=== PATIENT | female | born 1955 | race Caucasian/White ===

== ENCOUNTER → 2019-02-20 | Outpatient (CLI) | payer OTHER ==
--- NOTE | 2019-02-20 14:50 | MM ---
Reason for exam: screening (asymptomatic). Last mammogram was performed 1 year and 1 month ago. History: Family history of breast cancer in maternal aunt. Physical Findings: A clinical breast exam by your physician is recommended on an annual basis and results should be correlated with mammographic findings. MG Screening Mammo w CAD Bilateral CC and MLO view(s) were taken. XCCL view(s) were taken of the left breast. Prior study comparison: January 07, 2018, mammogram. December 27, 2016, mammogram. There are scattered fibroglandular densities. There is no discrete abnormality. ASSESSMENT: Negative, BI-RAD 1 RECOMMENDATION: Routine screening mammogram of both breasts in 1 year.
== END ==
LOC: RADMAMWWP 12:20
PROVIDERS: ATTEND Family Medicine
DX: Z12.31 Encounter for screening mammogram for malignant neoplasm of breast (principal)
CPT/HCPCS: 77067

== ENCOUNTER → 2021-06-28 | Outpatient (CLI) | payer MEDICARE, OTHER ==
--- NOTE | 2021-06-28 18:26 | CT ---
EXAMINATION TYPE: CT soft tissue neck wo con DATE OF EXAM: 06/28/2021 COMPARISON: None HISTORY: c/o changes in voice CT DLP: 376.8 mGycm CONTRAST: Patient injected with 0 mL of Isovue 300. TECHNIQUE: Axial images at 3 mm thick sections. Reconstructed images in the coronal plane and sagitt al plane are reviewed. FINDINGS: Limited CT sections are obtained the lung apices. The lung apices appear clear. CT neck: The torus tubarius and fossa of Rosenmuller are normal. Fiber Product Cutting Machine Operator spaces are normal. Para nasal sinuses and mastoid air cells are clear. Parotid glands appear normal and symmetrical. Submandibular glands, are normal. Parapharyngeal spac es are normal. No suspicious adenopathy is evident. The hypopharynx appears within normal limits. Vocal cord level appear closed at the time of this examination. Direct visualization may be useful. Thyroid as visualized is normal. Degenerative changes are present through the cervical spine. There is mild narrowing of the disc heig hts through the cervical spine. Vertebral body heights are preserved. IMPRESSIONS: 1. No suspicious etiology to account for change in voice. Vocal cords cannot be well evaluated been c losed at the time of this examination. Consider direct visualization.
== END | disposition home or self-care (01) ==
LOC: RADCTMAIN 14:38
PROVIDERS: ATTEND Otolaryngology Otolaryngology/Facial Plastic Surgery
DX: R49.9 Unspecified voice and resonance disorder (principal)
CPT/HCPCS: 70490

== ENCOUNTER 2023-12-24 14:11 | Inpatient (IN) | payer MEDICARE, OTHER ==
--- NOTE | 2023-12-24 14:40 | ED ---
General Adult HPI - General Chief complaint: Chest Pain Stated complaint: Chest pain Time Seen by Provider: 12/24/23 14:12 Source: patient, EMS Mode of arrival: EMS Limitations: no limitations - History of Present Illness Initial comments: Patient is a pleasant 68-year-old female present to the emergency department with concerns for chest pain. Daughter had not heard from the patient recently and she went to check on her. Patient is complaining of chest pain for the past 3 days, somewhat severe. Discomfort feels like pressure. Patient does feel somewhat short of breath. Patient does have history of COPD as well. No leg pain or leg swelling. No back pain - Related Data Allergies Allergy/AdvReac Type Severity Reaction Status Date / Time Penicillins Allergy Anaphylaxis Verified 12/24/23 14:35 Sulfa (Sulfonamide Allergy Anaphylaxis Verified 12/24/23 14:35 Antibiotics) Review of Systems ROS Statement: Those systems with pertinent positive or pertinent negative responses have been documented in the HPI. ROS Other: All systems not noted in ROS Statement are negative. Constitutional: Denies: fever Eyes: Denies: eye pain ENT: Denies: ear pain Respiratory: Reports: as per HPI, dyspnea Cardiovascular: Reports: as per HPI, chest pain Endocrine: Reports: fatigue Gastrointestinal: Reports: vomiting Musculoskeletal: Denies: back pain Neurological: Denies: headache Past Medical History Past Medical History: No Reported History History of Any Multi-Drug Resistant Organisms: None Reported Past Surgical History: No Surgical Hx Reported Past Psychological History: No Psychological Hx Reported Smoking Status: Current every day smoker Past Alcohol Use History: Daily Past Drug Use History: None Reported General Exam Limitations: no limitations, altered mental status General appearance: alert Head exam: Present: normocephalic Eye exam: Present: normal appearance Neck exam: Present: normal inspection Respiratory exam: Present: respiratory distress, wheezes Cardiovascular Exam: Present: regular rate, normal rhythm Expanded Peripheral pulses: 2+: Radial (R), Radial (L), Dorsalis Pedis (R), Dorsalis Pedis (L) GI/Abdominal exam: Present: soft. Absent: tenderness Extremities exam: Present: normal inspection. Absent: pedal edema, calf tenderness Neurological exam: Present: alert Expanded Neurological exam: Present: protecting the airway Patient oriented to: Present: person, place. Absent: time (Oriented to month, not year) Speech: Present: fluid speech Cranial nerves: EOM's Intact: Normal Sensory exam: Upper Extremity Light Touch: Normal, Lower Extremity Light Touch: Normal Motor strength exam: RUE: 5, LUE: 5, RLE: 5, LLE: 5 Eye Response: (4) open spontaneously Motor Response: (6) obeys commands Verbal Response: (4) confused conversation Psychiatric exam: Present: normal affect, normal mood Skin exam: Present: normal color Course Vital Signs 12/24/23 12/24/23 14:27 14:50 Temperature 98.4 F Pulse Rate 93 96 Respiratory 30 H 20 Rate Blood Pressure 151/76 O2 Sat by Pulse 78 L Oximetry - Reevaluation(s) Reevaluation #1: 12/24/23 14:41 Case was discussed with Dr. Lu who is coming to evaluate Repeat EKG interpreted by myself shows sinus rhythm with a rate of 93. SD 130. QRS 91. QT 373. QTc 423. Normal axis. Normal QRS. ST elevation aVR. ST depression inferior and lateral. 12/24/23 14:[address] Lu and STEMI alert was activated. EKG Findings - EKG Results: EKG: interpreted by ERMD (ST elevation aVR. Inferior and lateral ST depression.), sinus rhythm, normal axis Medical Decision Making - Medical Decision Making Was pt. sent in by a medical professional or institution (Dr. PA, SALES PRODUCT SPECIALIST, urgent care, hospital, or skilled nursing...) When possible be specific @ -No Did you speak to anyone other than the patient for history (EMS, parent, family, police, friend...)? What history was obtained from this source @ -Daughter is present and helps provide history including concerns for patient not responding to her in the last 2 days. Did you review nursing and triage notes (agree or disagree)? Why? @ -I reviewed and agree with nursing and triage notes Were old charts reviewed (outside hosp., previous admission, EMS record, old EKG, old radiological studies, urgent care reports/EKG's, skilled nursing records)? Report findings @ -No old charts are available Differential Diagnosis (chest pain, altered mental status, abdominal pain women, abdominal pain men, vaginal bleeding, weakness, fever, dyspnea, syncope, headache, dizziness, GI bleed, back pain, seizure, CVA, palpatations, mental health, musculoskeletal)? @ -Differential Chest Pain: Stable Angina, Unstable Angina, STEMI, NSTEMI Aortic Dissection, Pneumothorax, Musculoskeletal, Esophageal Spasm GERD, Cholecystitis, Pancreatitis, Zoster, this is not meant to be an all-inclusive list. EKG interpreted by me (3pts min.). @ -As above X-rays interpreted by me (1pt min.). @ -Chest x-ray shows no acute process CT interpreted by me (1pt min.). @ -None done U/S interpreted by me (1pt. min.). @ -None done What testing was considered but not performed or refused? (CT, X-rays, U/S, labs)? Why? @ -Multiple tests ordered however patient is currently going to the Word Processor Operator. What meds were considered but not given or refused? Why? @ -None Did you discuss the management of the patient with other professionals (professionals i.e. , PA, SALES PRODUCT SPECIALIST, lab, RT, psych nurse, social worker school, oracle brm developer, teacher, hospital chief financial officer, child support case officer)? Give summary @ -Case was discussed with cardiology, Dr. Lu with plans to take patient emergently to the Word Processor Operator. Case also discussed with Dr. Milligan, who will admit. Was smoking cessation discussed for >3mins.? @ -No Was critical care preformed (if so, how long)? @ -31 minutes critical care time Were there social determinants of health that impacted care today? How? (Homelessness, low income, unemployed, alcoholism, drug addiction, transportati on, low edu. Level, literacy, decrease access to med. care, fci, rehab)? @ -No Was there de-escalation of care discussed even if they declined (Discuss DNR or withdrawal of care, Hospice)? DNR status @ -No What co-morbidities impacted this encounter? (DM, HTN, Smoking, COPD, CAD, Cancer, CVA, ARF, Chemo, Hep., AIDS, mental health diagnosis, sleep apnea, morbid obesity)? @ -None Was patient admitted / discharged? Hospital course, mention meds given and route, prescriptions, significant lab abnormalities, going to OR and other pertinent info. @ -Patient presents with chief complaint of chest discomfort, severe, pressure. Patient has associated dyspnea and nausea. EKG changes concerning for STEMI. Patient admitted immediately to Word Processor Operator. Case also discussed with Dr. Goel who will admit covering Dr. Hansen. t Undiagnosed new problem with uncertain prognosis? @ -No Drug Therapy requiring intensive monitoring for toxicity (Heparin, Nitro, Insulin, Cardizem)? @ -No Were any procedures done? @ -No Diagnosis/symptom? @ -STEMI Acute, or Chronic, or Acute on Chronic? @ -Acute Uncomplicated (without systemic symptoms) or Complicated (systemic symptoms)? @ -Default Side effects of treatment? @ -No Exacerbation, Progression, or Severe Exacerbation? @ -No Poses a threat to life or bodily function? How? (Chest pain, [place], [place], pneumonia, PE, COPD, DKA, ARF, appy, cholecystitis, CVA, Diverticulitis, Homicidal, Suicidal, threat to staff... and all critical care pts) @ -Potential threat to cardiac function as well as other disease processes yet to be identified - Lab Data Result diagrams: 12/24/23 14:24 Lab Results 12/24/23 Range/Units 14:24 WBC 11.5 H (3.8-10.6) k/uL RBC 5.70 H (3.80-5.40) m/uL Hgb 17.1 H (11.4-16.0) gm/dL Hct 49.2 H (34.0-46.0) % MCV 86.3 (80.0-100.0) fL MCH 30.0 (25.0-35.0) pg MCHC 34.8 (31.0-37.0) g/dL RDW 13.1 (11.5-15.5) % Plt Count 331 (150-450) k/uL MPV 10.1 Neutrophils % 74 % Lymphocytes % 10 % Monocytes % 12 % Eosinophils % 0 % Basophils % 0 % Neutrophils # 8.5 H (1.3-7.7) k/uL Lymphocytes # 1.1 (1.0-4.8) k/uL Monocytes # 1.3 H (0-1.0) k/uL Eosinophils # 0.0 (0-0.7) k/uL Basophils # 0.0 (0-0.2) k/uL Critical Care Time Critical Care Time: Yes Total Critical Care Time: 31 Disposition Clinical Impression: ST elevation myocardial infarction (STEMI) Disposition: ADMITTED IP TO THIS [facility] Condition: Critical Is patient prescribed a controlled substance at d/c from ED?: No Referrals: Lucy Hansen MD [Primary Care Provider] - 1-2 days Time of Disposition: 14:58
[2023-12-24 14:44] LABS: ALT 76 U/L (4-34); AST 97 U/L (14-36); African American GFR (CKD) >90 (>60 ml/min/1.73 sqM); Albumin 4.5 g/dL (3.5-5.0); Alcohol <10 mg/dL; Alkaline Phosphatase 62 U/L (38-126); Blood Urea Nitrogen 63 mg/dL (7-17); Calcium 8.6 mg/dL (8.4-10.2); Creatine Kinase 730 U/L (30-135); Glucose 127 mg/dL (74-99); Non-African American GFR(CKD) 80 (>60 ml/min/1.73 sqM); Sodium 125 mmol/L (137-145); Total Bilirubin 1.7 mg/dL (0.2-1.3); Total Protein 7.5 g/dL (6.3-8.2)
[2023-12-24] MEDS ORDERED: HEPARIN SODIUM 1,000 UN/ML (10ML VL) IV PRN (14:49)
[2023-12-24 14:50] LABS: Anion Gap 17 mmol/L; Carbon Dioxide 39 mmol/L (22-30)
[2023-12-24] MEDS: IPRATROPIUM-ALBUTEROL 3 ML NEB INHALATION STA ×2 (14:50→17:05)
[2023-12-24] MEDS: HEPARIN SODIUM 1,000 UN/ML (10ML VL) IV ONE (14:51)
[2023-12-24 14:52] LABS: Basophils % (A) 0 %; Eosinophils % (A) 0 %; HCT 49.2 % (34.0-46.0); HGB 17.1 gm/dL (11.4-16.0); Lymphocytes # (A) 1.1 k/uL (1.0-4.8); Lymphocytes % (A) 10 %; MCHC 34.8 g/dL (31.0-37.0); MCV 86.3 fL (80.0-100.0); Mean Platelet Volume 10.1; Monocytes # (A) 1.3 k/uL (0-1.0); Monocytes % (A) 12 %; Neutrophils # (A) 8.5 k/uL (1.3-7.7); Neutrophils % (A) 74 %; Platelet Count 331 k/uL (150-450); Potassium 2.4 mmol/L (3.5-5.1); RDW 13.1 % (11.5-15.5); WBC 11.5 k/uL (3.8-10.6)
[2023-12-24] MEDS ORDERED: LIDOCAINE 1% INJ 10MG/ML (20 ML MDV) ONE (14:53)
[2023-12-24] MEDS ORDERED: HEPARIN SODIUM 1,000 UN/ML (10ML VL) ONE (14:53)
[2023-12-24] MEDS ORDERED: VERAPAMIL 2.5 MG/ML 2 ML AMP ONE (14:53)
[2023-12-24 14:56] LABS: Chloride 69 mmol/L (98-107)
[2023-12-24 15:04] LABS: Appearance,Urine Clear (Clear); Bilirubin,Urine Negative (Negative); Blood,Urine Small (Negative); Color,Urine Colorless; Glucose,Urine (UA) Negative (Negative); Ketones,Urine 2+ (Negative); Leukocyte Esterase,Urine Negative (Negative); Mucus,Urine Rare /hpf; Nitrite,Urine Negative (Negative); PH, Urine 5.5 (5.0-8.0); Protein,Urine 1+ (Negative); RBC,Urine <1 /hpf (0-5); Specific Gravity,Urine 1.013 (1.001-1.035); Urobilinogen,Urine <2.0 mg/dL (<2.0); WBC,Urine 2 /hpf (0-5)
--- NOTE | 2023-12-24 15:04 | XR ---
EXAMINATION TYPE: XR chest 1V portable DATE OF EXAM: 12/24/2023 COMPARISON: NONE HISTORY: Difficulty breathing. TECHNIQUE: Single frontal view of the chest is obtained. FINDINGS: There is no focal air space opacity, pleural effusion, or pneumothorax seen. The cardiac silhouette size is within normal limits. The osseous structures are intact. IMPRESSION: No acute process.
--- NOTE | 2023-12-24 15:10 | P.CRDCN ---
History of Present Illness Consult date: 12/24/23 History of present illness: HISTORY OF PRESENTING ILLNESS 68-year-old female with past medical history of smoking, marijuana use and chronic back pain. Patient had a wellness check at home where she was noticed to be obtunded, complaining of chest heaviness and shortness of breath. Due to this she was presented to the hospital. Upon admission to the ER she was noti manny to be hypoxic with oxygen saturation 80%. Patient reported that she was feeling well until yesterday. She has been having the symptoms from late morning today. She had an ECG performed which showed sinus tachycardia with diffuse ST depressions in all precordial leads and ST elevations in aVR. Patient was complaining of active chest pain. Bedside echocardiogram was performed which showed hyperdynamic LV. RV did not look dilated. Her initial labs showed a troponin of 0.103, CK7 30, creatinine 0.7, potassium 2.4, chloride 69, bicarb 39, sodium 125. Urinary ketones were positive PMH: No past medical history of stroke, malignancy. PSH: Hysterectomy, Social history: Smokes 1 packs/day, smokes marijuana. No heavy alcohol REVIEW OF SYSTEMS 14 point review of system is negative except what is mentioned above in HPI. PHYSICAL EXAMINATION Vital signs reviewed. Head: Normocephalic. Eyes: Sclerae nonicteric. Neck: Brisk carotid upstroke, no jugular venous distention. Lungs: Diminished breath sounds in bilateral lung galvan, mild crackles and rhonchi audible. Heart: Regular rate and rhythm, S1-S2, no S3, no murmur or rub. Abdomen: Soft nontender, positive bowel sounds. Extremities: No edema, intact distal pulses. Neuro: Alert, oritented, no focal deficits. Detailed neuro exam was not performed. ASSESSMENT STEMI, ST elevation in aVR, diffuse ST depressions in other precordial leads Substernal chest pain Elevated troponin 0.103 Hyponatremia, hypokalemia, hypochloride, mildly elevated CPK, urinary ketosis, hyperdynamic LV suggestive of dehydration PLAN 4000 units of IV heparin, aspirin 325 mg, 500 cc fluid bolus, 10 mg KCl, 4 mg Zofran Plan for emergent cardiac catheterization Further recommendations to follow Neil Lu MD, FACC, RPVI Thank you for allowing [facility] to participate in this patient's care. Feel free to reach out in case of any followup questions. Past Medical History Past Medical History: No Reported History History of Any Multi-Drug Resistant Organisms: None Reported Past Surgical History: No Surgical Hx Reported Past Psychological History: No Psychological Hx Reported Smoking Status: Current every day smoker Past Alcohol Use History: Daily Past Drug Use History: None Reported Medications and Allergies Allergies Allergy/AdvReac Type Severity Reaction Status Date / Time Penicillins Allergy Anaphylaxis Verified 12/24/23 14:35 Sulfa (Sulfonamide Allergy Anaphylaxis Verified 12/24/23 14:35 Antibiotics) Physical Exam Vitals: Vital Signs Temp Pulse Resp BP Pulse Ox 12/24/23 14:55 102 H 22 12/24/23 14:50 96 20 12/24/23 14:27 98.4 F 93 30 H 151/76 78 L Intake and Output 12/24/23 12/24/23 12/24/23 06:59 14:59 22:59 Other: Weight 65.771 kg Results 12/24/23 14:24 12/24/23 14:24 Cardiac Enzymes 12/24/23 12/24/23 Range/Units 14:24 14:24 AST 97 H (14-36) U/L Troponin I 0.103 H* (0.000-0.034) ng/mL CBC 12/24/23 Range/Units 14:24 WBC 11.5 H (3.8-10.6) k/uL RBC 5.70 H (3.80-5.40) m/uL Hgb 17.1 H (11.4-16.0) gm/dL Hct 49.2 H (34.0-46.0) % Plt Count 331 (150-450) k/uL Comprehensive Metabolic Panel 12/24/23 Range/Units 14:24 Sodium 125 L (137-145) mmol/L Potassium 2.4 L* (3.5-5.1) mmol/L Chloride 69 L* (98-107) mmol/L Carbon Dioxide 39 H (22-30) mmol/L BUN 63 H (7-17) mg/dL Creatinine 0.77 (0.52-1.04) mg/dL Glucose 127 H (74-99) mg/dL Calcium 8.6 (8.4-10.2) mg/dL AST 97 H (14-36) U/L ALT 76 H (4-34) U/L Alkaline Phosphatase 62 (38-126) U/L Total Protein 7.5 (6.3-8.2) g/dL Albumin 4.5 (3.5-5.0) g/dL Current Medications Generic Name Dose Route Start Last Admin Trade Name Freq PRN Reason Stop Dose Admin Heparin Sodium (Porcine) 0 unit 12/24/23 14:49 Heparin Sodium 1,000 Un/Ml (10ml Vl) IV PER PROTOCOL PRN Low PTT Protocol Heparin Sodium/Sodium Chloride 250 mls @ 7.893 mls/hr 12/24/23 15:00 25,000 unit/ Sodium Chloride IV .Q24H DOMINGO Protocol 12 UNITS/KG/HR Potassium Chloride 10 meq/ IV 100 mls @ 100 mls/hr 12/24/23 14:57 Solution IVPB 12/24/23 15:56 ONCE STA Sodium Chloride 500 mls @ 999 mls/hr 12/24/23 14:58 Saline 0.9% IV 12/24/23 15:28 .Q31M ONE Intake and Output 12/24/23 12/24/23 12/24/23 06:59 14:59 22:59 Other: Weight 65.771 kg Patient Weight 12/25/23 06:59 Weight 65.771 kg 12/24/23 14:24 12/24/23 14:24
[2023-12-24] MEDS ORDERED: fentaNYL (PF) 50 MCG/ML 2 ML AMP ONE (15:15)
[2023-12-24] MEDS: LIDOCAINE 1% INJ 10MG/ML (20 ML MDV) SQ ONE (15:17)
[2023-12-24] MEDS: MIDAZOLAM 2 MG/2 ML VIAL IVP ONE (15:17)
[2023-12-24] MEDS: fentaNYL (PF) 50 MCG/ML 2 ML AMP IVP ONE (15:18)
[2023-12-24 15:26] LABS: Amphetamine Screen,Urine Not Detected (NotDetected); Barbiturate Screen,Urine Not Detected (NotDetected); Benzodiazepines Screen,Urine Not Detected (NotDetected); Cocaine Screen,Urine Not Detected (NotDetected); Methadone Screen, Urine Not Detected (NotDetected); Opiate Screen,Urine Not Detected (NotDetected); Oxycodone Screen, Urine Not Detected (NotDetected); Phencyclidine Screen,Urine Not Detected (NotDetected); Tricyclic Antidepressant,Urine Not Detected (NotDetected); Urn Cannabinoid Scrn Detected (NotDetected)
[2023-12-24] MEDS: ONDANSETRON 4 MG/2 ML VIAL IVP ONE (15:27)
[2023-12-24] MEDS: VERAPAMIL SYRINGE (5 MG/10 ML) INTRAARTER ONE (15:28)
[2023-12-24] MEDS: IOPAMIDOL-370 100ML BTL INJ ONE (15:28)
[2023-12-24] MEDS: SODIUM CHLORIDE 0.9% 1,000 ML IV ONE (15:29)
[2023-12-24 15:30] LABS: NT-Pro-B-Type Natriuretic Pept 904 pg/mL
[2023-12-24] MEDS ORDERED: RX INFO: IV CONTRAST WAS GIVEN 1 EACH MISC MISCELLANE PRN (15:35)
--- NOTE | 2023-12-24 15:41 | P.CARDCATH ---
Date of Procedure: 12/24/23 Description of Procedure: DIAGNOSTIC CORONARY ANGIOGRAPHY and LEFT HEART CATH REPORT PROCEDURES PERFORMED: Left heart catheterization Selective coronary angiography Moderate conscious sedation 14 mins Right radial access INDICATION: STEMI 68-year-old female with no prior cardiovascular history. She is a smoker and marijuana user and has chronic back pain. She was found to have significant weakness and substernal chest pressure and shortness of breath this morning for which she was presented to the ER. On initial presentation she had electrolyte abnormalities with hyponatremia hypokalemia and low chloride. Along with that she had mildly elevated CPK at 700 and mildly elevated troponin. Her ECG was concerning for STEMI with ST elevations in aVR with diffuse ST depressions in all other precordial leads. Because of ST elevations in aVR and substernal chest pressure symptoms she was taken to cardiac catheterization emergently. CONSENT: I have explained the procedural steps of above-mentioned procedures in layman's terms to the patient. I discussed the risks (including but not limited to stroke, emergent vascular or cardiac surgery or ), benefits and alternative therapies for the above-mentioned procedure. I discussed the risks of sedation/analgesia and blood product administration (if indicated). The patient has indicated understanding and acceptance of these risks. Conscious Sedation: Patient's ECG, heart rate, blood pressure, pulse oximetry were monitored throughout the duration of procedure under my direct supervision. 1 mg Versed and [50] mg Fentanyl were used for induction of moderate conscious sedation. Total duration of moderate concious sedation 14 minutes. PROCEDURE: After explaining the risks, benefits and alternatives of the above mentioned procedures in detail to the patient, informed consent was obtained. Patient was taken to the catheterization lab, prepped and draped in usual sterile fashion using universal precuations. Barbow and clovis test were performed to confirm adequate perfusion to fingers. Ultrasound was used to identify the radial artery. 1% lidocaine was infiltrated over the right radial artery. A 6-Yakut sheath was placed and secured in the right radial artery using modified Seldinger technique. The sheath was flushed and 5 mg verapamil was administered intra-arterially. J tipped wire was advanced under fluoroscopic guidance. Once the wire tip reached aortic root 4000 units of IV heparin was given. Over the wire JR4 diagnostic catheter was advanced. The wire in place the catheter was manipulated to cross the aortic valve and entered into LV under fluoroscopy guidance. The wire was removed and the catheter was flushed. LV pressures were obtained and pullback was performed under fluoroscopy. Catheter was manipulated to selectively engage the right coronary ostium. Right coronary angiography was performed in different angiographic projections. The JR4 diagnostic catheter was exchanged for a JL 4 diagnostic catheter over the J-wire. The wire was removed, catheter was flushed and manipulated under fl uoroscopy to selectively engaged the left coronary ostium. Left coronary angioplasty was performed in different angiographic projections. Catheter was removed over the wire. Radial sheath was flushed. The right radial sheath was removed and a TR band was placed with excellent patent hemostasis was achieved. The patient tolerated the procedure well. Patient was transported back to the post catheterization holding area in stable condition. Angiographic images were reviewed in detail. HEMODYNAMICS: Aortic Pressure: 120/70 mmHg. LV pressure: 120/8 mmHg. LVEDP 10 mmHg. There was no significant gradient across the aortic valve. SELECTIVE CORONARY ARTERIOGRAPHY: LEFT MAIN: The left main is a large caliber vessel which bifurcates into the LAD and circumflex. Left main appears angiographically normal. LEFT ANTERIOR DESCENDING CORONARY ARTERY: LAD is a large caliber vessel which wraps around to the apex. Proximal LAD appears angiographically normal. Mid LAD appears angiographically normal. Distal LAD appears angiographically normal. LAD gives 3 small diagonal branches which appears angiographically normal. LEFT CIRCUMFLEX CORONARY ARTERY: It is nondominant vessel. Left circumflex is a moderate caliber vessel. It appears angiographically normal. Distally bifurcates into 2 OM branches which appears angiographically normal. RIGHT CORONARY ARTERY: Dominant vessel. The right coronary artery is a large caliber vessel which gives PDA and PLV branch. It appears angiographically normal. IMPRESSION: Angiographically normal coronary arteries as described above. Normal left sided filling pressures 60 cc IV contrast dye used PLAN: Plan for CT angio to rule out pulmonary embolism 1000 cc normal saline bolus 40 mg KCL Check for lipids, HbA1c, magnesium level, TSH levels Obtain an echocardiogram Replace electrolytes Performing Physician Neil Lu MD, FACC, RPVI Thank you for allowing [facility] to participate in this patient's care. Feel free to reach out in case of any followup questions.
[2023-12-24 17:14] LABS: Glucose,Whole Blood 115 mg/dL (70-110)
[2023-12-24] MEDS: POTASSIUM CHLORIDE ER 20 MEQ TAB.ER PO STA (17:33)
[2023-12-24] MEDS: PANTOPRAZOLE 40 MG TABLET PO STA (17:33)
--- NOTE | 2023-12-24 17:41 | CT ---
EXAMINATION TYPE: CT angio chest CT DLP: 397.40 mGycm, Automated exposure control for dose reduction was used. DATE OF EXAM: 12/24/2023 5:15 PM COMPARISON: Chest radiograph from same day. CLINICAL INDICATION:Female, 68 years old with history of Pulmonary embolism; chest pain/cough TECHNIQUE/CONTRAST: CTA scan of the thorax is performed with IV Contrast, patient injected with 100 ml mL of Isovue 300, MIP images are created and reviewed these are created on a separate workstation.. FINDINGS: Pulmonary Artery: There is no evidence for a filling defect within the pulmonary vasculature to sugge st acute pulmonary embolism. The pulmonary artery is of normal size. Lungs/Pleura: No evidence of focal consolidation, pleural effusion or pneumothorax. Airway: Large airways are patent. Heart: Heart is within normal limits for size. Vasculature: No evidence of aortic aneurysm. Mediastinum: No gross evidence of adenopathy. Musculoskeletal: No acute osseous abnormalities Soft Tissues: Unremarkable. Lower neck: No significant findings. Upper Abdomen: No significant findings. IMPRESSION: No evidence of pulmonary embolism.
[2023-12-24] MEDS: SODIUM CHLORIDE 0.9% 500 ML 500 ML IV ONE (17:43)
--- NOTE | 2023-12-24 17:46 | CT ---
EXAMINATION TYPE: CT brain wo con CT DLP: 1145.10 mGycm, Automated exposure control for dose reduction was used. DATE OF EXAM: 12/24/2023 5:14 PM COMPARISON: None. CLINICAL INDICATION:Female, 68 years old with history of Altered mental status, mental status change TECHNIQUE: Brain: Axial CT images of the brain were obtained with coronal and sagittal reformats created and rev iewed. Contrast used: None. Oral contrast used: None. FINDINGS: Brain: Extra-axial spaces: No abnormal extra-axial fluid collections. Ventricular system: Within normal limits Cerebral parenchyma: No acute intraparenchymal hemorrhage or mass effect. The suarez-white junction is well differentiated. Cerebellum: Unremarkable. Mass effect: No evidence of midline shift. Intracranial vasculature: unremarkable Soft tissues: Normal. Calvarium/osseous structures: No depressed skull fracture. Paranasal sinuses and mastoid air cells: Mild scattered paranasal sinus disease. Visualized orbits: Orbital contents are intact. IMPRESSION: No acute intracranial process.
[2023-12-24] MEDS: SODIUM CHLORIDE 0.9% 1,000 ML IV SCH (18:01)
[2023-12-24] MEDS: methylPREDNISolone SOD SUCCI 125 MG/2 ML VIAL IV STA ×2 (18:39→23:33)
[2023-12-24] MEDS: SODIUM CHLORIDE 0.9% 1,000 ML IV STA (18:40)
[2023-12-24] MEDS: POTASSIUM CHLORIDE 10 MEQ in WATER FOR INJECTION 1 100ML.BAG IVPB STA (18:43)
[2023-12-24] MEDS: ONDANSETRON 4 MG/2 ML VIAL IVP STA (18:43)
[2023-12-24] MEDS: AZITHROMYCIN 500 MG in SODIUM CHLORIDE 0.9% 250 ML IVPB SCH (18:59)
[2023-12-24] MEDS: ASPIRIN 81 MG PO STA (19:00)
[2023-12-24 19:15] LABS: Partial Thromboplastin Time 24.5 sec (22.0-30.0)
[2023-12-24] MEDS: SYMBICORT 80-4.5 MCG INHALER INHALATION SCH (20:07)
[2023-12-24] MEDS: IPRATROPIUM-ALBUTEROL 3 ML NEB INHALATION SCH (20:08)
--- NOTE | 2023-12-24 20:42 | XR ---
EXAMINATION TYPE: XR chest 1V portable DATE OF EXAM: 12/24/2023 8:36 PM CLINICAL INDICATION:Female, 68 years old with history of increased o2 needs; H COMPARISON: Chest radiographs from 12/24/2023 TECHNIQUE: XR chest 1V portable Frontal view of the chest. FINDINGS: Lungs/Pleura: There is no evidence of pleural effusion, focal consolidation, or pneumothorax. Pulmonary vascularity: Unremarkable. Heart/mediastinum: Cardiomediastinal silhouette is unremarkable. Musculoskeletal: No acute osseous pathology. IMPRESSION: No acute cardiopulmonary disease/process.
[2023-12-24 20:50] LABS: ABG Base Excess 19.9 mmol/L; ABG Oxygen Saturation 87.1 % (94-97); ABG PCO2 53 mmHg (35-45); ABG PH 7.52 (7.35-7.45); ABG TCO2 45 mmol/L (19-24); Allen Test Performed? Yes
[2023-12-24 20:54] LABS: ABG HCO3 43 mmol/L (21-25); ABG PO2 52 mmHg (83-108)
[2023-12-24] MEDS: ATORVASTATIN 10 MG TAB PO SCH (21:25)
[2023-12-24] MEDS: GABAPENTIN 400 MG CAP PO SCH (21:25)
[2023-12-24] MEDS: DOXEPIN 10 MG CAP PO SCH (21:25)
[2023-12-24 22:10] LABS: African American GFR (CKD) 65 (>60 ml/min/1.73 sqM); Anion Gap 13 mmol/L; Blood Urea Nitrogen 41 mg/dL (7-17); Calcium 8.1 mg/dL (8.4-10.2); Carbon Dioxide 38 mmol/L (22-30); Chloride 77 mmol/L (98-107); Glucose 125 mg/dL (74-99); Non-African American GFR(CKD) 56 (>60 ml/min/1.73 sqM); Sodium 128 mmol/L (137-145)
[2023-12-24 22:12] LABS: Potassium 2.4 mmol/L (3.5-5.1)
[2023-12-24] MEDS: POTASSIUM CHLORIDE 10 MEQ in WATER FOR INJECTION 1 100ML.BAG IVPB SCH (23:03)
--- NOTE | 2023-12-25 01:56 | P.CNPUL ---
History of Present Illness Consult date: 12/25/23 Requesting physician: Enrrique Moser Reason for consult: dyspnea Chief complaint: Chest pain and shortness of breath History of present illness: I am seeing this patient in new consultation today on 12/25/2023 in the intensive care unit. The patient was transferred to the ICU after a heart catheterization for acute hypoxemic respiratory failure and increased oxygen demands. Patient is a 68-year-old white female with past medical history significant for COPD, current ongoing every day smoker, hyperlipidemia, hypothyroidism, chronic back pain. She smokes roughly 1 pack per day. Her primary care provider is Dr. Hansen. Patient had reportedly not been answering her phone for several days, so her daughter went to check on her at home. She reportedly was acting abnormal and confused and found naked. The patient does not recall this. After being brought to the emergency room yesterday afternoon, she was complaining of substernal chest pain that had been ongoing for the last 3 days. This is localized to the substernal area, she denies any radiation. Occurs mostly with coughing. Is associated with shortness of breath, wheezing, and productive cough. Troponins were elevated on arrival and patient had some isolated ST elevation in lead aVR, along with diffuse/generalized ST depression. She was also noted to be hypoxic. Patient was taken for a heart catheterization yeterday afternoon which revealed angiographically normal coronary arteries and left- sided filling pressures. No significant calcifications or coronary thrombus reported. D-dimer was also elevated, and for this reason the patient was sent for a chest CTA which did not show any evidence of pulmonary embolism. While in the intensive care unit, the patient had increased oxygen and was placed on BiPAP settings 12/6 and FiO2 50%. She is currently resting comfortably in bed, on BiPAP with the above-mentioned settings, in no acute respiratory distress. She is achieving tidal volumes of approximately 400 and her respiratory rate is in the mid 20s. She does have a congested cough and wheezing. Occasional has dif ficulty clearing oral secretions. Denies any fevers at home. She is currently alert and oriented. No signs of hypercapnic encephalopathy. ABGs were obtained earlier and consistent with combined hypoxemic and hypercapnic respiratory failure. She has a component of compensatory metabolic alkalosis and was given a dose of Diamox. CBC on arrival: WBC count 11.5, hemoglobin 17.1, hematocrit 49.2, platelets 331. BMP on arrival: Sodium 128, potassium 2.4, chloride 77, serum bicarb 38, BUN 41, creatinine 1.03, glucose 125. Normal saline is infusing at 75 mL per hour. LFTs mildly elevated. NT proBNP 764. Troponin on arrival 1.03. D-dimer had been elevated at 1.89. Urinalysis not concerning for UTI. Negative for influenza, RSV, COVID-19. Chest x-ray did not show any focal infiltrates or evidence of pneumonia. No acute cardiopulmonary process seen. Patient was covered empirically on a combination of azithromycin and Rocephin. She is afebrile. Vital signs are stable. Review of Systems REVIEW OF SYSTEMS: CONSTITUTIONAL: Denies any recent significant weight loss or weight gain. Denies fevers. EYES: Denies change in vision. EARS, NOSE, MOUTH, THROAT: Denies headaches, denies sore throat. CARDIOVASCULAR: Denies chest pain, palpitations or syncopal episodes. RESPIRATORY: Admits shortness of breath, worsening over the last 3 days, associated congested cough previously productive with clear sputum, wheezing and chest tightness. GASTROINTESTINAL: Admits reduced appetite, some self-limiting nausea and vomiting, and episodes of diarrhea over the last week. Denies any abdominal pain. Denies any franklin blood or melena. Denies any hematemesis. GENITOURINARY: Denies hematuria, denies infections. MUSKULOSKELETAL: Denies pain, denies swelling. INTEGUMENTARY: Denies rash, denies eczema. NEUROLOGICAL: Denies recent memory loss, no recent seizure activity. PSYCHIATRIC: Denies anxiety, denies depression. HEMATOLOGIC/LYMPHATIC: Denies anemia, denies enlarged lymph node Past Medical History Past Medical History: No Reported History History of Any Multi-Drug Resistant Organisms: None Reported Past Surgical History: No Surgical Hx Reported Past Psychological History: No Psychological Hx Reported Smoking Status: Current every day smoker Past Alcohol Use History: Daily Past Drug Use History: None Reported Medications and Allergies Home Medications Medication Instructions Recorded Confirmed Type Cholecalciferol (Vitamin D3) 50 mcg PO DAILY 12/24/23 12/24/23 History [Vitamin D3 (50 Mcg = 2000 Iu)] Cyanocobalamin [Vitamin B-12] 500 mcg PO DAILY 12/24/23 12/24/23 History Doxepin [SINEquan] 10 mg PO HS 12/24/23 12/24/23 History Escitalopram [Lexapro] 30 mg PO DAILY 12/24/23 12/24/23 History Fluticasone Propion/Salmeterol 2 puff INHALATION RT-BID 12/24/23 12/24/23 History [Advair Hfa 230-21 Mcg Inhaler] Gabapentin [Neurontin] 400 mg PO TID 12/24/23 12/24/23 History Levothyroxine Sodium [Synthroid] 50 mcg PO DAILY 12/24/23 12/24/23 History Naproxen [Naprosyn] 375 mg PO BID-W/MEALS PRN 12/24/23 12/24/23 History Bze-Tqsl-Cjxqt Acid 1 cap PO DAILY 12/24/23 12/24/23 History [-U Capsule (formulary)] Simvastatin [Zocor] 20 mg PO HS 12/24/23 12/24/23 History buPROPion XL [Wellbutrin XL] 300 mg PO DAILY 12/24/23 12/24/23 History rOPINIRole HCL [Requip] 1 mg PO TID 12/24/23 12/24/23 History Allergies Allergy/AdvReac Type Severity Reaction Status Date / Time Penicillins Allergy Anaphylaxis Verified 12/24/23 18:03 Sulfa (Sulfonamide Allergy Anaphylaxis Verified 12/24/23 18:03 Antibiotics) Physical Exam Vitals: Vital Signs Temp Pulse Pulse Resp BP BP Pulse Ox 12/24/23 23:00 87 15 121/69 100 12/24/23 22:45 87 19 123/70 100 12/24/23 22:30 85 17 99 12/24/23 22:15 85 18 96 12/24/23 22:08 12/24/23 22:00 86 17 145/63 96 12/24/23 21:45 86 24 135/83 92 L 12/24/23 21:30 91 19 126/75 92 L 12/24/23 21:28 12/24/23 21:15 88 27 H 123/67 87 L 12/24/23 21:00 87 16 123/61 91 L 12/24/23 20:55 12/24/23 20:45 87 19 118/71 89 L 12/24/23 20:30 85 24 126/72 89 L 12/24/23 20:21 89 12/24/23 20:15 86 25 H 135/65 93 L 12/24/23 20:08 83 12/24/23 20:00 99.3 F 86 13 136/73 94 L 12/24/23 19:45 86 24 127/85 85 L 12/24/23 19:30 86 24 125/65 93 L 12/24/23 19:15 81 23 103/76 93 L 12/24/23 19:00 80 32 H 133/83 89 L 12/24/23 18:45 86 22 145/72 94 L 12/24/23 18:30 81 28 H 137/69 88 L 12/24/23 18:15 80 26 H 140/71 88 L 12/24/23 18:00 87 36 H 134/79 89 L 12/24/23 17:45 79 17 95/72 89 L 12/24/23 17:30 79 17 133/76 92 L 12/24/23 17:15 98.4 F 74 23 127/92 94 L 12/24/23 16:45 86 22 138/86 97 12/24/23 16:30 82 22 135/84 97 12/24/23 16:15 90 22 132/64 95 12/24/23 16:00 82 22 94 L 12/24/23 15:44 22 78 L 12/24/23 14:55 102 H 22 12/24/23 14:50 96 20 12/24/23 14:45 90 30 H 80 L 12/24/23 14:27 98.4 F 93 30 H 151/76 78 L FiO2 12/24/23 23:00 12/24/23 22:45 12/24/23 22:30 12/24/23 22:15 12/24/23 22:08 50 12/24/23 22:00 12/24/23 21:45 12/24/23 21:30 12/24/23 21:28 100 12/24/23 21:15 12/24/23 21:00 12/24/23 20:55 50 12/24/23 20:45 12/24/23 20:30 12/24/23 20:21 12/24/23 20:15 12/24/23 20:08 12/24/23 20:00 50 12/24/23 19:45 12/24/23 19:30 12/24/23 19:15 12/24/23 19:00 12/24/23 18:45 12/24/23 18:30 12/24/23 18:15 12/24/23 18:00 12/24/23 17:45 12/24/23 17:30 12/24/23 17:15 12/24/23 16:45 12/24/23 16:30 12/24/23 16:15 12/24/23 16:00 12/24/23 15:44 12/24/23 14:55 12/24/23 14:50 12/24/23 14:45 12/24/23 14:27 Intake and Output 12/24/23 12/24/23 12/25/23 14:59 22:59 06:59 Intake Total 760 175 Output Total 0 Balance 760 175 Intake: IV 760 175 Potassium Chloride 10 meq 100 In Water For Injection 1 100ml.bag @ 100 mls/hr IVPB Q1H [facility] Rx#: [id number] Sodium Chloride 0.9% 1, 435 75 000 ml @ 75 mls/hr IV . [id number] [facility] Rx#:[id number] cefTRIAXone 1 gm In 100 Sodium Chloride 0.9% 50 ml @ 100 mls/hr IVPB Q24HR [facility] Rx#:[id number] Output: Urine 0 Other: # Voids 1 1 Weight 65.771 kg GENERAL EXAM: Alert, 68-year-old white female, fairly comfortable in no apparent distress while on BiPAP. HEAD: Normocephalic and atraumatic EYES: Normal reaction of pupils, equal size. NOSE: Clear with pink turbinates. THROAT: No erythema or exudates. Dry mucous membranes NECK: No masses, no JVD. CHEST: No chest wall deformity. LUNGS: Equal air entry with diffuse coarse rhonchi and expiratory wheezing. On BiPAP with settings 12/6 and FiO2 of 50%. No conversational dyspnea or accessory muscle use while at rest CVS: S1 and S2 normal with no audible murmur, regular rhythm. No extra heart sounds ABDOMEN: No hepatosplenomegaly, active bowel sounds, no guarding or rigidity. SPINE: No scoliosis or deformity SKIN: No rashes CENTRAL NERVOUS SYSTEM: No focal deficits, tone is normal in all 4 extremities. EXTREMITIES: There is no peripheral edema, clubbing, or cyanosis. Peripheral pulses are intact. Right arm TR band in place. No obvious hematoma. Patient has good cap refill in all extremities Results - Laboratory Findings CBC and BMP: 12/24/23 14:24 12/24/23 21:37 ABG ABG pH 7.52 (7.35-7.45) H 12/24/23 20:45 ABG pCO2 53 mmHg (35-45) H 12/24/23 20:45 ABG pO2 52 mmHg (83-108) L* 12/24/23 20:45 ABG O2 Saturation 87.1 % (94-97) L 12/24/23 20:45 PT/INR, D-dimer PT 11.0 sec (10.0-12.5) 12/24/23 18:01 INR 1.0 (<1.2) 12/24/23 18:01 D-Dimer 1.89 mg/L FEU (<0.60) H 12/24/23 18:01 Abnormal lab findings: Abnormal Labs 12/24/23 12/24/23 12/24/23 14:24 14:24 14:24 WBC 11.5 H RBC 5.70 H Hgb 17.1 H Hct 49.2 H Neutrophils # 8.5 H Monocytes # 1.3 H D-Dimer ABG pH ABG pCO2 ABG pO2 ABG HCO3 ABG Total CO2 ABG O2 Saturation Sodium 125 L Potassium 2.4 L* Chloride 69 L* Carbon Dioxide 39 H BUN 63 H Glucose 127 H POC Glucose (mg/dL) Calcium Total Bilirubin 1.7 H AST 97 H ALT 76 H Creatine Kinase 730 H Troponin I 0.103 H* Urine Protein Urine Ketones Urine Blood Urine Mucus U Marijuana (THC) Screen 12/24/23 12/24/23 12/24/23 14:54 17:13 18:01 WBC RBC Hgb Hct Neutrophils # Monocytes # D-Dimer 1.89 H ABG pH ABG pCO2 ABG pO2 ABG HCO3 ABG Total CO2 ABG O2 Saturation Sodium Potassium Chloride Carbon Dioxide BUN Glucose POC Glucose (mg/dL) 115 H Calcium Total Bilirubin AST ALT Creatine Kinase Troponin I Urine Protein 1+ H Urine Ketones 2+ H Urine Blood Small H Urine Mucus Rare H U Marijuana (THC) Screen Detected H 12/24/23 12/24/23 20:45 21:37 WBC RBC Hgb Hct Neutrophils # Monocytes # D-Dimer ABG pH 7.52 H ABG pCO2 53 H ABG pO2 52 L* ABG HCO3 43 H* ABG Total CO2 45 H ABG O2 Saturation 87.1 L Sodium 128 L Potassium 2.4 L* Chloride 77 L Carbon Dioxide 38 H BUN 41 H Glucose 125 H POC Glucose (mg/dL) Calcium 8.1 L Total Bilirubin AST ALT Creatine Kinase Troponin I Urine Protein Urine Ketones Urine Blood Urine Mucus U Marijuana (THC) Screen - Diagnostic Findings Chest x-ray: image reviewed CT scan - chest: image reviewed Assessment and Plan Assessment: Acute hypoxemic and hypercapnic respiratory failure, currently on BiPAP, likely secondary to acute COPD exacerbation. Chest x-ray does not show any acute cardiopulmonary processes. Negative for influenza, RSV, COVID-19. Elevated troponins, likely related to demand ischemia and hypoxia. Patient is status post cardiac catheterization which showed angiographically normal coronary arteries and normal left-sided filling pressures.. Altered mental status, likely secondary to hypercapnic encephalopathy, improving. Brain CT negative for any acute intracranial hemorrhage or mass effect. Compensatory metabolic alkalosis, patient was given a dose of Diamox earlier Prerenal azotemia and severe dehydration Multiple electrolytes abnormalities such as hyponatremia and hypokalemia, being replaced Chronic obstructive pulmonary disease Chronic ongoing tobacco dependence, currently smokes 1 pack per day History of hyperlipidemia History of hypothyroidism History of anxiety and depression Chronic pain Plan: Patient's medications, labs, imaging reviewed Patient has required increased oxygen demands, and is currently on BiPAP with settings 12/6 and FiO2 50%. We will continue on BiPAP with current settings. Patient was initiated on a combination of bronchodilators, budesonide inhalation, formoterol inhalation, and IV Solu-Medrol. Patient's symptoms likely related to acute COPD exacerbation. Patient is currently on a combination of azithromycin and ceftriaxone, which are essentially empiric. procalcitonin level is pending. Patient has been ruled out for ACS Follow-up echocardiogram is pending for the morning. Smoking cessation counseling performed, and nicotine replacement offered. Electrolytes are being replaced Lovenox for DVT prophylaxis. Protonix for GI prophylaxis. Patient will be monitored in the intensive care unit for now. Her respiratory status is labile, and prognosis is guarded. I have personally seen and examined the patient, performed the documentation and the assessment and plan as written. Number of minutes spent on the visit:20 Time with Patient: Greater than 30
[2023-12-25 03:33] LABS: ALT 70 U/L (4-34); AST 63 U/L (14-36); African American GFR (CKD) 62 (>60 ml/min/1.73 sqM); Albumin 4.1 g/dL (3.5-5.0); Alkaline Phosphatase 65 U/L (38-126); Anion Gap 13 mmol/L; Blood Urea Nitrogen 36 mg/dL (7-17); Calcium 8.2 mg/dL (8.4-10.2); Carbon Dioxide 34 mmol/L (22-30); Chloride 83 mmol/L (98-107); Glucose 151 mg/dL (74-99); Non-African American GFR(CKD) 54 (>60 ml/min/1.73 sqM); Potassium 2.9 mmol/L (3.5-5.1); Sodium 130 mmol/L (137-145); Total Bilirubin 0.8 mg/dL (0.2-1.3); Total Protein 6.6 g/dL (6.3-8.2)
[2023-12-25 03:34] LABS: HCT 44.8 % (34.0-46.0); MCH 30.3 pg (25.0-35.0); MCHC 33.6 g/dL (31.0-37.0); Mean Platelet Volume 9.1; Platelet Count 269 k/uL (150-450); RBC 4.97 m/uL (3.80-5.40); WBC 11.2 k/uL (3.8-10.6)
[2023-12-25] MEDS: LORazepam 2 MG/ML INJ IV STA (04:51)
[2023-12-25] MEDS ORDERED: Potassium Replacement Protocol 1 EACH MISC MISCELLANE PRN (05:01)
[2023-12-25] MEDS: LEVOTHYROXINE 50 MCG TAB PO SCH (05:05)
[2023-12-25] MEDS: POTASSIUM CHLORIDE 10 MEQ in WATER FOR INJECTION 1 100ML.BAG IVPB SCH ×2 (05:07→16:18)
[2023-12-25] MEDS: methylPREDNISolone SOD SUCCI 125 MG/2 ML VIAL IV SCH (05:08)
[2023-12-25 06:31] LABS: ABG Base Excess 6.3 mmol/L; ABG HCO3 31 mmol/L (21-25); ABG PCO2 52 mmHg (35-45); ABG PH 7.39 (7.35-7.45); ABG TCO2 33 mmol/L (19-24); Allen Test Performed? Yes
[2023-12-25 06:34] LABS: ABG PO2 57 mmHg (83-108)
[2023-12-25] MEDS: FORMOTEROL FUMARATE 20 MCG/2 ML NEBU INHALATION SCH (07:39)
[2023-12-25] MEDS: BUDESONIDE 1 MG/2 ML NEBU INHALATION SCH (07:39)
--- NOTE | 2023-12-25 08:15 | P.HPIM ---
History of Present Illness H&P Date: 12/24/23 Chief Complaint: Severe chest pain with ST VT, severe shortness of breath, e lectrolyte imbal HISTORY OF PRESENT ILLNESS: 68-year-old female [address] Hansen[address] patient with past medical history of COPD who is currently smoker on regular basis, history of hyper lipidemia, hypothyroidism, chronic back pain, who also has history of chronic neuropathy, c hronic depression, restless leg syndrome, chronic anemia. Apparently she was not answering her phone for the last few days, family went to check on her and found her naked and acting more confused she ended up coming to the emergency department where was seen and evaluated she claims she been having chest pain midsternum for the last 3 days without any radiation she been having mild cough and significant shortness of breath without productive phlegm. The EKG in the emergency department showed ST elevation in the inferior lead and diffuse ST depression in the lateral lead. Troponin being elevated patient was diagnosed with STEMI and ended up being taken to the [facility] by Dr. Lu. Heart catheter came back with completely negative blockage. Patient continues to have significant symptoms of shortness of breath with send at point to have CTA to exclude possibility of PE came back negative no sign of infiltrate. Patient had severe abnormal electrolyte imbalance with her sodium, potassium and chloride she ended up being transferred to the ICU resting on BiPAP settings 126 with FiO2 of 50 percentile started to feel little bit better, start replacing her potassium and continue hydration at that point. REVIEW OF SYSTEMS: CONSTITUTIONAL: Confused still in mild distress. EYES: No icterus sclerae, no conjunctivitis. EARS, NOSE, MOUTH, THROAT, and FACE: No sore throat, lymphadenopathy, carotid bruits or deformity. RESPIRATORY: Slight cough and wheezes. CARDIOVASCULAR: Positive chest pain with orthopnea and angina. GASTROINTESTINAL: No Abd pain, Nausea or vomiting, no Diarrhea or constipation, No GI Bleed, no distention or masses. GENITOURINARY: Negative for Hematuria or UTI, no kidney stones. INTEGUMENT/BREAST: Negative for any muscular injury with mild osteoarthritis.. HEMATOLOGIC/LYMPHATIC: Negative for bleed or purpura. MUSCULOSKELTAL: Negative for Myalgia or arthralgia. NEURLOGICAL: No LOC, Sz or syncope, blurred vision dizziness or abnormality.. BEHAVIORAL/PSYCH: Negative. ENDOCRINE: Negative. PHYSICAL EXAMINATION: General Appearance: Alert, mildly confused looks older than her age. Neck HEENT: Supple, no lymphadenopathy, no thyroid enlargement, no carotid bruits. Lungs: Decreased breath sound bilaterally with fine rhonchi with mild expiratory wheezes. Chest Wall: Decreased expansion with deep inspiration no tenderness and no deformity was found on exam, no costochondral pain or discomfort. Heart: Regular rate and rhythm, S1, S2 normal, no murmur, rub or gallop. Back: Symmetric, no curvature, ROM normal, no CVA tenderness. Abdomen: Soft, non-tender, bowel sounds active all four quadrants, no masses, no organomegaly. Extremities: Extremities normal, atraumatic, no cyanosis or edema. Pulses: 2+ and symmetric. Skin: Skin color, texture, tugor normal, no rashes or lesions. Neurologic: Alert slightly confused cranial nerves II through XII intact, no motor deficit, no abnormal balance or gait. ASSESSMENT AND PLAN: _Severe chest pain with signs of STEMI: Post heart cath with negative finding with normal coronary artery. _Acute respiratory failure: Continue BiPAP, continue oxygen, continue treatment for COPD exacerbation. _Severe electrolyte imbalance including hypokalemia, hyponatremia and hypochloremia: Replace potassium and continue hydration for now repeat CMP in the next 8 hours. _Severe altered mental status: CAT scan of the brain was negative for any acute change if continue to act abnormal will consult neurology. Still not a clear etiology patient is still not acting right we will continue to watch this carefully see if her culture shows any sign of infection _Severe dehydration and prerenal azotemia: Continue hydration with 0.9 at 100 cc an hour. _Chronic history of smoking: Smoking cessation was addressed nicotine patch will be started. _Chronic pain syndrome: Continue gabapentin 400 mg twice a day and she is apparently was on Tylenol No. 4. _Chronic depression: Will hold him on Wellbutrin and doxepin for now continue escitalopram. _Restless leg syndrome: Was on Requip 1 mg 3 times a day will hold the medication to reduce any side effect. _ Hyperlipidemia: Continue simvastatin. _Hypothyroidism: Continue levothyroxine 50 mcg daily. GI prophylaxis: Start patient on pantoprazole. DVT prophylaxis: Patient will be on Lovenox subcutaneous. CODE STATUS: Full code. Admit patient to the inpatient service for more than 2 night stay. The patient admission and circumstances have found and having transferred to the [facility] is all odd and weird her EKG changes are consistent with ST VT with elevated troponin fortunately the cath was negative but patient had many other issue causing respiratory failure and worsening electrolyte imbalance and altered mental status. Patient will be transferred to the ICU for further monitoring control and because her status is changing quickly. Past Medical History Past Medical History: No Reported History History of Any Multi-Drug Resistant Organisms: None Reported Past Surgical History: No Surgical Hx Reported Past Psychological History: No Psychological Hx Reported Smoking Status: Current every day smoker Past Alcohol Use History: Daily Past Drug Use History: None Reported Medications and Allergies Home Medications Medication Instructions Recorded Confirmed Type Cholecalciferol (Vitamin D3) 50 mcg PO DAILY 12/24/23 12/24/23 History [Vitamin D3 (50 Mcg = 2000 Iu)] Cyanocobalamin [Vitamin B-12] 500 mcg PO DAILY 12/24/23 12/24/23 History Doxepin [SINEquan] 10 mg PO HS 12/24/23 12/24/23 History Escitalopram [Lexapro] 30 mg PO DAILY 12/24/23 12/24/23 History Fluticasone Propion/Salmeterol 2 puff INHALATION RT-BID 12/24/23 12/24/23 History [Advair Hfa 230-21 Mcg Inhaler] Gabapentin [Neurontin] 400 mg PO TID 12/24/23 12/24/23 History Levothyroxine Sodium [Synthroid] 50 mcg PO DAILY 12/24/23 12/24/23 History Naproxen [Naprosyn] 375 mg PO BID-W/MEALS PRN 12/24/23 12/24/23 History Hsl-Sdxi-Qyati Acid 1 cap PO DAILY 12/24/23 12/24/23 History [-U Capsule (formulary)] Simvastatin [Zocor] 20 mg PO HS 12/24/23 12/24/23 History buPROPion XL [Wellbutrin XL] 300 mg PO DAILY 12/24/23 12/24/23 History rOPINIRole HCL [Requip] 1 mg PO TID 12/24/23 12/24/23 History Allergies Allergy/AdvReac Type Severity Reaction Status Date / Time Penicillins Allergy Anaphylaxis Verified 12/24/23 18:03 Sulfa (Sulfonamide Allergy Anaphylaxis Verified 12/24/23 18:03 Antibiotics) Physical Exam Vitals: Vital Signs Temp Pulse Pulse Resp BP BP Pulse Ox 12/24/23 19:00 80 32 H 133/83 89 L 12/24/23 18:45 86 22 145/72 94 L 12/24/23 18:30 81 28 H 137/69 88 L 12/24/23 18:15 80 26 H 140/71 88 L 12/24/23 18:00 87 36 H 134/79 89 L 12/24/23 17:45 79 17 95/72 89 L 12/24/23 17:30 79 17 133/76 92 L 12/24/23 17:15 98.4 F 74 23 127/92 94 L 12/24/23 16:45 86 22 138/86 97 12/24/23 16:30 82 22 135/84 97 12/24/23 16:15 90 22 132/64 95 12/24/23 16:00 82 22 94 L 12/24/23 15:44 22 78 L 12/24/23 14:55 102 H 22 12/24/23 14:50 96 20 12/24/23 14:45 90 30 H 80 L 12/24/23 14:27 98.4 F 93 30 H 151/76 78 L Intake and Output 12/24/23 12/24/23 12/24/23 06:59 14:59 22:59 Intake Total 435 Balance 435 Intake: IV 435 Sodium Chloride 0.9% 1, 210 000 ml @ 75 mls/hr IV . [id number] [facility] Rx#:[id number] Other: # Voids 1 Weight 65.771 kg Results CBC & Chem 7: 12/25/23 02:43 12/25/23 02:43 Labs: Abnormal Lab Results - Last 24 Hours (Table) 12/24/23 12/24/23 12/24/23 Range/Units 14:24 14:24 14:24 WBC 11.5 H (3.8-10.6) k/uL RBC 5.70 H (3.80-5.40) m/uL Hgb 17.1 H (11.4-16.0) gm/dL Hct 49.2 H (34.0-46.0) % Neutrophils # 8.5 H (1.3-7.7) k/uL Monocytes # 1.3 H (0-1.0) k/uL D-Dimer (<0.60) mg/L FEU Sodium 125 L (137-145) mmol/L Potassium 2.4 L* (3.5-5.1) mmol/L Chloride 69 L* (98-107) mmol/L Carbon Dioxide 39 H (22-30) mmol/L BUN 63 H (7-17) mg/dL Glucose 127 H (74-99) mg/dL POC Glucose (mg/dL) (70-110) mg/dL Total Bilirubin 1.7 H (0.2-1.3) mg/dL AST 97 H (14-36) U/L ALT 76 H (4-34) U/L Creatine Kinase 730 H (30-135) U/L Troponin I 0.103 H* (0.000-0.034) ng/mL Urine Protein (Negative) Urine Ketones (Negative) Urine Blood (Negative) Urine Mucus (None) /hpf U Marijuana (THC) Screen (NotDetected) 12/24/23 12/24/23 12/24/23 Range/Units 14:54 17:13 18:01 WBC (3.8-10.6) k/uL RBC (3.80-5.40) m/uL Hgb (11.4-16.0) gm/dL Hct (34.0-46.0) % Neutrophils # (1.3-7.7) k/uL Monocytes # (0-1.0) k/uL D-Dimer 1.89 H (<0.60) mg/L FEU Sodium (137-145) mmol/L Potassium (3.5-5.1) mmol/L Chloride (98-107) mmol/L Carbon Dioxide (22-30) mmol/L BUN (7-17) mg/dL Glucose (74-99) mg/dL POC Glucose (mg/dL) 115 H (70-110) mg/dL Total Bilirubin (0.2-1.3) mg/dL AST (14-36) U/L ALT (4-34) U/L Creatine Kinase (30-135) U/L Troponin I (0.000-0.034) ng/mL Urine Protein 1+ H (Negative) Urine Ketones 2+ H (Negative) Urine Blood Small H (Negative) Urine Mucus Rare H (None) /hpf U Marijuana (THC) Screen Detected H (NotDetected)
[2023-12-25] MEDS: PANTOPRAZOLE 40 MG/10 ML VIAL IVP SCH (10:14)
[2023-12-25] MEDS: ENOXAPARIN 40 MG/0.4 ML SYRINGE SQ SCH (10:15)
[2023-12-25] MEDS: NICOTINE 21MG/24HR PATCH TRANSDERM SCH (10:15)
--- NOTE | 2023-12-25 11:33 | CA ---
Transthoracic Echo Report Name: Milagro Gatica Age: 68 Gender: F : 1955 Exam Date: 12/25/2023 08:09 Exam Location: [facility] Ht (in): 64 Wt (lb): 145 Ordering Physician: Neil Lu MD ([email or web address]) Attending/Referring Phys: Occupational Psychologist Madeleine Linares RCS Procedure CPT: Indications: nstemi Cardiac Hx: Technical Quality: Technically difficult study Contrast 1: Definity Total Dose (mL): 4 Contrast 2: Total Dose (mL): MEASUREMENTS (Male / Female) Normal Values 2D ECHO LVOT Diameter 2.0 cm LA Volume 23.8 cm??? 18 - 58 / 22 - 52 cm??? LA Volume Index 13.7 cm???/m??? 16 - 28 cm???/m??? DOPPLER AV Peak Velocity 147.4 cm/s AV Peak Gradient 8.7 mmHg AV Mean Velocity 97.9 cm/s AV Mean Gradient 4.3 mmHg AV Velocity Time Integral 24.2 cm LVOT Peak Velocity 113.2 cm/s LVOT Peak Gradient 5.1 mmHg LVOT Velocity Time Integral 17.5 cm LVOT Stroke Volume 52.2 cm??? LVOT Stroke Volume Index 30.6 ml/m??? LVOT Cardiac Index 2828.9 cm???/min???m??? AV Area Cont Eq vti 2.2 cm??? AV Area Cont Eq pk 2.3 cm??? Mitral E Point Velocity 52.9 cm/s Mitral A Point Velocity 70.7 cm/s Mitral E to A Ratio 0.7 MV Deceleration Time 218.3 ms MV E' Velocity 4.8 cm/s Mitral E to MV E' Ratio 11.0 FINDINGS Left Ventricle Left ventricular ejection fraction is estimated at 60-65 %. Left ventricular cavity size normal. No obvious regional wall motion abnormalities. Right Ventricle Right ventricle not well visualized. Unable to determine right ventricular systolic pressure. Right Atrium Right atrium not well visualized. Left Atrium Normal left atrial size. Mitral Valve Structurally normal mitral valve. No evidence for mitral valve prolapse. No mitral stenosis. Trace mitral regurgitation. Aortic Valve Aortic valve not well visualized. No aortic valve stenosis or regurgitation. Tricuspid Valve Structurally normal tricuspid valve. No tricuspid stenosis, regurgitation or prolapse. Pulmonic Valve Pulmonic valve not well visualized. No pulmonic stenosis. No pulmonic regurgitation. Pericardium No pericardial effusion. Aorta Aortic annulus normal. Ascending aorta not well visualized. CONCLUSIONS Normal LV function Previewed by: Dr. Jimenez Payne MD (Electronically Signed) Final Date: 25 December 2023 11:33
[2023-12-25] MEDS: buPROPion XL 300 MG TAB.ER.24H PO SCH (12:05)
[2023-12-25] MEDS: ESCITALOPRAM 10 MG TAB PO SCH (12:05)
[2023-12-25] MEDS: ASPIRIN 81 MG PO SCH (12:12)
--- NOTE | 2023-12-25 12:36 | P.PN ---
Subjective Progress Note Date: 12/25/23 HISTORY OF PRESENTING ILLNESS 68-year-old female with past medical history of smoking, marijuana use and c hronic back pain. Patient had a wellness check at home where she was noticed to be obtunded, complaining of chest heaviness and shortness of breath. Due to this she was presented to the hospital. Upon admission to the ER she was noticed to be hypoxic with oxygen saturation 80%. Patient reported that she was feeling well until yesterday. She has been having the symptoms from late morning. She had an ECG performed which showed sinus tachycardia with diffuse ST depressions in all precordial leads and ST elevations in aVR. Patient was complaining of active chest pain. Bedside echocardiogram was performed which showed hyperdynamic LV. RV did not look dilated. Her initial labs showed a troponin of 0.103, CK7 30, creatinine 0.7, potassium 2.4, chloride 69, bicarb 39, sodium 125. Urinary ketones were positive PMH: No past medical history of stroke, malignancy. PSH: Hysterectomy, Social history: Smokes 1 packs/day, smokes marijuana. No heavy alcohol Echo shows an EF of 60%, mild LVH, significant valve dysfunction Cardiac cath did not show any significant coronary artery disease No evidence of PE on CT chest Progress Note 12/25/23 BP 118/72, heart rate 89 Labs shows hemoglobin 15, ABG pH 7.3, CO2 52, pO2 57, sodium 130, potassium 2.9, creatinine 1.07, BUN 36, Patient is hypoxic and is requiring BiPAP support. Patient had a CT angio done which did not show any evidence of PE or any signs of pulmonary congestion or pneumonia. PHYSICAL EXAMINATION Vital signs reviewed. Head: Normocephalic. Eyes: Sclerae nonicteric. Neck: Brisk carotid upstroke, no jugular venous distention. Lungs: Diminished breath sounds in bilateral lung galvan, mild crackles and rhonchi audible. Heart: Regular rate and rhythm, S1-S2, no S3, no murmur or rub. Abdomen: Soft nontender, positive bowel sounds. Extremities: No edema, intact distal pulses. Neuro: Alert, oritented, no focal deficits. Detailed neuro exam was not performed. ASSESSMENT Acute hypoxic respiratory failure, on BiPAP Type II NSTEMI from dehydration and hypoxia ST elevation in aVR, diffuse ST depressions in other precordial leads due to hypoxia and Shortness of breath Hyponatremia, hypokalemia, hypochloride, mildly elevated CPK, urinary ketosis PLAN No signs of congestive heart failure based on CT chest. No evidence of obstructive coronary artery disease. No signs of cardiomyopathy on echocardiogram. Elevation of troponin and ST elevation most likely due to dehydration Aspirin 81 mg Supportive care for hypoxia and electrolyte management as per ICU and Primary team. Okay to give IV fluids from cardiology Objective - Vital Signs Vital signs: Vital Signs Temp 98.5 F 12/25/23 08:00 Pulse 89 12/25/23 11:00 Resp 24 12/25/23 11:00 BP 118/72 12/25/23 11:00 Pulse Ox 97 12/25/23 11:00 FiO2 80 12/25/23 11:52 Intake & Output 12/24/23 12/25/23 12/25/23 18:59 06:59 18:59 Intake Total 360 1400 775 Output Total 1450 450 Balance 360 -50 325 Weight 69.3 kg 69.3 kg Intake: IV 360 1400 525 Potassium Chloride 10 meq 400 400 In Water For Injection 1 100ml.bag @ 100 mls/hr IVPB Q1H [facility] Rx#: [id number] Sodium Chloride 0.9% 1, 135 900 75 000 ml @ 75 mls/hr IV . [id number] [facility] Rx#:[id number] cefTRIAXone 1 gm In 100 50 Sodium Chloride 0.9% 50 ml @ 100 mls/hr IVPB Q24HR [facility] Rx#:[id number] Intake, IV Titration 250 Amount Azithromycin 500 mg In 250 Sodium Chloride 0.9% 250 ml @ 250 mls/hr IVPB DAILY [facility] Rx#:[id number] Output: Urine 1450 450 Other: Voiding Method External Catheter External Catheter # Voids 1 1 - Labs CBC & Chem 7: 12/25/23 02:43 12/25/23 02:43 Labs: Abnormal Lab Results - Last 24 Hours (Table) 12/24/23 12/24/23 12/24/23 Range/Units 14:24 14:24 14:24 WBC 11.5 H (3.8-10.6) k/uL RBC 5.70 H (3.80-5.40) m/uL Hgb 17.1 H (11.4-16.0) gm/dL Hct 49.2 H (34.0-46.0) % Neutrophils # 8.5 H (1.3-7.7) k/uL Monocytes # 1.3 H (0-1.0) k/uL D-Dimer (<0.60) mg/L FEU ABG pH (7.35-7.45) ABG pCO2 (35-45) mmHg ABG pO2 (83-108) mmHg ABG HCO3 (21-25) mmol/L ABG Total CO2 (19-24) mmol/L ABG O2 Saturation (94-97) % Sodium 125 L (137-145) mmol/L Potassium 2.4 L* (3.5-5.1) mmol/L Chloride 69 L* (98-107) mmol/L Carbon Dioxide 39 H (22-30) mmol/L BUN 63 H (7-17) mg/dL Creatinine (0.52-1.04) mg/dL Glucose 127 H (74-99) mg/dL POC Glucose (mg/dL) (70-110) mg/dL Calcium (8.4-10.2) mg/dL Total Bilirubin 1.7 H (0.2-1.3) mg/dL AST 97 H (14-36) U/L ALT 76 H (4-34) U/L Creatine Kinase 730 H (30-135) U/L Troponin I 0.103 H* (0.000-0.034) ng/mL Procalcitonin (0.02-0.09) ng/mL Urine Protein (Negative) Urine Ketones (Negative) Urine Blood (Negative) Urine Mucus (None) /hpf U Marijuana (THC) Screen (NotDetected) 12/24/23 12/24/23 12/24/23 Range/Units 14:54 17:13 18:01 WBC (3.8-10.6) k/uL RBC (3.80-5.40) m/uL Hgb (11.4-16.0) gm/dL Hct (34.0-46.0) % Neutrophils # (1.3-7.7) k/uL Monocytes # (0-1.0) k/uL D-Dimer 1.89 H (<0.60) mg/L FEU ABG pH (7.35-7.45) ABG pCO2 (35-45) mmHg ABG pO2 (83-108) mmHg ABG HCO3 (21-25) mmol/L ABG Total CO2 (19-24) mmol/L ABG O2 Saturation (94-97) % Sodium (137-145) mmol/L Potassium (3.5-5.1) mmol/L Chloride (98-107) mmol/L Carbon Dioxide (22-30) mmol/L BUN (7-17) mg/dL Creatinine (0.52-1.04) mg/dL Glucose (74-99) mg/dL POC Glucose (mg/dL) 115 H (70-110) mg/dL Calcium (8.4-10.2) mg/dL Total Bilirubin (0.2-1.3) mg/dL AST (14-36) U/L ALT (4-34) U/L Creatine Kinase (30-135) U/L Troponin I (0.000-0.034) ng/mL Procalcitonin (0.02-0.09) ng/mL Urine Protein 1+ H (Negative) Urine Ketones 2+ H (Negative) Urine Blood Small H (Negative) Urine Mucus Rare H (None) /hpf U Marijuana (THC) Screen Detected H (NotDetected) 12/24/23 12/24/23 12/24/23 Range/Units 20:45 21:37 21:37 WBC (3.8-10.6) k/uL RBC (3.80-5.40) m/uL Hgb (11.4-16.0) gm/dL Hct (34.0-46.0) % Neutrophils # (1.3-7.7) k/uL Monocytes # (0-1.0) k/uL D-Dimer (<0.60) mg/L FEU ABG pH 7.52 H (7.35-7.45) ABG pCO2 53 H (35-45) mmHg ABG pO2 52 L* (83-108) mmHg ABG HCO3 43 H* (21-25) mmol/L ABG Total CO2 45 H (19-24) mmol/L ABG O2 Saturation 87.1 L (94-97) % Sodium 128 L (137-145) mmol/L Potassium 2.4 L* (3.5-5.1) mmol/L Chloride 77 L (98-107) mmol/L Carbon Dioxide 38 H (22-30) mmol/L BUN 41 H (7-17) mg/dL Creatinine (0.52-1.04) mg/dL Glucose 125 H (74-99) mg/dL POC Glucose (mg/dL) (70-110) mg/dL Calcium 8.1 L (8.4-10.2) mg/dL Total Bilirubin (0.2-1.3) mg/dL AST (14-36) U/L ALT (4-34) U/L Creatine Kinase (30-135) U/L Troponin I (0.000-0.034) ng/mL Procalcitonin 0.17 H (0.02-0.09) ng/mL Urine Protein (Negative) Urine Ketones (Negative) Urine Blood (Negative) Urine Mucus (None) /hpf U Marijuana (THC) Screen (NotDetected) 12/25/23 12/25/23 12/25/23 Range/Units 02:43 02:43 02:43 WBC 11.2 H (3.8-10.6) k/uL RBC (3.80-5.40) m/uL Hgb (11.4-16.0) gm/dL Hct (34.0-46.0) % Neutrophils # (1.3-7.7) k/uL Monocytes # (0-1.0) k/uL D-Dimer (<0.60) mg/L FEU ABG pH (7.35-7.45) ABG pCO2 (35-45) mmHg ABG pO2 (83-108) mmHg ABG HCO3 (21-25) mmol/L ABG Total CO2 (19-24) mmol/L ABG O2 Saturation (94-97) % Sodium 130 L (137-145) mmol/L Potassium 2.9 L (3.5-5.1) mmol/L Chloride 83 L (98-107) mmol/L Carbon Dioxide 34 H (22-30) mmol/L BUN 36 H (7-17) mg/dL Creatinine 1.07 H (0.52-1.04) mg/dL Glucose 151 H (74-99) mg/dL POC Glucose (mg/dL) (70-110) mg/dL Calcium 8.2 L (8.4-10.2) mg/dL Total Bilirubin (0.2-1.3) mg/dL AST 63 H (14-36) U/L ALT 70 H (4-34) U/L Creatine Kinase (30-135) U/L Troponin I 0.074 H* (0.000-0.034) ng/mL Procalcitonin (0.02-0.09) ng/mL Urine Protein (Negative) Urine Ketones (Negative) Urine Blood (Negative) Urine Mucus (None) /hpf U Marijuana (THC) Screen (NotDetected) 12/25/23 Range/Units 06:29 WBC (3.8-10.6) k/uL RBC (3.80-5.40) m/uL Hgb (11.4-16.0) gm/dL Hct (34.0-46.0) % Neutrophils # (1.3-7.7) k/uL Monocytes # (0-1.0) k/uL D-Dimer (<0.60) mg/L FEU ABG pH (7.35-7.45) ABG pCO2 52 H (35-45) mmHg ABG pO2 57 L* (83-108) mmHg ABG HCO3 31 H (21-25) mmol/L ABG Total CO2 33 H (19-24) mmol/L ABG O2 Saturation 89.0 L (94-97) % Sodium (137-145) mmol/L Potassium (3.5-5.1) mmol/L Chloride (98-107) mmol/L Carbon Dioxide (22-30) mmol/L BUN (7-17) mg/dL Creatinine (0.52-1.04) mg/dL Glucose (74-99) mg/dL POC Glucose (mg/dL) (70-110) mg/dL Calcium (8.4-10.2) mg/dL Total Bilirubin (0.2-1.3) mg/dL AST (14-36) U/L ALT (4-34) U/L Creatine Kinase (30-135) U/L Troponin I (0.000-0.034) ng/mL Procalcitonin (0.02-0.09) ng/mL Urine Protein (Negative) Urine Ketones (Negative) Urine Blood (Negative) Urine Mucus (None) /hpf U Marijuana (THC) Screen (NotDetected)
[2023-12-25 13:23] LABS: ABG Base Excess 4.2 mmol/L; ABG HCO3 30 mmol/L (21-25); ABG PCO2 51 mmHg (35-45); ABG PH 7.37 (7.35-7.45); ABG PO2 66 mmHg (83-108); ABG TCO2 31 mmol/L (19-24); Allen Test Performed? Yes
[2023-12-25 14:38] LABS: ABG Oxygen Saturation 92.8 % (94-97)
[2023-12-26 05:09] LABS: Basophils % (A) 0 %; Eosinophils % (A) 0 %; HCT 41.9 % (34.0-46.0); HGB 13.3 gm/dL (11.4-16.0); Lymphocytes # (A) 0.6 k/uL (1.0-4.8); Lymphocytes % (A) 4 %; MCHC 31.8 g/dL (31.0-37.0); MCV 91.1 fL (80.0-100.0); Monocytes # (A) 0.8 k/uL (0-1.0); Monocytes % (A) 6 %; Neutrophils # (A) 12.5 k/uL (1.3-7.7); Neutrophils % (A) 88 %; Platelet Count 285 k/uL (150-450); RDW 13.4 % (11.5-15.5); WBC 14.1 k/uL (3.8-10.6)
[2023-12-26 05:37] LABS: African American GFR (CKD) 75 (>60 ml/min/1.73 sqM); Anion Gap 8 mmol/L; Blood Urea Nitrogen 23 mg/dL (7-17); Calcium 8.4 mg/dL (8.4-10.2); Carbon Dioxide 27 mmol/L (22-30); Chloride 101 mmol/L (98-107); Glucose 155 mg/dL (74-99); Non-African American GFR(CKD) 65 (>60 ml/min/1.73 sqM); Potassium 3.2 mmol/L (3.5-5.1); Sodium 136 mmol/L (137-145)
--- NOTE | 2023-12-26 05:49 | P.PN ---
Subjective Progress Note Date: 12/25/23 HISTORY OF PRESENT ILLNESS: 68-year-old female [address] Hansen[address] patient with past medical history of COPD who is currently smoker on regular basis, history of hyper lipidemia, hyp othyroidism, chronic back pain, who also has history of chronic neuropathy, chronic depression, restless leg syndrome, chronic anemia. Apparently she was not answering her phone for the last few days, family went to check on her and found her naked and acting more confused she ended up coming to the emergency department where was seen and evaluated she claims she been having chest pain midsternum for the last 3 days without any radiation she been having mild cough and significant shortness of breath without productive phlegm. The EKG in the emergency department showed ST elevation in the inferior lead and diffuse ST depression in the lateral lead. Troponin being elevated patient was diagnosed with STEMI and ended up being taken to the [facility] by Dr. Lu. Heart catheter came back with completely negative blockage. Patient continues to have significant symptoms of shortness of breath with send at point to have CTA to exclude possibility of PE came back negative no sign of infiltrate. Patient had severe abnormal electrolyte imbalance with her sodium, potassium and chloride she ended up being transferred to the ICU resting on BiPAP settings 126 with FiO2 of 50 percentile started to feel little bit better, start replacing her potassium and continue hydration at that point. 12/25/2023: Patient remain in the ICU, remain on BiPAP, she is quite bit confused Was seen pulmonary through the night still on electrolyte replacement therapy. Her oxygen level still quite a bit low in the 80s require BiPAP on more regular basis, vitals improved slight bed, remain little bit tachycardic. Echocardiogram was ordered for this morning still has not been performed yet and as reviewed her entire heart cath and CTA came back to be completely normal. Continue to hydrate patient quite bit for now consult neurology probably further testing including EEG repeat scan of the brain can be beneficial. REVIEW OF SYSTEMS: CONSTITUTIONAL: Confused still in mild distress. EYES: No icterus sclerae, no conjunctivitis. EARS, NOSE, MOUTH, THROAT, and FACE: No sore throat, lymphadenopathy, carotid bruits or deformity. RESPIRATORY: Slight cough and wheezes. CARDIOVASCULAR: Positive chest pain with orthopnea and angina. GASTROINTESTINAL: No Abd pain, Nausea or vomiting, no Diarrhea or constipation, No GI Bleed, no distention or masses. GENITOURINARY: Negative for Hematuria or UTI, no kidney stones. INTEGUMENT/BREAST: Negative for any muscular injury with mild osteoarthritis.. HEMATOLOGIC/LYMPHATIC: Negative for bleed or purpura. MUSCULOSKELTAL: Negative for Myalgia or arthralgia. NEURLOGICAL: No LOC, Sz or syncope, blurred vision dizziness or abnormality.. BEHAVIORAL/PSYCH: Negative. ENDOCRINE: Negative. PHYSICAL EXAMINATION: General Appearance: Alert, mildly confused looks older than her age. Neck HEENT: Supple, no lymphadenopathy, no thyroid enlargement, no carotid bruits. Lungs: Decreased breath sound bilaterally with fine rhonchi with mild expiratory wheezes. Chest Wall: Decreased expansion with deep inspiration no tenderness and no deformity was found on exam, no costochondral pain or discomfort. Heart: Regular rate and rhythm, S1, S2 normal, no murmur, rub or gallop. Back: Symmetric, no curvature, ROM normal, no CVA tenderness. Abdomen: Soft, non-tender, bowel sounds active all four quadrants, no masses, no organomegaly. Extremities: Extremities normal, atraumatic, no cyanosis or edema. Pulses: 2+ and symmetric. Skin: Skin color, texture, tugor normal, no rashes or lesions. Neurologic: Alert slightly confused cranial nerves II through XII intact, no motor deficit, no abnormal balance or gait. ASSESSMENT AND PLAN: _Severe chest pain with signs of STEMI: Post heart cath with negative finding with normal coronary artery. This is considered a type II non-STEMI from dehydration and hypoxia. _Acute respiratory failure: Continue BiPAP, continue oxygen, continue treatment for COPD exacerbation. _Severe electrolyte imbalance including hypokalemia, hyponatremia and hypochloremia: Replace potassium and continue hydration for now repeat CMP in the next 8 hours. _Severe altered mental status: CAT scan of the brain was negative for any acute change if continue to act abnormal will consult neurology. Still not a clear etiology patient is still not acting right we will continue to watch this carefully see if her culture shows any sign of infection _Severe dehydration and prerenal azotemia: Continue hydration with 0.9 at 100 cc an hour. _Chronic history of smoking: Smoking cessation was addressed nicotine patch will be started. _Chronic pain syndrome: Will holding off her gabapentin and prednisone No. 4 for now. _Chronic depression: Try to withhold some of her antidepression medication for the next few days. _Restless leg syndrome: Reduce Requip to 1 mg at bedtime only. _ Hyperlipidemia: Continue simvastatin. _Hypothyroidism: Continue levothyroxine 50 mcg daily. If not able to take it orally we will do a trial IV. GI prophylaxis: Start patient on pantoprazole. DVT prophylaxis: Patient will be on Lovenox subcutaneous. Objective - Vital Signs Vital signs: Vital Signs Temp 99.4 F 12/25/23 04:00 Pulse 88 12/25/23 07:39 Resp 17 12/25/23 07:00 BP 118/98 12/25/23 07:00 Pulse Ox 90 L 12/25/23 07:00 FiO2 70 12/25/23 07:39 Intake & Output 12/24/23 12/25/23 12/25/23 18:59 06:59 18:59 Intake Total 360 1400 75 Output Total 1450 0 Balance 360 -50 75 Weight 69.3 kg 69.3 kg Intake: IV 360 1400 75 Potassium Chloride 10 meq 400 In Water For Injection 1 100ml.bag @ 100 mls/hr IVPB Q1H [facility] Rx#: [id number] Sodium Chloride 0.9% 1, 135 900 75 000 ml @ 75 mls/hr IV . [id number] [facility] Rx#:[id number] cefTRIAXone 1 gm In 100 Sodium Chloride 0.9% 50 ml @ 100 mls/hr IVPB Q24HR [facility] Rx#:[id number] Output: Urine 1450 0 Other: Voiding Method External Catheter # Voids 1 1 - Labs CBC & Chem 7: 12/26/23 04:28 12/26/23 04:28 Labs: Abnormal Lab Results - Last 24 Hours (Table) 12/24/23 12/24/23 12/24/23 Range/Units 14:24 14:24 14:24 WBC 11.5 H (3.8-10.6) k/uL RBC 5.70 H (3.80-5.40) m/uL Hgb 17.1 H (11.4-16.0) gm/dL Hct 49.2 H (34.0-46.0) % Neutrophils # 8.5 H (1.3-7.7) k/uL Monocytes # 1.3 H (0-1.0) k/uL D-Dimer (<0.60) mg/L FEU ABG pH (7.35-7.45) ABG pCO2 (35-45) mmHg ABG pO2 (83-108) mmHg ABG HCO3 (21-25) mmol/L ABG Total CO2 (19-24) mmol/L ABG O2 Saturation (94-97) % Sodium 125 L (137-145) mmol/L Potassium 2.4 L* (3.5-5.1) mmol/L Chloride 69 L* (98-107) mmol/L Carbon Dioxide 39 H (22-30) mmol/L BUN 63 H (7-17) mg/dL Creatinine (0.52-1.04) mg/dL Glucose 127 H (74-99) mg/dL POC Glucose (mg/dL) (70-110) mg/dL Calcium (8.4-10.2) mg/dL Total Bilirubin 1.7 H (0.2-1.3) mg/dL AST 97 H (14-36) U/L ALT 76 H (4-34) U/L Creatine Kinase 730 H (30-135) U/L Troponin I 0.103 H* (0.000-0.034) ng/mL Procalcitonin (0.02-0.09) ng/mL Urine Protein (Negative) Urine Ketones (Negative) Urine Blood (Negative) Urine Mucus (None) /hpf U Marijuana (THC) Screen (NotDetected) 12/24/23 12/24/23 12/24/23 Range/Units 14:54 17:13 18:01 WBC (3.8-10.6) k/uL RBC (3.80-5.40) m/uL Hgb (11.4-16.0) gm/dL Hct (34.0-46.0) % Neutrophils # (1.3-7.7) k/uL Monocytes # (0-1.0) k/uL D-Dimer 1.89 H (<0.60) mg/L FEU ABG pH (7.35-7.45) ABG pCO2 (35-45) mmHg ABG pO2 (83-108) mmHg ABG HCO3 (21-25) mmol/L ABG Total CO2 (19-24) mmol/L ABG O2 Saturation (94-97) % Sodium (137-145) mmol/L Potassium (3.5-5.1) mmol/L Chloride (98-107) mmol/L Carbon Dioxide (22-30) mmol/L BUN (7-17) mg/dL Creatinine (0.52-1.04) mg/dL Glucose (74-99) mg/dL POC Glucose (mg/dL) 115 H (70-110) mg/dL Calcium (8.4-10.2) mg/dL Total Bilirubin (0.2-1.3) mg/dL AST (14-36) U/L ALT (4-34) U/L Creatine Kinase (30-135) U/L Troponin I (0.000-0.034) ng/mL Procalcitonin (0.02-0.09) ng/mL Urine Protein 1+ H (Negative) Urine Ketones 2+ H (Negative) Urine Blood Small H (Negative) Urine Mucus Rare H (None) /hpf U Marijuana (THC) Screen Detected H (NotDetected) 12/24/23 12/24/23 12/24/23 Range/Units 20:45 21:37 21:37 WBC (3.8-10.6) k/uL RBC (3.80-5.40) m/uL Hgb (11.4-16.0) gm/dL Hct (34.0-46.0) % Neutrophils # (1.3-7.7) k/uL Monocytes # (0-1.0) k/uL D-Dimer (<0.60) mg/L FEU ABG pH 7.52 H (7.35-7.45) ABG pCO2 53 H (35-45) mmHg ABG pO2 52 L* (83-108) mmHg ABG HCO3 43 H* (21-25) mmol/L ABG Total CO2 45 H (19-24) mmol/L ABG O2 Saturation 87.1 L (94-97) % Sodium 128 L (137-145) mmol/L Potassium 2.4 L* (3.5-5.1) mmol/L Chloride 77 L (98-107) mmol/L Carbon Dioxide 38 H (22-30) mmol/L BUN 41 H (7-17) mg/dL Creatinine (0.52-1.04) mg/dL Glucose 125 H (74-99) mg/dL POC Glucose (mg/dL) (70-110) mg/dL Calcium 8.1 L (8.4-10.2) mg/dL Total Bilirubin (0.2-1.3) mg/dL AST (14-36) U/L ALT (4-34) U/L Creatine Kinase (30-135) U/L Troponin I (0.000-0.034) ng/mL Procalcitonin 0.17 H (0.02-0.09) ng/mL Urine Protein (Negative) Urine Ketones (Negative) Urine Blood (Negative) Urine Mucus (None) /hpf U Marijuana (THC) Screen (NotDetected) 12/25/23 12/25/23 12/25/23 Range/Units 02:43 02:43 02:43 WBC 11.2 H (3.8-10.6) k/uL RBC (3.80-5.40) m/uL Hgb (11.4-16.0) gm/dL Hct (34.0-46.0) % Neutrophils # (1.3-7.7) k/uL Monocytes # (0-1.0) k/uL D-Dimer (<0.60) mg/L FEU ABG pH (7.35-7.45) ABG pCO2 (35-45) mmHg ABG pO2 (83-108) mmHg ABG HCO3 (21-25) mmol/L ABG Total CO2 (19-24) mmol/L ABG O2 Saturation (94-97) % Sodium 130 L (137-145) mmol/L Potassium 2.9 L (3.5-5.1) mmol/L Chloride 83 L (98-107) mmol/L Carbon Dioxide 34 H (22-30) mmol/L BUN 36 H (7-17) mg/dL Creatinine 1.07 H (0.52-1.04) mg/dL Glucose 151 H (74-99) mg/dL POC Glucose (mg/dL) (70-110) mg/dL Calcium 8.2 L (8.4-10.2) mg/dL Total Bilirubin (0.2-1.3) mg/dL AST 63 H (14-36) U/L ALT 70 H (4-34) U/L Creatine Kinase (30-135) U/L Troponin I 0.074 H* (0.000-0.034) ng/mL Procalcitonin (0.02-0.09) ng/mL Urine Protein (Negative) Urine Ketones (Negative) Urine Blood (Negative) Urine Mucus (None) /hpf U Marijuana (THC) Screen (NotDetected) 12/25/23 Range/Units 06:29 WBC (3.8-10.6) k/uL RBC (3.80-5.40) m/uL Hgb (11.4-16.0) gm/dL Hct (34.0-46.0) % Neutrophils # (1.3-7.7) k/uL Monocytes # (0-1.0) k/uL D-Dimer (<0.60) mg/L FEU ABG pH (7.35-7.45) ABG pCO2 52 H (35-45) mmHg ABG pO2 57 L* (83-108) mmHg ABG HCO3 31 H (21-25) mmol/L ABG Total CO2 33 H (19-24) mmol/L ABG O2 Saturation 89.0 L (94-97) % Sodium (137-145) mmol/L Potassium (3.5-5.1) mmol/L Chloride (98-107) mmol/L Carbon Dioxide (22-30) mmol/L BUN (7-17) mg/dL Creatinine (0.52-1.04) mg/dL Glucose (74-99) mg/dL POC Glucose (mg/dL) (70-110) mg/dL Calcium (8.4-10.2) mg/dL Total Bilirubin (0.2-1.3) mg/dL AST (14-36) U/L ALT (4-34) U/L Creatine Kinase (30-135) U/L Troponin I (0.000-0.034) ng/mL Procalcitonin (0.02-0.09) ng/mL Urine Protein (Negative) Urine Ketones (Negative) Urine Blood (Negative) Urine Mucus (None) /hpf U Marijuana (THC) Screen (NotDetected)
[2023-12-26] MEDS: POTASSIUM CHLORIDE 10 MEQ in WATER FOR INJECTION 1 100ML.BAG IVPB SCH ×2 (06:40→20:23)
--- NOTE | 2023-12-26 12:02 | XR ---
EXAMINATION TYPE: XR chest 1V portable DATE OF EXAM: 12/26/2023 Comparison: 12/24/2023 Clinical History: 68-year-old female bipap dependent respiratory failure Findings: Heart upper limits of normal in size. Some patchy right basilar opacity has developed. Pulmonary vasc ulature within normal limits. No sizable pleural effusion. Fracture deformity, probably chronic proxi mal left humerus redemonstrated. Impression: Interval development of new focal atelectasis versus infiltrate/pneumonia at the right base. Correlat e with symptoms.
--- NOTE | 2023-12-26 13:31 | P.PN ---
Subjective Progress Note Date: 12/26/23 Principal diagnosis: Acute hypoxemic and hypercapnic respiratory failure I am seeing this patient in new consultation today on 12/25/2023 in the intensive care unit. The patient was transferred to the ICU after a heart catheterization for acute hypoxemic respiratory failure and increased oxygen demands. Patient is a 68-year-old white female with past medical history significant for COPD, current ongoing every day smoker, hyperlipidemia, hypothyroidism, chronic back pain. She smokes roughly 1 pack per day. Her primary care provider is Dr. Hansen. Patient had reportedly not been answering her phone for several days, so her daughter went to check on her at home. She reportedly was acting abnormal and confused and found naked. The patient does not recall this. After being brought to the emergency room yesterday afternoon, she was complaining of substernal chest pain that had been ongoing for the last 3 days. This is localized to the substernal area, she denies any radiation. Occurs mostly with coughing. Is associated with shortness of breath, wheezing, and productive cough. Troponins were elevated on arrival and patient had some isolated ST elevation in lead aVR, along with diffuse/generalized ST depression. She was also noted to be hypoxic. Patient was taken for a heart catheterization yeterday afternoon which revealed angiographically normal coronary arteries and left- sided filling pressures. No significant calcifications or coronary thrombus reported. D-dimer was also elevated, and for this reason the patient was sent for a chest CTA which did not show any evidence of pulmonary embolism. While in the intensive care unit, the patient had increased oxygen and was placed on BiPAP settings 12/6 and FiO2 50%. She is currently resting comfortably in bed, on BiPAP with the above-mentioned settings, in no acute respiratory distress. She is achieving tidal volumes of approximately 400 and her respiratory rate is in the mid 20s. She does have a congested cough and wheezing. Occasional has difficulty clearing oral secretions. Denies any fevers at home. She is currently alert and oriented. No signs of hypercapnic encephalopathy. ABGs were obtained earlier and consistent with combined hypoxemic and hypercapnic respiratory failure. She has a component of compensatory metabolic alkalosis and was given a dose of Diamox. CBC on arrival: WBC count 11.5, hemoglobin 17.1, hematocrit 49.2, platelets 331. BMP on arrival: Sodium 128, potassium 2.4, chloride 77, serum bicarb 38, BUN 41, creatinine 1.03, glucose 125. Normal saline is infusing at 75 mL per hour. LFTs mildly elevated. NT proBNP 764. Troponin on arrival 1.03. D-dimer had been elevated at 1.89. Urinalysis not concerning for UTI. Negative for influenza, RSV, COVID-19. Chest x-ray did not show any focal infiltrates or evidence of pneumonia. No acute cardiopulmonary process seen. Patient was covered empirically on a combination of azithromycin and Rocephin. She is afebrile. Vital signs are stable. Patient was reevaluated today on 12/26/2023, remains in the ICU, patient was on BiPAP overnight, transition to nasal cannula 3 L/min this morning. Continues to have intermittent cough and wheezing, patient is having some difficulty swallowing pills, and she will have a swallow evaluation today. Remains on IV fluid at 100 cc/h, remains on bronchodilators, patient is quite hoarse but no stridor. Patient has been maximized on bronchodilators and steroids. WBC count today is 14.1 hemoglobin 13.3 basic metabolic profile is relatively normal, renal profile is normal Objective - Vital Signs Vital signs: Vital Signs Temp 98.5 F 12/26/23 13:00 Pulse 107 H 12/26/23 13:00 Resp 17 12/26/23 13:00 BP 147/70 12/26/23 13:00 Pulse Ox 92 L 12/26/23 13:00 FiO2 50 12/26/23 07:48 Intake & Output 12/25/23 12/26/23 12/26/23 18:59 06:59 18:59 Intake Total 1900 1000 1350 Output Total 500 250 250 Balance 8941 003 9539 Weight 71 kg Intake: IV 1650 1000 700 Potassium Chloride 10 meq 700 100 In Water For Injection 1 100ml.bag @ 100 mls/hr IVPB Q1H [facility] Rx#: [id number] Sodium Chloride 0.9% 1, 900 900 650 000 ml @ 100 mls/hr IV . Q10H [facility] Rx#:[id number] cefTRIAXone 1 gm In 50 50 Sodium Chloride 0.9% 50 ml @ 100 mls/hr IVPB Q24HR [facility] Rx#:[id number] Intake, IV Titration 250 650 Amount Azithromycin 500 mg In 250 250 Sodium Chloride 0.9% 250 ml @ 250 mls/hr IVPB DAILY [facility] Rx#:[id number] Potassium Chloride 10 meq 400 In Water For Injection 1 100ml.bag @ 100 mls/hr IVPB Q1HR [facility] Rx#: [id number] Output: Urine 500 250 250 Other: Voiding Method External Catheter External Catheter External Catheter # Voids 1 1 # Bowel Movements 1 - Exam GENERAL EXAM: Alert, 68-year-old white female, on nasal cannula. HEAD: Normocephalic and atraumatic EYES: Normal reaction of pupils, equal size. NOSE: Clear with pink turbinates. THROAT: No erythema or exudates. Dry mucous membranes NECK: No masses, no JVD. CHEST: No chest wall deformity. LUNGS: Scattered rhonchi noted bilaterally more so on forced expiratory maneuver. CVS: S1 and S2 normal with no audible murmur, regular rhythm. No extra heart sounds ABDOMEN: No hepatosplenomegaly, active bowel sounds, no guarding or rigidity. SKIN: No rashes CENTRAL NERVOUS SYSTEM: Alert oriented x 3 no focal deficit EXTREMITIES: No clubbing edema or cyanosis - Labs CBC & Chem 7: 12/26/23 04:28 12/26/23 04:28 Labs: Abnormal Lab Results - Last 24 Hours (Table) 12/25/23 12/25/23 12/26/23 Range/Units 13:20 14:18 04:28 WBC 14.1 H (3.8-10.6) k/uL Neutrophils # 12.5 H (1.3-7.7) k/uL Lymphocytes # 0.6 L (1.0-4.8) k/uL ABG pCO2 51 H (35-45) mmHg ABG pO2 66 L (83-108) mmHg ABG HCO3 30 H (21-25) mmol/L ABG Total CO2 31 H (19-24) mmol/L ABG O2 Saturation 92.8 L (94-97) % Sodium (137-145) mmol/L Potassium 3.2 L (3.5-5.1) mmol/L BUN (7-17) mg/dL Glucose (74-99) mg/dL 12/26/23 Range/Units 04:28 WBC (3.8-10.6) k/uL Neutrophils # (1.3-7.7) k/uL Lymphocytes # (1.0-4.8) k/uL ABG pCO2 (35-45) mmHg ABG pO2 (83-108) mmHg ABG HCO3 (21-25) mmol/L ABG Total CO2 (19-24) mmol/L ABG O2 Saturation (94-97) % Sodium 136 L (137-145) mmol/L Potassium 3.2 L (3.5-5.1) mmol/L BUN 23 H (7-17) mg/dL Glucose 155 H (74-99) mg/dL Microbiology - Last 24 Hours (Table) 12/25/23 03:00 Blood Culture - Preliminary Blood 12/25/23 02:43 Blood Culture - Preliminary Blood Assessment and Plan Assessment: Impression: Acute hypoxic and hypercapnic respiratory failure Acute exacerbation of COPD Acute toxic metabolic encephalopathy with hypercapnia Acute metabolic alkalosis Severe dehydration Electrolytes imbalance including hyponatremia and hypokalemia Severe underlying COPD Tobacco dependence syndrome Hypothyroidism Dyslipidemia Chronic pain syndrome History of anxiety and depression Status post cardiac catheterization on 12/24/2023, and normal coronary findings noted. Recommendation: Continue present treatment including bronchodilators Continue to monitor in the ICU Continue BiPAP as needed Continue Solu-Medrol Continue antibiotics Continue GI and DVT prophylaxis Will continue to monitor in the ICU for at least the next 24 hours and decide on possible transfer to the medical floor. Time with Patient: Less than 30
--- NOTE | 2023-12-26 16:32 | P.GSCN ---
History of Present Illness Consult date: 12/26/23 Reason for Consult: hoarseness dysphagia or aspiration Requesting physician: Lucy Hansen History of present illness: this is a 68-year-old white female who 2 weeks ago did not contact her family. 5 days later on Saturday she was found totally confused, walking around her house naked with hoarseness and difficulty swallowing. She was admitted and had a CTA and a brain CT without contrast. Since her admission her voice has been extremely hoarse and she has a difficult time handling any secretions. She is unable to eat normally. She coughs after she attempts to swallow. She suctions the secretions from her mouth with a Yankauer suction. Her confusion is slightly better. Her daughter tells me that she was totally confused and unaware of her surroundings when she was found at home. She been here at the [facility] for 8 days. Neurology has been consulted. Speech therapy requesting consultation on light of the patient's hoarseness and difficulty swallowing. Review of Systems - Constitutional Reports as per HPI - EENT Ears, nose, mouth and throat: Reports as per HPI - Cardiovascular Reports as per HPI - Respiratory Reports as per HPI - Gastrointestinal Reports as per HPI - Genitourinary Genitourinary: Reports as per HPI Menstruation: Reports as per HPI - Musculoskeletal Reports as per HPI - Integumentary Reports as per HPI - Neurological Reports as per HPI - Psychiatric Reports as per HPI - Endocrine Reports as per HPI - Hematologic/Lymphatic Reports as per HPI Past Medical History Past Medical History: No Reported History, COPD, Hyperlipidemia, Thyroid Disorder Additional Past Medical History / Comment(s): back pain, hypoyhyroid History of Any Multi-Drug Resistant Organisms: None Reported Past Surgical History: Hysterectomy Past Anesthesia/Blood Transfusion Reactions: Unable to Obtain Past Psychological History: No Psychological Hx Reported Smoking Status: Current every day smoker Past Alcohol Use History: Daily Past Drug Use History: Marijuana Medications and Allergies Home Medications Medication Instructions Recorded Confirmed Type Cholecalciferol (Vitamin D3) 50 mcg PO DAILY 12/24/23 12/24/23 History [Vitamin D3 (50 Mcg = 2000 Iu)] Cyanocobalamin [Vitamin B-12] 500 mcg PO DAILY 12/24/23 12/24/23 History Doxepin [SINEquan] 10 mg PO HS 12/24/23 12/24/23 History Escitalopram [Lexapro] 30 mg PO DAILY 12/24/23 12/24/23 History Fluticasone Propion/Salmeterol 2 puff INHALATION RT-BID 12/24/23 12/24/23 History [Advair Hfa 230-21 Mcg Inhaler] Gabapentin [Neurontin] 400 mg PO TID 12/24/23 12/24/23 History Levothyroxine Sodium [Synthroid] 50 mcg PO DAILY 12/24/23 12/24/23 History Naproxen [Naprosyn] 375 mg PO BID-W/MEALS PRN 12/24/23 12/24/23 History Vpn-Pfmm-Vkfhq Acid 1 cap PO DAILY 12/24/23 12/24/23 History [-U Capsule (formulary)] Simvastatin [Zocor] 20 mg PO HS 12/24/23 12/24/23 History buPROPion XL [Wellbutrin XL] 300 mg PO DAILY 12/24/23 12/24/23 History rOPINIRole HCL [Requip] 1 mg PO TID 12/24/23 12/24/23 History Allergies Allergy/AdvReac Type Severity Reaction Status Date / Time Penicillins Allergy Anaphylaxis Verified 12/24/23 18:03 Sulfa (Sulfonamide Allergy Anaphylaxis Verified 12/24/23 18:03 Antibiotics) Surgical - Exam Osteopathic Statement: *. No significant issues noted on an osteopathic structural exam other than those noted in the History and Physical/Consult. Vital Signs Temp Pulse Resp BP Pulse Ox 98.4 F 93 30 H 151/76 78 L 12/24/23 14:27 12/24/23 14:27 12/24/23 14:27 12/24/23 14:27 12/24/23 14:27 - General well developed, well nourished, no distress - Eyes PERRL, normal ocular movement - ENT head is normocephalic the face is symmetric there's no abnormal movements is no tenderness to the sinuses are mastoids is no nodules or eruptions or parasites on scalp. Auricles are well formed canals are clear. Nose is patent dryness is noted. Mouth and throat unremarkable. Neck no tumors or masses are palpable. Hoarseness is noted. normal pinna, normal nares, normal mucosa, no congestion - Neck no masses, no bruits, trachea midline, no lymphadectomy - Respiratory normal expansion - Integumentary no rash, no growths - Psychiatric oriented to place, other (hoarseness noted) Results - Labs 12/26/23 04:28 12/26/23 04:28 Abnormal Lab Results - Last 24 Hours (Table) 12/26/23 12/26/23 Range/Units 04:28 04:28 WBC 14.1 H (3.8-10.6) k/uL Neutrophils # 12.5 H (1.3-7.7) k/uL Lymphocytes # 0.6 L (1.0-4.8) k/uL Sodium 136 L (137-145) mmol/L Potassium 3.2 L (3.5-5.1) mmol/L BUN 23 H (7-17) mg/dL Glucose 155 H (74-99) mg/dL Microbiology - Last 24 Hours (Table) 12/25/23 04:23 Gram Stain - Preliminary Sputum 12/25/23 03:00 Blood Culture - Preliminary Blood 12/25/23 02:43 Blood Culture - Preliminary Blood Diabetes panel 12/26/23 Range/Units 04:28 Sodium 136 L (137-145) mmol/L Potassium 3.2 L (3.5-5.1) mmol/L Chloride 101 (98-107) mmol/L Carbon Dioxide 27 (22-30) mmol/L BUN 23 H (7-17) mg/dL Creatinine 0.92 (0.52-1.04) mg/dL Glucose 155 H (74-99) mg/dL Calcium 8.4 (8.4-10.2) mg/dL Calcium panel 12/26/23 Range/Units 04:28 Calcium 8.4 (8.4-10.2) mg/dL Pituitary panel 12/26/23 Range/Units 04:28 Sodium 136 L (137-145) mmol/L Potassium 3.2 L (3.5-5.1) mmol/L Chloride 101 (98-107) mmol/L Carbon Dioxide 27 (22-30) mmol/L BUN 23 H (7-17) mg/dL Creatinine 0.92 (0.52-1.04) mg/dL Glucose 155 H (74-99) mg/dL Calcium 8.4 (8.4-10.2) mg/dL Adrenal panel 12/26/23 Range/Units 04:28 Sodium 136 L (137-145) mmol/L Potassium 3.2 L (3.5-5.1) mmol/L Chloride 101 (98-107) mmol/L Carbon Dioxide 27 (22-30) mmol/L BUN 23 H (7-17) mg/dL Creatinine 0.92 (0.52-1.04) mg/dL Glucose 155 H (74-99) mg/dL Calcium 8.4 (8.4-10.2) mg/dL Assessment and Plan (1) Bilateral vocal cord paresis Current Visit: Yes Status: Acute Code(s): J38.02 - PARALYSIS OF VOCAL CORDS AND LARYNX, BILATERAL SNOMED Code(s): 299787174 (2) Dysphagia Current Visit: Yes Status: Acute Code(s): R13.10 - DYSPHAGIA, UNSPECIFIED SNOMED Code(s): 69586591 Plan: this patient had severe confusion before admission and has had over 1 week of severe hoarseness and dysphagia with an inability to handle secretions. I'm recommending an MRI to rule out a neurologic event. I am also recommending a feeding tube since she cannot swallow or handle oral secretions. Computed tomography scan of neck and chest has been ordered. The patient has bilateral vocal cord paresis etiology unknown at this time. Suspect neurologic issue. PEG tube has been requested. Further recommendations will be made after workup is complete.
--- NOTE | 2023-12-26 16:36 | P.OP ---
Date of Procedure: 12/26/23 Preoperative Diagnosis: dysphasia, hoarseness Postoperative Diagnosis: same with epiglottic inflammation Procedure(s) Performed: direct flexible nasopharyngolaryngoscope Anesthesia: none Surgeon: Sergio Pompa Estimated Blood Loss (ml): 0 Pathology: none sent Condition: stable Disposition: PACU Indications for Procedure: Patient has severe hoarseness and dysphagia and inability to handle secretions Operative Findings: patient was found have some epiglottic inflammation and no discrete tumor or masses noted. Vocal cords show minimal movement bilaterally. Swallow reflex is absent. No tumors or masses of the nasopharynx oropharynx or hypopharynx. Some mucosal inflammatory changes to the laryngeal surface of the epiglottis. Nasopharyngeal scar from adenoidectomy Description of Procedure: an EF type GP nasopharyngoscope was inserted into the patient's right nares with care to avoid any trauma to the nasal mucosa. This was placed through the floor the nose into the nasopharynx. Nasopharynx demonstrated adenoidectomy scar. No tumors or masses of the nasopharynx or oropharynx. Hypopharynx shows epiglottic inflammation along the laryngeal surface of the epiglottis. Vocal cord movement is minimal bilaterally. Swallow reflexes absent. Vocal cord movement minimal bilaterally. Secretions freely flow into the trachea
[2023-12-26] MEDS ORDERED: Potassium Replacement Protocol 1 EACH MISC MISCELLANE PRN (19:17)
--- NOTE | 2023-12-26 19:29 | P.PN ---
Subjective Progress Note Date: 12/26/23 HISTORY OF PRESENTING ILLNESS 68-year-old female with past medical history of smoking, marijuana use and c hronic back pain. Patient had a wellness check at home where she was noticed to be obtunded, complaining of chest heaviness and shortness of breath. Due to this she was presented to the hospital. Upon admission to the ER she was noticed to be hypoxic with oxygen saturation 80%. Patient reported that she was feeling well until yesterday. She has been having the symptoms from late morning. She had an ECG performed which showed sinus tachycardia with diffuse ST depressions in all precordial leads and ST elevations in aVR. Patient was complaining of active chest pain. Bedside echocardiogram was performed which showed hyperdynamic LV. RV did not look dilated. Her initial labs showed a troponin of 0.103, CK7 30, creatinine 0.7, potassium 2.4, chloride 69, bicarb 39, sodium 125. Urinary ketones were positive PMH: No past medical history of stroke, malignancy. PSH: Hysterectomy, Social history: Smokes 1 packs/day, smokes marijuana. No heavy alcohol Progress Note 12/25/23 BP 118/72, heart rate 89 Labs shows hemoglobin 15, ABG pH 7.3, CO2 52, pO2 57, sodium 130, potassium 2.9, creatinine 1.07, BUN 36, Patient is hypoxic and is requiring BiPAP support. Patient had a CT angio done which did not show any evidence of PE or any signs of pulmonary congestion or pneumonia. 12/26/2023 Patient is complaining of significant hoarseness and difficulty in swallowing. Patient still continues to be have shortness of breath but less as compared to yesterday. Not BiPAP dependent. Tolerating nasal cannula Sinus tachycardia on ECG. PHYSICAL EXAMINATION Vital signs reviewed. Head: Normocephalic. Eyes: Sclerae nonicteric. Neck: Brisk carotid upstroke, no jugular venous distention. Lungs: Diminished breath sounds in bilateral lung galvan, mild crackles and rhonchi audible. Heart: Regular rate and rhythm, S1-S2, no S3, no murmur or rub. Abdomen: Soft nontender, positive bowel sounds. Extremities: No edema, intact distal pulses. Neuro: Alert, oritented, no focal deficits. Detailed neuro exam was not performed. Echo shows an EF of 60%, mild LVH, significant valve dysfunction Cardiac cath did not show any significant coronary artery disease No evidence of PE on CT chest ASSESSMENT Acute hypoxic respiratory failure, on BiPAP Type II NSTEMI from dehydration and hypoxia ST elevation in aVR, diffuse ST depressions in other precordial leads due to hypoxia and Shortness of breath Physiological sinus tachycardia PLAN No signs of congestive heart failure based on CT chest. No evidence of obstructive coronary artery disease. No signs of cardiomyopathy on echocardiogram. Elevation of troponin and ST elevation most likely due to hypoxemia and dehydration Aspirin 81 mg Supportive care for hypoxia and electrolyte management as per ICU and Primary team. Continue gentle IV hydration Objective - Vital Signs Vital signs: Vital Signs Temp 98.5 F 12/26/23 13:00 Pulse 100 12/26/23 19:00 Resp 9 L 12/26/23 19:00 BP 143/78 12/26/23 19:00 Pulse Ox 92 L 12/26/23 19:00 FiO2 50 12/26/23 07:48 Intake & Output 12/26/23 12/26/23 12/27/23 06:59 18:59 06:59 Intake Total 1000 1950 Output Total 250 250 Balance 750 1700 Weight 71 kg Intake: IV 1000 1300 Potassium Chloride 10 meq 100 In Water For Injection 1 100ml.bag @ 100 mls/hr IVPB Q1H [facility] Rx#: [id number] Sodium Chloride 0.9% 1, 900 1250 000 ml @ 100 mls/hr IV . Q10H [facility] Rx#:[id number] cefTRIAXone 1 gm In 50 Sodium Chloride 0.9% 50 ml @ 100 mls/hr IVPB Q24HR [facility] Rx#:[id number] Intake, IV Titration 650 Amount Azithromycin 500 mg In 250 Sodium Chloride 0.9% 250 ml @ 250 mls/hr IVPB DAILY [facility] Rx#:[id number] Potassium Chloride 10 meq 400 In Water For Injection 1 100ml.bag @ 100 mls/hr IVPB Q1HR [facility] Rx#: [id number] Output: Urine 250 250 Other: Voiding Method External Catheter External Catheter # Voids 1 1 # Bowel Movements 1 - Labs CBC & Chem 7: 12/26/23 04:28 12/26/23 18:48 Labs: Abnormal Lab Results - Last 24 Hours (Table) 12/26/23 12/26/23 Range/Units 04:28 04:28 WBC 14.1 H (3.8-10.6) k/uL Neutrophils # 12.5 H (1.3-7.7) k/uL Lymphocytes # 0.6 L (1.0-4.8) k/uL Sodium 136 L (137-145) mmol/L Potassium 3.2 L (3.5-5.1) mmol/L BUN 23 H (7-17) mg/dL Glucose 155 H (74-99) mg/dL Microbiology - Last 24 Hours (Table) 12/25/23 04:23 Gram Stain - Preliminary Sputum 12/25/23 03:00 Blood Culture - Preliminary Blood 12/25/23 02:43 Blood Culture - Preliminary Blood
--- NOTE | 2023-12-26 21:50 | CT ---
EXAMINATION TYPE: CT NECK CHEST W CON DATE OF EXAM: 12/26/2023 HISTORY: Bilateral vocal cord paralysis. TECHNIQUE: CT scan of the thorax is performed following with IV Contrast, patient injected with 100 m L of Isovue 300. CT DLP: 576 mGycm. Automated Exposure Control for Dose Reduction was Utilized. COMPARISON: CT Chest 12/24/2023 FINDINGS: CT NECK Suprahyoid examination is negative for adenopathy. The parotid, submandibular and sublingual glands a nd ducts are unremarkable. The superficial mucosal space of the oral cavity, nasopharynx, oropharynx and hypopharynx have unremarkable appearance. The adenoids and tonsils are unremarkable. The visualiz ed paranasal sinuses and middle ear cavities and mastoid sinuses are clear. The vasculature is unrema rkable. The bony structures and visualized intracranial contents are unremarkable. Infrahyoid examination also negative for adenopathy. The larynx and laryngeal cartilage are unremarka ble. The thyroid examination is negative. There are no focal bone lesions. The visualized intraspinal contents are negative. The vasculature is unremarkable. The bony are unremarkable. Supraclavicular fossae and superior mediastinum are unremarkable. The visualized lung apices are sandra r. CT CHEST LUNGS/PLEURAL SPACES: Bilateral lower lobe ill-defined consolidation in the axial compartment consist ent with bilateral bronchopneumonia, greater on the right. No other acute pulmonary process. No pleur al effusion or pneumothorax. Airways are unremarkable. MEDIASTINUM: There are no greater than 1 cm hilar or mediastinal lymph nodes. No mediastinal mass or paramediastinal mass. No cardiomegaly or pericardial effusion. No dilation of the aorta or the pulmon moisés arteries. OTHER: No additional significant abnormality is seen. IMPRESSION: CT Neck: No acute process; no focal findings. CT CHEST: No finding to correlate with the clinical sign. Findings consistent with a clinical diagnos is of bilateral lower lobe bronchopneumonia, greater on the right.
[2023-12-26 22:00] LABS: T4, Free (Free Thyroxine) 1.58 ng/dL (0.78-2.19)
[2023-12-26 22:19] LABS: Creatine Kinase 94 U/L (30-135)
[2023-12-27 05:00] LABS: Chol/HDL Ratio 3.68 Ratio; LDL Cholesterol,Calculated 105.7 mg/dL (0.0-131.0)
--- NOTE | 2023-12-27 05:37 | P.PN ---
Subjective Progress Note Date: 12/26/23 HISTORY OF PRESENT ILLNESS: 68-year-old female [address] Hansen's patient with past medical history of COPD who is currently smoker on regular basis, history of hyper lipidemia, hyp othyroidism, chronic back pain, who also has history of chronic neuropathy, chronic depression, restless leg syndrome, chronic anemia. Apparently she was not answering her phone for the last few days, family went to check on her and found her naked and acting more confused she ended up coming to the emergency department where was seen and evaluated she claims she been having chest pain midsternum for the last 3 days without any radiation she been having mild cough and significant shortness of breath without productive phlegm. The EKG in the emergency department showed ST elevation in the inferior lead and diffuse ST depression in the lateral lead. Troponin being elevated patient was diagnosed with STEMI and ended up being taken to the [facility] by Dr. Lu. Heart catheter came back with completely negative blockage. Patient continues to have significant symptoms of shortness of breath with send at point to have CTA to exclude possibility of PE came back negative no sign of infiltrate. Patient had severe abnormal electrolyte imbalance with her sodium, potassium and chloride she ended up being transferred to the ICU resting on BiPAP settings 126 with FiO2 of 50 percentile started to feel little bit better, start replacing her potassium and continue hydration at that point. 12/25/2023: Patient remain in the ICU, remain on BiPAP, she is quite bit confused Was seen pulmonary through the night still on electrolyte replacement therapy. Her oxygen level still quite a bit low in the 80s require BiPAP on more regular basis, vitals improved slight bed, remain little bit tachycardic. Echocardiogram was ordered for this morning still has not been performed yet and as reviewed her entire heart cath and CTA came back to be completely normal. Continue to hydrate patient quite bit for now consult neurology probably further testing including EEG repeat scan of the brain can be beneficial. 12/26/2023: The patient is awake alert she is off the BiPAP sitting on the side of the bed still not acting herself still hypoxic hypophonic when she talk patient has been off asking for speech therapy for swallow evaluation before allowing patient to eat. Her lab value improved to some degree white blood cell is up to 14,000 but cannot state probably steroid-based, potassium still at 3.2: No free T4 was normal but TSH slightly low. Sadly when speech therapy did their assessment came back quite with abnormal and accelerated to an urgent ENT consultation patient ended going for dysphagia and hoarseness evaluation by direct flexible nasopharyngeal laryngoscopy result study came back with bilateral vocal cord paralysis can be consistent with either something obstructive in the neck or related to central stroke affected both sides. Brain scan was done early and there is a consultation from neurology which she has been seen note so far will end up doing CT of the chest and neck CT of the neck shows no finding consistent with any major abnormality on the chest showed no diagnosis of bilateral lower lobe bronchopneumonia greater on the right side more than anything else. At this point of course recommendation is for PEG tube and n.p.o. completely and still asking for neuroconsultation. REVIEW OF SYSTEMS: CONSTITUTIONAL: Confused still in mild distress. EYES: No icterus sclerae, no conjunctivitis. EARS, NOSE, MOUTH, THROAT, and FACE: No sore throat, lymphadenopathy, carotid bruits or deformity. RESPIRATORY: Slight cough and wheezes. CARDIOVASCULAR: Positive chest pain with orthopnea and angina. GASTROINTESTINAL: No Abd pain, Nausea or vomiting, no Diarrhea or constipation, No GI Bleed, no distention or masses. GENITOURINARY: Negative for Hematuria or UTI, no kidney stones. INTEGUMENT/BREAST: Negative for any muscular injury with mild osteoarthritis.. HEMATOLOGIC/LYMPHATIC: Negative for bleed or purpura. MUSCULOSKELTAL: Negative for Myalgia or arthralgia. NEURLOGICAL: No LOC, Sz or syncope, blurred vision dizziness or abnormality.. BEHAVIORAL/PSYCH: Negative. ENDOCRINE: Negative. PHYSICAL EXAMINATION: General Appearance: Alert, mildly confused looks older than her age. Neck HEENT: Supple, no lymphadenopathy, no thyroid enlargement, no carotid bruits. Lungs: Decreased breath sound bilaterally with fine rhonchi with mild expiratory wheezes. Chest Wall: Decreased expansion with deep inspiration no tenderness and no deformity was found on exam, no costochondral pain or discomfort. Heart: Regular rate and rhythm, S1, S2 normal, no murmur, rub or gallop. Back: Symmetric, no curvature, ROM normal, no CVA tenderness. Abdomen: Soft, non-tender, bowel sounds active all four quadrants, no masses, no organomegaly. Extremities: Extremities normal, atraumatic, no cyanosis or edema. Pulses: 2+ and symmetric. Skin: Skin color, texture, tugor normal, no rashes or lesions. Neurologic: Alert slightly confused cranial nerves II through XII intact, no motor deficit, no abnormal balance or gait. ASSESSMENT AND PLAN: _Severe chest pain with signs of STEMI: Post heart cath with negative finding with normal coronary artery. This is considered a type II non-STEMI from dehydration and hypoxia. _Acute respiratory failure: Patient is off BiPAP still on oxygen. _Severe dysphagia: With bilateral vocal cord paralysis, PEG tube will be needed at this point and patient is n.p.o. further study and testing nothing but central out if there is any other reason to have bilateral vocal cord paralysis. Knowing patient and all this event never was intubated. _Severe electrolyte imbalance including hypokalemia, hyponatremia and hypochloremia: Replace potassium and continue hydration for now repeat CMP in the next 8 hours. _Severe altered mental status: Her mental status has been cleared at this point is most likely hypoxia and severe dehydration with encephalopathy with still again missing neurology consultation which was requested from the beginning. _Severe dehydration and prerenal azotemia: Continue hydration with 0.9 at 100 cc an hour. _Chronic history of smoking: Smoking cessation was addressed nicotine patch will be started. _Chronic pain syndrome: Will holding off her gabapentin and prednisone No. 4 for now. _Chronic depression: Try to withhold some of her antidepression medication for the next few days. _Restless leg syndrome: Reduce Requip to 1 mg at bedtime only. _ Hyperlipidemia: Continue simvastatin. _Hypothyroidism: Continue levothyroxine 50 mcg daily. If not able to take it orally we will do a trial IV. Prognosis is very guarded. Patient might be able to leave the ICU today but will be looking for PEG tube. Objective - Vital Signs Vital signs: Vital Signs Temp 98.2 F 12/26/23 04:00 Pulse 90 12/26/23 05:00 Resp 20 12/26/23 05:00 BP 137/75 12/26/23 05:00 Pulse Ox 99 12/26/23 05:00 FiO2 80 12/26/23 04:00 Intake & Output 12/25/23 12/25/23 12/26/23 06:59 18:59 06:59 Intake Total 1400 1900 925 Output Total 1450 500 250 Balance -50 1400 675 Weight 69.3 kg 71 kg Intake: IV 1400 1650 925 Potassium Chloride 10 meq 400 700 100 In Water For Injection 1 100ml.bag @ 100 mls/hr IVPB Q1H [facility] Rx#: [id number] Sodium Chloride 0.9% 1, 900 900 825 000 ml @ 75 mls/hr IV . [id number] [facility] Rx#:[id number] cefTRIAXone 1 gm In 100 50 Sodium Chloride 0.9% 50 ml @ 100 mls/hr IVPB Q24HR [facility] Rx#:[id number] Intake, IV Titration 250 Amount Azithromycin 500 mg In 250 Sodium Chloride 0.9% 250 ml @ 250 mls/hr IVPB DAILY [facility] Rx#:[id number] Output: Urine 1450 500 250 Other: Voiding Method External Catheter External Catheter External Catheter # Voids 1 1 1 # Bowel Movements 1 - Labs CBC & Chem 7: 12/26/23 04:28 12/26/23 18:48 Labs: Abnormal Lab Results - Last 24 Hours (Table) 12/25/23 12/25/23 12/25/23 Range/Units 06:29 13:20 14:18 WBC (3.8-10.6) k/uL Neutrophils # (1.3-7.7) k/uL Lymphocytes # (1.0-4.8) k/uL ABG pCO2 52 H 51 H (35-45) mmHg ABG pO2 57 L* 66 L (83-108) mmHg ABG HCO3 31 H 30 H (21-25) mmol/L ABG Total CO2 33 H 31 H (19-24) mmol/L ABG O2 Saturation 89.0 L 92.8 L (94-97) % Sodium (137-145) mmol/L Potassium 3.2 L (3.5-5.1) mmol/L BUN (7-17) mg/dL Glucose (74-99) mg/dL 12/26/23 12/26/23 Range/Units 04:28 04:28 WBC 14.1 H (3.8-10.6) k/uL Neutrophils # 12.5 H (1.3-7.7) k/uL Lymphocytes # 0.6 L (1.0-4.8) k/uL ABG pCO2 (35-45) mmHg ABG pO2 (83-108) mmHg ABG HCO3 (21-25) mmol/L ABG Total CO2 (19-24) mmol/L ABG O2 Saturation (94-97) % Sodium 136 L (137-145) mmol/L Potassium 3.2 L (3.5-5.1) mmol/L BUN 23 H (7-17) mg/dL Glucose 155 H (74-99) mg/dL
[2023-12-27 05:58] LABS: Basophils # (A) 0.1 k/uL (0-0.2); Basophils % (A) 0 %; Eosinophils % (A) 0 %; HCT 38.7 % (34.0-46.0); HGB 12.9 gm/dL (11.4-16.0); Lymphocytes # (A) 0.5 k/uL (1.0-4.8); Lymphocytes % (A) 3 %; MCH 30.3 pg (25.0-35.0); MCHC 33.3 g/dL (31.0-37.0); MCV 90.9 fL (80.0-100.0); Mean Platelet Volume 9.2; Monocytes # (A) 1.3 k/uL (0-1.0); Monocytes % (A) 8 %; Neutrophils % (A) 86 %; Platelet Count 284 k/uL (150-450); RBC 4.26 m/uL (3.80-5.40); RDW 13.8 % (11.5-15.5); WBC 15.1 k/uL (3.8-10.6)
[2023-12-27 06:09] LABS: African American GFR (CKD) 88 (>60 ml/min/1.73 sqM); Anion Gap 11 mmol/L; Blood Urea Nitrogen 23 mg/dL (7-17); Calcium 8.6 mg/dL (8.4-10.2); Carbon Dioxide 22 mmol/L (22-30); Chloride 108 mmol/L (98-107); Glucose 161 mg/dL (74-99); Non-African American GFR(CKD) 77 (>60 ml/min/1.73 sqM); Potassium 3.9 mmol/L (3.5-5.1); Sodium 141 mmol/L (137-145)
[2023-12-27 07:51] LABS: ABG Base Excess 2.7 mmol/L; ABG HCO3 26 mmol/L (21-25); ABG PCO2 34 mmHg (35-45); ABG PH 7.49 (7.35-7.45); ABG PO2 62 mmHg (83-108); ABG TCO2 27 mmol/L (19-24); Allen Test Performed? Yes
[2023-12-27 07:52] LABS: ABG Oxygen Saturation 94.6 % (94-97)
--- NOTE | 2023-12-27 10:13 | P.CNNES ---
History of Present Illness Consult date: 12/26/23 Requesting physician: Enrrique Moser Reason for Consult: Altered mental status History of Present Illness: Patient is a 68-year-old female came to the hospital by ambulance 2 days ago, 12/24/2023 at 2:11 PM for altered mental status. As per EMS flowsheet, when they arrived, patient was with her family and [facility]. Patient's family called for a wellbeing check on her mother and she has not heard from her in days. When [facility] arrived to find patient answering her door naked and confused stumbling about the home. Family mentioned that she has been unsteady and having tremors as of late. Family had dressed her before EMS arrival. Family is a poor historian as to what or how the patient been in weeks and thought she was at her boyfriend's home as he is now in hospice care and unsure of his status. There was a smell of fecal matter in her room. Patient has history of depression and is not taking her medication as prescribed including BuSpar, Requip, Wellbutrin, Lexapro as all bottles were filled 11/09/2023 and full. Patient was alert, confused unsteady. Patient confirmed that she has not taken her medication in over a month. EKG showed ST segment depression in all leads. Patient's vitals at the scene was blood pressure 162/89, pulse rate 98, respiration 18, saturation 91%. Blood sugar 142 mg/dL, temperature 98.6. Patient has been mostly afebrile, with some temperature maximum 99.4. Blood test shows WBC 11.5 hemoglobin 17.1, platelets normal. PT PTT normal. Sodium 125 potassium 2.4, BUN 63 creatinine 0.77. AST 97, ALT 76, CK7 30 and troponins mildly elevated 0.103. UA negative. Urine drug screen positive for marijuana. Blood alcohol level negative. Influenza, RSV, coronavirus PCR negative. ABG showed pH of 7.52, pCO2 53, pO2 52, saturation 87% on 50% FiO2. Her sodium has improved 136. White cells are 14.1 as of today. Potassium 3.2, normal renal functions. EKG shows sinus rhythm with short AR interval. Chest x-ray is normal. Patient underwent cardiac catheterization, and angiographically normal coronary arteries. Normal left-sided filling pressure. CTA chest negative for pulmonary embolism. CT head revealed no acute intracranial process. I personally reviewed CT head agree with the findings. All paranasal sinuses are clear. Patient states that she lives by herself and has been using a cane or a walker for ambulation for the last 6 months. She has 2 children. Patient denies any memory loss. Patient at this time tells me that she has developed hoarseness of voice couple weeks ago and dysphagia. Patient denies any facial droop, ptosis, diplopia. Patient's daughter later came, who mentioned that the last time she spoke to her mom was on 12/18/2023 and she was perfectly fine at that time. No one seems to have contacted patient until Saturday when patient went to check in for welfare check and found her in the position mentioned above. At t hat time she did not know her daughter. She was coughing. No previous history of strokes or TIA or any history of seizures. Patient does smoke 1 pack/day for 20 to 30 years. Denies any alcohol use. She does smoke marijuana. 2D echo revealed normal left ventricular function with EF 60 to 65%. No obvious regional wall motion abnormalities. Normal left atrial size. Patient takes gabapentin 400 mg 3 times daily, doxepin 10 mg at bedtime, Wellbutrin XL 300 mg, levothyroxine, Requip, 1 mg 3 times daily, naproxen, B12 500 mcg, vitamin D, simvastatin 20 mg, Lexapro 30 mg. Review of Systems Constitutional: Reports chills, Reports fever Eyes: denies blurred vision, denies diplopia, denies pain, denies loss of vision Ears: deny: decreased hearing, ear discharge, earache Ears, nose, mouth and throat: Reports headache, Denies sore throat, Denies vertigo Cardiovascular: Reports lightheadedness, Reports shortness of breath, Denies chest pain Respiratory: Reports cough, Reports excessive sputum Gastrointestinal: Reports diarrhea, Reports nausea, Reports vomiting, Denies abdominal pain Genitourinary: Denies dysuria, Denies urge incontinence Musculoskeletal: Denies low back pain, Denies neck pain Integumentary: Denies pruritus, Denies rash Neurological: Reports as per HPI Psychiatric: Reports anxiety, Reports depression Endocrine: Reports fatigue, Denies weight change Past Medical History Past Medical History: No Reported History, COPD, Hyperlipidemia, Thyroid Disorder Additional Past Medical History / Comment(s): back pain, hypoyhyroid History of Any Multi-Drug Resistant Organisms: None Reported Past Surgical History: Hysterectomy Past Anesthesia/Blood Transfusion Reactions: Unable to Obtain Past Psychological History: No Psychological Hx Reported Smoking Status: Current every day smoker Past Alcohol Use History: Daily Past Drug Use History: Marijuana Medications and Allergies Home Medications Medication Instructions Recorded Confirmed Type Cholecalciferol (Vitamin D3) 50 mcg PO DAILY 12/24/23 12/24/23 History [Vitamin D3 (50 Mcg = 2000 Iu)] Cyanocobalamin [Vitamin B-12] 500 mcg PO DAILY 12/24/23 12/24/23 History Doxepin [SINEquan] 10 mg PO HS 12/24/23 12/24/23 History Escitalopram [Lexapro] 30 mg PO DAILY 12/24/23 12/24/23 History Fluticasone Propion/Salmeterol 2 puff INHALATION RT-BID 12/24/23 12/24/23 History [Advair Hfa 230-21 Mcg Inhaler] Gabapentin [Neurontin] 400 mg PO TID 12/24/23 12/24/23 History Levothyroxine Sodium [Synthroid] 50 mcg PO DAILY 12/24/23 12/24/23 History Naproxen [Naprosyn] 375 mg PO BID-W/MEALS PRN 12/24/23 12/24/23 History Fxj-Bcph-Virqr Acid 1 cap PO DAILY 12/24/23 12/24/23 History [-U Capsule (formulary)] Simvastatin [Zocor] 20 mg PO HS 12/24/23 12/24/23 History buPROPion XL [Wellbutrin XL] 300 mg PO DAILY 12/24/23 12/24/23 History rOPINIRole HCL [Requip] 1 mg PO TID 12/24/23 12/24/23 History Allergies Allergy/AdvReac Type Severity Reaction Status Date / Time Penicillins Allergy Anaphylaxis Verified 12/24/23 18:03 Sulfa (Sulfonamide Allergy Anaphylaxis Verified 12/24/23 18:03 Antibiotics) Physical Examination - Vital Signs Vital Signs: Vital Signs Temp Pulse Resp BP Pulse Ox FiO2 12/26/23 10:00 97 21 136/72 94 L 12/26/23 09:30 102 H 33 H 130/72 12/26/23 09:00 98 21 132/70 95 12/26/23 08:30 96 22 124/75 94 L 12/26/23 08:15 93 12/26/23 08:07 93 12/26/23 08:00 98.7 F 86 20 137/73 98 12/26/23 07:57 94 12/26/23 07:48 93 50 12/26/23 07:30 91 19 129/80 96 12/26/23 07:00 93 16 128/71 98 12/26/23 06:30 83 19 136/70 97 12/26/23 06:00 88 18 131/68 98 12/26/23 05:55 75 12/26/23 05:30 90 22 140/70 97 12/26/23 05:00 90 20 137/75 99 12/26/23 04:30 89 21 143/74 98 12/26/23 04:00 98.2 F 93 24 134/73 99 80 12/26/23 03:47 96 12/26/23 03:34 90 80 12/26/23 03:30 90 21 135/65 97 12/26/23 03:00 90 24 141/67 97 12/26/23 02:30 101 H 29 H 98/63 96 12/26/23 02:00 94 20 127/63 96 12/26/23 01:30 92 30 H 137/61 94 L 12/26/23 01:00 92 24 124/63 96 12/26/23 00:30 93 12 131/70 12/26/23 00:11 99 12/26/23 00:00 97.6 F 92 19 126/64 93 L 80 12/25/23 23:59 93 80 12/25/23 23:30 96 30 H 112/71 87 L 12/25/23 23:00 91 20 135/64 93 L 12/25/23 22:30 97 19 124/56 90 L 12/25/23 22:26 92 20 124/56 92 L 12/25/23 22:00 98 26 H 129/60 84 L 12/25/23 21:30 97 24 118/65 89 L 12/25/23 21:05 99 12/25/23 21:00 89 28 H 131/67 97 12/25/23 20:56 96 12/25/23 20:55 96 12/25/23 20:40 97 80 12/25/23 20:30 93 33 H 121/66 85 L 12/25/23 20:00 98.0 F 93 26 H 137/75 84 L 70 12/25/23 19:30 106 H 26 H 123/63 89 L 12/25/23 19:00 92 24 116/69 90 L 12/25/23 18:30 89 21 90/72 97 12/25/23 18:00 91 23 120/65 96 12/25/23 17:30 89 21 123/55 95 12/25/23 17:00 95 15 118/63 92 L 12/25/23 16:30 93 19 115/63 86 L 12/25/23 16:15 88 12/25/23 16:03 84 12/25/23 16:00 98.7 F 86 20 129/63 90 L 70 12/25/23 15:30 89 21 114/62 94 L 12/25/23 15:00 85 17 118/66 96 70 12/25/23 14:30 89 25 H 111/54 96 12/25/23 14:00 91 22 105/53 97 12/25/23 13:30 89 23 127/59 95 12/25/23 13:05 88 12/25/23 13:00 87 23 126/61 12/25/23 12:49 84 70 12/25/23 12:30 83 7 L 128/62 94 L 12/25/23 12:00 99.2 F 87 23 111/69 96 85 12/25/23 11:52 80 Intake and Output 12/25/23 12/26/23 12/26/23 22:59 06:59 14:59 Intake Total 1000 600 900 Output Total 100 200 0 Balance 900 400 900 Intake: IV 1000 600 350 Potassium Chloride 10 meq 400 In Water For Injection 1 100ml.bag @ 100 mls/hr IVPB Q1H [facility] Rx#: [id number] Sodium Chloride 0.9% 1, 600 600 300 000 ml @ 100 mls/hr IV . Q10H [facility] Rx#:[id number] cefTRIAXone 1 gm In 50 Sodium Chloride 0.9% 50 ml @ 100 mls/hr IVPB Q24HR [facility] Rx#:[id number] Intake, IV Titration 550 Amount Azithromycin 500 mg In 250 Sodium Chloride 0.9% 250 ml @ 250 mls/hr IVPB DAILY [facility] Rx#:[id number] Potassium Chloride 10 meq 300 In Water For Injection 1 100ml.bag @ 100 mls/hr IVPB Q1HR [facility] Rx#: [id number] Output: Urine 100 200 0 Other: Voiding Method External Catheter External Catheter External Catheter # Voids 1 Weight 71 kg Patient is an elderly female, sitting in the recliner, in no acute distress. She is oxygen by nasal cannula. Patient is quite congested, bringing up phlegm which she is clearing by using hand-held suction machine. Patient is alert awake oriented to time place and person. Patient knows it is December 2023 and that she is in the hospital in [facility], but does not know the name of the hospital, knows name of the current president Mr. Lake. Her speech and language functions are normal. Her voice is somewhat raspy and hoarse, which she believes started about couple weeks ago. Patient can name and repeat very well. No aphasia or dysarthria. Attention, concentration and fund of knowledge is adequate. On cranial nerve examination, pupils are equal, round and reacting to light, visual galvan are full on confrontation, with no neglect on double simultaneous stimulation. Extraocular muscles are intact with no nystagmus. Face is symmetric, tongue protrudes to the midline. Palatal elevation and sensation normal, hearing and shoulder shrug normal, facial sensation normal. No obvious ptosis. No diplopia. On muscle strength testing, there is no pronator drift and the strength is phong l in arms and legs distally and proximally. Deep tendon reflexes are symmetric biceps 1+ brachioradialis 1+, knees 1+ ankles 1 and plantar is flat on the right, down on the left. Sensory to touch is equal with no neglect on double simultaneous stimulation. Cerebellar function showed no ataxia for hvrrzy-vi-pyuz testing. No dysdiadochokinesia. No ataxia for hper-ke-bhbd testing on either side. Tone and bulk of muscles normal. Gait deferred.. On general examination, there is no carotid bruit or murmur, S1-S2 audible. Chest is clear on consultation. Abdomen is soft nontender. No organomegaly, bowel sounds present. Peripheral pulses are present. No peripheral edema. Results - Laboratory Findings CBC and BMP: 12/27/23 05:15 12/27/23 05:15 Abnormal Lab Findings: Abnormal Labs 12/24/23 12/24/23 12/24/23 14:24 14:24 14:24 WBC 11.5 H RBC 5.70 H Hgb 17.1 H Hct 49.2 H Neutrophils # 8.5 H Lymphocytes # Monocytes # 1.3 H D-Dimer ABG pH ABG pCO2 ABG pO2 ABG HCO3 ABG Total CO2 ABG O2 Saturation Sodium 125 L Potassium 2.4 L* Chloride 69 L* Carbon Dioxide 39 H BUN 63 H Creatinine Glucose 127 H POC Glucose (mg/dL) Calcium Total Bilirubin 1.7 H AST 97 H ALT 76 H Creatine Kinase 730 H Troponin I 0.103 H* Procalcitonin Urine Protein Urine Ketones Urine Blood Urine Mucus U Marijuana (THC) Screen 12/24/23 12/24/23 12/24/23 14:54 17:13 18:01 WBC RBC Hgb Hct Neutrophils # Lymphocytes # Monocytes # D-Dimer 1.89 H ABG pH ABG pCO2 ABG pO2 ABG HCO3 ABG Total CO2 ABG O2 Saturation Sodium Potassium Chloride Carbon Dioxide BUN Creatinine Glucose POC Glucose (mg/dL) 115 H Calcium Total Bilirubin AST ALT Creatine Kinase Troponin I Procalcitonin Urine Protein 1+ H Urine Ketones 2+ H Urine Blood Small H Urine Mucus Rare H U Marijuana (THC) Screen Detected H 12/24/23 12/24/23 12/24/23 20:45 21:37 21:37 WBC RBC Hgb Hct Neutrophils # Lymphocytes # Monocytes # D-Dimer ABG pH 7.52 H ABG pCO2 53 H ABG pO2 52 L* ABG HCO3 43 H* ABG Total CO2 45 H ABG O2 Saturation 87.1 L Sodium 128 L Potassium 2.4 L* Chloride 77 L Carbon Dioxide 38 H BUN 41 H Creatinine Glucose 125 H POC Glucose (mg/dL) Calcium 8.1 L Total Bilirubin AST ALT Creatine Kinase Troponin I Procalcitonin 0.17 H Urine Protein Urine Ketones Urine Blood Urine Mucus U Marijuana (THC) Screen 12/25/23 12/25/23 12/25/23 02:43 02:43 02:43 WBC 11.2 H RBC Hgb Hct Neutrophils # Lymphocytes # Monocytes # D-Dimer ABG pH ABG pCO2 ABG pO2 ABG HCO3 ABG Total CO2 ABG O2 Saturation Sodium 130 L Potassium 2.9 L Chloride 83 L Carbon Dioxide 34 H BUN 36 H Creatinine 1.07 H Glucose 151 H POC Glucose (mg/dL) Calcium 8.2 L Total Bilirubin AST 63 H ALT 70 H Creatine Kinase Troponin I 0.074 H* Procalcitonin Urine Protein Urine Ketones Urine Blood Urine Mucus U Marijuana (THC) Screen 12/25/23 12/25/23 12/25/23 06:29 13:20 14:18 WBC RBC Hgb Hct Neutrophils # Lymphocytes # Monocytes # D-Dimer ABG pH ABG pCO2 52 H 51 H ABG pO2 57 L* 66 L ABG HCO3 31 H 30 H ABG Total CO2 33 H 31 H ABG O2 Saturation 89.0 L 92.8 L Sodium Potassium 3.2 L Chloride Carbon Dioxide BUN Creatinine Glucose POC Glucose (mg/dL) Calcium Total Bilirubin AST ALT Creatine Kinase Troponin I Procalcitonin Urine Protein Urine Ketones Urine Blood Urine Mucus U Marijuana (THC) Screen 12/26/23 12/26/23 04:28 04:28 WBC 14.1 H RBC Hgb Hct Neutrophils # 12.5 H Lymphocytes # 0.6 L Monocytes # D-Dimer ABG pH ABG pCO2 ABG pO2 ABG HCO3 ABG Total CO2 ABG O2 Saturation Sodium 136 L Potassium 3.2 L Chloride Carbon Dioxide BUN 23 H Creatinine Glucose 155 H POC Glucose (mg/dL) Calcium Total Bilirubin AST ALT Creatine Kinase Troponin I Procalcitonin Urine Protein Urine Ketones Urine Blood Urine Mucus U Marijuana (THC) Screen Assessment and Plan Assessment: * Altered mental status, likely due to toxic metabolic encephalopathy. Reasons multifactorial as mentioned below. * New onset hoarseness of voice, and dysphagia, unclear cause. Rule out nasopharyngeal mass lesion * Hyponatremia * Hypoxemia, improved * Hypokalemia, * Abnormal hepatic functions * Elevated cardiac enzymes, negative coronaries * Exacerbation of COPD. * Tobacco use * Hyperlipidemia * Hypothyroidism * Marijuana use Plan: * Patient's altered mental status was likely due to toxic metabolic encephalopathy. At present her mentation is much improved. Patient is fully oriented at this time. * EEG has been ordered to rule out any seizure activity versus encephalopathy. * Patient has developed new onset hoarseness of voice and dysphagia. ENT consulted to rule out any mass lesion. * 2D echo revealed normal left ventricular function with EF 60 to 65%. No obvious regional wall motion abnormalities. Normal left atrial size. * We will check B12, folate, lipid panel, hemoglobin A1c, TSH, CK, acetylcholine receptor antibodies. * Recommend complete tobacco cessation. * Further management based upon above test results. * Other medical management as per IM, critical care/pulmonary medicine. * Patient currently on ceftriaxone 1 g every 24 hours for possible pneumonia/COPD also on Solu-Medrol. * Neurology will follow. Thank you for the consult.
[2023-12-27] MEDS: LEVOTHYROXINE IVP 100 MCG/5 ML VIAL IV SCH (10:33)
[2023-12-27] MEDS: POTASSIUM CHLORIDE 10 MEQ in WATER FOR INJECTION 1 100ML.BAG IVPB SCH (10:34)
--- NOTE | 2023-12-27 10:35 | US ---
EXAMINATION TYPE: US carotid duplex BILAT DATE OF EXAM: 12/27/2023 Exam done portable in ICU COMPARISON: NONE CLINICAL INDICATION: Female, 68 years old with history of CVA; TECHNIQUE: Carotid duplex ultrasound examination. Indirect Doppler criteria was utilized. FINDINGS: EXAM MEASUREMENTS: RIGHT: Peak Systolic Velocity (PSV) cm/sec ----- Right CCA: 77.4 ----- Right ICA: 50.9 ----- Right ECA: 80.1 ICA/CCA ratio: 0.7 RIGHT: End Diastole cm/sec ----- Right CCA: 8.3 ----- Right ICA: 15.7 ----- Right ECA: 7.7 LEFT: Peak Systolic Velocity (PSV) cm/sec ----- Left CCA: 99.1 ----- Left ICA: 81.1 ----- Left ECA: 143.5 ICA/CCA ratio: 0.8 LEFT: End Diastole cm/sec ----- Left CCA: 15.3 ----- Left ICA: 27.8 ----- Left ECA: 13.2 VERTEBRALS (direction of flow): Right Vertebral: Antegrade Left Vertebral: Antegrade Rhythm: Normal No significant stenosis IMPRESSION: No evidence of hemodynamically significant stenosis. Criteria for Assigning % of Stenosis / Diameter reduction (Estimation based on the indirect measurements of the internal carotid artery velocities (ICA PSV). 1. Normal (no stenosis)=ICA PSV < 125 cm/s: ratio < 2.0: ICA EDV<40 cm/s. 2. Less than 50% stenosis=ICA PSV < 125 cm/s: ratio < 2.0: ICA EDV<40 cm/s. 3. 50 to 69% stenosis=ICA PSV of 125 to 230 cm/s: ration 2.0 ? 4.0: ICA EDV 40-100 cm/s. 4. Greater than 70% stenosis to near occlusion= ICA PSV > 230 cm/s: ratio > 4.0: ICA EDV > 100 cm/s. 5. Near occlusion= ICA PSV velocities may be low or undetectable: variable ratio and ICA EDV. 6. Total occlusion=unable to detect flow.
--- NOTE | 2023-12-27 11:48 | P.PN ---
Subjective Progress Note Date: 12/27/23 Principal diagnosis: Acute hypoxemic and hypercapnic respiratory failure I am seeing this patient in new consultation today on 12/25/2023 in the intensive care unit. The patient was transferred to the ICU after a heart catheterization for acute hypoxemic respiratory failure and increased oxygen demands. Patient is a 68-year-old white female with past medical history significant for COPD, current ongoing every day smoker, hyperlipidemia, hypothyroidism, chronic back pain. She smokes roughly 1 pack per day. Her primary care provider is Dr. Hansen. Patient had reportedly not been answering her phone for several days, so her daughter went to check on her at home. She reportedly was acting abnormal and confused and found naked. The patient does not recall this. After being brought to the emergency room yesterday afternoon, she was complaining of substernal chest pain that had been ongoing for the last 3 days. This is localized to the substernal area, she denies any radiation. Occurs mostly with coughing. Is associated with shortness of breath, wheezing, and productive cough. Troponins were elevated on arrival and patient had some isolated ST elevation in lead aVR, along with diffuse/generalized ST depression. She was also noted to be hypoxic. Patient was taken for a heart catheterization yeterday afternoon which revealed angiographically normal coronary arteries and left- sided filling pressures. No significant calcifications or coronary thrombus reported. D-dimer was also elevated, and for this reason the patient was sent for a chest CTA which did not show any evidence of pulmonary embolism. While in the intensive care unit, the patient had increased oxygen and was placed on BiPAP settings 12/6 and FiO2 50%. She is currently resting comfortably in bed, on BiPAP with the above-mentioned settings, in no acute respiratory distress. She is achieving tidal volumes of approximately 400 and her respiratory rate is in the mid 20s. She does have a congested cough and wheezing. Occasional has difficulty clearing oral secretions. Denies any fevers at home. She is currently alert and oriented. No signs of hypercapnic encephalopathy. ABGs were obtained earlier and consistent with combined hypoxemic and hypercapnic respiratory failure. She has a component of compensatory metabolic alkalosis and was given a dose of Diamox. CBC on arrival: WBC count 11.5, hemoglobin 17.1, hematocrit 49.2, platelets 331. BMP on arrival: Sodium 128, potassium 2.4, chloride 77, serum bicarb 38, BUN 41, creatinine 1.03, glucose 125. Normal saline is infusing at 75 mL per hour. LFTs mildly elevated. NT proBNP 764. Troponin on arrival 1.03. D-dimer had been elevated at 1.89. Urinalysis not concerning for UTI. Negative for influenza, RSV, COVID-19. Chest x-ray did not show any focal infiltrates or evidence of pneumonia. No acute cardiopulmonary process seen. Patient was covered empirically on a combination of azithromycin and Rocephin. She is afebrile. Vital signs are stable. Patient was reevaluated today on 12/26/2023, remains in the ICU, patient was on BiPAP overnight, transition to nasal cannula 3 L/min this morning. Continues to have intermittent cough and wheezing, patient is having some difficulty swallowing pills, and she will have a swallow evaluation today. Remains on IV fluid at 100 cc/h, remains on bronchodilators, patient is quite hoarse but no stridor. Patient has been maximized on bronchodilators and steroids. WBC count today is 14.1 hemoglobin 13.3 basic metabolic profile is relatively normal, renal profile is normal Patient was reevaluated today on 12/27/2023 remains in the ICU, patient was seen yesterday by ENT, and she was found to have bilateral vocal cord paralysis. According to the patient she has had issues with her voice now for the last 2 months. ENT is recommending PEG tube placement, and this was also recommended by speech therapy, patient is also scheduled to have MRI of the brain today. She was seen by neurology on consultation. On 3 L nasal cannula, her ABG showed a pO2 of 62 pCO2 34 pH of 7.49, patient is comfortable, she is sitting at the bedside chair, did not use BiPAP in the last 24 hours although BiPAP is at bedside WBC count is 15.1 hemoglobin is 12.9 basic metabolic profile is normal renal profile is normal Objective - Vital Signs Vital signs: Vital Signs Temp 98.7 F 12/27/23 10:00 Pulse 116 H 12/27/23 11:12 Resp 11 L 12/27/23 11:00 BP 149/87 12/27/23 11:00 Pulse Ox 98 12/27/23 11:00 FiO2 50 12/26/23 07:48 Intake & Output 12/26/23 12/27/23 12/27/23 18:59 06:59 18:59 Intake Total 1950 1100 350 Output Total 250 0 1 Balance 1700 1100 349 Intake: IV 1300 1100 350 Potassium Chloride 10 meq 100 In Water For Injection 1 100ml.bag @ 100 mls/hr IVPB Q1H [facility] Rx#: [id number] Sodium Chloride 0.9% 1, 1250 1100 200 000 ml @ 100 mls/hr IV . Q10H [facility] Rx#:[id number] cefTRIAXone 1 gm In 50 50 Sodium Chloride 0.9% 50 ml @ 100 mls/hr IVPB Q24HR [facility] Rx#:[id number] Intake, IV Titration 650 Amount Azithromycin 500 mg In 250 Sodium Chloride 0.9% 250 ml @ 250 mls/hr IVPB DAILY [facility] Rx#:[id number] Potassium Chloride 10 meq 400 In Water For Injection 1 100ml.bag @ 100 mls/hr IVPB Q1HR [facility] Rx#: [id number] Output: Urine 250 0 1 Other: Voiding Method External Catheter External Catheter # Voids 1 1 # Bowel Movements 1 1 1 - Exam GENERAL EXAM: Alert, 68-year-old white female, on nasal cannula. HEAD: Normocephalic and atraumatic EYES: Normal reaction of pupils, equal size. NOSE: Clear with pink turbinates. THROAT: No erythema or exudates. Dry mucous membranes, patient continues to have voice hoarseness NECK: No masses, no JVD. CHEST: No chest wall deformity. LUNGS: Diminished breath sounds at the bases no crackles rhonchi or wheezes CVS: S1 and S2 normal with no audible murmur, regular rhythm. No extra heart sounds ABDOMEN: No hepatosplenomegaly, active bowel sounds, no guarding or rigidity. SKIN: No rashes CENTRAL NERVOUS SYSTEM: Alert oriented x 3 no focal deficit EXTREMITIES: No clubbing edema or cyanosis - Labs CBC & Chem 7: 12/27/23 05:15 12/27/23 05:15 Labs: Abnormal Lab Results - Last 24 Hours (Table) 12/26/23 12/27/23 12/27/23 Range/Units 18:48 05:15 05:15 WBC 15.1 H (3.8-10.6) k/uL Neutrophils # 13.0 H (1.3-7.7) k/uL Lymphocytes # 0.5 L (1.0-4.8) k/uL Monocytes # 1.3 H (0-1.0) k/uL ABG pH (7.35-7.45) ABG pCO2 (35-45) mmHg ABG pO2 (83-108) mmHg ABG HCO3 (21-25) mmol/L ABG Total CO2 (19-24) mmol/L Chloride 108 H (98-107) mmol/L BUN 23 H (7-17) mg/dL Glucose 161 H (74-99) mg/dL Triglycerides 189.00 H (0.00-149.00) mg/dL Vitamin B12 2401.0 H (200.0-944.0) pg/mL TSH 0.226 L (0.465-4.680) mIU/L 12/27/23 Range/Units 07:43 WBC (3.8-10.6) k/uL Neutrophils # (1.3-7.7) k/uL Lymphocytes # (1.0-4.8) k/uL Monocytes # (0-1.0) k/uL ABG pH 7.49 H (7.35-7.45) ABG pCO2 34 L (35-45) mmHg ABG pO2 62 L (83-108) mmHg ABG HCO3 26 H (21-25) mmol/L ABG Total CO2 27 H (19-24) mmol/L Chloride (98-107) mmol/L BUN (7-17) mg/dL Glucose (74-99) mg/dL Triglycerides (0.00-149.00) mg/dL Vitamin B12 (200.0-944.0) pg/mL TSH (0.465-4.680) mIU/L Microbiology - Last 24 Hours (Table) 12/25/23 04:23 Gram Stain - Preliminary Sputum 12/25/23 03:00 Blood Culture - Preliminary Blood 12/25/23 02:43 Blood Culture - Preliminary Blood Assessment and Plan Assessment: Impression: Acute hypoxic and hypercapnic respiratory failure Acute exacerbation of COPD Acute toxic metabolic encephalopathy with hypercapnia Bilateral vocal cord paralysis Dysphagia secondary to vocal cord paralysis and dysphonia Severe dehydration Electrolytes imbalance including hyponatremia and hypokalemia Severe underlying COPD Tobacco dependence syndrome Hypothyroidism Dyslipidemia Chronic pain syndrome History of anxiety and depression Status post cardiac catheterization on 12/24/2023, and normal coronary findings noted. Bibasilar atelectasis noted on CT of the chest, underlying pneumonia is a possibility, patient is a good set up for aspiration Recommendation: Continue antibiotics empirically Arrange for MRI of the brain today. Patient could be transferred to a medical floor. Continue present treatment including bronchodilators Could use BiPAP as needed Continue Solu-Medrol Continue GI and DVT prophylaxis Will continue to follow-up Time with Patient: Less than 30
--- NOTE | 2023-12-27 12:16 | XR ---
EXAMINATION TYPE: XR chest 1V portable DATE OF EXAM: 12/27/2023 Comparison: 12/26/2023 Clinical History: 68-year-old female cough, Pneumonia Findings: Heart normal size. Aorta and artery vasculature within normal limits. Ongoing focal patchy right basi lar opacity. Some strandy retrocardiac atelectasis also noted. No pleural effusion. Impression: Ongoing patchy infiltrate at the right base.
--- NOTE | 2023-12-27 13:35 | MR ---
EXAMINATION TYPE: MR brain wo/w con DATE OF EXAM: 12/27/2023 1:03 PM COMPARISON: NONE HISTORY: Bilateral vocal cord paralysis, evaluate for CVA. CONTRAST: Patient received 7 mL intravenous Gadavist gadolinium contrast. Multiplanar and multispin-echo imaging of the brain was performed . Pre and post contrast enhanced i mages are obtained. The ventricles, basal cisterns and sulci overlying the cerebral convexities are mildly to moderately enlarged. There is evidence of mild periventricular white matter ischemic demyelination. Remote deep white matter insults are also noted. No acute edema is seen on diffusion weighted imaging. There is no evidence for midline shift or mass effect. Acute intracranial hemorrhage or extra-axial collection is not evident. No enhancing lesions are seen. The paranasal sinuses and mastoid air cells are well-aerated. IMPRESSION: Age-related atrophic and chronic small vessel ischemic change. No acute intracranial process at this time. No enhancing lesions are seen.
--- NOTE | 2023-12-27 15:40 | P.GSCN ---
History of Present Illness Consult date: 12/27/23 History of present illness: CHIEF COMPLAINT: Respiratory failure Reason for consult PEG tube placement HISTORY OF PRESENT ILLNESS: This is a 68-year-old female who was found down at home with altered mental status. She is also has respiratory failure with COPD exacerbation. She is currently on 3 L of all oxygen. She failed her swallow eval was evaluated by ENT service who scoped her and found epiglottic inflammation and vocal cord showed minimal movement bilaterally. There are concerns for vocal cord paralysis. Surgical service has been consulted for Peg tube placement. PAST MEDICAL HISTORY: See below PAST SURGICAL HISTORY: See below MEDICATIONS: See below ALLERGIES: See below SOCIAL HISTORY: No illicit drug use. REVIEW OF SYSTEMS: CONSTITUTIONAL: Denies fever or chills. HEENT: Denies blurred vision, vision changes, or eye pain. Denies hemoptysis CARDIOVASCULAR: Denies chest pain or pressure. RESPIRATORY: No shortness of breath. GASTROINTESTINAL: See HPI for pertinent findings HEMATOLOGIC: Denies bleeding disorders. GENITOURINARY: Denies any blood in urine or increased urinary frequency. SKIN: Denies pruitis. Denies rash. PHYSICAL EXAM: VITAL SIGNS: Reviewed GENERAL: no acute distress. HEENT: No sclera icterus. Extraocular movements grossly intact. Moist buccal mucosa. Head is atraumatic, normocephalic. No nasal drainage. ABDOMEN: Soft. Nondistended. nondistended NEUROLOGIC: Awake. confused LABORATORY DATA: WBC 14.1 to 15.1 Hgb 12.9 platelets 284 Sodium is 141 potassium 3.9 creatinine 0.80 Albumin 4.1 IMAGING: CT neck and chest no acute process of the neck and findings consistent with bilateral lower lobe bronchopneumonia ASSESSMENT: 1. Dysphagia 2. Failed swallow eval PLAN: -Patient scheduled for PEG tube placement with Dr. Escudero on Saturday -Continue supportive care -Continue ICU management Physician Group Art Supervisor note has been reviewed by physician. Signing provider agrees with the documented findings, assessment, and plan of care. Past Medical History Past Medical History: No Reported History, COPD, Hyperlipidemia, Thyroid Disorder Additional Past Medical History / Comment(s): back pain, hypoyhyroid History of Any Multi-Drug Resistant Organisms: None Reported Past Surgical History: Hysterectomy Past Anesthesia/Blood Transfusion Reactions: Unable to Obtain Past Psychological History: No Psychological Hx Reported Smoking Status: Current every day smoker Past Alcohol Use History: Daily Past Drug Use History: Marijuana Medications and Allergies Home Medications Medication Instructions Recorded Confirmed Type Cholecalciferol (Vitamin D3) 50 mcg PO DAILY 12/24/23 12/24/23 History [Vitamin D3 (50 Mcg = 2000 Iu)] Cyanocobalamin [Vitamin B-12] 500 mcg PO DAILY 12/24/23 12/24/23 History Doxepin [SINEquan] 10 mg PO HS 12/24/23 12/24/23 History Escitalopram [Lexapro] 30 mg PO DAILY 12/24/23 12/24/23 History Fluticasone Propion/Salmeterol 2 puff INHALATION RT-BID 12/24/23 12/24/23 History [Advair Hfa 230-21 Mcg Inhaler] Gabapentin [Neurontin] 400 mg PO TID 12/24/23 12/24/23 History Levothyroxine Sodium [Synthroid] 50 mcg PO DAILY 12/24/23 12/24/23 History Naproxen [Naprosyn] 375 mg PO BID-W/MEALS PRN 12/24/23 12/24/23 History Atn-Tgfs-Wnsxe Acid 1 cap PO DAILY 12/24/23 12/24/23 History [-U Capsule (formulary)] Simvastatin [Zocor] 20 mg PO HS 12/24/23 12/24/23 History buPROPion XL [Wellbutrin XL] 300 mg PO DAILY 12/24/23 12/24/23 History rOPINIRole HCL [Requip] 1 mg PO TID 12/24/23 12/24/23 History Allergies Allergy/AdvReac Type Severity Reaction Status Date / Time Penicillins Allergy Anaphylaxis Verified 12/24/23 18:03 Sulfa (Sulfonamide Allergy Anaphylaxis Verified 12/24/23 18:03 Antibiotics) Surgical - Exam Vital Signs Temp Pulse Resp BP Pulse Ox 98.4 F 93 30 H 151/76 78 L 12/24/23 14:27 12/24/23 14:27 12/24/23 14:27 12/24/23 14:27 12/24/23 14:27 Results - Labs 12/27/23 05:15 12/27/23 05:15 Abnormal Lab Results - Last 24 Hours (Table) 12/26/23 12/27/23 12/27/23 Range/Units 18:48 05:15 05:15 WBC 15.1 H (3.8-10.6) k/uL Neutrophils # 13.0 H (1.3-7.7) k/uL Lymphocytes # 0.5 L (1.0-4.8) k/uL Monocytes # 1.3 H (0-1.0) k/uL ABG pH (7.35-7.45) ABG pCO2 (35-45) mmHg ABG pO2 (83-108) mmHg ABG HCO3 (21-25) mmol/L ABG Total CO2 (19-24) mmol/L Chloride 108 H (98-107) mmol/L BUN 23 H (7-17) mg/dL Glucose 161 H (74-99) mg/dL Triglycerides 189.00 H (0.00-149.00) mg/dL Vitamin B12 2401.0 H (200.0-944.0) pg/mL TSH 0.226 L (0.465-4.680) mIU/L 12/27/23 Range/Units 07:43 WBC (3.8-10.6) k/uL Neutrophils # (1.3-7.7) k/uL Lymphocytes # (1.0-4.8) k/uL Monocytes # (0-1.0) k/uL ABG pH 7.49 H (7.35-7.45) ABG pCO2 34 L (35-45) mmHg ABG pO2 62 L (83-108) mmHg ABG HCO3 26 H (21-25) mmol/L ABG Total CO2 27 H (19-24) mmol/L Chloride (98-107) mmol/L BUN (7-17) mg/dL Glucose (74-99) mg/dL Triglycerides (0.00-149.00) mg/dL Vitamin B12 (200.0-944.0) pg/mL TSH (0.465-4.680) mIU/L Microbiology - Last 24 Hours (Table) 12/25/23 04:23 Gram Stain - Preliminary Sputum 12/25/23 03:00 Blood Culture - Preliminary Blood 12/25/23 02:43 Blood Culture - Preliminary Blood Diabetes panel 12/26/23 12/26/23 12/26/23 Range/Units 16:28 18:48 18:48 Sodium (137-145) mmol/L Potassium 3.5 (3.5-5.1) mmol/L Chloride (98-107) mmol/L Carbon Dioxide (22-30) mmol/L BUN (7-17) mg/dL Creatinine (0.52-1.04) mg/dL Glucose (74-99) mg/dL Hemoglobin A1c 5.8 (<=6.0) % Calcium (8.4-10.2) mg/dL Triglycerides 189.00 H (0.00-149.00) mg/dL HDL Cholesterol 53.50 (40.00-60.00) mg/dL 12/27/23 Range/Units 05:15 Sodium 141 (137-145) mmol/L Potassium 3.9 (3.5-5.1) mmol/L Chloride 108 H (98-107) mmol/L Carbon Dioxide 22 (22-30) mmol/L BUN 23 H (7-17) mg/dL Creatinine 0.80 (0.52-1.04) mg/dL Glucose 161 H (74-99) mg/dL Hemoglobin A1c (<=6.0) % Calcium 8.6 (8.4-10.2) mg/dL Triglycerides (0.00-149.00) mg/dL HDL Cholesterol (40.00-60.00) mg/dL Thyroid panel 12/26/23 Range/Units 18:48 TSH 0.226 L (0.465-4.680) mIU/L Calcium panel 12/27/23 Range/Units 05:15 Calcium 8.6 (8.4-10.2) mg/dL Pituitary panel 12/26/23 12/26/23 12/27/23 Range/Units 18:48 18:48 05:15 Sodium 141 (137-145) mmol/L Potassium 3.5 3.9 (3.5-5.1) mmol/L Chloride 108 H (98-107) mmol/L Carbon Dioxide 22 (22-30) mmol/L BUN 23 H (7-17) mg/dL Creatinine 0.80 (0.52-1.04) mg/dL Glucose 161 H (74-99) mg/dL Calcium 8.6 (8.4-10.2) mg/dL TSH 0.226 L (0.465-4.680) mIU/L Adrenal panel 12/26/23 12/27/23 Range/Units 18:48 05:15 Sodium 141 (137-145) mmol/L Potassium 3.5 3.9 (3.5-5.1) mmol/L Chloride 108 H (98-107) mmol/L Carbon Dioxide 22 (22-30) mmol/L BUN 23 H (7-17) mg/dL Creatinine 0.80 (0.52-1.04) mg/dL Glucose 161 H (74-99) mg/dL Calcium 8.6 (8.4-10.2) mg/dL
--- NOTE | 2023-12-27 15:47 | P.PN ---
Subjective Progress Note Date: 12/27/23 HISTORY OF PRESENTING ILLNESS 68-year-old female with past medical history of smoking, marijuana use and c hronic back pain. Patient had a wellness check at home where she was noticed to be obtunded, complaining of chest heaviness and shortness of breath. Due to this she was presented to the hospital. Upon admission to the ER she was noticed to be hypoxic with oxygen saturation 80%. Patient reported that she was feeling well until yesterday. She has been having the symptoms from late morning. She had an ECG performed which showed sinus tachycardia with diffuse ST depressions in all precordial leads and ST elevations in aVR. Patient was complaining of active chest pain. Bedside echocardiogram was performed which showed hyperdynamic LV. RV did not look dilated. Her initial labs showed a troponin of 0.103, CK7 30, creatinine 0.7, potassium 2.4, chloride 69, bicarb 39, sodium 125. Urinary ketones were positive PMH: No past medical history of stroke, malignancy. PSH: Hysterectomy, Social history: Smokes 1 packs/day, smokes marijuana. No heavy alcohol Progress Note 12/25/23 BP 118/72, heart rate 89 Labs shows hemoglobin 15, ABG pH 7.3, CO2 52, pO2 57, sodium 130, potassium 2.9, creatinine 1.07, BUN 36, Patient is hypoxic and is requiring BiPAP support. Patient had a CT angio done which did not show any evidence of PE or any signs of pulmonary congestion or pneumonia. 12/26/2023 Patient is complaining of significant hoarseness and difficulty in swallowing. Patient still continues to be have shortness of breath but less as compared to yesterday. Not BiPAP dependent. Tolerating nasal cannula Sinus tachycardia on ECG. 12/27/2023 Patient denies having any active chest pain chest pressure. She is having difficulty in swallowing. She has significant hoarseness of voice. Patient was evaluated by ENT and they feel that patient has laryngitis and possible aspirations of respiratory secretions. She continues to be sinus tachycardic. PHYSICAL EXAMINATION Vital signs reviewed. Head: Normocephalic. Eyes: Sclerae nonicteric. Neck: Brisk carotid upstroke, no jugular venous distention. Lungs: Diminished breath sounds in bilateral lung galvan, mild crackles and rhonchi audible. Heart: Regular rate and rhythm, S1-S2, no S3, no murmur or rub. Abdomen: Soft nontender, positive bowel sounds. Extremities: No edema, intact distal pulses. Neuro: Alert, oritented, no focal deficits. Detailed neuro exam was not performed. Echo shows an EF of 60%, mild LVH, significant valve dysfunction Cardiac cath did not show any significant coronary artery disease No evidence of PE on CT chest ASSESSMENT Acute hypoxic respiratory failure, on BiPAP Type II NSTEMI from dehydration and hypoxia ST elevation in aVR, diffuse ST depressions in other precordial leads due to hypoxia and Shortness of breath Physiological sinus tachycardia PLAN No signs of congestive heart failure based on CT chest. No evidence of obstructive coronary artery disease. No signs of cardiomyopathy on echocardiogram. Elevation of troponin and ST elevation most likely due to hypoxemia and dehydration Aspirin 81 mg Supportive care for hypoxia and electrolyte management as per ICU and Primary team. Continue gentle IV hydration At this time cardiology team will sign off. Please reconsult us in case of any question Objective - Vital Signs Vital signs: Vital Signs Temp 98.7 F 12/27/23 12:00 Pulse 120 H 12/27/23 15:39 Resp 26 H 12/27/23 14:00 BP 149/87 12/27/23 14:00 Pulse Ox 94 L 12/27/23 14:00 FiO2 50 12/26/23 07:48 Intake & Output 12/26/23 12/27/23 12/27/23 18:59 06:59 18:59 Intake Total 1950 1100 550 Output Total 250 0 2 Balance 1700 1100 548 Intake: IV 1300 1100 550 Potassium Chloride 10 meq 100 In Water For Injection 1 100ml.bag @ 100 mls/hr IVPB Q1H [facility] Rx#: [id number] Sodium Chloride 0.9% 1, 1250 1100 400 000 ml @ 100 mls/hr IV . Q10H [facility] Rx#:[id number] cefTRIAXone 1 gm In 50 50 Sodium Chloride 0.9% 50 ml @ 100 mls/hr IVPB Q24HR [facility] Rx#:[id number] Intake, IV Titration 650 Amount Azithromycin 500 mg In 250 Sodium Chloride 0.9% 250 ml @ 250 mls/hr IVPB DAILY [facility] Rx#:[id number] Potassium Chloride 10 meq 400 In Water For Injection 1 100ml.bag @ 100 mls/hr IVPB Q1HR [facility] Rx#: [id number] Output: Urine 250 0 2 Other: Voiding Method External Catheter External Catheter # Voids 1 1 # Bowel Movements 1 1 1 - Labs CBC & Chem 7: 12/27/23 05:15 12/27/23 05:15 Labs: Abnormal Lab Results - Last 24 Hours (Table) 12/26/23 12/27/23 12/27/23 Range/Units 18:48 05:15 05:15 WBC 15.1 H (3.8-10.6) k/uL Neutrophils # 13.0 H (1.3-7.7) k/uL Lymphocytes # 0.5 L (1.0-4.8) k/uL Monocytes # 1.3 H (0-1.0) k/uL ABG pH (7.35-7.45) ABG pCO2 (35-45) mmHg ABG pO2 (83-108) mmHg ABG HCO3 (21-25) mmol/L ABG Total CO2 (19-24) mmol/L Chloride 108 H (98-107) mmol/L BUN 23 H (7-17) mg/dL Glucose 161 H (74-99) mg/dL Triglycerides 189.00 H (0.00-149.00) mg/dL Vitamin B12 2401.0 H (200.0-944.0) pg/mL TSH 0.226 L (0.465-4.680) mIU/L 12/27/23 Range/Units 07:43 WBC (3.8-10.6) k/uL Neutrophils # (1.3-7.7) k/uL Lymphocytes # (1.0-4.8) k/uL Monocytes # (0-1.0) k/uL ABG pH 7.49 H (7.35-7.45) ABG pCO2 34 L (35-45) mmHg ABG pO2 62 L (83-108) mmHg ABG HCO3 26 H (21-25) mmol/L ABG Total CO2 27 H (19-24) mmol/L Chloride (98-107) mmol/L BUN (7-17) mg/dL Glucose (74-99) mg/dL Triglycerides (0.00-149.00) mg/dL Vitamin B12 (200.0-944.0) pg/mL TSH (0.465-4.680) mIU/L Microbiology - Last 24 Hours (Table) 12/25/23 03:00 Blood Culture - Preliminary Blood 12/25/23 02:43 Blood Culture - Preliminary Blood 12/25/23 04:23 Gram Stain - Preliminary Sputum
[2023-12-27] MEDS ORDERED: PIPERACILLIN-TAZOBACTAM 3.375 GM in SODIUM CHLORIDE 0.9% 100 ML IVPB SCH (16:00)
[2023-12-27] MEDS: methylPREDNISolone SOD SUCCI 40 MG/ML 1 ML VIAL IV SCH (16:19)
--- NOTE | 2023-12-27 17:02 | P.PN ---
Subjective Progress Note Date: 12/27/23 Principal diagnosis: Pharyngeal dysphagia severe Bilateral vocal cord paresis Aspiration No clinical changes with this patient she is still unable to swallow or eat. Drinking any amount of water causes immediate coughing and choking. The patient scheduled for a PEG feeding tube on Saturday. MRI CAT scan reports were reviewed. No signs of any tumors or masses or recent stroke. Objective - Vital Signs Vital signs: Vital Signs Temp 98.7 F 12/27/23 12:00 Pulse 120 H 12/27/23 15:39 Resp 26 H 12/27/23 14:00 BP 149/87 12/27/23 14:00 Pulse Ox 94 L 12/27/23 14:00 FiO2 50 12/26/23 07:48 Intake & Output 12/26/23 12/27/23 12/27/23 18:59 06:59 18:59 Intake Total 1950 1100 1651 Output Total 250 0 2 Balance 1700 1100 1649 Intake: IV 1300 1100 1651 Potassium Chloride 10 meq 100 In Water For Injection 1 100ml.bag @ 100 mls/hr IVPB Q1H [facility] Rx#: [id number] Sodium Chloride 0.9% 1, 1250 1100 1501 000 ml @ 100 mls/hr IV . Q10H [facility] Rx#:[id number] cefTRIAXone 1 gm In 50 50 Sodium Chloride 0.9% 50 ml @ 100 mls/hr IVPB Q24HR [facility] Rx#:[id number] Intake, IV Titration 650 Amount Azithromycin 500 mg In 250 Sodium Chloride 0.9% 250 ml @ 250 mls/hr IVPB DAILY [facility] Rx#:[id number] Potassium Chloride 10 meq 400 In Water For Injection 1 100ml.bag @ 100 mls/hr IVPB Q1HR [facility] Rx#: [id number] Output: Urine 250 0 2 Other: Voiding Method External Catheter External Catheter # Voids 1 1 # Bowel Movements 1 1 1 - Constitutional General appearance: Present: average body habitus - EENT Eyes: Present: abnormal pupil, PERRLA ENT: Present: hearing grossly normal, normal oropharynx - Neck Neck: Present: normal ROM - Psychiatric Psychiatric Comment(s): Somewhat confused - Labs CBC & Chem 7: 12/27/23 05:15 12/27/23 05:15 Labs: Abnormal Lab Results - Last 24 Hours (Table) 12/26/23 12/27/23 12/27/23 Range/Units 18:48 05:15 05:15 WBC 15.1 H (3.8-10.6) k/uL Neutrophils # 13.0 H (1.3-7.7) k/uL Lymphocytes # 0.5 L (1.0-4.8) k/uL Monocytes # 1.3 H (0-1.0) k/uL ABG pH (7.35-7.45) ABG pCO2 (35-45) mmHg ABG pO2 (83-108) mmHg ABG HCO3 (21-25) mmol/L ABG Total CO2 (19-24) mmol/L Chloride 108 H (98-107) mmol/L BUN 23 H (7-17) mg/dL Glucose 161 H (74-99) mg/dL Triglycerides 189.00 H (0.00-149.00) mg/dL Vitamin B12 2401.0 H (200.0-944.0) pg/mL TSH 0.226 L (0.465-4.680) mIU/L 12/27/23 Range/Units 07:43 WBC (3.8-10.6) k/uL Neutrophils # (1.3-7.7) k/uL Lymphocytes # (1.0-4.8) k/uL Monocytes # (0-1.0) k/uL ABG pH 7.49 H (7.35-7.45) ABG pCO2 34 L (35-45) mmHg ABG pO2 62 L (83-108) mmHg ABG HCO3 26 H (21-25) mmol/L ABG Total CO2 27 H (19-24) mmol/L Chloride (98-107) mmol/L BUN (7-17) mg/dL Glucose (74-99) mg/dL Triglycerides (0.00-149.00) mg/dL Vitamin B12 (200.0-944.0) pg/mL TSH (0.465-4.680) mIU/L Microbiology - Last 24 Hours (Table) 12/25/23 03:00 Blood Culture - Preliminary Blood 12/25/23 02:43 Blood Culture - Preliminary Blood 12/25/23 04:23 Gram Stain - Preliminary Sputum Assessment and Plan (1) Bilateral vocal cord paresis Current Visit: Yes Status: Acute Code(s): J38.02 - PARALYSIS OF VOCAL CORDS AND LARYNX, BILATERAL SNOMED Code(s): 249933613 (2) Dysphagia Current Visit: Yes Status: Acute Code(s): R13.10 - DYSPHAGIA, UNSPECIFIED SNOMED Code(s): 10480493 Plan: Continue current care including a feeding tube which is scheduled for Saturday. Patient's daughter has my contact information and a follow-up on outpatient is advised. Patient is to maintain nothing by mouth status.
--- NOTE | 2023-12-27 19:38 | EEG ---
ELECTROENCEPHALOGRAM REPORT PREAMBLE: This is a 68-year-old female who has episodes of altered mental status, questionable seizure-like activity. EEG FINDINGS: This is a 21-channel digital EEG recorded with video component, utilizing 10/20 international system with referential and bipolar montages. Background consists of well-developed, moderately well-regulated, predominantly 8-9 hertz alpha, seen in posterior head region. Background is posterior dominant and reactive to eye opening and closing. Frontal intermittent rhythmic delta activity was seen. Intermittent bitemporal slowing was also seen in some mixed delta and theta range. Photic driving response was seen with some flash frequencies. Drowsiness was seen with appearance of bilaterally symmetric theta frequency rhythm. Deeper stages of sleep were not seen. No definitive focal or generalized epileptiform activity was seen. An EKG channel showed no obvious arrhythmia. IMPRESSION: This is an abnormal EEG due to presence of frontal intermittent rhythmic delta activity, and intermittent bitemporal slowing. This may suggest focal cortical neuronal dysfunction in the above-described location, although may also suggest mild encephalopathy. No epileptiform activity was seen. MMODL / IJN: [id number] /
[2023-12-27] MEDS: LORazepam 2 MG/ML INJ IV PRN (21:14)
[2023-12-27] MEDS: DEXMEDETOMIDINE/0.9% NACL(PMX) 400 MCG in EMPTY BAG 1 BAG IV SCH (21:14)
--- NOTE | 2023-12-28 00:37 | P.PN ---
Subjective Progress Note Date: 12/27/23 Patient was seen for a follow-up. Patient is sitting comfortably in the recliner. Appears slightly confused. Patient believes her hoarse voice is better. ENT has seen the patient, recommending PEG tube placement on Saturday. No obvious mass lesion noted in the neck. Objective - Vital Signs Vital signs: Vital Signs Temp 99.8 F H 12/27/23 16:00 Pulse 88 12/27/23 19:00 Resp 29 H 12/27/23 19:00 BP 147/81 12/27/23 19:00 Pulse Ox 97 12/27/23 19:00 FiO2 50 12/26/23 07:48 Intake & Output 12/27/23 12/27/23 12/28/23 06:59 18:59 06:59 Intake Total 1100 950 100 Output Total 0 3 0 Balance 1100 947 100 Intake: IV 1100 950 100 Potassium Chloride 10 meq 100 In Water For Injection 1 100ml.bag @ 100 mls/hr IVPB Q1H [facility] Rx#: [id number] Sodium Chloride 0.9% 1, 1100 700 100 000 ml @ 100 mls/hr IV . Q10H [facility] Rx#:[id number] cefTRIAXone 1 gm In 150 Sodium Chloride 0.9% 50 ml @ 100 mls/hr IVPB Q24HR [facility] Rx#:[id number] Output: Urine 0 3 0 Other: Voiding Method External Catheter Diaper # Voids 1 # Bowel Movements 1 1 - Exam Patient is alert and awake. Speech is very hypophonic because of bilateral vocal cord palsy. Patient appears slightly delirious. On cranial examination pupils are equal, round elective right, visual galvan are full, although was somewhat inconsistent as patient would only see one side, not the other and would switch the sides. Extraocular muscles are intact. No ptosis. Tongue protrudes to midline. Palatal elevation appears normal. On muscle strength testing, the strength is normal in arms and legs. Reflexes are (right/left) biceps 3/2+, brachioradialis 2+/2+, knees 1+/1+, ankles 1/2+ and plantars downgoing bilaterally. Sensory to touch is equal with no neglect. No ataxia. - Labs CBC & Chem 7: 12/27/23 05:15 12/27/23 05:15 Labs: Abnormal Lab Results - Last 24 Hours (Table) 12/26/23 12/27/23 12/27/23 Range/Units 18:48 05:15 05:15 WBC 15.1 H (3.8-10.6) k/uL Neutrophils # 13.0 H (1.3-7.7) k/uL Lymphocytes # 0.5 L (1.0-4.8) k/uL Monocytes # 1.3 H (0-1.0) k/uL ABG pH (7.35-7.45) ABG pCO2 (35-45) mmHg ABG pO2 (83-108) mmHg ABG HCO3 (21-25) mmol/L ABG Total CO2 (19-24) mmol/L Chloride 108 H (98-107) mmol/L BUN 23 H (7-17) mg/dL Glucose 161 H (74-99) mg/dL Triglycerides 189.00 H (0.00-149.00) mg/dL Vitamin B12 2401.0 H (200.0-944.0) pg/mL TSH 0.226 L (0.465-4.680) mIU/L 12/27/23 Range/Units 07:43 WBC (3.8-10.6) k/uL Neutrophils # (1.3-7.7) k/uL Lymphocytes # (1.0-4.8) k/uL Monocytes # (0-1.0) k/uL ABG pH 7.49 H (7.35-7.45) ABG pCO2 34 L (35-45) mmHg ABG pO2 62 L (83-108) mmHg ABG HCO3 26 H (21-25) mmol/L ABG Total CO2 27 H (19-24) mmol/L Chloride (98-107) mmol/L BUN (7-17) mg/dL Glucose (74-99) mg/dL Triglycerides (0.00-149.00) mg/dL Vitamin B12 (200.0-944.0) pg/mL TSH (0.465-4.680) mIU/L Microbiology - Last 24 Hours (Table) 12/25/23 03:00 Blood Culture - Preliminary Blood 12/25/23 02:43 Blood Culture - Preliminary Blood Assessment and Plan Assessment: * Altered mental status, likely due to toxic metabolic encephalopathy. Reasons multifactorial as mentioned below. * New onset hoarseness of voice, due to bilateral vocal cord paralysis, unclear cause. Patient also has new onset dysphagia, unclear cause. No mass lesion noted in the neck or pharyngeal region. Patient has preserved reflexes, no evidence of Saltillo Lamb syndrome. * Hyponatremia * Hypoxemia, improved * Hypokalemia, * Abnormal hepatic functions * Elevated cardiac enzymes, negative coronaries * Exacerbation of COPD. * Tobacco use * Hyperlipidemia * Hypothyroidism * Marijuana use Plan: * Patient's altered mental status was likely due to toxic metabolic encephalopathy. At present her mentation is much improved. Patient is fully oriented at this time. * MRI of the brain revealed age-related atrophic and chronic small vessel ischemic change. No acute process. I personally reviewed MRI agree with the findings. * EEG was abnormal due to presence of frontal intermittent rhythmic delta activity and intermittent bitemporal slowing. This may suggest focal cortical neuronal dysfunction in the above described location, although may also suggest mild encephalopathy. No epileptiform activity was seen. * Patient has developed new onset hoarseness of voice and dysphagia. ENT on board. CT of the neck showed no acute process, no mass lesion. CT of the chest only showed bronchopneumonia greater on the right. No mass lesion. * 2D echo revealed normal left ventricular function with EF 60 to 65%. No obvious regional wall motion abnormalities. Normal left atrial size. * B12 2401, folate > 20, lipid panel cholesterol 197, LDL 105, HDL 53, triglycerides 189, hemoglobin A1c 5.8, TSH slightly low 0.226, with normal free T4 1.58. We will defer to IM., CK 94, acetylcholine receptor antibodies pending. * Recommend complete tobacco cessation. * Patient to undergo PEG tube placement on Saturday. * Other medical management as per IM, critical care/pulmonary medicine. * Patient currently on ceftriaxone 1 g every 24 hours for possible pne umonia/COPD also on Solu-Medrol. * Dr. Sinclair will cover neurology service over the weekend.
--- NOTE | 2023-12-28 06:02 | P.PN ---
Subjective Progress Note Date: 12/27/23 HISTORY OF PRESENT ILLNESS: 68-year-old female [address] Hansen[address] patient with past medical history of COPD who is currently smoker on regular basis, history of hyper lipidemia, hyp othyroidism, chronic back pain, who also has history of chronic neuropathy, chronic depression, restless leg syndrome, chronic anemia. Apparently she was not answering her phone for the last few days, family went to check on her and found her naked and acting more confused she ended up coming to the emergency department where was seen and evaluated she claims she been having chest pain midsternum for the last 3 days without any radiation she been having mild cough and significant shortness of breath without productive phlegm. The EKG in the emergency department showed ST elevation in the inferior lead and diffuse ST depression in the lateral lead. Troponin being elevated patient was diagnosed with STEMI and ended up being taken to the [facility] by Dr. Lu. Heart catheter came back with completely negative blockage. Patient continues to have significant symptoms of shortness of breath with send at point to have CTA to exclude possibility of PE came back negative no sign of infiltrate. Patient had severe abnormal electrolyte imbalance with her sodium, potassium and chloride she ended up being transferred to the ICU resting on BiPAP settings 126 with FiO2 of 50 percentile started to feel little bit better, start replacing her potassium and continue hydration at that point. 12/25/2023: Patient remain in the ICU, remain on BiPAP, she is quite bit confused Was seen pulmonary through the night still on electrolyte replacement therapy. Her oxygen level still quite a bit low in the 80s require BiPAP on more regular basis, vitals improved slight bed, remain little bit tachycardic. Echocardiogram was ordered for this morning still has not been performed yet and as reviewed her entire heart cath and CTA came back to be completely normal. Continue to hydrate patient quite bit for now consult neurology probably further testing including EEG repeat scan of the brain can be beneficial. 12/26/2023: The patient is awake alert she is off the BiPAP sitting on the side of the bed still not acting herself still hypoxic hypophonic when she talk patient has been off asking for speech therapy for swallow evaluation before allowing patient to eat. Her lab value improved to some degree white blood cell is up to 14,000 but cannot state probably steroid-based, potassium still at 3.2: No free T4 was normal but TSH slightly low. Sadly when speech therapy did their assessment came back quite with abnormal and accelerated to an urgent ENT consultation patient ended going for dysphagia and hoarseness evaluation by direct flexible nasopharyngeal laryngoscopy result study came back with bilateral vocal cord paralysis can be consistent with either something obstructive in the neck or related to central stroke affected both sides. Brain scan was done early and there is a consultation from neurology which she has been seen note so far will end up doing CT of the chest and neck CT of the neck shows no finding consistent with any major abnormality on the chest showed no diagnosis of bilateral lower lobe bronchopneumonia greater on the right side more than anything else. At this point of course recommendation is for PEG tube and n.p.o. completely and still asking for neuroconsultation. 12/27/2023: The patient is sitting on the side of the bed able to comprehensive understand was going around more not a lot of information were able to be found for why she has bilateral vocal cord paralysis. She went for her MRI of the brain showed mild atrophy only with no sign and symptom of mass, bleed or metastasis no degenerative element in the brain consistent with an area of concern at this point. Also patient suffering from severe dysphagia scheduled to go for peg tube feeding will alter his feeding completely via PEG tube continue for now. Patient still follow with neurology for any of the possibility might affect both vocal cord including Guillain-Lamb, myasthenia gravis, tumor reflex syndrome, and other so far no finding consistent with it. Patient probably will be able to leave the ICU to go to medical floor after her PEG tube feeding subtle specially if she is well-managed with low-flow oxygen at this point. REVIEW OF SYSTEMS: CONSTITUTIONAL: Confused still in mild distress. EYES: No icterus sclerae, no conjunctivitis. EARS, NOSE, MOUTH, THROAT, and FACE: No sore throat, lymphadenopathy, with hoarseness of the voice., carotid bruits or deformity. RESPIRATORY: Slight cough and wheezes. Still having slight wheezes sometimes and hoarseness. CARDIOVASCULAR: Positive chest pain with orthopnea and angina. GASTROINTESTINAL: No Abd pain, Nausea or vomiting, no Diarrhea or constipation, No GI Bleed, no distention or masses. GENITOURINARY: Negative for Hematuria or UTI, no kidney stones. INTEGUMENT/BREAST: Negative for any muscular injury with mild osteoarthritis.. HEMATOLOGIC/LYMPHATIC: Negative for bleed or purpura. MUSCULOSKELTAL: Negative for Myalgia or arthralgia. NEURLOGICAL: No LOC, Sz or syncope, blurred vision dizziness or abnormality.. BEHAVIORAL/PSYCH: Negative. ENDOCRINE: Negative. PHYSICAL EXAMINATION: General Appearance: Alert, mildly confused looks older than her age. Neck HEENT: Supple, no lymphadenopathy, no thyroid enlargement, no carotid bruits. Lungs: Decreased breath sound bilaterally with fine rhonchi with mild expiratory wheezes. Chest Wall: Decreased expansion with deep inspiration no tenderness and no deformity was found on exam, no costochondral pain or discomfort. Heart: Regular rate and rhythm, S1, S2 normal, no murmur, rub or gallop. Back: Symmetric, no curvature, ROM normal, no CVA tenderness. Abdomen: Soft, non-tender, bowel sounds active all four quadrants, no masses, no organomegaly. Extremities: Extremities normal, atraumatic, no cyanosis or edema. Pulses: 2+ and symmetric. Skin: Skin color, texture, tugor normal, no rashes or lesions. Neurologic: Alert slightly confused cranial nerves II through XII intact, no motor deficit, no abnormal balance or gait. ASSESSMENT AND PLAN: _Severe chest pain with signs of STEMI: Post heart cath with negative finding with normal coronary artery. This is considered a type II non-STEMI from dehydration and hypoxia. _Acute respiratory failure: Slightly better able to go off the BiPAP using 2 to 3 L of oxygen to keep her pulse ox above 92 percentile. _Severe dysphagia: With bilateral vocal cord paralysis, PEG tube will be needed at this point and patient is n.p.o. further study and testing nothing but central out if there is any other reason to have bilateral vocal cord paralysis. Knowing patient and all this event never was intubated. Pending PEG feeding today after is done will start nutrition per recommendation of dietitian. _Bilateral vocal cord paralysis: Still not a clear etiology no CVA can be found with this no tumor or growth in the neck area no finding consistent with Guillain-Lamb or myasthenia gravis so far, still see neurology and ENT continue speech therapy with PEG feeding resting patient from passing things close to the vocal cord for the time being will be slightly very helpful but should be reeva luated every 2 weeks. _Severe electrolyte imbalance including hypokalemia, hyponatremia and hypochl oremia: Much better so far continue to watch her chemistry and electrolyte daily. _Severe altered mental status: Her mental status has been cleared at this point is most likely hypoxia and severe dehydration with encephalopathy with still again missing neurology consultation which was requested from the beginning. _Severe dehydration and prerenal azotemia: Had improved significantly. _Chronic history of smoking: Smoking cessation was addressed nicotine patch will be started. _Chronic pain syndrome: Will holding off her gabapentin and prednisone No. 4 for now. _Chronic depression: Try to withhold some of her antidepression medication for the next few days. _Restless leg syndrome: Reduce Requip to 1 mg at bedtime only. _ Hyperlipidemia: Continue simvastatin. _Hypothyroidism: Continue levothyroxine 50 mcg daily. If not able to take it orally we will do a trial IV. Prognosis is very guarded. Patient might be able to leave the ICU today but will be looking for PEG tube. Objective - Vital Signs Vital signs: Vital Signs Temp 97.8 F 12/27/23 04:00 Pulse 108 H 12/27/23 04:41 Resp 30 H 12/27/23 04:00 BP 148/76 12/27/23 04:00 Pulse Ox 90 L 12/27/23 04:00 FiO2 50 12/26/23 07:48 Intake & Output 12/26/23 12/26/23 12/27/23 06:59 18:59 06:59 Intake Total 1000 1950 900 Output Total 250 250 0 Balance 750 1700 900 Weight 71 kg Intake: IV 1000 1300 900 Potassium Chloride 10 meq 100 In Water For Injection 1 100ml.bag @ 100 mls/hr IVPB Q1H [facility] Rx#: [id number] Sodium Chloride 0.9% 1, 900 1250 900 000 ml @ 100 mls/hr IV . Q10H [facility] Rx#:[id number] cefTRIAXone 1 gm In 50 Sodium Chloride 0.9% 50 ml @ 100 mls/hr IVPB Q24HR [facility] Rx#:[id number] Intake, IV Titration 650 Amount Azithromycin 500 mg In 250 Sodium Chloride 0.9% 250 ml @ 250 mls/hr IVPB DAILY [facility] Rx#:[id number] Potassium Chloride 10 meq 400 In Water For Injection 1 100ml.bag @ 100 mls/hr IVPB Q1HR [facility] Rx#: [id number] Output: Urine 250 250 0 Other: Voiding Method External Catheter External Catheter External Catheter # Voids 1 1 1 # Bowel Movements 1 1 - Labs CBC & Chem 7: 12/27/23 05:15 12/27/23 05:15 Labs: Abnormal Lab Results - Last 24 Hours (Table) 12/26/23 12/26/23 Range/Units 04:28 18:48 Sodium 136 L (137-145) mmol/L Potassium 3.2 L (3.5-5.1) mmol/L BUN 23 H (7-17) mg/dL Glucose 155 H (74-99) mg/dL Triglycerides 189.00 H (0.00-149.00) mg/dL Vitamin B12 2401.0 H (200.0-944.0) pg/mL TSH 0.226 L (0.465-4.680) mIU/L Microbiology - Last 24 Hours (Table) 12/25/23 04:23 Gram Stain - Preliminary Sputum 12/25/23 03:00 Blood Culture - Preliminary Blood 12/25/23 02:43 Blood Culture - Preliminary Blood
[2023-12-28 07:38] LABS: African American GFR (CKD) >90 (>60 ml/min/1.73 sqM); Anion Gap 9 mmol/L; Blood Urea Nitrogen 21 mg/dL (7-17); Calcium 8.2 mg/dL (8.4-10.2); Carbon Dioxide 25 mmol/L (22-30); Chloride 113 mmol/L (98-107); Glucose 151 mg/dL (74-99); HCT 34.7 % (34.0-46.0); HGB 11.6 gm/dL (11.4-16.0); MCH 30.1 pg (25.0-35.0); MCHC 33.4 g/dL (31.0-37.0); MCV 89.9 fL (80.0-100.0); Mean Platelet Volume 8.7; Non-African American GFR(CKD) 82 (>60 ml/min/1.73 sqM); Platelet Count 244 k/uL (150-450); Potassium 3.7 mmol/L (3.5-5.1); RBC 3.85 m/uL (3.80-5.40); RDW 14.1 % (11.5-15.5); Sodium 147 mmol/L (137-145); WBC 15.3 k/uL (3.8-10.6)
--- NOTE | 2023-12-28 08:20 | XR ---
EXAMINATION TYPE: XR chest 1V portable DATE OF EXAM: 12/28/2023 Comparison: 12/27/2023 Clinical History: 68-year-old female Pneumonia Findings: Heart normal size. Mild hyperinflation. Interstitial density similar to slightly increased, right gre ater than left. Patchy bibasilar opacities, similar on the right and increased on the left. Impression: Mild diffuse interstitial density is increasing, right greater left. Patchy bibasilar densities, felix lar on the right but increased on the left.
[2023-12-28] MEDS: POTASSIUM CHLORIDE 10 MEQ in WATER FOR INJECTION 1 100ML.BAG IVPB SCH (09:31)
[2023-12-28] MEDS: DEXTROSE 5% IN WATER 1,000 ML IV SCH (09:32)
[2023-12-28 09:38] LABS: Band Neutrophils % 4 %; Lymphocytes # (M) 0.92 k/uL (1.0-4.8); Metamyelocytes # (M) 0.46 k/uL (0); Metamyelocytes % 3 %; Monocytes # (M) 0.92 k/uL (0-1.0); Myelocytes # (M) 0.46 k/uL (0); Myelocytes % 3 %; Neutrophils % (M) 79 %; Nucleated Red Blood Cells 0 /100 WBC (0-0); Total Cells Counted 200
--- NOTE | 2023-12-28 11:51 | P.PN ---
Subjective Progress Note Date: 12/28/23 Principal diagnosis: Acute hypoxemic and hypercapnic respiratory failure I am seeing this patient in new consultation today on 12/25/2023 in the intensive care unit. The patient was transferred to the ICU after a heart catheterization for acute hypoxemic respiratory failure and increased oxygen demands. Patient is a 68-year-old white female with past medical history significant for COPD, current ongoing every day smoker, hyperlipidemia, hypothyroidism, chronic back pain. She smokes roughly 1 pack per day. Her primary care provider is Dr. Hansen. Patient had reportedly not been answering her phone for several days, so her daughter went to check on her at home. She reportedly was acting abnormal and confused and found naked. The patient does not recall this. After being brought to the emergency room yesterday afternoon, she was complaining of substernal chest pain that had been ongoing for the last 3 days. This is localized to the substernal area, she denies any radiation. Occurs mostly with coughing. Is associated with shortness of breath, wheezing, and productive cough. Troponins were elevated on arrival and patient had some isolated ST elevation in lead aVR, along with diffuse/generalized ST depression. She was also noted to be hypoxic. Patient was taken for a heart catheterization yeterday afternoon which revealed angiographically normal coronary arteries and left- sided filling pressures. No significant calcifications or coronary thrombus reported. D-dimer was also elevated, and for this reason the patient was sent for a chest CTA which did not show any evidence of pulmonary embolism. While in the intensive care unit, the patient had increased oxygen and was placed on BiPAP settings 12/6 and FiO2 50%. She is currently resting comfortably in bed, on BiPAP with the above-mentioned settings, in no acute respiratory distress. She is achieving tidal volumes of approximately 400 and her respiratory rate is in the mid 20s. She does have a congested cough and wheezing. Occasional has difficulty clearing oral secretions. Denies any fevers at home. She is currently alert and oriented. No signs of hypercapnic encephalopathy. ABGs were obtained earlier and consistent with combined hypoxemic and hypercapnic respiratory failure. She has a component of compensatory metabolic alkalosis and was given a dose of Diamox. CBC on arrival: WBC count 11.5, hemoglobin 17.1, hematocrit 49.2, platelets 331. BMP on arrival: Sodium 128, potassium 2.4, chloride 77, serum bicarb 38, BUN 41, creatinine 1.03, glucose 125. Normal saline is infusing at 75 mL per hour. LFTs mildly elevated. NT proBNP 764. Troponin on arrival 1.03. D-dimer had been elevated at 1.89. Urinalysis not concerning for UTI. Negative for influenza, RSV, COVID-19. Chest x-ray did not show any focal infiltrates or evidence of pneumonia. No acute cardiopulmonary process seen. Patient was covered empirically on a combination of azithromycin and Rocephin. She is afebrile. Vital signs are stable. Patient was reevaluated today on 12/26/2023, remains in the ICU, patient was on BiPAP overnight, transition to nasal cannula 3 L/min this morning. Continues to have intermittent cough and wheezing, patient is having some difficulty swallowing pills, and she will have a swallow evaluation today. Remains on IV fluid at 100 cc/h, remains on bronchodilators, patient is quite hoarse but no stridor. Patient has been maximized on bronchodilators and steroids. WBC count today is 14.1 hemoglobin 13.3 basic metabolic profile is relatively normal, renal profile is normal Patient was reevaluated today on 12/27/2023 remains in the ICU, patient was seen yesterday by ENT, and she was found to have bilateral vocal cord paralysis. According to the patient she has had issues with her voice now for the last 2 months. ENT is recommending PEG tube placement, and this was also recommended by speech therapy, patient is also scheduled to have MRI of the brain today. She was seen by neurology on consultation. On 3 L nasal cannula, her ABG showed a pO2 of 62 pCO2 34 pH of 7.49, patient is comfortable, she is sitting at the bedside chair, did not use BiPAP in the last 24 hours although BiPAP is at bedside WBC count is 15.1 hemoglobin is 12.9 basic metabolic profile is normal renal profile is normal Patient was reevaluated today on 12/28/2023, remains in the ICU on 3 L nasal cannula, patient is scheduled to have a PEG tube on Saturday, her sodium is a bit high and she is transition now from 0.9 normal saline to D5W at 100 cc/h. Last night the patient became extremely agitated and she was pulling her lines and catheters, hence she was placed on Precedex and remains on Precedex at 0.4 mcg/kg/h. Today she seems to be calm, her MRI is negative nondiagnostic. And again the patient is scheduled for PEG tube placement on Saturday as she had bilateral vocal cord paralysis. Patient is still having difficulty swallowing. WBC count is 15.3 hemoglobin 11.6. ABG yesterday showed a pO2 of 62 pCO2 34 pH of 7.49. Basic metabolic profile is normal except for elevated sodium of 147. And this will be corrected by transitioning her IV fluid to D5W Objective - Vital Signs Vital signs: Vital Signs Temp 98.9 F 12/28/23 09:00 Pulse 103 H 12/28/23 11:00 Resp 35 H 12/28/23 11:00 BP 145/95 12/28/23 11:00 Pulse Ox 93 L 12/28/23 11:00 FiO2 50 12/26/23 07:48 Intake & Output 12/27/23 12/28/23 12/28/23 18:59 06:59 18:59 Intake Total 950 1248.391 650 Output Total 3 0 0 Balance 947 1248.391 650 Weight 72 kg Intake: IV 950 1200 650 Dextrose 5% in Water 1, 200 000 ml @ 100 mls/hr IV . Q10H [facility] Rx#:[id number] Potassium Chloride 10 meq 100 100 In Water For Injection 1 100ml.bag @ 100 mls/hr IVPB Q1H [facility] Rx#: [id number] Sodium Chloride 0.9% 1, 700 1200 300 000 ml @ 100 mls/hr IV . Q10H [facility] Rx#:[id number] cefTRIAXone 1 gm In 150 50 Sodium Chloride 0.9% 50 ml @ 100 mls/hr IVPB Q24HR [facility] Rx#:[id number] Intake, IV Titration 48.391 Amount Dexmedetomidine/0.9% NaCl 48.391 (Pmx) 400 mcg In Empty Bag 1 bag @ 0.2 MCG/KG/HR 3.58 mls/hr IV .Q24H [facility] Rx#:[id number] Output: Urine 3 0 0 Other: Voiding Method Diaper Diaper # Voids 1 1 # Bowel Movements 1 - Exam GENERAL EXAM: Alert, 68-year-old white female, on nasal cannula. HEAD: Normocephalic and atraumatic EYES: Normal reaction of pupils, equal size. NOSE: Clear with pink turbinates. THROAT: No erythema or exudates. Dry mucous membranes, patient continues to have voice hoarseness NECK: No masses, no JVD. CHEST: No chest wall deformity. LUNGS: Diminished breath sounds at the bases no crackles rhonchi or wheezes CVS: S1 and S2 normal with no audible murmur, regular rhythm. No extra heart sounds ABDOMEN: No hepatosplenomegaly, active bowel sounds, no guarding or rigidity. SKIN: No rashes CENTRAL NERVOUS SYSTEM: Alert oriented x 3 no focal deficit EXTREMITIES: No clubbing edema or cyanosis - Labs CBC & Chem 7: 12/28/23 06:39 12/28/23 06:39 Labs: Abnormal Lab Results - Last 24 Hours (Table) 12/28/23 12/28/23 Range/Units 06:39 06:39 WBC 15.3 H (3.8-10.6) k/uL Neutrophils # (Manual) 12.60 H (1.3-7.7) k/uL Lymphocytes # (Manual) 0.92 L (1.0-4.8) k/uL Metamyelocytes # (Man) 0.46 H (0) k/uL Myelocytes # (Manual) 0.46 H (0) k/uL Sodium 147 H (137-145) mmol/L Chloride 113 H (98-107) mmol/L BUN 21 H (7-17) mg/dL Glucose 151 H (74-99) mg/dL Calcium 8.2 L (8.4-10.2) mg/dL Microbiology - Last 24 Hours (Table) 12/25/23 03:00 Blood Culture - Preliminary Blood 12/25/23 02:43 Blood Culture - Preliminary Blood Assessment and Plan Assessment: Impression: Acute hypoxic and hypercapnic respiratory failure Acute exacerbation of COPD Acute toxic metabolic encephalopathy with hypercapnia Bilateral vocal cord paralysis Dysphagia secondary to vocal cord paralysis and dysphonia Severe dehydration Electrolytes imbalance including hyponatremia and hypokalemia Severe underlying COPD Tobacco dependence syndrome Hypothyroidism Dyslipidemia Chronic pain syndrome History of anxiety and depression Status post cardiac catheterization on 12/24/2023, and normal coronary findings noted. Bibasilar atelectasis noted on CT of the chest, underlying pneumonia is a possibility, patient is a good set up for aspiration Recommendation: Continue to monitor in the ICU Continue Precedex Plans for PEG tube on Saturday MRI negative Continue antibiotics Continue bronchodilators Could use BiPAP as needed Continue Solu-Medrol Continue GI and DVT prophylaxis Will continue to follow-up Time with Patient: Less than 30
[2023-12-28 12:06] LABS: Glucose,Whole Blood 132 mg/dL (70-110)
--- NOTE | 2023-12-28 13:42 | P.PN ---
Subjective Progress Note Date: 12/28/23 Principal diagnosis: Patient doing well, no acute events overnight. No complaints. Objective - Vital Signs Vital signs: Vital Signs Temp 98.9 F 12/28/23 09:00 Pulse 103 H 12/28/23 11:00 Resp 35 H 12/28/23 11:00 BP 145/95 12/28/23 11:00 Pulse Ox 93 L 12/28/23 11:00 FiO2 50 12/26/23 07:48 Intake & Output 12/27/23 12/28/23 12/28/23 18:59 06:59 18:59 Intake Total 950 1248.391 650 Output Total 3 0 0 Balance 947 1248.391 650 Weight 72 kg Intake: IV 950 1200 650 Dextrose 5% in Water 1, 200 000 ml @ 100 mls/hr IV . Q10H [facility] Rx#:[id number] Potassium Chloride 10 meq 100 100 In Water For Injection 1 100ml.bag @ 100 mls/hr IVPB Q1H [facility] Rx#: [id number] Sodium Chloride 0.9% 1, 700 1200 300 000 ml @ 100 mls/hr IV . Q10H [facility] Rx#:[id number] cefTRIAXone 1 gm In 150 50 Sodium Chloride 0.9% 50 ml @ 100 mls/hr IVPB Q24HR [facility] Rx#:[id number] Intake, IV Titration 48.391 Amount Dexmedetomidine/0.9% NaCl 48.391 (Pmx) 400 mcg In Empty Bag 1 bag @ 0.2 MCG/KG/HR 3.58 mls/hr IV .Q24H [facility] Rx#:[id number] Output: Urine 3 0 0 Other: Voiding Method Diaper Diaper # Voids 1 1 # Bowel Movements 1 - Respiratory Respiratory: negative: CTA, diminished, dullness, rales - Cardiovascular Rhythm: regular Heart sounds: normal: S1, S2 - Gastrointestinal General gastrointestinal: Present: absent bowel sounds, normal bowel sounds, soft (abd: soft, non tender, non distended no guarding or rebound tenderness) - Labs CBC & Chem 7: 12/28/23 06:39 12/28/23 06:39 Labs: Abnormal Lab Results - Last 24 Hours (Table) 12/28/23 12/28/23 12/28/23 Range/Units 06:39 06:39 12:05 WBC 15.3 H (3.8-10.6) k/uL Neutrophils # (Manual) 12.60 H (1.3-7.7) k/uL Lymphocytes # (Manual) 0.92 L (1.0-4.8) k/uL Metamyelocytes # (Man) 0.46 H (0) k/uL Myelocytes # (Manual) 0.46 H (0) k/uL Sodium 147 H (137-145) mmol/L Chloride 113 H (98-107) mmol/L BUN 21 H (7-17) mg/dL Glucose 151 H (74-99) mg/dL POC Glucose (mg/dL) 132 H (70-110) mg/dL Calcium 8.2 L (8.4-10.2) mg/dL Microbiology - Last 24 Hours (Table) 12/25/23 03:00 Blood Culture - Preliminary Blood 12/25/23 02:43 Blood Culture - Preliminary Blood Assessment and Plan Assessment: 68 yo female w/ failure to thrive -PEG Tube on Saturday
--- NOTE | 2023-12-28 14:36 | P.PN ---
Subjective Progress Note Date: 12/28/23 The patient is a 68-year-old female who was seen in neurologic follow-up on December 28, 2023, in cross coverage for Dr. Gordillo, in collaboration with Essence Mccloud, via teleneurology. The patient's chart has been reviewed. The patient reportedly was admitted with respiratory failure. She apparently has a history of COPD and continues to be a current, every day smoker. Patient was initially placed on BiPAP, because of her respiratory difficulties. She was also noted to be confused and agitated and therefore, neurology was asked to see the patient. Patient was given a diagnosis of toxic metabolic encephalopathy. In addition to the patient's encephalopathy, she has been having difficulty swallowing. ENT saw the patient and found that she had bilateral vocal cord paralysis. Patient reportedly had an MRI of her brain to further assess her inability to swallow. This test was negative for etiology regarding dysphagia. The patient reports generalized weakness. She feels as if her right side is somewhat weaker than left. She says this right-sided weakness began with her difficulty swallowing. The patient denies headache, diplopia, difficulty with vision and paresthesias in her extremities. Objective - Vital Signs Vital signs: Vital Signs Temp 98.9 F 12/28/23 09:00 Pulse 103 H 12/28/23 11:00 Resp 35 H 12/28/23 11:00 BP 145/95 12/28/23 11:00 Pulse Ox 93 L 12/28/23 11:00 FiO2 50 12/26/23 07:48 Intake & Output 12/27/23 12/28/23 12/28/23 18:59 06:59 18:59 Intake Total 950 1248.391 650 Output Total 3 0 0 Balance 947 1248.391 650 Weight 72 kg Intake: IV 950 1200 650 Dextrose 5% in Water 1, 200 000 ml @ 100 mls/hr IV . Q10H [facility] Rx#:[id number] Potassium Chloride 10 meq 100 100 In Water For Injection 1 100ml.bag @ 100 mls/hr IVPB Q1H [facility] Rx#: [id number] Sodium Chloride 0.9% 1, 700 1200 300 000 ml @ 100 mls/hr IV . Q10H [facility] Rx#:[id number] cefTRIAXone 1 gm In 150 50 Sodium Chloride 0.9% 50 ml @ 100 mls/hr IVPB Q24HR [facility] Rx#:[id number] Intake, IV Titration 48.391 Amount Dexmedetomidine/0.9% NaCl 48.391 (Pmx) 400 mcg In Empty Bag 1 bag @ 0.2 MCG/KG/HR 3.58 mls/hr IV .Q24H [facility] Rx#:[id number] Output: Urine 3 0 0 Other: Voiding Method Diaper Diaper # Voids 1 1 # Bowel Movements 1 - Exam General: The patient was seated in the bed. She is well-nourished, well- developed and in no acute distress. HEENT: Head is atraumatic, normocephalic. Fundus not visualized. There is no scleral icterus. Mucous membranes are moist. Neck: Supple, without carotid bruits Heart: Regular rate and rhythm Extremities: Without edema Neurological examination Mental status: The patient is awake, alert and oriented x 3. Her speech is very hypophonic. There is no dysarthria. Cranial nerves: Pupils are equal at 3 mm and reactive. Visual galvan are full to confrontation. Extraocular movements are intact. Facial sensation is intact. There is no facial asymmetry. Hearing is grossly intact. Uvula and palate are midline. Shoulder shrug is symmetric. Tongue protrudes midline. Motor: (Right/left) residential program coordinator: 5/5. Triceps: 5/4. Biceps: 5/4. Hip flexors 1/3. Deep tendon reflexes: 3+/4+ in the right biceps and patellar reflexes. Left biceps reflex 2+/4+. Left patellar reflex 3+/4+. Achilles reflexes are 2+/4+ bilaterally. Plantar responses are flexor bilaterally. - Labs CBC & Chem 7: 12/28/23 06:39 12/28/23 06:39 Labs: Abnormal Lab Results - Last 24 Hours (Table) 12/28/23 12/28/23 12/28/23 Range/Units 06:39 06:39 12:05 WBC 15.3 H (3.8-10.6) k/uL Neutrophils # (Manual) 12.60 H (1.3-7.7) k/uL Lymphocytes # (Manual) 0.92 L (1.0-4.8) k/uL Metamyelocytes # (Man) 0.46 H (0) k/uL Myelocytes # (Manual) 0.46 H (0) k/uL Sodium 147 H (137-145) mmol/L Chloride 113 H (98-107) mmol/L BUN 21 H (7-17) mg/dL Glucose 151 H (74-99) mg/dL POC Glucose (mg/dL) 132 H (70-110) mg/dL Calcium 8.2 L (8.4-10.2) mg/dL Microbiology - Last 24 Hours (Table) 12/25/23 03:00 Blood Culture - Preliminary Blood 12/25/23 02:43 Blood Culture - Preliminary Blood Assessment and Plan Assessment: Altered mental status, likely due to toxic metabolic encephalopathy. Reasons multifactorial as mentioned below. * New onset hoarseness of voice, due to bilateral vocal cord paralysis, unclear cause. Patient also has new onset dysphagia, unclear cause. No mass lesion noted in the neck or pharyngeal region. Patient has preserved reflexes, no evidence of Guillian-Lamb syndrome, nor does she have evidence of [place] variant of Guillain-Lamb syndrome * Hyponatremia * Hypoxemia, improved * Hypokalemia, * Abnormal hepatic functions * Elevated cardiac enzymes, negative coronaries * Exacerbation of COPD. * Tobacco use * Hyperlipidemia * Hypothyroidism * Marijuana use MRI of the brain images have been personally reviewed. There is no evidence of mass, infarct or hemorrhage, as an etiology for the patient's dysphagia Plan: 1. I agree with PEG tube placement at this time, for nutrition 2. Your treatment of the patient's metabolic issues 3. Supportive care Time with Patient: Greater than 30 (40 minutes were spent caring for this patient today including obtaining history, examining patient, reviewing imaging, chart documentation, labs and creating this note)
[2023-12-29 05:38] LABS: African American GFR (CKD) >90 (>60 ml/min/1.73 sqM); Anion Gap 6 mmol/L; Blood Urea Nitrogen 16 mg/dL (7-17); Carbon Dioxide 29 mmol/L (22-30); Chloride 105 mmol/L (98-107); Glucose 176 mg/dL (74-99); Non-African American GFR(CKD) >90 (>60 ml/min/1.73 sqM); Potassium 2.9 mmol/L (3.5-5.1); Sodium 140 mmol/L (137-145)
[2023-12-29 05:50] LABS: Basophils # (A) 0.1 k/uL (0-0.2); Basophils % (A) 1 %; Eosinophils % (A) 0 %; HCT 36.8 % (34.0-46.0); HGB 12.1 gm/dL (11.4-16.0); Lymphocytes # (A) 0.9 k/uL (1.0-4.8); Lymphocytes % (A) 6 %; MCH 29.4 pg (25.0-35.0); MCHC 32.9 g/dL (31.0-37.0); MCV 89.4 fL (80.0-100.0); Mean Platelet Volume 8.5; Monocytes # (A) 0.6 k/uL (0-1.0); Monocytes % (A) 4 %; Neutrophils # (A) 15.1 k/uL (1.3-7.7); Neutrophils % (A) 89 %; Platelet Count 226 k/uL (150-450); RBC 4.11 m/uL (3.80-5.40)
[2023-12-29] MEDS: POTASSIUM CHLORIDE 10 MEQ in WATER FOR INJECTION 1 100ML.BAG IVPB SCH (06:24)
--- NOTE | 2023-12-29 08:24 | XR ---
EXAMINATION TYPE: XR chest 1V portable DATE OF EXAM: 12/29/2023 Comparison: 12/28/2023 Clinical History: 68-year-old female Pneumonia Findings: Heart borderline in size. Diffuse patchy interstitial opacities, right greater than left persist. How ever, some increasing focal retrocardiac airspace opacity. Impression: 1. Patchy interstitial infiltrates, right greater than left, without significant change. 2. However, there is some worsening focal retrocardiac opacity/airspace disease.
--- NOTE | 2023-12-29 12:03 | P.PN ---
Subjective Progress Note Date: 12/29/23 Principal diagnosis: Acute hypoxemic and hypercapnic respiratory failure I am seeing this patient in new consultation today on 12/25/2023 in the intensive care unit. The patient was transferred to the ICU after a heart catheterization for acute hypoxemic respiratory failure and increased oxygen demands. Patient is a 68-year-old white female with past medical history significant for COPD, current ongoing every day smoker, hyperlipidemia, hypothyroidism, chronic back pain. She smokes roughly 1 pack per day. Her primary care provider is Dr. Hansen. Patient had reportedly not been answering her phone for several days, so her daughter went to check on her at home. She reportedly was acting abnormal and confused and found naked. The patient does not recall this. After being brought to the emergency room yesterday afternoon, she was complaining of substernal chest pain that had been ongoing for the last 3 days. This is localized to the substernal area, she denies any radiation. Occurs mostly with coughing. Is associated with shortness of breath, wheezing, and productive cough. Troponins were elevated on arrival and patient had some isolated ST elevation in lead aVR, along with diffuse/generalized ST depression. She was also noted to be hypoxic. Patient was taken for a heart catheterization yeterday afternoon which revealed angiographically normal coronary arteries and left- sided filling pressures. No significant calcifications or coronary thrombus reported. D-dimer was also elevated, and for this reason the patient was sent for a chest CTA which did not show any evidence of pulmonary embolism. While in the intensive care unit, the patient had increased oxygen and was placed on BiPAP settings 12/6 and FiO2 50%. She is currently resting comfortably in bed, on BiPAP with the above-mentioned settings, in no acute respiratory distress. She is achieving tidal volumes of approximately 400 and her respiratory rate is in the mid 20s. She does have a congested cough and wheezing. Occasional has difficulty clearing oral secretions. Denies any fevers at home. She is currently alert and oriented. No signs of hypercapnic encephalopathy. ABGs were obtained earlier and consistent with combined hypoxemic and hypercapnic respiratory failure. She has a component of compensatory metabolic alkalosis and was given a dose of Diamox. CBC on arrival: WBC count 11.5, hemoglobin 17.1, hematocrit 49.2, platelets 331. BMP on arrival: Sodium 128, potassium 2.4, chloride 77, serum bicarb 38, BUN 41, creatinine 1.03, glucose 125. Normal saline is infusing at 75 mL per hour. LFTs mildly elevated. NT proBNP 764. Troponin on arrival 1.03. D-dimer had been elevated at 1.89. Urinalysis not concerning for UTI. Negative for influenza, RSV, COVID-19. Chest x-ray did not show any focal infiltrates or evidence of pneumonia. No acute cardiopulmonary process seen. Patient was covered empirically on a combination of azithromycin and Rocephin. She is afebrile. Vital signs are stable. Patient was reevaluated today on 12/26/2023, remains in the ICU, patient was on BiPAP overnight, transition to nasal cannula 3 L/min this morning. Continues to have intermittent cough and wheezing, patient is having some difficulty swallowing pills, and she will have a swallow evaluation today. Remains on IV fluid at 100 cc/h, remains on bronchodilators, patient is quite hoarse but no stridor. Patient has been maximized on bronchodilators and steroids. WBC count today is 14.1 hemoglobin 13.3 basic metabolic profile is relatively normal, renal profile is normal Patient was reevaluated today on 12/27/2023 remains in the ICU, patient was seen yesterday by ENT, and she was found to have bilateral vocal cord paralysis. According to the patient she has had issues with her voice now for the last 2 months. ENT is recommending PEG tube placement, and this was also recommended by speech therapy, patient is also scheduled to have MRI of the brain today. She was seen by neurology on consultation. On 3 L nasal cannula, her ABG showed a pO2 of 62 pCO2 34 pH of 7.49, patient is comfortable, she is sitting at the bedside chair, did not use BiPAP in the last 24 hours although BiPAP is at bedside WBC count is 15.1 hemoglobin is 12.9 basic metabolic profile is normal renal profile is normal Patient was reevaluated today on 12/28/2023, remains in the ICU on 3 L nasal cannula, patient is scheduled to have a PEG tube on Saturday, her sodium is a bit high and she is transition now from 0.9 normal saline to D5W at 100 cc/h. Last night the patient became extremely agitated and she was pulling her lines and catheters, hence she was placed on Precedex and remains on Precedex at 0.4 mcg/kg/h. Today she seems to be calm, her MRI is negative nondiagnostic. And again the patient is scheduled for PEG tube placement on Saturday as she had bilateral vocal cord paralysis. Patient is still having difficulty swallowing. WBC count is 15.3 hemoglobin 11.6. ABG yesterday showed a pO2 of 62 pCO2 34 pH of 7.49. Basic metabolic profile is normal except for elevated sodium of 147. And this will be corrected by transitioning her IV fluid to D5W Patient was evaluated today on 12/29/2023, remains in the ICU, seems to be less agitated today, nonetheless patient is on Precedex at 0.3 mcg/kg/h this morning seems to be calm, last night she was quite agitated, patient is not in any distress, on 3 L nasal cannula with O2 sats of 96%, the plan is to proceed with PEG tube placement on this patient mostly because of difficulty swallowing she failed the swallow evaluation, and she has bilateral vocal cord paralysis. WBC count today is 17 hemoglobin is 12 rest of the labs are basically unremarkable except for low potassium of 2.9 being addressed accordingly. Objective - Vital Signs Vital signs: Vital Signs Temp 98.1 F 12/29/23 10:00 Pulse 76 12/29/23 11:50 Resp 15 12/29/23 10:00 BP 144/78 12/29/23 10:00 Pulse Ox 96 12/29/23 10:00 FiO2 50 12/26/23 07:48 Intake & Output 12/28/23 12/29/23 12/29/23 17:59 06:59 18:59 Intake Total 914.112 Output Total 0 Balance 914.112 Weight Intake: IV 850 Dextrose 5% in Water 1, 600 000 ml @ 100 mls/hr IV . Q10H [facility] Rx#:[id number] Potassium Chloride 10 meq 200 In Water For Injection 1 100ml.bag @ 100 mls/hr IVPB Q1H [facility] Rx#: [id number] Sodium Chloride 0.9% 1, 000 ml @ 100 mls/hr IV . Q10H [facility] Rx#:[id number] cefTRIAXone 1 gm In 50 Sodium Chloride 0.9% 50 ml @ 100 mls/hr IVPB Q24HR [facility] Rx#:[id number] Intake, IV Titration 64.112 Amount Dexmedetomidine/0.9% NaCl 64.112 (Pmx) 400 mcg In Empty Bag 1 bag @ 0.2 MCG/KG/HR 3.58 mls/hr IV .Q24H [facility] Rx#:[id number] Potassium Chloride 10 meq In Water For Injection 1 100ml.bag @ 100 mls/hr IVPB Q1H [facility] Rx#: [id number] Output: Urine 0 Other: Voiding Method # Voids 1 - Exam GENERAL EXAM: Alert, 68-year-old white female, on 3 L nasal cannula. HEAD: Normocephalic and atraumatic EYES: Normal reaction of pupils, equal size. NOSE: Clear with pink turbinates. THROAT: No erythema or exudates. Dry mucous membranes, patient continues to have voice hoarseness NECK: No masses, no JVD. CHEST: No chest wall deformity. LUNGS: Diminished breath sounds at the bases no crackles rhonchi or wheezes CVS: S1 and S2 normal with no audible murmur, regular rhythm. No extra heart sounds ABDOMEN: No hepatosplenomegaly, active bowel sounds, no guarding or rigidity. SKIN: No rashes CENTRAL NERVOUS SYSTEM: Alert oriented x 3 no focal deficit EXTREMITIES: No clubbing edema or cyanosis - Labs CBC & Chem 7: 12/29/23 04:43 12/29/23 04:43 Labs: Abnormal Lab Results - Last 24 Hours (Table) 12/28/23 12/29/23 12/29/23 Range/Units 12:05 04:43 04:43 WBC 17.0 H (3.8-10.6) k/uL Neutrophils # 15.1 H (1.3-7.7) k/uL Lymphocytes # 0.9 L (1.0-4.8) k/uL Potassium 2.9 L (3.5-5.1) mmol/L Glucose 176 H (74-99) mg/dL POC Glucose (mg/dL) 132 H (70-110) mg/dL Calcium 8.0 L (8.4-10.2) mg/dL Microbiology - Last 24 Hours (Table) 12/25/23 03:00 Blood Culture - Preliminary Blood 12/25/23 02:43 Blood Culture - Preliminary Blood Assessment and Plan Assessment: Impression: Acute hypoxic and hypercapnic respiratory failure Acute exacerbation of COPD Acute toxic metabolic encephalopathy with hypercapnia Bilateral vocal cord paralysis Dysphagia secondary to vocal cord paralysis and dysphonia Severe dehydration Electrolytes imbalance including hyponatremia and hypokalemia Severe underlying COPD Tobacco dependence syndrome Hypothyroidism Dyslipidemia Chronic pain syndrome History of anxiety and depression Status post cardiac catheterization on 12/24/2023, and normal coronary findings no sukumar. Bibasilar atelectasis noted on CT of the chest, underlying pneumonia is a possibility, patient is a good set up for aspiration Recommendation: Continue Precedex Continue to monitor in the ICU PEG tube is scheduled for tomorrow Continue antibiotics and bronchodilators Plans for PEG tube on Saturday MRI negative Could use BiPAP as needed Continue Solu-Medrol, eventually transition to prednisone once PEG tube is placed Continue GI and DVT prophylaxis Will continue to follow Time with Patient: Less than 30
--- NOTE | 2023-12-29 13:17 | P.PN ---
Subjective Progress Note Date: 12/29/23 Principal diagnosis: Malnutrition Patient remains in the ICU. No new complaints. Hemodynamically stable. Objective - Vital Signs Vital signs: Vital Signs Temp 98.1 F 12/29/23 10:00 Pulse 96 12/29/23 12:00 Resp 27 H 12/29/23 12:00 BP 153/79 12/29/23 12:00 Pulse Ox 92 L 12/29/23 12:00 FiO2 50 12/26/23 07:48 Intake & Output 12/28/23 12/29/23 12/29/23 17:59 06:59 18:59 Intake Total 914.112 Output Total 0 Balance 914.112 Weight Intake: IV 850 Dextrose 5% in Water 1, 600 000 ml @ 100 mls/hr IV . Q10H [facility] Rx#:[id number] Potassium Chloride 10 meq 200 In Water For Injection 1 100ml.bag @ 100 mls/hr IVPB Q1H [facility] Rx#: [id number] Sodium Chloride 0.9% 1, 000 ml @ 100 mls/hr IV . Q10H [facility] Rx#:[id number] cefTRIAXone 1 gm In 50 Sodium Chloride 0.9% 50 ml @ 100 mls/hr IVPB Q24HR [facility] Rx#:[id number] Intake, IV Titration 64.112 Amount Dexmedetomidine/0.9% NaCl 64.112 (Pmx) 400 mcg In Empty Bag 1 bag @ 0.2 MCG/KG/HR 3.58 mls/hr IV .Q24H [facility] Rx#:[id number] Potassium Chloride 10 meq In Water For Injection 1 100ml.bag @ 100 mls/hr IVPB Q1H [facility] Rx#: [id number] Output: Urine 0 Other: Voiding Method # Voids 1 - Exam Abdomen: Soft, nontender, nondistended - Labs CBC & Chem 7: 12/29/23 04:43 12/29/23 04:43 Labs: Abnormal Lab Results - Last 24 Hours (Table) 12/29/23 12/29/23 Range/Units 04:43 04:43 WBC 17.0 H (3.8-10.6) k/uL Neutrophils # 15.1 H (1.3-7.7) k/uL Lymphocytes # 0.9 L (1.0-4.8) k/uL Potassium 2.9 L (3.5-5.1) mmol/L Glucose 176 H (74-99) mg/dL Calcium 8.0 L (8.4-10.2) mg/dL Microbiology - Last 24 Hours (Table) 12/25/23 03:00 Blood Culture - Preliminary Blood 12/25/23 02:43 Blood Culture - Preliminary Blood Assessment and Plan Plan: Patient with poor oral nutrition. Plans underway for EGD with PEG tube placement tomorrow.
--- NOTE | 2023-12-29 13:39 | P.PN ---
Subjective Progress Note Date: 12/28/23 HISTORY OF PRESENT ILLNESS: 68-year-old female [address] Hansen[address] patient with past medical history of COPD who is currently smoker on regular basis, history of hyper lipidemia, hyp othyroidism, chronic back pain, who also has history of chronic neuropathy, chronic depression, restless leg syndrome, chronic anemia. Apparently she was not answering her phone for the last few days, family went to check on her and found her naked and acting more confused she ended up coming to the emergency department where was seen and evaluated she claims she been having chest pain midsternum for the last 3 days without any radiation she been having mild cough and significant shortness of breath without productive phlegm. The EKG in the emergency department showed ST elevation in the inferior lead and diffuse ST depression in the lateral lead. Troponin being elevated patient was diagnosed with STEMI and ended up being taken to the [facility] by Dr. Lu. Heart catheter came back with completely negative blockage. Patient continues to have significant symptoms of shortness of breath with send at point to have CTA to exclude possibility of PE came back negative no sign of infiltrate. Patient had severe abnormal electrolyte imbalance with her sodium, potassium and chloride she ended up being transferred to the ICU resting on BiPAP settings 126 with FiO2 of 50 percentile started to feel little bit better, start replacing her potassium and continue hydration at that point. 12/25/2023: Patient remain in the ICU, remain on BiPAP, she is quite bit confused Was seen pulmonary through the night still on electrolyte replacement therapy. Her oxygen level still quite a bit low in the 80s require BiPAP on more regular basis, vitals improved slight bed, remain little bit tachycardic. Echocardiogram was ordered for this morning still has not been performed yet and as reviewed her entire heart cath and CTA came back to be completely normal. Continue to hydrate patient quite bit for now consult neurology probably further testing including EEG repeat scan of the brain can be beneficial. 12/26/2023: The patient is awake alert she is off the BiPAP sitting on the side of the bed still not acting herself still hypoxic hypophonic when she talk patient has been off asking for speech therapy for swallow evaluation before allowing patient to eat. Her lab value improved to some degree white blood cell is up to 14,000 but cannot state probably steroid-based, potassium still at 3.2: No free T4 was normal but TSH slightly low. Sadly when speech therapy did their assessment came back quite with abnormal and accelerated to an urgent ENT consultation patient ended going for dysphagia and hoarseness evaluation by direct flexible nasopharyngeal laryngoscopy result study came back with bilateral vocal cord paralysis can be consistent with either something obstructive in the neck or related to central stroke affected both sides. Brain scan was done early and there is a consultation from neurology which she has been seen note so far will end up doing CT of the chest and neck CT of the neck shows no finding consistent with any major abnormality on the chest showed no diagnosis of bilateral lower lobe bronchopneumonia greater on the right side more than anything else. At this point of course recommendation is for PEG tube and n.p.o. completely and still asking for neuroconsultation. 12/27/2023: The patient is sitting on the side of the bed able to comprehensive understand was going around more not a lot of information were able to be found for why she has bilateral vocal cord paralysis. She went for her MRI of the brain showed mild atrophy only with no sign and symptom of mass, bleed or metastasis no degenerative element in the brain consistent with an area of concern at this point. Also patient suffering from severe dysphagia scheduled to go for peg tube feeding will alter his feeding completely via PEG tube continue for now. Patient still follow with neurology for any of the possibility might affect both vocal cord including Guillain-Lamb, myasthenia gravis, tumor reflex syndrome, and other so far no finding consistent with it. Patient probably will be able to leave the ICU to go to medical floor after her PEG tube feeding subtle specially if she is well-managed with low-flow oxygen at this point. 12/28/2023: She is feeling slightly better is seen urology today still looking through the same possibility of fourth close bilateral vocal cord paralysis without any clear evidence for any existence of any Guillain-Lamb our myasthenia or paralysis or CVA. Pulmonary are happy with patient and set up currently still on mild sedation with Precedex 0.4 mcg/kg/h. White blood cells up to 15.3 to be expected her oxygenation has been much better lately sodium is up and potassium is normal. REVIEW OF SYSTEMS: CONSTITUTIONAL: Confused still in mild distress. EYES: No icterus sclerae, no conjunctivitis. EARS, NOSE, MOUTH, THROAT, and FACE: No sore throat, lymphadenopathy, with ho arseness of the voice., carotid bruits or deformity. RESPIRATORY: Slight cough and wheezes. Still having slight wheezes sometimes and hoarseness. CARDIOVASCULAR: Positive chest pain with orthopnea and angina. GASTROINTESTINAL: No Abd pain, Nausea or vomiting, no Diarrhea or constipation, No GI Bleed, no distention or masses. GENITOURINARY: Negative for Hematuria or UTI, no kidney stones. INTEGUMENT/BREAST: Negative for any muscular injury with mild osteoarthritis.. HEMATOLOGIC/LYMPHATIC: Negative for bleed or purpura. MUSCULOSKELTAL: Negative for Myalgia or arthralgia. NEURLOGICAL: No LOC, Sz or syncope, blurred vision dizziness or abnormality.. BEHAVIORAL/PSYCH: Negative. ENDOCRINE: Negative. PHYSICAL EXAMINATION: General Appearance: Alert, mildly confused looks older than her age. Neck HEENT: Supple, no lymphadenopathy, no thyroid enlargement, no carotid br uits. Lungs: Decreased breath sound bilaterally with fine rhonchi with mild expiratory wheezes. Chest Wall: Decreased expansion with deep inspiration no tenderness and no deformity was found on exam, no costochondral pain or discomfort. Heart: Regular rate and rhythm, S1, S2 normal, no murmur, rub or gallop. Back: Symmetric, no curvature, ROM normal, no CVA tenderness. Abdomen: Soft, non-tender, bowel sounds active all four quadrants, no masses, no organomegaly. Extremities: Extremities normal, atraumatic, no cyanosis or edema. Pulses: 2+ and symmetric. Skin: Skin color, texture, tugor normal, no rashes or lesions. Neurologic: Alert slightly confused cranial nerves II through XII intact, no motor deficit, no abnormal balance or gait. ASSESSMENT AND PLAN: _Bilateral vocal cord paralysis: Still not a clear etiology no CVA can be found with this no tumor or growth in the neck area no finding consistent with Guillain-Lamb or myasthenia gravis so far, still see neurology and ENT continue speech therapy with PEG feeding resting patient from passing things close to the vocal cord for the time being will be slightly very helpful but should be reevaluated every 2 weeks. _Severe chest pain with signs of STEMI: Post heart cath with negative finding with normal coronary artery. This is considered a type II non-STEMI from dehydration and hypoxia. No further cardiac problem at this point and since her heart cath things are better. _Acute respiratory failure: Slightly better able to go off the BiPAP using 2 to 3 L of oxygen to keep her pulse ox above 92 percentile. _Severe dysphagia: With bilateral vocal cord paralysis, PEG tube will be needed at this point and patient is n.p.o. further study and testing nothing but central out if there is any other reason to have bilateral vocal cord paralysis. Knowing patient and all this event never was intubated. Pending PEG feeding today after is done will start nutrition per recommendation of dietitian. _Severe electrolyte imbalance including hypokalemia, hyponatremia and hypochloremia: Much better so far continue to watch her chemistry and electrolyte daily. _Severe altered mental status: Her mental status has been cleared at this point is most likely hypoxia and severe dehydration with encephalopathy with still again missing neurology consultation which was requested from the beginning. _Severe dehydration and prerenal azotemia: Had improved significantly. _Chronic history of smoking: Smoking cessation was addressed nicotine patch will be started. _Chronic pain syndrome: Will holding off her gabapentin and prednisone No. 4 for now. _Chronic depression: Try to withhold some of her antidepression medication for the next few days. _Restless leg syndrome: Reduce Requip to 1 mg at bedtime only. _ Hyperlipidemia: Continue simvastatin. _Hypothyroidism: Continue levothyroxine 50 mcg daily. If not able to take it orally we will do a trial IV. Prognosis is is guarded. Patient is scheduled for PEG tube on Saturday. Objective - Vital Signs Vital signs: Vital Signs Temp 98.8 F 12/28/23 04:00 Pulse 78 12/28/23 04:38 Resp 29 H 12/28/23 04:00 BP 132/73 12/28/23 04:00 Pulse Ox 95 12/28/23 02:00 FiO2 50 12/26/23 07:48 Intake & Output 12/27/23 12/27/23 12/28/23 06:59 18:59 06:59 Intake Total 0788 140 8303.878 Output Total 0 3 0 Balance 2047 380 8937.878 Weight 71.6 kg 72 kg Intake: IV 6147 215 4162 Potassium Chloride 10 meq 100 In Water For Injection 1 100ml.bag @ 100 mls/hr IVPB Q1H [facility] Rx#: [id number] Sodium Chloride 0.9% 1, 3023 853 3528 000 ml @ 100 mls/hr IV . Q10H [facility] Rx#:[id number] cefTRIAXone 1 gm In 150 Sodium Chloride 0.9% 50 ml @ 100 mls/hr IVPB Q24HR [facility] Rx#:[id number] Intake, IV Titration 5.878 Amount Dexmedetomidine/0.9% NaCl 5.878 (Pmx) 400 mcg In Empty Bag 1 bag @ 0.2 MCG/KG/HR 3.58 mls/hr IV .Q24H [facility] Rx#:[id number] Output: Urine 0 3 0 Other: Voiding Method External Catheter Diaper Diaper # Voids 1 1 # Bowel Movements 1 1 - Labs CBC & Chem 7: 12/29/23 04:43 12/29/23 04:43 Labs: Abnormal Lab Results - Last 24 Hours (Table) 12/27/23 12/27/23 Range/Units 05:15 07:43 ABG pH 7.49 H (7.35-7.45) ABG pCO2 34 L (35-45) mmHg ABG pO2 62 L (83-108) mmHg ABG HCO3 26 H (21-25) mmol/L ABG Total CO2 27 H (19-24) mmol/L Chloride 108 H (98-107) mmol/L BUN 23 H (7-17) mg/dL Glucose 161 H (74-99) mg/dL Microbiology - Last 24 Hours (Table) 12/25/23 03:00 Blood Culture - Preliminary Blood 12/25/23 02:43 Blood Culture - Preliminary Blood
--- NOTE | 2023-12-29 13:42 | P.PN ---
Subjective Progress Note Date: 12/29/23 HISTORY OF PRESENT ILLNESS: 68-year-old female [address] Hansen[address] patient with past medical history of COPD who is currently smoker on regular basis, history of hyper lipidemia, hyp othyroidism, chronic back pain, who also has history of chronic neuropathy, chronic depression, restless leg syndrome, chronic anemia. Apparently she was not answering her phone for the last few days, family went to check on her and found her naked and acting more confused she ended up coming to the emergency department where was seen and evaluated she claims she been having chest pain midsternum for the last 3 days without any radiation she been having mild cough and significant shortness of breath without productive phlegm. The EKG in the emergency department showed ST elevation in the inferior lead and diffuse ST depression in the lateral lead. Troponin being elevated patient was diagnosed with STEMI and ended up being taken to [facility] by Dr. Lu. Heart catheter came back with completely negative blockage. Patient continues to have significant symptoms of shortness of breath with send at point to have CTA to exclude possibility of PE came back negative no sign of infiltrate. Patient had severe abnormal electrolyte imbalance with her sodium, potassium and chloride she ended up being transferred to the ICU resting on BiPAP settings 126 with FiO2 of 50 percentile started to feel little bit better, start replacing her potassium and continue hydration at that point. 12/25/2023: Patient remain in the ICU, remain on BiPAP, she is quite bit confused Was seen pulmonary through the night still on electrolyte replacement therapy. Her oxygen level still quite a bit low in the 80s require BiPAP on more regular basis, vitals improved slight bed, remain little bit tachycardic. Echocardiogram was ordered for this morning still has not been performed yet and as reviewed her entire heart cath and CTA came back to be completely normal. Continue to hydrate patient quite bit for now consult neurology probably further testing including EEG repeat scan of the brain can be beneficial. 12/26/2023: The patient is awake alert she is off the BiPAP sitting on the side of the bed still not acting herself still hypoxic hypophonic when she talk patient has been off asking for speech therapy for swallow evaluation before allowing patient to eat. Her lab value improved to some degree white blood cell is up to 14,000 but cannot state probably steroid-based, potassium still at 3.2: No free T4 was normal but TSH slightly low. Sadly when speech therapy did their assessment came back quite with abnormal and accelerated to an urgent ENT consultation patient ended going for dysphagia and hoarseness evaluation by direct flexible nasopharyngeal laryngoscopy result study came back with bilateral vocal cord paralysis can be consistent with either something obstructive in the neck or related to central stroke affected both sides. Brain scan was done early and there is a consultation from neurology which she has been seen note so far will end up doing CT of the chest and neck CT of the neck shows no finding consistent with any major abnormality on the chest showed no diagnosis of bilateral lower lobe bronchopneumonia greater on the right side more than anything else. At this point of course recommendation is for PEG tube and n.p.o. completely and still asking for neuroconsultation. 12/27/2023: The patient is sitting on the side of the bed able to comprehensive understand was going around more not a lot of information were able to be found for why she has bilateral vocal cord paralysis. She went for her MRI of the brain showed mild atrophy only with no sign and symptom of mass, bleed or metastasis no degenerative element in the brain consistent with an area of concern at this point. Also patient suffering from severe dysphagia scheduled to go for peg tube feeding will alter his feeding completely via PEG tube continue for now. Patient still follow with neurology for any of the possibility might affect both vocal cord including Guillain-Lamb, myasthenia gravis, tumor reflex syndrome, and other so far no finding consistent with it. Patient probably will be able to leave the ICU to go to medical floor after her PEG tube feeding subtle specially if she is well-managed with low-flow oxygen at this point. 12/28/2023: She is feeling slightly better is seen urology today still looking through the same possibility of fourth close bilateral vocal cord paralysis without any clear evidence for any existence of any Guillain-Lamb our myasthenia or paralysis or CVA. Pulmonary are happy with patient and set up currently still on mild sedation with Precedex 0.4 mcg/kg/h. White blood cells up to 15.3 to be expected her oxygenation has been much better lately sodium is up and potassium is normal. 12/29/2023: Patient is laying in her bed more comfortable today no major complaint or concern. Laboratory value shows white blood cell of 17,000 electrolyte with potassium is down again to 2.9 and she is on potassium supplement at this point, blood sugar is up to 176 and still on Accu-Chek with sliding scale coverage. Apparently through the weekend the family had visited with patient question or answer and I left a note for the family if they have any concern late in afternoon when I stop by the office to have a meeting to be able to do it on Saturday. REVIEW OF SYSTEMS: CONSTITUTIONAL: Confused still in mild distress. EYES: No icterus sclerae, no conjunctivitis. EARS, NOSE, MOUTH, THROAT, and FACE: No sore throat, lymphadenopathy, with hoarseness of the voice., carotid bruits or deformity. RESPIRATORY: Slight cough and wheezes. Still having slight wheezes sometimes and hoarseness. CARDIOVASCULAR: Positive chest pain with orthopnea and angina. GASTROINTESTINAL: No Abd pain, Nausea or vomiting, no Diarrhea or constipation, No GI Bleed, no distention or masses. GENITOURINARY: Negative for Hematuria or UTI, no kidney stones. INTEGUMENT/BREAST: Negative for any muscular injury with mild osteoarthritis.. HEMATOLOGIC/LYMPHATIC: Negative for bleed or purpura. MUSCULOSKELTAL: Negative for Myalgia or arthralgia. NEURLOGICAL: No LOC, Sz or syncope, blurred vision dizziness or abnormality.. BEHAVIORAL/PSYCH: Negative. ENDOCRINE: Negative. PHYSICAL EXAMINATION: General Appearance: Alert, mildly confused looks older than her age. Neck HEENT: Supple, no lymphadenopathy, no thyroid enlargement, no carotid bruits. Lungs: Decreased breath sound bilaterally with fine rhonchi with mild expiratory wheezes. Chest Wall: Decreased expansion with deep inspiration no tenderness and no deformity was found on exam, no costochondral pain or discomfort. Heart: Regular rate and rhythm, S1, S2 normal, no murmur, rub or gallop. Back: Symmetric, no curvature, ROM normal, no CVA tenderness. Abdomen: Soft, non-tender, bowel sounds active all four quadrants, no masses, no organomegaly. Extremities: Extremities normal, atraumatic, no cyanosis or edema. Pulses: 2+ and symmetric. Skin: Skin color, texture, tugor normal, no rashes or lesions. Neurologic: Alert slightly confused cranial nerves II through XII intact, no motor deficit, no abnormal balance or gait. ASSESSMENT AND PLAN: _Bilateral vocal cord paralysis: Still not a clear etiology no CVA can be found with this no tumor or growth in the neck area no finding consistent with Guillain-Lamb or myasthenia gravis so far, still see neurology and ENT continue speech therapy with PEG feeding resting patient from passing things close to the vocal cord for the time being will be slightly very helpful but should be reevaluated every 2 weeks. _Severe dysphagia: With bilateral vocal cord paralysis, PEG tube will be needed at this point and patient is n.p.o. further study and testing nothing but central out if there is any other reason to have bilateral vocal cord paralysis. Knowing patient and all this event never was intubated. Pending PEG feeding today after is done will start nutrition per recommendation of dietitian. _Acute respiratory failure: Requiring much less oxygen to keep her oxygen level mid 90. _Severe chest pain with signs of STEMI: Post heart cath with negative finding with normal coronary artery. This is considered a type II non-STEMI from deh ydration and hypoxia. No further cardiac problem at this point and since her heart cath things are better. _Severe electrolyte imbalance including hypokalemia, hyponatremia and hypochloremia: Much better so far continue to watch her chemistry and electrolyte daily. _Severe altered mental status: Her mental status has been cleared at this point is most likely hypoxia and severe dehydration with encephalopathy with still again missing neurology consultation which was requested from the beginning. _Mild anxiety: Started on Precedex and doing better. _Severe dehydration and prerenal azotemia: Had improved significantly. _Chronic history of smoking: Smoking cessation was addressed nicotine patch will be started. _Chronic pain syndrome: Will holding off her gabapentin and prednisone No. 4 for now. _Chronic depression: Try to withhold some of her antidepression medication for the next few days. _Restless leg syndrome: Reduce Requip to 1 mg at bedtime only. _ Hyperlipidemia: Continue simvastatin. _Hypothyroidism: Continue levothyroxine 50 mcg daily. If not able to take it orally we will do a trial IV. Patient is scheduled for PEG tube on Saturday. Objective - Vital Signs Vital signs: Vital Signs Temp 98.1 F 12/29/23 10:00 Pulse 96 12/29/23 12:00 Resp 27 H 12/29/23 12:00 BP 153/79 12/29/23 12:00 Pulse Ox 92 L 12/29/23 12:00 FiO2 50 12/26/23 07:48 Intake & Output 12/28/23 12/29/23 12/29/23 17:59 06:59 18:59 Intake Total 914.112 Output Total 0 Balance 914.112 Weight Intake: IV 850 Dextrose 5% in Water 1, 600 000 ml @ 100 mls/hr IV . Q10H [facility] Rx#:[id number] Potassium Chloride 10 meq 200 In Water For Injection 1 100ml.bag @ 100 mls/hr IVPB Q1H [facility] Rx#: [id number] Sodium Chloride 0.9% 1, 000 ml @ 100 mls/hr IV . Q10H [facility] Rx#:[id number] cefTRIAXone 1 gm In 50 Sodium Chloride 0.9% 50 ml @ 100 mls/hr IVPB Q24HR [facility] Rx#:[id number] Intake, IV Titration 64.112 Amount Dexmedetomidine/0.9% NaCl 64.112 (Pmx) 400 mcg In Empty Bag 1 bag @ 0.2 MCG/KG/HR 3.58 mls/hr IV .Q24H [facility] Rx#:[id number] Potassium Chloride 10 meq In Water For Injection 1 100ml.bag @ 100 mls/hr IVPB Q1H [facility] Rx#: [id number] Output: Urine 0 Other: Voiding Method # Voids 1 - Labs CBC & Chem 7: 12/29/23 04:43 12/29/23 04:43 Labs: Abnormal Lab Results - Last 24 Hours (Table) 12/29/23 12/29/23 Range/Units 04:43 04:43 WBC 17.0 H (3.8-10.6) k/uL Neutrophils # 15.1 H (1.3-7.7) k/uL Lymphocytes # 0.9 L (1.0-4.8) k/uL Potassium 2.9 L (3.5-5.1) mmol/L Glucose 176 H (74-99) mg/dL Calcium 8.0 L (8.4-10.2) mg/dL Microbiology - Last 24 Hours (Table) 12/25/23 03:00 Blood Culture - Preliminary Blood 12/25/23 02:43 Blood Culture - Preliminary Blood
[2023-12-30] MEDS ORDERED: Potassium Replacement Protocol 1 EACH MISC MISCELLANE PRN ×2 (01:46→22:47)
[2023-12-30] MEDS: POTASSIUM CHLORIDE 10 MEQ in WATER FOR INJECTION 1 100ML.BAG IVPB SCH (01:54)
[2023-12-30 05:16] LABS: African American GFR (CKD) >90 (>60 ml/min/1.73 sqM); Anion Gap 5 mmol/L; Blood Urea Nitrogen 15 mg/dL (7-17); Calcium 8.4 mg/dL (8.4-10.2); Carbon Dioxide 27 mmol/L (22-30); Chloride 103 mmol/L (98-107); Glucose 222 mg/dL (74-99); Non-African American GFR(CKD) >90 (>60 ml/min/1.73 sqM); Potassium 4.8 mmol/L (3.5-5.1); Sodium 135 mmol/L (137-145)
[2023-12-30 05:20] LABS: Basophils # (A) 0.2 k/uL (0-0.2); Basophils % (A) 1 %; Eosinophils % (A) 0 %; HCT 40.7 % (34.0-46.0); HGB 13.7 gm/dL (11.4-16.0); Lymphocytes # (A) 1.3 k/uL (1.0-4.8); Lymphocytes % (A) 6 %; MCH 29.6 pg (25.0-35.0); MCHC 33.7 g/dL (31.0-37.0); MCV 87.8 fL (80.0-100.0); Mean Platelet Volume 10.4; Monocytes # (A) 0.8 k/uL (0-1.0); Monocytes % (A) 4 %; Neutrophils # (A) 18.1 k/uL (1.3-7.7); Neutrophils % (A) 87 %; Platelet Count 227 k/uL (150-450); RBC 4.64 m/uL (3.80-5.40); RDW 13.7 % (11.5-15.5); WBC 20.7 k/uL (3.8-10.6)
--- NOTE | 2023-12-30 10:59 | XR ---
EXAMINATION TYPE: XR chest 1V portable DATE OF EXAM: 12/30/2023 5:38 AM CLINICAL INDICATION:Female, 68 years old with history of bronchopneumonia; [facility] COMPARISON: Chest radiographs from 12/29/2023, CT 12/26/2023. TECHNIQUE: XR chest 1V portable Frontal view of the chest. FINDINGS: Lungs/Pleura: Right lower lung airspace opacities. There is no evidence of pleural effusion, focal co nsolidation, or pneumothorax. Pulmonary vascularity: Unremarkable. Heart/mediastinum: Cardiomediastinal silhouette is unremarkable. Musculoskeletal: No acute osseous pathology. Other findings: None Lines/Tubes: IMPRESSION: Scattered airspace opacities throughout the lungs with right lower lung airspace opacities not signif icantly changed.
--- NOTE | 2023-12-30 11:50 | P.PN ---
Subjective Progress Note Date: 12/30/23 I am seeing this patient in new consultation today on 12/25/2023 in the intensive care unit. The patient was transferred to the ICU after a heart catheterization for acute hypoxemic respiratory failure and increased oxygen demands. Patient is a 68-year-old white female with past medical history significant for COPD, current ongoing every day smoker, hyperlipidemia, hypothyroidism, chronic back pain. She smokes roughly 1 pack per day. Her primary care provider is Dr. Hansen. Patient had reportedly not been answering her phone for several days, so her daughter went to check on her at home. She reportedly was acting abnormal and confused and found naked. The patient does not recall this. After being brought to the emergency room yesterday afternoon, she was complaining of substernal chest pain that had been ongoing for the last 3 days. This is localized to the substernal area, she denies any radiation. Occurs mostly with coughing. Is associated with shortness of breath, wheezing, and productive cough. Troponins were elevated on arrival and patient had some isolated ST elevation in lead aVR, along with diffuse/generalized ST depression. She was also noted to be hypoxic. Patient was taken for a heart catheterization yeterday afternoon which revealed angiographically normal coronary arteries and left- sided filling pressures. No significant calcifications or coronary thrombus reported. D-dimer was also elevated, and for this reason the patient was sent for a chest CTA which did not show any evidence of pulmonary embolism. While in the intensive care unit, the patient had increased oxygen and was placed on BiPAP settings 12/6 and FiO2 50%. She is currently resting comfortably in bed, on BiPAP with the above-mentioned settings, in no acute respiratory distress. She is achieving tidal volumes of approximately 400 and her respiratory rate is in the mid 20s. She does have a congested cough and wheezing. Occasional has difficulty clearing oral secretions. Denies any fevers at home. She is currently alert and oriented. No signs of hypercapnic encephalopathy. ABGs were obtained earlier and consistent with combined hypoxemic and hypercapnic respiratory failure. She has a component of compensatory metabolic alkalosis and was given a dose of Diamox. CBC on arrival: WBC count 11.5, hemoglobin 17.1, hematocrit 49.2, platelets 331. BMP on arrival: Sodium 128, potassium 2.4, chloride 77, serum bicarb 38, BUN 41, creatinine 1.03, glucose 125. Normal saline is infusing at 75 mL per hour. LFTs mildly elevated. NT proBNP 764. Troponin on arrival 1.03. D-dimer had been elevated at 1.89. Urinalysis not concerning for UTI. Negative for influenza, RSV, COVID-19. Chest x-ray did not show any focal infiltrates or evidence of pneumonia. No acute cardiopulmonary p rocess seen. Patient was covered empirically on a combination of azithromycin and Rocephin. She is afebrile. Vital signs are stable. Patient was reevaluated today on 12/26/2023, remains in the ICU, patient was on BiPAP overnight, transition to nasal cannula 3 L/min this morning. Continues to have intermittent cough and wheezing, patient is having some difficulty swallowing pills, and she will have a swallow evaluation today. Remains on IV fluid at 100 cc/h, remains on bronchodilators, patient is quite hoarse but no stridor. Patient has been maximized on bronchodilators and steroids. WBC count today is 14.1 hemoglobin 13.3 basic metabolic profile is relatively normal, renal profile is normal Patient was reevaluated today on 12/27/2023 remains in the ICU, patient was seen yesterday by ENT, and she was found to have bilateral vocal cord paralysis. According to the patient she has had issues with her voice now for the last 2 months. ENT is recommending PEG tube placement, and this was also recommended by speech therapy, patient is also scheduled to have MRI of the brain today. Anai larson was seen by neurology on consultation. On 3 L nasal cannula, her ABG showed a pO2 of 62 pCO2 34 pH of 7.49, patient is comfortable, she is sitting at the bedside chair, did not use BiPAP in the last 24 hours although BiPAP is at bedside WBC count is 15.1 hemoglobin is 12.9 basic metabolic profile is normal renal profile is normal Patient was reevaluated today on 12/28/2023, remains in the ICU on 3 L nasal cannula, patient is scheduled to have a PEG tube on Saturday, her sodium is a bit high and she is transition now from 0.9 normal saline to D5W at 100 cc/h. Last night the patient became extremely agitated and she was pulling her lines and catheters, hence she was placed on Precedex and remains on Precedex at 0.4 mcg/kg/h. Today she seems to be calm, her MRI is negative nondiagnostic. And again the patient is scheduled for PEG tube placement on Saturday as she had bilateral vocal cord paralysis. Patient is still having difficulty swallowing. WBC count is 15.3 hemoglobin 11.6. ABG yesterday showed a pO2 of 62 pCO2 34 pH of 7.49. Basic metabolic profile is normal except for elevated sodium of 147. And this will be corrected by transitioning her IV fluid to D5W Patient was evaluated today on 12/29/2023, remains in the ICU, seems to be less agitated today, nonetheless patient is on Precedex at 0.3 mcg/kg/h this morning seems to be calm, last night she was quite agitated, patient is not in any distress, on 3 L nasal cannula with O2 sats of 96%, the plan is to proceed with PEG tube placement on this patient mostly because of difficulty swallowing she failed the swallow evaluation, and she has bilateral vocal cord paralysis. WBC count today is 17 hemoglobin is 12 rest of the labs are basically unremarkable except for low potassium of 2.9 being addressed accordingly. The patient is seen today December 30, 2023 in follow-up in the intensive care unit. She is currently resting comfortably in bed. Awake and alert in no acute distress. She has been weaned off the Precedex at approximately 3:00 this morning. She remains on Ativan as needed. She is continued on bronchodilators. Chest x-ray reveals scattered airspace opacities throughout the lungs with right lower lobe opacity, no significant changes. She is currently on 6 L high flow nasal cannula. She is noted to have bilateral vocal cord paralysis. The plan is for PEG tube insertion today. She is continue on D5W at 100 MLS per hour. White count 20.7. Hemoglobin 13.7. Platelets 227. Sodium 135. Po tassium 4.8. Bicarb 27. BUN 15. Creatinine 0.50. Glucose 222. She remains on ceftriaxone, steroids and bronchodilators. Lovenox for DVT prophylaxis. Objective - Vital Signs Vital signs: Vital Signs Temp 98.0 F 12/30/23 08:00 Pulse 90 12/30/23 10:00 Resp 21 12/30/23 10:00 BP 165/74 12/30/23 10:00 Pulse Ox 93 L 12/30/23 10:00 FiO2 50 12/26/23 07:48 Intake & Output 12/29/23 12/30/23 12/30/23 18:59 06:59 18:59 Intake Total 3333.049 1622.541 300 Output Total 0 1001 300 Balance 1936.069 218.541 0 Weight 75.2 kg Intake: IV 1850 1200 300 Dextrose 5% in Water 1, 1300 1200 300 000 ml @ 100 mls/hr IV . Q10H [facility] Rx#:[id number] Potassium Chloride 10 meq 500 In Water For Injection 1 100ml.bag @ 100 mls/hr IVPB Q1H [facility] Rx#: [id number] cefTRIAXone 1 gm In 50 Sodium Chloride 0.9% 50 ml @ 100 mls/hr IVPB Q24HR [facility] Rx#:[id number] Intake, IV Titration 86.069 19.541 Amount Dexmedetomidine/0.9% NaCl 86.069 19.541 (Pmx) 400 mcg In Empty Bag 1 bag @ 0.2 MCG/KG/HR 3.58 mls/hr IV .Q24H [facility] Rx#:[id number] Output: Urine 0 1001 300 Other: Voiding Method Diaper External Catheter External Catheter # Voids 1 1 # Bowel Movements 1 1 - Exam GENERAL EXAM: Alert, 68-year-old female, currently resting comfortably in bed, on 6 L nasal cannula. HEAD: Normocephalic and atraumatic EYES: Normal reaction of pupils, equal size. NOSE: Clear with pink turbinates. THROAT: No erythema or exudates. Dry mucous membranes, patient continues to have voice hoarseness NECK: No masses, no JVD. CHEST: No chest wall deformity. LUNGS: Diminished breath sounds at the bases no crackles rhonchi or wheezes CVS: S1 and S2 normal with no audible murmur, regular rhythm. No extra heart sounds ABDOMEN: No hepatosplenomegaly, active bowel sounds, no guarding or rigidity. SKIN: No rashes CENTRAL NERVOUS SYSTEM: Alert oriented x 3 no focal deficit EXTREMITIES: No clubbing edema or cyanosis - Labs CBC & Chem 7: 12/30/23 04:29 12/30/23 08:19 Labs: Abnormal Lab Results - Last 24 Hours (Table) 12/30/23 12/30/23 12/30/23 Range/Units 00:48 04:29 04:29 WBC 20.7 H (3.8-10.6) k/uL Neutrophils # 18.1 H (1.3-7.7) k/uL Sodium 135 L (137-145) mmol/L Potassium 3.1 L (3.5-5.1) mmol/L Creatinine 0.50 L (0.52-1.04) mg/dL Glucose 222 H (74-99) mg/dL Microbiology - Last 24 Hours (Table) 12/25/23 04:23 Gram Stain - Final Sputum Sputum Culture - Final Corynebact pseudodiphtheritcum Assessment and Plan Assessment: Acute hypoxic and hypercapnic respiratory failure Acute exacerbation of COPD Acute toxic metabolic encephalopathy with hypercapnia Bilateral vocal cord paralysis Dysphagia secondary to vocal cord paralysis and dysphonia Severe dehydration Electrolytes imbalance including hyponatremia and hypokalemia Severe underlying COPD Tobacco dependence syndrome Hypothyroidism Dyslipidemia Chronic pain syndrome History of anxiety and depression Status post cardiac catheterization on 12/24/2023, and normal coronary findings noted. Plan: The patient was seen and evaluated Chest x-ray, labs and medications reviewed Plan is for PEG tube placement today Continue aspiration precautions Continue bronchodilators and steroids Continued on antibiotics We will continue to follow I have personally seen and examined the patient, performed the documentation and the assessment and plan as written. Number of minutes spent on the visit: 10.
--- NOTE | 2023-12-30 13:05 | P.PN ---
Subjective Progress Note Date: 12/30/23 CHIEF COMPLAINT: Dysphagia HISTORY OF PRESENT ILLNESS: Patient scheduled for PEG tube placement today. She remains in the ICU. She is lying comfortably in bed. Afebrile. WBC is 20.7 sodium is 135 potassium is 3.7 creatinine 0.50 PHYSICAL EXAM: VITAL SIGNS: Reviewed. GENERAL: no acute distress. ABDOMEN: Soft. Nondistended. Nontender. ASSESSMENT: 1. Dysphagia 2. Failed swallow eval 3. Vocal cord paralysis 4. Mild protein calorie malnutrition PLAN: -Patient scheduled for PEG tube placement today with Dr. Escudero Physician [employer] Superintendent note has been reviewed by physician. Signing provider agrees with the documented findings, assessment, and plan of care. Objective - Vital Signs Vital signs: Vital Signs Temp 98.0 F 12/30/23 08:00 Pulse 93 12/30/23 12:00 Resp 17 12/30/23 12:00 BP 146/83 12/30/23 12:00 Pulse Ox 93 L 12/30/23 12:00 FiO2 50 12/26/23 07:48 Intake & Output 12/29/23 12/30/23 12/30/23 18:59 06:59 18:59 Intake Total 2299.694 4535.541 500 Output Total 0 1001 600 Balance 1936.069 218.541 -100 Weight 75.2 kg Intake: IV 1850 1200 500 Dextrose 5% in Water 1, 1300 1200 500 000 ml @ 100 mls/hr IV . Q10H [facility] Rx#:[id number] Potassium Chloride 10 meq 500 In Water For Injection 1 100ml.bag @ 100 mls/hr IVPB Q1H [facility] Rx#: [id number] cefTRIAXone 1 gm In 50 Sodium Chloride 0.9% 50 ml @ 100 mls/hr IVPB Q24HR [facility] Rx#:[id number] Intake, IV Titration 86.069 19.541 Amount Dexmedetomidine/0.9% NaCl 86.069 19.541 (Pmx) 400 mcg In Empty Bag 1 bag @ 0.2 MCG/KG/HR 3.58 mls/hr IV .Q24H [facility] Rx#:[id number] Output: Urine 0 1001 600 Other: Voiding Method Diaper External Catheter External Catheter # Voids 1 1 # Bowel Movements 1 1 - Labs CBC & Chem 7: 12/30/23 04:29 12/30/23 08:19 Labs: Abnormal Lab Results - Last 24 Hours (Table) 12/30/23 12/30/23 12/30/23 Range/Units 00:48 04:29 04:29 WBC 20.7 H (3.8-10.6) k/uL Neutrophils # 18.1 H (1.3-7.7) k/uL Sodium 135 L (137-145) mmol/L Potassium 3.1 L (3.5-5.1) mmol/L Creatinine 0.50 L (0.52-1.04) mg/dL Glucose 222 H (74-99) mg/dL Microbiology - Last 24 Hours (Table) 12/25/23 04:23 Gram Stain - Final Sputum Sputum Culture - Final Corynebact pseudodiphtheritcum
[2023-12-30] MEDS ORDERED: SUCCINYLCHOLINE CHLORIDE 200 MG/10 ML VIAL IV ONE (13:27)
[2023-12-30] MEDS ORDERED: ALBUTEROL HFA INHALER INHALATION ONE (13:27)
[2023-12-30] MEDS ORDERED: fentaNYL (PF) 50 MCG/ML 2 ML AMP ONE (13:27)
[2023-12-30] MEDS ORDERED: PROPOFOL 10 MG/ML 20 ML VIAL IV ONE (13:27)
[2023-12-30] MEDS: SODIUM CHLORIDE 0.9% 500 ML 500 ML IV ONE (13:51)
--- NOTE | 2023-12-30 13:58 | P.OP ---
Date of Procedure: 12/30/23 Preoperative Diagnosis: Bilateral vocal cord paralysis Postoperative Diagnosis: Bilateral vocal cord paralysis Malnutrition Procedure(s) Performed: EGD with PEG tube placement Anesthesia: MARSHA Surgeon: Yohannes Escudero Estimated Blood Loss (ml): 5 Pathology: none sent Condition: stable Disposition: PACU Description of Procedure: The patient received IV sedation and then general endotracheal tube anesthesia. Next the gastroscope placed oropharynx passed in the esophagus and stomach. There is no evidence of any outlet obstruction. Stomach was insufflated with air. The light reflux seen the anterior abdominal wall. The abdomen was prepped and draped usual fashion. The skin was incised. And the needles placed and stomach under direct visualization. The needle was snared. And the wires placed through the needle and the wire was snared and brought the oropharynx. The PEG tube was placed over top the wire brought down to the stomach. The PEG tube was secured. At the 3 cm sandra. The one-piece bolster was used. Patient tolerated procedure well.
[2023-12-30] MEDS: HYDROmorphone 0.5 MG/0.5 ML SYRINGE IVP PRN (14:59)
--- NOTE | 2023-12-30 15:26 | P.PN ---
Subjective Progress Note Date: 12/30/23 I am seeing the patient for the first time during this admission. Please refer to Dr. Gordillo's and Dottie's notes. It seems the patient has new onset hoarseness of voice was felt possibly due to bilateral vocal cord paralysis of unclear cause. She does also have the new onset dysphagia of unclear cause. She is pending PEG tube. According to nurse her nasal tone is improving. Objective - Vital Signs Vital signs: Vital Signs Temp 97.0 F L 12/30/23 14:01 Pulse 94 12/30/23 14:30 Resp 16 12/30/23 14:30 BP 155/76 12/30/23 14:30 Pulse Ox 96 12/30/23 14:30 FiO2 50 12/26/23 07:48 Intake & Output 12/29/23 12/30/23 12/30/23 18:59 06:59 18:59 Intake Total 6714.882 9357.541 900 Output Total 0 1001 600 Balance 1936.069 218.541 300 Weight 75.2 kg Intake: IV 1850 1200 900 Dextrose 5% in Water 1, 1300 1200 600 000 ml @ 100 mls/hr IV . Q10H [facility] Rx#:[id number] Potassium Chloride 10 meq 500 In Water For Injection 1 100ml.bag @ 100 mls/hr IVPB Q1H [facility] Rx#: [id number] cefTRIAXone 1 gm In 50 Sodium Chloride 0.9% 50 ml @ 100 mls/hr IVPB Q24HR [facility] Rx#:[id number] Intake, IV Titration 86.069 19.541 Amount Dexmedetomidine/0.9% NaCl 86.069 19.541 (Pmx) 400 mcg In Empty Bag 1 bag @ 0.2 MCG/KG/HR 3.58 mls/hr IV .Q24H [facility] Rx#:[id number] Output: Urine 0 1001 600 Other: Voiding Method Diaper External Catheter External Catheter # Voids 1 1 # Bowel Movements 1 1 - Exam General: Lying in bed and is not in acute distress. Neuro: Patient is awake alert oriented to self. She is able to follow commands. Pupils are round equal and reactive to light. Visual galvan are full to confrontation. Extraocular movement is intact. Patient appears to have facial weakness in which the she had difficulty keeping the air in the mouth with the lips closed. As well as her eyes upon asking her to close it tightly was able to the easily open her eyes manually. She has a raspy voice. Motor is a strength is 5 out of 5 throughout. Reflexes is 2 positive in the uppers wall the lowers (R/L): patellar is 1-2+/1+, ankles are 1+/2+ - Labs CBC & Chem 7: 12/30/23 04:29 12/30/23 08:19 Labs: Abnormal Lab Results - Last 24 Hours (Table) 12/30/23 12/30/23 12/30/23 Range/Units 00:48 04:29 04:29 WBC 20.7 H (3.8-10.6) k/uL Neutrophils # 18.1 H (1.3-7.7) k/uL Sodium 135 L (137-145) mmol/L Potassium 3.1 L (3.5-5.1) mmol/L Creatinine 0.50 L (0.52-1.04) mg/dL Glucose 222 H (74-99) mg/dL Microbiology - Last 24 Hours (Table) 12/25/23 03:00 Blood Culture - Final Blood 12/25/23 02:43 Blood Culture - Final Blood 12/25/23 04:23 Gram Stain - Final Sputum Sputum Culture - Final Corynebact pseudodiphtheritcum Assessment and Plan Assessment: * New onset hoarseness of voice, due to bilateral vocal cord paralysis, unclear cause. Patient also has new onset dysphagia, unclear cause. Also has other f acial weakness of unclear cause. MRI of the brain no evidence of mass, infarct or hemorrhage, as an etiology for the patient's dysphagia * Altered mental status due to metabolic encephalopathy/as below: * Hyponatremia---improving * Hypoxemia, improved * Hypokalemia, * Abnormal hepatic functions * Elevated cardiac enzymes, negative coronaries * Exacerbation of COPD. * Tobacco use * Hyperlipidemia * Hypothyroidism * Marijuana use Plan: Patient had MRI of the brain which was unremarkable for any stroke mass that would explain her dysphagia or facial weakness. He is pending to have PEG tube today. Acetylcholine receptor antibody is ordered by Dr. Gordillo and is pending. I order ed MUSK antibody. Consulted Pain specialist for Lumbar puncture. Will obtain CSF anti-gq1b antibody for navarrete burciaga syndrome (GBS variants)/Bickerstaff brainstem encephalitis. Defer the rest of the medical measure the primary and other specialists I held the Lovenox tomorrow's Dose for tomorrow and will restart this Saturday for Lumbar puncture. The plan is discussed with her nurse. Time with Patient: Less than 30
[2023-12-30] MEDS: POTASSIUM BICARBONATE/CIT AC 20 MEQ TABLET.EFF NG-TUBE SCH (23:51)
[2023-12-31 01:08] LABS: Glucose,Whole Blood 155 mg/dL (70-110)
[2023-12-31 05:09] LABS: African American GFR (CKD) >90 (>60 ml/min/1.73 sqM); Anion Gap 4 mmol/L; Blood Urea Nitrogen 14 mg/dL (7-17); Calcium 8.4 mg/dL (8.4-10.2); Carbon Dioxide 29 mmol/L (22-30); Chloride 102 mmol/L (98-107); Glucose 183 mg/dL (74-99); Non-African American GFR(CKD) >90 (>60 ml/min/1.73 sqM); Potassium 3.9 mmol/L (3.5-5.1); Sodium 135 mmol/L (137-145)
[2023-12-31 05:43] LABS: Basophils # (A) 0.3 k/uL (0-0.2); Basophils % (A) 1 %; Eosinophils % (A) 0 %; HCT 41.9 % (34.0-46.0); Lymphocytes # (A) 1.2 k/uL (1.0-4.8); Lymphocytes % (A) 5 %; MCH 29.6 pg (25.0-35.0); MCHC 33.4 g/dL (31.0-37.0); MCV 88.6 fL (80.0-100.0); Mean Platelet Volume 10.2; Monocytes # (A) 0.8 k/uL (0-1.0); Monocytes % (A) 3 %; Neutrophils # (A) 21.8 k/uL (1.3-7.7); Neutrophils % (A) 88 %; Platelet Count 242 k/uL (150-450); RBC 4.73 m/uL (3.80-5.40); RDW 13.6 % (11.5-15.5); WBC 24.9 k/uL (3.8-10.6)
--- NOTE | 2023-12-31 05:51 | P.PN ---
Subjective Progress Note Date: 12/30/23 HISTORY OF PRESENT ILLNESS: 68-year-old female [address] Hansen[address] patient with past medical history of COPD who is currently smoker on regular basis, history of hyper lipidemia, hyp othyroidism, chronic back pain, who also has history of chronic neuropathy, chronic depression, restless leg syndrome, chronic anemia. Apparently she was not answering her phone for the last few days, family went to check on her and found her naked and acting more confused she ended up coming to the emergency department where was seen and evaluated she claims she been having chest pain midsternum for the last 3 days without any radiation she been having mild cough and significant shortness of breath without productive phlegm. The EKG in the emergency department showed ST elevation in the inferior lead and diffuse ST depression in the lateral lead. Troponin being elevated patient was diagnosed with STEMI and ended up being taken to the [facility] by Dr. Lu. Heart catheter came back with completely negative blockage. Patient continues to have significant symptoms of shortness of breath with send at point to have CTA to exclude possibility of PE came back negative no sign of infiltrate. Patient had severe abnormal electrolyte imbalance with her sodium, potassium and chloride she ended up being transferred to the ICU resting on BiPAP settings 126 with FiO2 of 50 percentile started to feel little bit better, start replacing her potassium and continue hydration at that point. 12/25/2023: Patient remain in the ICU, remain on BiPAP, she is quite bit confused Was seen pulmonary through the night still on electrolyte replacement therapy. Her oxygen level still quite a bit low in the 80s require BiPAP on more regular basis, vitals improved slight bed, remain little bit tachycardic. Echocardiogram was ordered for this morning still has not been performed yet and as reviewed her entire heart cath and CTA came back to be completely normal. Continue to hydrate patient quite bit for now consult neurology probably further testing including EEG repeat scan of the brain can be beneficial. 12/26/2023: The patient is awake alert she is off the BiPAP sitting on the side of the bed still not acting herself still hypoxic hypophonic when she talk patient has been off asking for speech therapy for swallow evaluation before allowing patient to eat. Her lab value improved to some degree white blood cell is up to 14,000 but cannot state probably steroid-based, potassium still at 3.2: No free T4 was normal but TSH slightly low. Sadly when speech therapy did their assessment came back quite with abnormal and accelerated to an urgent ENT consultation patient ended going for dysphagia and hoarseness evaluation by direct flexible nasopharyngeal laryngoscopy result study came back with bilateral vocal cord paralysis can be consistent with either something obstructive in the neck or related to central stroke affected both sides. Brain scan was done early and there is a consultation from neurology which she has been seen note so far will end up doing CT of the chest and neck CT of the neck shows no finding consistent with any major abnormality on the chest showed no diagnosis of bilateral lower lobe bronchopneumonia greater on the right side more than anything else. At this point of course recommendation is for PEG tube and n.p.o. completely and still asking for neuroconsultation. 12/27/2023: The patient is sitting on the side of the bed able to comprehensive understand was going around more not a lot of information were able to be found for why she has bilateral vocal cord paralysis. She went for her MRI of the brain showed mild atrophy only with no sign and symptom of mass, bleed or metastasis no degenerative element in the brain consistent with an area of concern at this point. Also patient suffering from severe dysphagia scheduled to go for peg tube feeding will alter his feeding completely via PEG tube continue for now. Patient still follow with neurology for any of the possibility might affect both vocal cord including Guillain-Lamb, myasthenia gravis, tumor reflex syndrome, and other so far no finding consistent with it. Patient probably will be able to leave the ICU to go to medical floor after her PEG tube feeding subtle specially if she is well-managed with low-flow oxygen at this point. 12/28/2023: She is feeling slightly better is seen urology today still looking through the same possibility of fourth close bilateral vocal cord paralysis without any clear evidence for any existence of any Guillain-Lamb our myasthenia or paralysis or CVA. Pulmonary are happy with patient and set up currently still on mild sedation with Precedex 0.4 mcg/kg/h. White blood cells up to 15.3 to be expected her oxygenation has been much better lately sodium is up and potassium is normal. 12/29/2023: Patient is laying in her bed more comfortable today no major complaint or concern. Laboratory value shows white blood cell of 17,000 electrolyte with potassium is down again to 2.9 and she is on potassium supplement at this point, blood sugar is up to 176 and still on Accu-Chek with sliding scale coverage. Apparently through the weekend the family had visited with patient question or answer and I left a note for the family if they have any concern late in afternoon when I stop by the office to have a meeting to be able to do it on Saturday. 12/30/2023 patient is going up to go for PEG tube today apparently neurology are still thinking about the possibility of Van Cole syndrome which was given by me barium which will affect the brainstem causing encephalopathy and encephalitis. Will consult with anesthesia for lumbar puncture to obtain CSF for and probably GQ 1B. Lumbar puncture expected to be on Saturday hold Lovenox will be held till then. The patient is more congested at night. She probably will need to have PEG and tracheostomy at some point. Otherwise her hypoxia has been slightly bit better including oxygenation on 2 to 3 L O2. Her nutrition status become quite bit down waiting for PEG tube to titrate nutrition consult next REVIEW OF SYSTEMS: CONSTITUTIONAL: Confused still in mild distress. EYES: No icterus sclerae, no conjunctivitis. EARS, NOSE, MOUTH, THROAT, and FACE: No sore throat, lymphadenopathy, with hoarseness of the voice., carotid bruits or deformity. RESPIRATORY: Slight cough and wheezes. Still having slight wheezes sometimes and hoarseness. CARDIOVASCULAR: Positive chest pain with orthopnea and angina. GASTROINTESTINAL: No Abd pain, Nausea or vomiting, no Diarrhea or constipation, No GI Bleed, no distention or masses. GENITOURINARY: Negative for Hematuria or UTI, no kidney stones. INTEGUMENT/BREAST: Negative for any muscular injury with mild osteoarthritis.. HEMATOLOGIC/LYMPHATIC: Negative for bleed or purpura. MUSCULOSKELTAL: Negative for Myalgia or arthralgia. NEURLOGICAL: No LOC, Sz or syncope, blurred vision dizziness or abnormality.. BEHAVIORAL/PSYCH: Negative. ENDOCRINE: Negative. PHYSICAL EXAMINATION: General Appearance: Alert, mildly confused looks older than her age. Neck HEENT: Supple, no lymphadenopathy, no thyroid enlargement, no carotid bruits. Lungs: Decreased breath sound bilaterally with fine rhonchi with mild expiratory wheezes. Chest Wall: Decreased expansion with deep inspiration no tenderness and no deformity was found on exam, no costochondral pain or discomfort. Heart: Regular rate and rhythm, S1, S2 normal, no murmur, rub or gallop. Back: Symmetric, no curvature, ROM normal, no CVA tenderness. Abdomen: Soft, non-tender, bowel sounds active all four quadrants, no masses, no organomegaly. Extremities: Extremities normal, atraumatic, no cyanosis or edema. Pulses: 2+ and symmetric. Skin: Skin color, texture, tugor normal, no rashes or lesions. Neurologic: Alert slightly confused cranial nerves II through XII intact, no motor deficit, no abnormal balance or gait. ASSESSMENT AND PLAN: _Bilateral vocal cord paralysis: Still not a clear etiology no CVA can be found with this no tumor or growth in the neck area no finding consistent with Guillain-Lamb or myasthenia gravis so far, still see neurology and ENT continue speech therapy with PEG feeding resting patient from passing things close to the vocal cord for the time being will be slightly very helpful but should be reevaluated every 2 weeks. With the possibility of Van Cole syndrome patient be going for lumbar puncture to check the titer. _Severe dysphagia: With bilateral vocal cord paralysis, PEG tube will be needed at this point and patient is n.p.o. further study and testing nothing but central out if there is any other reason to have bilateral vocal cord paralysis. Knowing patient and all this event never was intubated. Pending PEG feeding t danyel after is done will start nutrition per recommendation of dietitian. _Acute respiratory failure: Requiring much less oxygen to keep her oxygen level mid 90. _Severe chest pain with signs of STEMI: Post heart cath with negative finding with normal coronary artery. This is considered a type II non-STEMI from dehydration and hypoxia. No further cardiac problem at this point and since her heart cath things are better. _Severe electrolyte imbalance including hypokalemia, hyponatremia and hyp ochloremia: Much better so far continue to watch her chemistry and electrolyte daily. _Severe altered mental status: Her mental status has been cleared at this point is most likely hypoxia and severe dehydration with encephalopathy with still again missing neurology consultation which was requested from the beginning. _Mild anxiety: Started on Precedex and doing better. _Nutrition status: As the PEG tube is not patient will be on titration feeding. _Chronic history of smoking: Smoking cessation was addressed nicotine patch will be started. _Chronic pain syndrome: Will holding off her gabapentin and prednisone No. 4 for now. _ Hyperlipidemia: Continue simvastatin. _Hypothyroidism: Continue levothyroxine 50 mcg daily. If not able to take it orally we will do a trial IV. PEG tube will be done today and hopefully lumbar puncture for spinal fluid analysis on Saturday.. Objective - Vital Signs Vital signs: Vital Signs Temp 98.2 F 12/30/23 04:00 Pulse 104 H 12/30/23 06:00 Resp 24 12/30/23 05:00 BP 133/97 12/30/23 06:00 Pulse Ox 92 L 12/30/23 06:00 FiO2 50 12/26/23 07:48 Intake & Output 12/29/23 12/30/23 12/30/23 18:59 06:59 18:59 Intake Total 4234.528 7433.541 Output Total 0 1001 Balance 1936.069 218.541 Weight 75.2 kg Intake: IV 1850 1200 Dextrose 5% in Water 1, 1300 1200 000 ml @ 100 mls/hr IV . Q10H [facility] Rx#:[id number] Potassium Chloride 10 meq 500 In Water For Injection 1 100ml.bag @ 100 mls/hr IVPB Q1H [facility] Rx#: [id number] cefTRIAXone 1 gm In 50 Sodium Chloride 0.9% 50 ml @ 100 mls/hr IVPB Q24HR [facility] Rx#:[id number] Intake, IV Titration 86.069 19.541 Amount Dexmedetomidine/0.9% NaCl 86.069 19.541 (Pmx) 400 mcg In Empty Bag 1 bag @ 0.2 MCG/KG/HR 3.58 mls/hr IV .Q24H [facility] Rx#:[id number] Output: Urine 0 1001 Other: Voiding Method Diaper External Catheter # Voids 1 1 # Bowel Movements 1 - Labs CBC & Chem 7: 12/30/23 04:29 12/31/23 04:23 Labs: Abnormal Lab Results - Last 24 Hours (Table) 12/30/23 12/30/23 12/30/23 Range/Units 00:48 04:29 04:29 WBC 20.7 H (3.8-10.6) k/uL Neutrophils # 18.1 H (1.3-7.7) k/uL Sodium 135 L (137-145) mmol/L Potassium 3.1 L (3.5-5.1) mmol/L Creatinine 0.50 L (0.52-1.04) mg/dL Glucose 222 H (74-99) mg/dL
[2023-12-31] MEDS ORDERED: VASOPRESSIN 60 UNIT in SODIUM CHLORIDE 0.9% 150 ML IV SCH (06:00)
--- NOTE | 2023-12-31 08:13 | P.PN ---
Subjective Progress Note Date: 12/31/23 HISTORY OF PRESENT ILLNESS: 68-year-old female [address] Hansen's patient with past medical history of COPD who is currently smoker on regular basis, history of hyper lipidemia, hyp othyroidism, chronic back pain, who also has history of chronic neuropathy, chronic depression, restless leg syndrome, chronic anemia. Apparently she was not answering her phone for the last few days, family went to check on her and found her naked and acting more confused she ended up coming to the emergency department where was seen and evaluated she claims she been having chest pain midsternum for the last 3 days without any radiation she been having mild cough and significant shortness of breath without productive phlegm. The EKG in the emergency department showed ST elevation in the inferior lead and diffuse ST depression in the lateral lead. Troponin being elevated patient was diagnosed with STEMI and ended up being taken to the Physical Medicine Physician by Dr. Lu. Heart catheter came back with completely negative blockage. Patient continues to have significant symptoms of shortness of breath with send at point to have CTA to exclude possibility of PE came back negative no sign of infiltrate. Patient had severe abnormal electrolyte imbalance with her sodium, potassium and chloride she ended up being transferred to the ICU resting on BiPAP settings 126 with FiO2 of 50 percentile started to feel little bit better, start replacing her potassium and continue hydration at that point. 12/25/2023: Patient remain in the ICU, remain on BiPAP, she is quite bit confused Was seen pulmonary through the night still on electrolyte replacement therapy. Her oxygen level still quite a bit low in the 80s require BiPAP on more regular basis, vitals improved slight bed, remain little bit tachycardic. Echocardiogram was ordered for this morning still has not been performed yet and as reviewed her entire heart cath and CTA came back to be completely normal. Continue to hydrate patient quite bit for now consult neurology probably further testing including EEG repeat scan of the brain can be beneficial. 12/26/2023: The patient is awake alert she is off the BiPAP sitting on the side of the bed still not acting herself still hypoxic hypophonic when she talk patient has been off asking for speech therapy for swallow evaluation before allowing patient to eat. Her lab value improved to some degree white blood cell is up to 14,000 but cannot state probably steroid-based, potassium still at 3.2: No free T4 was normal but TSH slightly low. Sadly when speech therapy did their assessment came back quite with abnormal and accelerated to an urgent ENT consultation patient ended going for dysphagia and hoarseness evaluation by direct flexible nasopharyngeal laryngoscopy result study came back with bilateral vocal cord paralysis can be consistent with either something obstructive in the neck or related to central stroke affected both sides. Brain scan was done early and there is a consultation from neurology which she has been seen note so far will end up doing CT of the chest and neck CT of the neck shows no finding consistent with any major abnormality on the chest showed no diagnosis of bilateral lower lobe bronchopneumonia greater on the right side more than anything else. At this point of course recommendation is for PEG tube and n.p.o. completely and still asking for neuroconsultation. 12/27/2023: The patient is sitting on the side of the bed able to comprehensive understand was going around more not a lot of information were able to be found for why she has bilateral vocal cord paralysis. She went for her MRI of the brain showed mild atrophy only with no sign and symptom of mass, bleed or metastasis no degenerative element in the brain consistent with an area of concern at this point. Also patient suffering from severe dysphagia scheduled to go for peg tube feeding will alter his feeding completely via PEG tube continue for now. Patient still follow with neurology for any of the possibility might affect both vocal cord including Guillain-Lamb, myasthenia gravis, tumor reflex syndrome, and other so far no finding consistent with it. Patient probably will be able to leave the ICU to go to medical floor after her PEG tube feeding subtle specially if she is well-managed with low-flow oxygen at this point. 12/28/2023: She is feeling slightly better is seen urology today still looking through the same possibility of fourth close bilateral vocal cord paralysis without any clear evidence for any existence of any Guillain-Lamb our myasthenia or paralysis or CVA. Pulmonary are happy with patient and set up currently still on mild sedation with Precedex 0.4 mcg/kg/h. White blood cells up to 15.3 to be expected her oxygenation has been much better lately sodium is up and potassium is normal. 12/29/2023: Patient is laying in her bed more comfortable today no major complaint or concern. Laboratory value shows white blood cell of 17,000 electrolyte with potassium is down again to 2.9 and she is on potassium supplement at this point, blood sugar is up to 176 and still on Accu-Chek with sliding scale coverage. Apparently through the weekend the family had visited with patient question or answer and I left a note for the family if they have any concern late in afternoon when I stop by the office to have a meeting to be able to do it on Saturday. 12/30/2023 patient is going up to go for PEG tube today apparently neurology are still thinking about the possibility of Van Cole syndrome which was given by me barium which will affect the brainstem causing encephalopathy and encephalitis. Will consult with anesthesia for lumbar puncture to obtain CSF for and probably GQ 1B. Lumbar puncture expected to be on Saturday hold Lovenox will be held till then. The patient is more congested at night. She probably will need to have PEG and tracheostomy at some point. Otherwise her hypoxia has been slightly bit better including oxygenation on 2 to 3 L O2. Her nutrition status become quite bit down waiting for PEG tube to titrate nutrition consult. 12/31/2023: PEG tube examined patient is doing very well, she is vocalizing much better today compared to the last few days to a degree I believe the vocal cord paralysis is recovering to a slight degree, she is going to see neurology today and probably before the end of the week ENT will do another scope to check on the vocal cord paralysis. As of now she still scheduled for a lumbar puncture with analysis of the spinal fluid for the GQ 1B hopefully the test will be done tomorrow. REVIEW OF SYSTEMS: CONSTITUTIONAL: Confused still in mild distress. EYES: No icterus sclerae, no conjunctivitis. EARS, NOSE, MOUTH, THROAT, and FACE: No sore throat, lymphadenopathy, with hoarseness of the voice., carotid bruits or deformity. RESPIRATORY: Slight cough and wheezes. Still having slight wheezes sometimes and hoarseness. CARDIOVASCULAR: Positive chest pain with orthopnea and angina. GASTROINTESTINAL: No Abd pain, Nausea or vomiting, no Diarrhea or constipation, No GI Bleed, no distention or masses. GENITOURINARY: Negative for Hematuria or UTI, no kidney stones. INTEGUMENT/BREAST: Negative for any muscular injury with mild osteoarthritis.. HEMATOLOGIC/LYMPHATIC: Negative for bleed or purpura. MUSCULOSKELTAL: Negative for Myalgia or arthralgia. NEURLOGICAL: No LOC, Sz or syncope, blurred vision dizziness or abnormality.. BEHAVIORAL/PSYCH: Negative. ENDOCRINE: Negative. PHYSICAL EXAMINATION: General Appearance: Alert, mildly confused looks older than her age. Neck HEENT: Supple, no lymphadenopathy, no thyroid enlargement, no carotid bruits. Lungs: Decreased breath sound bilaterally with fine rhonchi with mild expiratory wheezes. Chest Wall: Decreased expansion with deep inspiration no tenderness and no deformity was found on exam, no costochondral pain or discomfort. Heart: Regular rate and rhythm, S1, S2 normal, no murmur, rub or gallop. Back: Symmetric, no curvature, ROM normal, no CVA tenderness. Abdomen: Soft, non-tender, bowel sounds active all four quadrants, no masses, no organomegaly. Extremities: Extremities normal, atraumatic, no cyanosis or edema. Pulses: 2+ and symmetric. Skin: Skin color, texture, tugor normal, no rashes or lesions. Neurologic: Alert slightly confused cranial nerves II through XII intact, no motor deficit, no abnormal balance or gait. ASSESSMENT AND PLAN: _Bilateral vocal cord paralysis: Still not a clear etiology no CVA can be found with this no tumor or growth in the neck area no finding consistent with Guillain-Lamb or myasthenia gravis so far, still see neurology and ENT continue speech therapy with PEG feeding resting patient from passing things close to the vocal cord for the time being will be slightly very helpful but should be reevaluated every 2 weeks. With the possibility of Van Cole syndrome patient be going for lumbar puncture to check the titer. _Severe dysphagia: With bilateral vocal cord paralysis, PEG tube will be needed at this point and patient is n.p.o. further study and testing nothing but central out if there is any other reason to have bilateral vocal cord paralysis. Knowing patient and all this event never was intubated. Pending PEG feeding today after is done will start nutrition per recommendation of dietitian. _Acute respiratory failure: Requiring much less oxygen to keep her oxygen level mid 90. _Severe chest pain with signs of STEMI: Post heart cath with negative finding with normal coronary artery. This is considered a type II non-STEMI from d ehydration and hypoxia. No further cardiac problem at this point and since her heart cath things are better. _Severe electrolyte imbalance including hypokalemia, hyponatremia and hypochloremia: Much better so far continue to watch her chemistry and electrolyte daily. _Severe altered mental status: Her mental status has been cleared at this point is most likely hypoxia and severe dehydration with encephalopathy with still again missing neurology consultation which was requested from the beginning. _Mild anxiety: She is off Precedex. _Nutrition status: As the PEG tube is not patient will be on titration feeding. _Chronic history of smoking: Smoking cessation was addressed nicotine patch will be started. _Chronic pain syndrome: Will holding off her gabapentin and prednisone No. 4 for now. _ Hyperlipidemia: Continue simvastatin. _Hypothyroidism: Continue levothyroxine 50 mcg daily. If not able to take it orally we will do a trial IV. PEG tube is in and looks good we will initiate nutrition today. Objective - Vital Signs Vital signs: Vital Signs Temp 98.0 F 12/31/23 00:00 Pulse 99 12/31/23 04:05 Resp 19 12/31/23 00:00 BP 148/70 12/31/23 00:00 Pulse Ox 89 L 12/31/23 00:00 FiO2 50 12/26/23 07:48 Intake & Output 12/30/23 12/30/23 12/31/23 06:59 18:59 06:59 Intake Total 7492.134 9169 600 Output Total 1001 600 Balance 218.541 700 600 Weight 75.2 kg 69.1 kg Intake: IV 1200 1300 600 Dextrose 5% in Water 1, 1200 1000 600 000 ml @ 100 mls/hr IV . Q10H [facility] Rx#:[id number] Intake, IV Titration 19.541 Amount Dexmedetomidine/0.9% NaCl 19.541 (Pmx) 400 mcg In Empty Bag 1 bag @ 0.2 MCG/KG/HR 3.58 mls/hr IV .Q24H [facility]O Rx#:[id number] Output: Urine 1001 600 Other: Voiding Method External Catheter Diaper Diaper # Voids 1 1 1 # Bowel Movements 1 - Labs CBC & Chem 7: 12/31/23 04:23 12/31/23 04:23 Labs: Abnormal Lab Results - Last 24 Hours (Table) 12/31/23 12/31/23 Range/Units 01:06 04:23 Sodium 135 L (137-145) mmol/L Creatinine 0.51 L (0.52-1.04) mg/dL Glucose 183 H (74-99) mg/dL POC Glucose (mg/dL) 155 H (70-110) mg/dL Microbiology - Last 24 Hours (Table) 12/25/23 03:00 Blood Culture - Final Blood 12/25/23 02:43 Blood Culture - Final Blood 12/25/23 04:23 Gram Stain - Final Sputum Sputum Culture - Final Corynebact pseudodiphtheritcum
--- NOTE | 2023-12-31 08:22 | XR ---
EXAMINATION TYPE: XR chest 1V portable DATE OF EXAM: 12/31/2023 5:54 AM CLINICAL INDICATION:Female, 68 years old with history of multifocal pneumonia; [facility] COMPARISON: Chest radiographs from TECHNIQUE: XR chest 1V portable Frontal view of the chest. FINDINGS: Lungs/Pleura: Scattered multifocal subtle airspace opacities. There is no evidence of pleural effusio n, focal consolidation, or pneumothorax. Pulmonary vascularity: Unremarkable. Heart/mediastinum: Cardiomediastinal silhouette is unremarkable. Musculoskeletal: No acute osseous pathology. Other findings: None IMPRESSION: Stable appearance of the chest with scattered subtle airspace opacities.
[2023-12-31] MEDS ORDERED: DEXTROSE 50% SYRINGE 50 ML IVP PRN ×2 (09:17)
--- NOTE | 2023-12-31 11:38 | P.PN ---
Subjective Progress Note Date: 12/31/23 I am seeing this patient in new consultation today on 12/25/2023 in the intensive care unit. The patient was transferred to the ICU after a heart catheterization for acute hypoxemic respiratory failure and increased oxygen demands. Patient is a 68-year-old white female with past medical history significant for COPD, current ongoing every day smoker, hyperlipidemia, hypothyroidism, chronic back pain. She smokes roughly 1 pack per day. Her primary care provider is Dr. Hansen. Patient had reportedly not been answering her phone for several days, so her daughter went to check on her at home. She reportedly was acting abnormal and confused and found naked. The patient does not recall this. After being brought to the emergency room yesterday afternoon, she was complaining of substernal chest pain that had been ongoing for the last 3 days. This is localized to the substernal area, she denies any radiation. Occurs mostly with coughing. Is associated with shortness of breath, wheezing, and productive cough. Troponins were elevated on arrival and patient had some isolated ST elevation in lead aVR, along with diffuse/generalized ST depression. She was also noted to be hypoxic. Patient was taken for a heart catheterization yeterday afternoon which revealed angiographically normal coronary arteries and left- sided filling pressures. No significant calcifications or coronary thrombus reported. D-dimer was also elevated, and for this reason the patient was sent for a chest CTA which did not show any evidence of pulmonary embolism. While in the intensive care unit, the patient had increased oxygen and was placed on BiPAP settings 12/6 and FiO2 50%. She is currently resting comfortably in bed, on BiPAP with the above-mentioned settings, in no acute respiratory distress. She is achieving tidal volumes of approximately 400 and her respiratory rate is in the mid 20s. She does have a congested cough and wheezing. Occasional has difficulty clearing oral secretions. Denies any fevers at home. She is currently alert and oriented. No signs of hypercapnic encephalopathy. ABGs were obtained earlier and consistent with combined hypoxemic and hypercapnic respiratory failure. She has a component of compensatory metabolic alkalosis and was given a dose of Diamox. CBC on arrival: WBC count 11.5, hemoglobin 17.1, hematocrit 49.2, platelets 331. BMP on arrival: Sodium 128, potassium 2.4, chloride 77, serum bicarb 38, BUN 41, creatinine 1.03, glucose 125. Normal saline is infusing at 75 mL per hour. LFTs mildly elevated. NT proBNP 764. Troponin on arrival 1.03. D-dimer had been elevated at 1.89. Urinalysis not concerning for UTI. Negative for influenza, RSV, COVID-19. Chest x-ray did not show any focal infiltrates or evidence of pneumonia. No acute cardiopulmonary p rocess seen. Patient was covered empirically on a combination of azithromycin and Rocephin. She is afebrile. Vital signs are stable. Patient was reevaluated today on 12/26/2023, remains in the ICU, patient was on BiPAP overnight, transition to nasal cannula 3 L/min this morning. Continues to have intermittent cough and wheezing, patient is having some difficulty swallowing pills, and she will have a swallow evaluation today. Remains on IV fluid at 100 cc/h, remains on bronchodilators, patient is quite hoarse but no stridor. Patient has been maximized on bronchodilators and steroids. WBC count today is 14.1 hemoglobin 13.3 basic metabolic profile is relatively normal, renal profile is normal Patient was reevaluated today on 12/27/2023 remains in the ICU, patient was seen yesterday by ENT, and she was found to have bilateral vocal cord paralysis. According to the patient she has had issues with her voice now for the last 2 months. ENT is recommending PEG tube placement, and this was also recommended by speech therapy, patient is also scheduled to have MRI of the brain today. Anai larson was seen by neurology on consultation. On 3 L nasal cannula, her ABG showed a pO2 of 62 pCO2 34 pH of 7.49, patient is comfortable, she is sitting at the bedside chair, did not use BiPAP in the last 24 hours although BiPAP is at bedside WBC count is 15.1 hemoglobin is 12.9 basic metabolic profile is normal renal profile is normal Patient was reevaluated today on 12/28/2023, remains in the ICU on 3 L nasal cannula, patient is scheduled to have a PEG tube on Saturday, her sodium is a bit high and she is transition now from 0.9 normal saline to D5W at 100 cc/h. Last night the patient became extremely agitated and she was pulling her lines and catheters, hence she was placed on Precedex and remains on Precedex at 0.4 mcg/kg/h. Today she seems to be calm, her MRI is negative nondiagnostic. And again the patient is scheduled for PEG tube placement on Saturday as she had bilateral vocal cord paralysis. Patient is still having difficulty swallowing. WBC count is 15.3 hemoglobin 11.6. ABG yesterday showed a pO2 of 62 pCO2 34 pH of 7.49. Basic metabolic profile is normal except for elevated sodium of 147. And this will be corrected by transitioning her IV fluid to D5W Patient was evaluated today on 12/29/2023, remains in the ICU, seems to be less agitated today, nonetheless patient is on Precedex at 0.3 mcg/kg/h this morning seems to be calm, last night she was quite agitated, patient is not in any distress, on 3 L nasal cannula with O2 sats of 96%, the plan is to proceed with PEG tube placement on this patient mostly because of difficulty swallowing she failed the swallow evaluation, and she has bilateral vocal cord paralysis. WBC count today is 17 hemoglobin is 12 rest of the labs are basically unremarkable except for low potassium of 2.9 being addressed accordingly. The patient is seen today December 30, 2023 in follow-up in the intensive care unit. She is currently resting comfortably in bed. Awake and alert in no acute distress. She has been weaned off the Precedex at approximately 3:00 this morning. She remains on Ativan as needed. She is continued on bronchodilators. Chest x-ray reveals scattered airspace opacities throughout the lungs with right lower lobe opacity, no significant changes. She is currently on 6 L high flow nasal cannula. She is noted to have bilateral vocal cord paralysis. The plan is for PEG tube insertion today. She is continue on D5W at 100 MLS per hour. White count 20.7. Hemoglobin 13.7. Platelets 227. Sodium 135. Po tassium 4.8. Bicarb 27. BUN 15. Creatinine 0.50. Glucose 222. She remains on ceftriaxone, steroids and bronchodilators. Lovenox for DVT prophylaxis. The patient is seen today December 31, 2023 in follow-up in the intensive care unit. She is awake and alert. Resting in bed. She is maintaining O2 saturations in the mid 90s on 4 L/min per nasal cannula. She has been afebrile. Hemodynamically stable. She did undergo PEG tube placement yesterday with nutrition to start later today. She is currently on D5W at 100 MLS per hour. Her sodium has improved to 135. Potassium 3.9. Bicarb 29. BUN 14. Creatinine 0.51. Glucose 183. White count 24.9. Hemoglobin 14.0. Platelets 242. She re donna on bronchodilators, steroids. Antibiotics in the form of ceftriaxone. Lovenox for DVT prophylaxis. NicoDerm patch in place. Chest x-ray shows scattered multifocal opacities but no significant consolidation, no pneumothorax, no pleural effusion. Objective - Vital Signs Vital signs: Vital Signs Temp 98.5 F 12/31/23 08:00 Pulse 92 12/31/23 10:00 Resp 20 12/31/23 10:00 BP 114/86 12/31/23 10:00 Pulse Ox 96 12/31/23 10:00 FiO2 50 12/26/23 07:48 Intake & Output 12/30/23 12/31/23 12/31/23 18:59 06:59 18:59 Intake Total 1300 1200 270 Output Total 600 650 Balance 700 550 270 Weight 69.1 kg 69.1 kg Intake: IV 1300 1200 270 Dextrose 5% in Water 1, 1000 1200 200 000 ml @ 100 mls/hr IV . Q10H [facility] Rx#:[id number] KVO 20 cefTRIAXone 1 gm In 50 Sodium Chloride 0.9% 50 ml @ 100 mls/hr IVPB Q24HR [facility] Rx#:[id number] Output: Urine 600 650 Other: Voiding Method Diaper Diaper Diaper # Voids 1 1 1 # Bowel Movements 1 - Exam GENERAL EXAM: Alert, awake 68-year-old female, resting comfortably in bed, on 4 L nasal cannula. HEAD: Normocephalic and atraumatic EYES: Normal reaction of pupils, equal size. NOSE: Clear with pink turbinates. THROAT: No erythema or exudates. Dry mucous membranes, patient continues to have voice hoarseness NECK: No masses, no JVD. CHEST: No chest wall deformity. LUNGS: Diminished breath sounds at the bases no crackles rhonchi or wheezes CVS: S1 and S2 normal with no audible murmur, regular rhythm. No extra heart sounds ABDOMEN: PEG tube exit site is clean and dry. No hepatosplenomegaly, active bowel sounds, no guarding or rigidity. SKIN: No rashes CENTRAL NERVOUS SYSTEM: Alert oriented x 3 no focal deficit EXTREMITIES: No clubbing edema or cyanosis - Labs CBC & Chem 7: 12/31/23 04:23 12/31/23 04:23 Labs: Abnormal Lab Results - Last 24 Hours (Table) 12/31/23 12/31/23 12/31/23 Range/Units 01:06 04:23 04:23 WBC 24.9 H (3.8-10.6) k/uL Neutrophils # 21.8 H (1.3-7.7) k/uL Basophils # 0.3 H (0-0.2) k/uL Sodium 135 L (137-145) mmol/L Creatinine 0.51 L (0.52-1.04) mg/dL Glucose 183 H (74-99) mg/dL POC Glucose (mg/dL) 155 H (70-110) mg/dL Microbiology - Last 24 Hours (Table) 12/25/23 03:00 Blood Culture - Final Blood 12/25/23 02:43 Blood Culture - Final Blood 12/25/23 04:23 Gram Stain - Final Sputum Sputum Culture - Final Corynebact pseudodiphtheritcum Assessment and Plan Assessment: Acute hypoxic and hypercapnic respiratory failure secondary to an acute exacerbation of COPD possible aspiration Acute toxic metabolic encephalopathy with hypercapnia Bilateral vocal cord paralysis Dysphagia secondary to vocal cord paralysis and dysphonia, PEG tube placed 12/30/2023 Electrolytes imbalance including hyponatremia and hypokalemia, improved Severe underlying COPD Tobacco dependence syndrome Hypothyroidism Dyslipidemia Chronic pain syndrome History of anxiety and depression Status post cardiac catheterization on 12/24/2023, and normal coronary findings noted. Plan: The patient was seen and evaluated Chest x-ray, labs and medications reviewed PEG tube placed yesterday To initiate tube feedings today Discontinue D5W infusion Continue aspiration precautions Continue bronchodilators Discontinue steroids Discontinue antibiotics We will continue to follow I have personally seen and examined the patient, performed the documentation and the assessment and plan as written. Number of minutes spent on the visit: 10.
[2023-12-31 12:05] LABS: Glucose,Whole Blood 143 mg/dL (70-110)
[2023-12-31] MEDS: INSULIN ASPART (NovoLOG) 100 UNIT/ML VIAL SQ SCH (12:06)
--- NOTE | 2023-12-31 13:35 | P.PN ---
Subjective Progress Note Date: 12/31/23 I am following-up with patient and per nurse she had PEG tube and feels her dysarthria is somewhat improving. Otherwise no additional neurological work-up. Objective - Vital Signs Vital signs: Vital Signs Temp 98.2 F 12/31/23 12:00 Pulse 89 12/31/23 13:00 Resp 23 12/31/23 13:00 BP 128/64 12/31/23 13:00 Pulse Ox 95 12/31/23 13:00 FiO2 50 12/26/23 07:48 Intake & Output 12/30/23 12/31/23 12/31/23 18:59 06:59 18:59 Intake Total 1300 1200 300 Output Total 600 650 Balance 700 550 300 Weight 69.1 kg 69.1 kg Intake: IV 1300 1200 300 Dextrose 5% in Water 1, 1000 1200 200 000 ml @ 100 mls/hr IV . Q10H [facility] Rx#:[id number] KVO 50 cefTRIAXone 1 gm In 50 Sodium Chloride 0.9% 50 ml @ 100 mls/hr IVPB Q24HR [facility] Rx#:[id number] Output: Urine 600 650 Other: Voiding Method Diaper Diaper Diaper # Voids 1 1 1 # Bowel Movements 1 - Exam General: Lying in bed and is not in acute distress. Neuro: Patient is awake alert oriented to self. She is able to follow commands. Pupils are round equal and reactive to light. Visual galvan are full to confrontation. Extraocular movement is intact. Patient appears to have facial weakness in which the she had difficulty keeping the air in the mouth with the lips closed. As well as her eyes upon asking her to close it tightly was able to the easily open her eyes manually. She has a raspy voice. Motor is a strength is 5 out of 5 throughout. Reflexes is 2 positive in the uppers wall the lowers (R/L): patellar is 1-2+/1+, ankles are 1+/2+ - Labs CBC & Chem 7: 12/31/23 04:23 12/31/23 04:23 Labs: Abnormal Lab Results - Last 24 Hours (Table) 12/31/23 12/31/23 12/31/23 Range/Units 01:06 04:23 04:23 WBC 24.9 H (3.8-10.6) k/uL Neutrophils # 21.8 H (1.3-7.7) k/uL Basophils # 0.3 H (0-0.2) k/uL Sodium 135 L (137-145) mmol/L Creatinine 0.51 L (0.52-1.04) mg/dL Glucose 183 H (74-99) mg/dL POC Glucose (mg/dL) 155 H (70-110) mg/dL 12/31/23 Range/Units 12:03 WBC (3.8-10.6) k/uL Neutrophils # (1.3-7.7) k/uL Basophils # (0-0.2) k/uL Sodium (137-145) mmol/L Creatinine (0.52-1.04) mg/dL Glucose (74-99) mg/dL POC Glucose (mg/dL) 143 H (70-110) mg/dL Microbiology - Last 24 Hours (Table) 12/25/23 03:00 Blood Culture - Final Blood 12/25/23 02:43 Blood Culture - Final Blood 12/25/23 04:23 Gram Stain - Final Sputum Sputum Culture - Final Corynebact pseudodiphtheritcum Assessment and Plan Assessment: * New onset hoarseness of voice, due to bilateral vocal cord paralysis, unclear cause. Patient also has new onset dysphagia, unclear cause. Also has other facial weakness of unclear cause. MRI of the brain no evidence of mass, infarct or hemorrhage, as an etiology for the patient's dysphagia. * Dyshagia s/p PEG tube on 12/30/23 * Altered mental status due to metabolic encephalopathy/as below: * Hyponatremia---improving * Hypoxemia, improved * Hypokalemia, * Abnormal hepatic functions * Elevated cardiac enzymes, negative coronaries * Exacerbation of COPD. * Hyperlipidemia * Hypothyroidism * Marijuana use * Tobacco use Plan: Patient had MRI of the brain which was unremarkable for any stroke mass that would explain her dysphagia or facial weakness. Acetylcholine receptor antibody is ordered by Dr. Gordillo and is pending. I ordered MUSK antibody. Consulted Pain specialist for Lumbar puncture. Will obtain CSF anti-gq1b antibody for navarrete burciaga syndrome (GBS variants)/[place]icker[place] brainstem encephalitis. Defer the rest of the medical measure the primary and other specialists I held the Lovenox tomorrow's Dose for today and will restart this Saturday for Lumbar puncture. The plan is discussed with her nurse. Time with Patient: Less than 30
--- NOTE | 2023-12-31 14:06 | P.PN ---
Subjective Progress Note Date: 12/31/23 CHIEF COMPLAINT: Dysphagia HISTORY OF PRESENT ILLNESS: Patient postop day #1 status post PEG tube placeme nt. Tube feeds to be initiated this afternoon. Patient reports minimal pain at the PEG tube site. Afebrile. WBC is up from 20.7-24.9 Hgb 14 platelets 242 PHYSICAL EXAM: VITAL SIGNS: Reviewed. GENERAL: no acute distress. ABDOMEN: Soft. Nondistended. PEG tube site clean dry and intact ASSESSMENT: 1. Dysphagia 2. Failed swallow eval 3. Bilateral vocal cord paralysis 4. Mild protein calorie malnutrition PLAN: -Dietitian consulted to initiate tube feeds this afternoon -Continue supportive care Physician News Camera Operator note has been reviewed by physician. Signing provider agrees with the documented findings, assessment, and plan of care. Objective - Vital Signs Vital signs: Vital Signs Temp 98.2 F 12/31/23 12:00 Pulse 89 12/31/23 13:00 Resp 23 12/31/23 13:00 BP 128/64 12/31/23 13:00 Pulse Ox 95 12/31/23 13:00 FiO2 50 12/26/23 07:48 Intake & Output 12/30/23 12/31/23 12/31/23 18:59 06:59 18:59 Intake Total 1300 1200 300 Output Total 600 650 Balance 700 550 300 Weight 69.1 kg 69.1 kg Intake: IV 1300 1200 300 Dextrose 5% in Water 1, 1000 1200 200 000 ml @ 100 mls/hr IV . Q10H [facility] Rx#:[id number] KVO 50 cefTRIAXone 1 gm In 50 Sodium Chloride 0.9% 50 ml @ 100 mls/hr IVPB Q24HR [facility] Rx#:[id number] Output: Urine 600 650 Other: Voiding Method Diaper Diaper Diaper # Voids 1 1 1 # Bowel Movements 1 - Labs CBC & Chem 7: 12/31/23 04:23 12/31/23 04:23 Labs: Abnormal Lab Results - Last 24 Hours (Table) 12/31/23 12/31/23 12/31/23 Range/Units 01:06 04:23 04:23 WBC 24.9 H (3.8-10.6) k/uL Neutrophils # 21.8 H (1.3-7.7) k/uL Basophils # 0.3 H (0-0.2) k/uL Sodium 135 L (137-145) mmol/L Creatinine 0.51 L (0.52-1.04) mg/dL Glucose 183 H (74-99) mg/dL POC Glucose (mg/dL) 155 H (70-110) mg/dL 12/31/23 Range/Units 12:03 WBC (3.8-10.6) k/uL Neutrophils # (1.3-7.7) k/uL Basophils # (0-0.2) k/uL Sodium (137-145) mmol/L Creatinine (0.52-1.04) mg/dL Glucose (74-99) mg/dL POC Glucose (mg/dL) 143 H (70-110) mg/dL Microbiology - Last 24 Hours (Table) 12/25/23 03:00 Blood Culture - Final Blood 12/25/23 02:43 Blood Culture - Final Blood 12/25/23 04:23 Gram Stain - Final Sputum Sputum Culture - Final Corynebact pseudodiphtheritcum
--- NOTE | 2023-12-31 16:18 | P.PCN ---
Description of Procedure: Preprocedure diagnosis. Mental status change. Postprocedure diagnosis. As above. Procedure done. Lumbar puncture and collection of cerebrospinal fluid. Anesthesia. Local infiltration with anesthetics. Continuous pulse ox, EKG, blood pressure and verbal communication was maintained with the patient. Blood loss. None. Indication. Discussed the procedure, alternatives, complications which may include infection, nerve damage, paralysis, aggravation of the symptoms especially bleeding in the spine and posterior dural puncture headache with the patient. The patient understands and questions were answered. Procedure note. After getting concentration in the procedure room in sitting position. Back prepped with chlorhexidine and draped in sterile fashion. After injecting 3 mL of 1% lidocaine subcutaneously, a 22-gauge spinal needle was introduced at L45 interspace. Positive CSF, negative blood, negative paresth esia. CSF color was clear. CSF pressure was not measured. CSF was collected in 4 supplied sterol containers in sequence. Spinal needle was taken out and bandage was applied. Disposition. She tolerated the procedure well. No complication. Advised patient to lay flat one-hour postprocedure. The rest of the day today try to lay flat as much as possible. Next 3 days drink lots of fluid especially caffeinated beverages, and avoid constipation cough and doing strenuous physical work. Discharged home in stable condition.
[2023-12-31 17:43] LABS: Glucose,Whole Blood 141 mg/dL (70-110)
[2023-12-31 20:52] LABS: Appearance,CSF Clear; CSF Tube Number 4; CSF Tube Volume 1.3; Nucleated Cells, CSF 5 u/L (0-5); Red Blood Cell,CSF 198 u/L (0-10)
[2023-12-31 20:57] LABS: Diff, Total Cells Cnt, CSF 100; Mononuclear WBC,CSF 71 %; Polynuclear WBC,CSF 29 %
[2023-12-31 21:26] LABS: Glucose,CSF 102 mg/dL (40-70); Total Protein,CSF 96 mg/dL (12-60)
[2023-12-31 23:47] LABS: Glucose,Whole Blood 149 mg/dL (70-110)
[2024-01-01 05:08] LABS: African American GFR (CKD) >90 (>60 ml/min/1.73 sqM); Anion Gap 4 mmol/L; Blood Urea Nitrogen 15 mg/dL (7-17); Calcium 8.2 mg/dL (8.4-10.2); Carbon Dioxide 33 mmol/L (22-30); Chloride 100 mmol/L (98-107); Glucose 134 mg/dL (74-99); Non-African American GFR(CKD) >90 (>60 ml/min/1.73 sqM); Sodium 137 mmol/L (137-145)
[2024-01-01 05:29] LABS: HCT 40.8 % (34.0-46.0); HGB 13.2 gm/dL (11.4-16.0); MCH 28.7 pg (25.0-35.0); MCHC 32.4 g/dL (31.0-37.0); MCV 88.5 fL (80.0-100.0); Mean Platelet Volume 9.2; Platelet Count 222 k/uL (150-450); RBC 4.61 m/uL (3.80-5.40); RDW 13.8 % (11.5-15.5); WBC 22.2 k/uL (3.8-10.6)
[2024-01-01 05:30] LABS: Potassium 2.7 mmol/L (3.5-5.1)
[2024-01-01] MEDS: POTASSIUM BICARBONATE/CIT AC 20 MEQ TABLET.EFF NG-TUBE SCH ×2 (05:39→12:03)
[2024-01-01 05:43] LABS: Glucose,Whole Blood 136 mg/dL (70-110)
[2024-01-01 06:43] LABS: Band Neutrophils % 2 %; Eosinophils # (M) 0.22 k/uL (0-0.7); Lymphocytes # (M) 3.33 k/uL (1.0-4.8); Monocytes # (M) 0.22 k/uL (0-1.0); Neutrophils % (M) 81 %; Nucleated Red Blood Cells 0 /100 WBC (0-0); Total Cells Counted 100
[2024-01-01 06:46] LABS: Anisocytosis (M) Present; Poikilocytosis (M) Present
[2024-01-01 06:51] LABS: Large Platelets Present
[2024-01-01] MEDS: ENOXAPARIN 40 MG/0.4 ML SYRINGE SQ SCH (08:57)
--- NOTE | 2024-01-01 10:16 | P.PN ---
Subjective Progress Note Date: 01/01/24 I am seeing this patient in new consultation today on 12/25/2023 in the intensive care unit. The patient was transferred to the ICU after a heart catheterization for acute hypoxemic respiratory failure and increased oxygen demands. Patient is a 68-year-old white female with past medical history significant for COPD, current ongoing every day smoker, hyperlipidemia, hypothyroidism, chronic back pain. She smokes roughly 1 pack per day. Her primary care provider is Dr. Hansen. Patient had reportedly not been answering her phone for several days, so her daughter went to check on her at home. She reportedly was acting abnormal and confused and found naked. The patient does not recall this. After being brought to the emergency room yesterday afternoon, she was complaining of substernal chest pain that had been ongoing for the last 3 days. This is localized to the substernal area, she denies any radiation. Occurs mostly with coughing. Is associated with shortness of breath, wheezing, and productive cough. Troponins were elevated on arrival and patient had some isolated ST elevation in lead aVR, along with diffuse/generalized ST depression. She was also noted to be hypoxic. Patient was taken for a heart catheterization yeterday afternoon which revealed angiographically normal coronary arteries and left- sided filling pressures. No significant calcifications or coronary thrombus reported. D-dimer was also elevated, and for this reason the patient was sent for a chest CTA which did not show any evidence of pulmonary embolism. While in the intensive care unit, the patient had increased oxygen and was placed on BiPAP settings 12/6 and FiO2 50%. She is currently resting comfortably in bed, on BiPAP with the above-mentioned settings, in no acute respiratory distress. She is achieving tidal volumes of approximately 400 and her respiratory rate is in the mid 20s. She does have a congested cough and wheezing. Occasional has difficulty clearing oral secretions. Denies any fevers at home. She is currently alert and oriented. No signs of hypercapnic encephalopathy. ABGs were obtained earlier and consistent with combined hypoxemic and hypercapnic respiratory failure. She has a component of compensatory metabolic alkalosis and was given a dose of Diamox. CBC on arrival: WBC count 11.5, hemoglobin 17.1, hematocrit 49.2, platelets 331. BMP on arrival: Sodium 128, potassium 2.4, chloride 77, serum bicarb 38, BUN 41, creatinine 1.03, glucose 125. Normal saline is infusing at 75 mL per hour. LFTs mildly elevated. NT proBNP 764. Troponin on arrival 1.03. D-dimer had been elevated at 1.89. Urinalysis not concerning for UTI. Negative for influenza, RSV, COVID-19. Chest x-ray did not show any focal infiltrates or evidence of pneumonia. No acute cardiopulmonary p rocess seen. Patient was covered empirically on a combination of azithromycin and Rocephin. She is afebrile. Vital signs are stable. Patient was reevaluated today on 12/26/2023, remains in the ICU, patient was on BiPAP overnight, transition to nasal cannula 3 L/min this morning. Continues to have intermittent cough and wheezing, patient is having some difficulty swallowing pills, and she will have a swallow evaluation today. Remains on IV fluid at 100 cc/h, remains on bronchodilators, patient is quite hoarse but no stridor. Patient has been maximized on bronchodilators and steroids. WBC count today is 14.1 hemoglobin 13.3 basic metabolic profile is relatively normal, renal profile is normal Patient was reevaluated today on 12/27/2023 remains in the ICU, patient was seen yesterday by ENT, and she was found to have bilateral vocal cord paralysis. According to the patient she has had issues with her voice now for the last 2 months. ENT is recommending PEG tube placement, and this was also recommended by speech therapy, patient is also scheduled to have MRI of the brain today. Anai larson was seen by neurology on consultation. On 3 L nasal cannula, her ABG showed a pO2 of 62 pCO2 34 pH of 7.49, patient is comfortable, she is sitting at the bedside chair, did not use BiPAP in the last 24 hours although BiPAP is at bedside WBC count is 15.1 hemoglobin is 12.9 basic metabolic profile is normal renal profile is normal Patient was reevaluated today on 12/28/2023, remains in the ICU on 3 L nasal cannula, patient is scheduled to have a PEG tube on Saturday, her sodium is a bit high and she is transition now from 0.9 normal saline to D5W at 100 cc/h. Last night the patient became extremely agitated and she was pulling her lines and catheters, hence she was placed on Precedex and remains on Precedex at 0.4 mcg/kg/h. Today she seems to be calm, her MRI is negative nondiagnostic. And again the patient is scheduled for PEG tube placement on Saturday as she had bilateral vocal cord paralysis. Patient is still having difficulty swallowing. WBC count is 15.3 hemoglobin 11.6. ABG yesterday showed a pO2 of 62 pCO2 34 pH of 7.49. Basic metabolic profile is normal except for elevated sodium of 147. And this will be corrected by transitioning her IV fluid to D5W Patient was evaluated today on 12/29/2023, remains in the ICU, seems to be less agitated today, nonetheless patient is on Precedex at 0.3 mcg/kg/h this morning seems to be calm, last night she was quite agitated, patient is not in any distress, on 3 L nasal cannula with O2 sats of 96%, the plan is to proceed with PEG tube placement on this patient mostly because of difficulty swallowing she failed the swallow evaluation, and she has bilateral vocal cord paralysis. WBC count today is 17 hemoglobin is 12 rest of the labs are basically unremarkable except for low potassium of 2.9 being addressed accordingly. The patient is seen today December 30, 2023 in follow-up in the intensive care unit. She is currently resting comfortably in bed. Awake and alert in no acute distress. She has been weaned off the Precedex at approximately 3:00 this morning. She remains on Ativan as needed. She is continued on bronchodilators. Chest x-ray reveals scattered airspace opacities throughout the lungs with right lower lobe opacity, no significant changes. She is currently on 6 L high flow nasal cannula. She is noted to have bilateral vocal cord paralysis. The plan is for PEG tube insertion today. She is continue on D5W at 100 MLS per hour. White count 20.7. Hemoglobin 13.7. Platelets 227. Sodium 135. Po tassium 4.8. Bicarb 27. BUN 15. Creatinine 0.50. Glucose 222. She remains on ceftriaxone, steroids and bronchodilators. Lovenox for DVT prophylaxis. The patient is seen today December 31, 2023 in follow-up in the intensive care unit. She is awake and alert. Resting in bed. She is maintaining O2 saturations in the mid 90s on 4 L/min per nasal cannula. She has been afebrile. Hemodynamically stable. She did undergo PEG tube placement yesterday with nutrition to start later today. She is currently on D5W at 100 MLS per hour. Her sodium has improved to 135. Potassium 3.9. Bicarb 29. BUN 14. Creatinine 0.51. Glucose 183. White count 24.9. Hemoglobin 14.0. Platelets 242. She re donna on bronchodilators, steroids. Antibiotics in the form of ceftriaxone. Lovenox for DVT prophylaxis. NicoDerm patch in place. Chest x-ray shows scattered multifocal opacities but no significant consolidation, no pneumothorax, no pleural effusion. The patient is seen today January 01, 2024 in follow-up in the intensive care unit. She is currently sitting up in bed. Awake and alert in no acute distress. She did undergo PEG tube placement. She is currently on Jevity at 30 MLS per hour with a goal of 40 MLS per hour. She is having some issues with stridor. She has been initiated on Decadron. She is continued on bronchodilators. She did undergo a lumbar puncture yesterday. Fluid analysis reveals high RBCs at 198, high glucose 102, high protein 96. Cultures are pending. White count 22.2. Hemoglobin 13.2. Sodium 137. Potassium 2.7. Bicarb 33. BUN 15. Creatinine 0.69. Glucose 134. Chest x-ray continues to show stable appearance with scattered subtle airspace opacities. Objective - Vital Signs Vital signs: Vital Signs Temp 97.4 F L 01/01/24 08:00 Pulse 98 01/01/24 09:00 Resp 28 H 01/01/24 09:00 BP 126/62 01/01/24 09:00 Pulse Ox 92 L 01/01/24 09:00 FiO2 50 12/26/23 07:48 Intake & Output 12/31/23 01/01/24 01/01/24 18:59 06:59 18:59 Intake Total 440 430 170 Balance 440 430 170 Weight 69.1 kg 74.8 kg Intake: IV 350 120 50 Dextrose 5% in Water 1, 200 000 ml @ 100 mls/hr IV . Q10H [facility] Rx#:[id number] KVO 100 120 50 cefTRIAXone 1 gm In 50 Sodium Chloride 0.9% 50 ml @ 100 mls/hr IVPB Q24HR [facility] Rx#:[id number] Tube Feeding 60 220 90 Other 30 90 30 Other: Voiding Method Diaper Diaper Diaper # Voids 1 1 1 # Bowel Movements 1 - Exam GENERAL EXAM: Alert, awake 68-year-old female, on 4 L nasal cannula, in no acute distress. HEAD: Normocephalic and atraumatic. EYES: Normal reaction of pupils, equal size. NOSE: Clear with pink turbinates. THROAT: No erythema or exudates. Dry mucous membranes, patient continues to have voice hoarseness NECK: No masses, no JVD. Faint stridor noted. CHEST: No chest wall deformity. LUNGS: Diminished breath sounds at the bases no crackles rhonchi or wheezes CVS: S1 and S2 normal with no audible murmur, regular rhythm. No extra heart sounds ABDOMEN: PEG tube exit site is clean and dry. No hepatosplenomegaly, active bowel sounds, no guarding or rigidity. SKIN: No rashes CENTRAL NERVOUS SYSTEM: Alert oriented x 3 no focal deficit EXTREMITIES: No clubbing edema or cyanosis - Labs CBC & Chem 7: 01/01/24 04:09 01/01/24 04:09 Labs: Abnormal Lab Results - Last 24 Hours (Table) 12/31/23 12/31/23 12/31/23 Range/Units 12:03 16:43 17:42 WBC (3.8-10.6) k/uL Neutrophils # (Manual) (1.3-7.7) k/uL Potassium (3.5-5.1) mmol/L Carbon Dioxide (22-30) mmol/L Glucose (74-99) mg/dL POC Glucose (mg/dL) 143 H 141 H (70-110) mg/dL Hemoglobin A1c (<=6.0) % Calcium (8.4-10.2) mg/dL CSF RBC 198 H (0-10) u/L CSF Glucose 102 H (40-70) mg/dL CSF Total Protein 96 H (12-60) mg/dL 12/31/23 01/01/24 01/01/24 Range/Units 23:45 04:09 04:09 WBC 22.2 H (3.8-10.6) k/uL Neutrophils # (Manual) 18.40 H (1.3-7.7) k/uL Potassium (3.5-5.1) mmol/L Carbon Dioxide (22-30) mmol/L Glucose (74-99) mg/dL POC Glucose (mg/dL) 149 H (70-110) mg/dL Hemoglobin A1c 6.1 H (<=6.0) % Calcium (8.4-10.2) mg/dL CSF RBC (0-10) u/L CSF Glucose (40-70) mg/dL CSF Total Protein (12-60) mg/dL 01/01/24 01/01/24 Range/Units 04:09 05:42 WBC (3.8-10.6) k/uL Neutrophils # (Manual) (1.3-7.7) k/uL Potassium 2.7 L* (3.5-5.1) mmol/L Carbon Dioxide 33 H (22-30) mmol/L Glucose 134 H (74-99) mg/dL POC Glucose (mg/dL) 136 H (70-110) mg/dL Hemoglobin A1c (<=6.0) % Calcium 8.2 L (8.4-10.2) mg/dL CSF RBC (0-10) u/L CSF Glucose (40-70) mg/dL CSF Total Protein (12-60) mg/dL Microbiology - Last 24 Hours (Table) 12/31/23 16:43 CSF Gram Stain - Preliminary Cerebral Spinal Fluid Assessment and Plan Assessment: Acute hypoxic and hypercapnic respiratory failure secondary to an acute exacerbation of COPD possible aspiration Acute toxic metabolic encephalopathy with hypercapnia Bilateral vocal cord paralysis Dysphagia secondary to vocal cord paralysis and dysphonia, PEG tube placed 12/30/2023 Electrolytes imbalance including hyponatremia and hypokalemia Severe underlying COPD Tobacco dependence syndrome Hypothyroidism Dyslipidemia Chronic pain syndrome History of anxiety and depression Status post cardiac catheterization on 12/24/2023, and normal coronary findings noted. Plan: The patient was seen and evaluated Chest x-ray, labs and medications reviewed Lumbar puncture results pending Faint stridor heard, add Decadron Replace electrolytes Continue Jevity tube feedings Continue aspiration precautions Continue bronchodilators Lovenox for DVT prophylaxis Plan is for subacute rehabilitation at discharge We will continue to follow I have personally seen and examined the patient, performed the documentation and the assessment and plan as written. Number of minutes spent on the visit: 10.
--- NOTE | 2024-01-01 10:17 | XR ---
EXAMINATION TYPE: XR chest 1V portable DATE OF EXAM: 01/01/2024 5:21 AM CLINICAL INDICATION:Female, 68 years old with history of multifocal pneumonia; [facility] COMPARISON: Chest radiographs from 12/31/2023. TECHNIQUE: XR chest 1V portable Frontal view of the chest. FINDINGS: Lungs/Pleura: Similar multifocal airspace opacities. No evidence of pneumothorax or pleural effusion. Pulmonary vascularity: Unremarkable. Heart/mediastinum: Cardiomediastinal silhouette is unremarkable. Musculoskeletal: No acute osseous pathology. IMPRESSION: Similar multifocal airspace opacities.
[2024-01-01 11:38] LABS: Glucose,Whole Blood 124 mg/dL (70-110)
--- NOTE | 2024-01-01 12:01 | P.PN ---
Subjective Progress Note Date: 01/01/24 CHIEF COMPLAINT: Dysphagia HISTORY OF PRESENT ILLNESS: Patient postop day #2 status post PEG tube placeme nt. Patient is tolerating tube feeds. Currently tube feeds are at 30 mL/h. Patient reports minimal discomfort around PEG tube site. No vomiting or nausea. She reports having bowel movements. Afebrile. WBC 22 potassium is 2.9 and being replaced PHYSICAL EXAM: VITAL SIGNS: Reviewed. GENERAL: no acute distress. ABDOMEN: Soft. Nondistended. PEG tube site clean dry and intact ASSESSMENT: 1. Dysphagia 2. Failed swallow eval 3. Bilateral vocal cord paralysis 4. Mild protein calorie malnutrition PLAN: -Dietitian to continue to titrate tube feeds -Continue supportive care Physician Heavy Lift Rigger note has been reviewed by physician. Signing provider agrees with the documented findings, assessment, and plan of care. Objective - Vital Signs Vital signs: Vital Signs Temp 97.4 F L 01/01/24 08:00 Pulse 86 01/01/24 11:13 Resp 28 H 01/01/24 10:00 BP 123/77 01/01/24 10:00 Pulse Ox 96 01/01/24 10:00 FiO2 50 12/26/23 07:48 Intake & Output 12/31/23 01/01/24 01/01/24 18:59 06:59 18:59 Intake Total 440 430 220 Balance 440 430 220 Weight 69.1 kg 74.8 kg Intake: IV 350 120 70 Dextrose 5% in Water 1, 200 000 ml @ 100 mls/hr IV . Q10H [facility] Rx#:[id number] KVO 100 120 70 cefTRIAXone 1 gm In 50 Sodium Chloride 0.9% 50 ml @ 100 mls/hr IVPB Q24HR [facility] Rx#:[id number] Tube Feeding 60 220 120 Other 30 90 30 Other: Voiding Method Diaper Diaper Diaper # Voids 1 1 1 # Bowel Movements 1 - Labs CBC & Chem 7: 01/01/24 04:09 01/01/24 10:37 Labs: Abnormal Lab Results - Last 24 Hours (Table) 12/31/23 12/31/23 12/31/23 Range/Units 12:03 16:43 17:42 WBC (3.8-10.6) k/uL Neutrophils # (Manual) (1.3-7.7) k/uL Potassium (3.5-5.1) mmol/L Carbon Dioxide (22-30) mmol/L Glucose (74-99) mg/dL POC Glucose (mg/dL) 143 H 141 H (70-110) mg/dL Hemoglobin A1c (<=6.0) % Calcium (8.4-10.2) mg/dL CSF RBC 198 H (0-10) u/L CSF Glucose 102 H (40-70) mg/dL CSF Total Protein 96 H (12-60) mg/dL 12/31/23 01/01/24 01/01/24 Range/Units 23:45 04:09 04:09 WBC 22.2 H (3.8-10.6) k/uL Neutrophils # (Manual) 18.40 H (1.3-7.7) k/uL Potassium (3.5-5.1) mmol/L Carbon Dioxide (22-30) mmol/L Glucose (74-99) mg/dL POC Glucose (mg/dL) 149 H (70-110) mg/dL Hemoglobin A1c 6.1 H (<=6.0) % Calcium (8.4-10.2) mg/dL CSF RBC (0-10) u/L CSF Glucose (40-70) mg/dL CSF Total Protein (12-60) mg/dL 01/01/24 01/01/24 01/01/24 Range/Units 04:09 05:42 10:37 WBC (3.8-10.6) k/uL Neutrophils # (Manual) (1.3-7.7) k/uL Potassium 2.7 L* 3.3 L (3.5-5.1) mmol/L Carbon Dioxide 33 H (22-30) mmol/L Glucose 134 H (74-99) mg/dL POC Glucose (mg/dL) 136 H (70-110) mg/dL Hemoglobin A1c (<=6.0) % Calcium 8.2 L (8.4-10.2) mg/dL CSF RBC (0-10) u/L CSF Glucose (40-70) mg/dL CSF Total Protein (12-60) mg/dL 01/01/24 Range/Units 11:37 WBC (3.8-10.6) k/uL Neutrophils # (Manual) (1.3-7.7) k/uL Potassium (3.5-5.1) mmol/L Carbon Dioxide (22-30) mmol/L Glucose (74-99) mg/dL POC Glucose (mg/dL) 124 H (70-110) mg/dL Hemoglobin A1c (<=6.0) % Calcium (8.4-10.2) mg/dL CSF RBC (0-10) u/L CSF Glucose (40-70) mg/dL CSF Total Protein (12-60) mg/dL Microbiology - Last 24 Hours (Table) 12/31/23 16:43 CSF Gram Stain - Preliminary Cerebral Spinal Fluid
[2024-01-01] MEDS: dexAMETHasone 4 MG TAB PO SCH (12:03)
--- NOTE | 2024-01-01 12:58 | P.PN ---
Subjective Progress Note Date: 01/01/24 I am following-up with patient and per nurse her speech is improving. She is getting feeding via PEG tube. Objective - Vital Signs Vital signs: Vital Signs Temp 97.5 F L 01/01/24 12:00 Pulse 86 01/01/24 12:00 Resp 20 01/01/24 12:00 BP 148/70 01/01/24 12:00 Pulse Ox 94 L 01/01/24 11:00 FiO2 50 12/26/23 07:48 Intake & Output 12/31/23 01/01/24 01/01/24 18:59 06:59 18:59 Intake Total 440 430 340 Balance 440 430 340 Weight 69.1 kg 74.8 kg Intake: IV 350 120 90 Dextrose 5% in Water 1, 200 000 ml @ 100 mls/hr IV . Q10H [facility] Rx#:[id number] KVO 100 120 90 cefTRIAXone 1 gm In 50 Sodium Chloride 0.9% 50 ml @ 100 mls/hr IVPB Q24HR [facility] Rx#:[id number] Tube Feeding 60 220 190 Other 30 90 60 Other: Voiding Method Diaper Diaper Diaper # Voids 1 1 1 # Bowel Movements 1 - Exam General: Sitting up in a chair and is not in acute distress. Neuro: Patient is awake alert oriented to self. She is able to follow commands. Pupils are round equal and reactive to light. Visual galvan are full to confrontation. Extraocular movement is intact. Patient appears to have facial weakness in which the she had difficulty keeping the air in the mouth with the lips closed. As well as her eyes upon asking her to close it tightly was able to the easily open her eyes manually. She has a raspy voice but seems improving today compared to past couple days. Motor is a strength is 5 out of 5 throughout. Reflexes is 2 positive in the uppers wall the lowers (R/L): patellar is 1-2+/1+, ankles are 1+/2+ - Labs CBC & Chem 7: 01/01/24 04:09 01/01/24 10:37 Labs: Abnormal Lab Results - Last 24 Hours (Table) 12/31/23 12/31/23 12/31/23 Range/Units 16:43 17:42 23:45 WBC (3.8-10.6) k/uL Neutrophils # (Manual) (1.3-7.7) k/uL Potassium (3.5-5.1) mmol/L Carbon Dioxide (22-30) mmol/L Glucose (74-99) mg/dL POC Glucose (mg/dL) 141 H 149 H (70-110) mg/dL Hemoglobin A1c (<=6.0) % Calcium (8.4-10.2) mg/dL CSF RBC 198 H (0-10) u/L CSF Glucose 102 H (40-70) mg/dL CSF Total Protein 96 H (12-60) mg/dL 01/01/24 01/01/24 01/01/24 Range/Units 04:09 04:09 04:09 WBC 22.2 H (3.8-10.6) k/uL Neutrophils # (Manual) 18.40 H (1.3-7.7) k/uL Potassium 2.7 L* (3.5-5.1) mmol/L Carbon Dioxide 33 H (22-30) mmol/L Glucose 134 H (74-99) mg/dL POC Glucose (mg/dL) (70-110) mg/dL Hemoglobin A1c 6.1 H (<=6.0) % Calcium 8.2 L (8.4-10.2) mg/dL CSF RBC (0-10) u/L CSF Glucose (40-70) mg/dL CSF Total Protein (12-60) mg/dL 01/01/24 01/01/24 01/01/24 Range/Units 05:42 10:37 11:37 WBC (3.8-10.6) k/uL Neutrophils # (Manual) (1.3-7.7) k/uL Potassium 3.3 L (3.5-5.1) mmol/L Carbon Dioxide (22-30) mmol/L Glucose (74-99) mg/dL POC Glucose (mg/dL) 136 H 124 H (70-110) mg/dL Hemoglobin A1c (<=6.0) % Calcium (8.4-10.2) mg/dL CSF RBC (0-10) u/L CSF Glucose (40-70) mg/dL CSF Total Protein (12-60) mg/dL Microbiology - Last 24 Hours (Table) 12/31/23 16:43 CSF Gram Stain - Preliminary Cerebral Spinal Fluid Assessment and Plan Assessment: * New onset hoarseness of voice, due to bilateral vocal cord paralysis, unclear cause. Patient also has new onset dysphagia, unclear cause. Also has other facial weakness of unclear cause. MRI of the brain no evidence of mass, infarct or hemorrhage, as an etiology for the patient's dysphagia. * Dyshagia s/p PEG tube on 12/30/23 * Altered mental status due to metabolic encephalopathy/as below: * Hyponatremia---improving * Hypoxemia, improved * Hypokalemia, * Abnormal hepatic functions * Elevated cardiac enzymes, negative coronaries * Exacerbation of COPD. * Hyperlipidemia * Hypothyroidism * Marijuana use * Tobacco use Plan: Patient had MRI of the brain which was unremarkable for any stroke mass that would explain her dysphagia or facial weakness. Acetylcholine receptor antibody is ordered by Dr. Gordillo and is pending. I ordered MUSK antibody. CSF: clear, colorless, rbc 198, nucltead cells are 5, glucose 102 (normal is 40- 70) and total protein is 96 (normal protein is 12-60). CSF gram stain is no organisms. Pending CSF anti-gq1b antibody for navarrete burciaga syndrome (GBS variants)/Bickerstaff brainstem encephalitis. Defer the rest of the medical measure the primary and other specialists. The plan is discussed with her nurse. Time with Patient: Less than 30
[2024-01-01 17:55] LABS: Glucose,Whole Blood 150 mg/dL (70-110)
--- NOTE | 2024-01-01 23:14 | P.PN ---
Subjective Progress Note Date: 01/01/24 HISTORY OF PRESENT ILLNESS: 68-year-old female [address] Hansen[address] patient with past medical history of COPD who is currently smoker on regular basis, history of hyper lipidemia, hyp othyroidism, chronic back pain, who also has history of chronic neuropathy, chronic depression, restless leg syndrome, chronic anemia. Apparently she was not answering her phone for the last few days, family went to check on her and found her naked and acting more confused she ended up coming to the emergency department where was seen and evaluated she claims she been having chest pain midsternum for the last 3 days without any radiation she been having mild cough and significant shortness of breath without productive phlegm. The EKG in the emergency department showed ST elevation in the inferior lead and diffuse ST depression in the lateral lead. Troponin being elevated patient was diagnosed with STEMI and ended up being taken to the [facility] by Dr. Lu. Heart catheter came back with completely negative blockage. Patient continues to have significant symptoms of shortness of breath with send at point to have CTA to exclude possibility of PE came back negative no sign of infiltrate. Patient had severe abnormal electrolyte imbalance with her sodium, potassium and chloride she ended up being transferred to the ICU resting on BiPAP settings 126 with FiO2 of 50 percentile started to feel little bit better, start replacing her potassium and continue hydration at that point. 12/25/2023: Patient remain in the ICU, remain on BiPAP, she is quite bit confused Was seen pulmonary through the night still on electrolyte replacement therapy. Her oxygen level still quite a bit low in the 80s require BiPAP on more regular basis, vitals improved slight bed, remain little bit tachycardic. Echocardiogram was ordered for this morning still has not been performed yet and as reviewed her entire heart cath and CTA came back to be completely normal. Continue to hydrate patient quite bit for now consult neurology probably further testing including EEG repeat scan of the brain can be beneficial. 12/26/2023: The patient is awake alert she is off the BiPAP sitting on the side of the bed still not acting herself still hypoxic hypophonic when she talk patient has been off asking for speech therapy for swallow evaluation before allowing patient to eat. Her lab value improved to some degree white blood cell is up to 14,000 but cannot state probably steroid-based, potassium still at 3.2: No free T4 was normal but TSH slightly low. Sadly when speech therapy did their assessment came back quite with abnormal and accelerated to an urgent ENT consultation patient ended going for dysphagia and hoarseness evaluation by direct flexible nasopharyngeal laryngoscopy result study came back with bilateral vocal cord paralysis can be consistent with either something obstructive in the neck or related to central stroke affected both sides. Brain scan was done early and there is a consultation from neurology which she has been seen note so far will end up doing CT of the chest and neck CT of the neck shows no finding consistent with any major abnormality on the chest showed no diagnosis of bilateral lower lobe bronchopneumonia greater on the right side more than anything else. At this point of course recommendation is for PEG tube and n.p.o. completely and still asking for neuroconsultation. 12/27/2023: The patient is sitting on the side of the bed able to comprehensive understand was going around more not a lot of information were able to be found for why she has bilateral vocal cord paralysis. She went for her MRI of the brain showed mild atrophy only with no sign and symptom of mass, bleed or metastasis no degenerative element in the brain consistent with an area of concern at this point. Also patient suffering from severe dysphagia scheduled to go for peg tube feeding will alter his feeding completely via PEG tube continue for now. Patient still follow with neurology for any of the possibility might affect both vocal cord including Guillain-Lamb, myasthenia gravis, tumor reflex syndrome, and other so far no finding consistent with it. Patient probably will be able to leave the ICU to go to medical floor after her PEG tube feeding subtle specially if she is well-managed with low-flow oxygen at this point. 12/28/2023: She is feeling slightly better is seen urology today still looking through the same possibility of fourth close bilateral vocal cord paralysis without any clear evidence for any existence of any Guillain-Lamb our myasthenia or paralysis or CVA. Pulmonary are happy with patient and set up currently still on mild sedation with Precedex 0.4 mcg/kg/h. White blood cells up to 15.3 to be expected her oxygenation has been much better lately sodium is up and potassium is normal. 12/29/2023: Patient is laying in her bed more comfortable today no major complaint or concern. Laboratory value shows white blood cell of 17,000 electrolyte with potassium is down again to 2.9 and she is on potassium supplement at this point, blood sugar is up to 176 and still on Accu-Chek with sliding scale coverage. Apparently through the weekend the family had visited with patient question or answer and I left a note for the family if they have any concern late in afternoon when I stop by the office to have a meeting to be able to do it on Saturday. 12/30/2023 patient is going up to go for PEG tube today apparently neurology are still thinking about the possibility of Van Cole syndrome which was given by me barium which will affect the brainstem causing encephalopathy and encephalitis. Will consult with anesthesia for lumbar puncture to obtain CSF for and probably GQ 1B. Lumbar puncture expected to be on Saturday hold Lovenox will be held till then. The patient is more congested at night. She probably will need to have PEG and tracheostomy at some point. Otherwise her hypoxia has been slightly bit better including oxygenation on 2 to 3 L O2. Her nutrition status become quite bit down waiting for PEG tube to titrate nutrition consult. 12/31/2023: PEG tube examined patient is doing very well, she is vocalizing much better today compared to the last few days to a degree I believe the vocal cord paralysis is recovering to a slight degree, she is going to see neurology today and probably before the end of the week ENT will do another scope to check on the vocal cord paralysis. As of now she still scheduled for a lumbar puncture with analysis of the spinal fluid for the GQ 1B hopefully the test will be done tomorrow. 01/01/2024: She had the lumbar puncture results shows CSF Gram stain with no organisms and pending CSF anti-GQ 1B antibody for Avn Cole syndrome, her vocalization has improved some she is able to express herself little bit better without problem with her aphasia early and voice change. White blood cell is up a little bit but mostly from her steroid use initially. Potassium is down again to 3.3 which will be on replacement therapy. Blood sugar still mildly elevated. PEG tube feeding has been going well titrate feeding higher try to keep up with her nutrition status. Patient hopefully will be more stable to be able to transfer out of the ICU today. REVIEW OF SYSTEMS: CONSTITUTIONAL: Confused still in mild distress. EYES: No icterus sclerae, no conjunctivitis. EARS, NOSE, MOUTH, THROAT, and FACE: No sore throat, lymphadenopathy, with hoarseness of the voice., carotid bruits or deformity. RESPIRATORY: Slight cough and wheezes. Still having slight wheezes sometimes and hoarseness. CARDIOVASCULAR: Positive chest pain with orthopnea and angina. GASTROINTESTINAL: No Abd pain, Nausea or vomiting, no Diarrhea or constipation, No GI Bleed, no distention or masses. GENITOURINARY: Negative for Hematuria or UTI, no kidney stones. INTEGUMENT/BREAST: Negative for any muscular injury with mild osteoarthritis.. HEMATOLOGIC/LYMPHATIC: Negative for bleed or purpura. MUSCULOSKELTAL: Negative for Myalgia or arthralgia. NEURLOGICAL: No LOC, Sz or syncope, blurred vision dizziness or abnormality.. BEHAVIORAL/PSYCH: Negative. ENDOCRINE: Negative. PHYSICAL EXAMINATION: General Appearance: Alert, mildly confused looks older than her age. Neck HEENT: Supple, no lymphadenopathy, no thyroid enlargement, no carotid bruits. Lungs: Decreased breath sound bilaterally with fine rhonchi with mild expiratory wheezes. Chest Wall: Decreased expansion with deep inspiration no tenderness and no deformity was found on exam, no costochondral pain or discomfort. Heart: Regular rate and rhythm, S1, S2 normal, no murmur, rub or gallop. Back: Symmetric, no curvature, ROM normal, no CVA tenderness. Abdomen: Soft, non-tender, bowel sounds active all four quadrants, no masses, no organomegaly. PEG tube in place looks good with no sign of bleeding. Extremities: Extremities normal, atraumatic, no cyanosis or edema. Pulses: 2+ and symmetric. Skin: Skin color, texture, tugor normal, no rashes or lesions. Neurologic: Alert slightly confused cranial nerves II through XII intact, no motor deficit, no abnormal balance or gait. ASSESSMENT AND PLAN: _Bilateral vocal cord paralysis: Post lumbar puncture still waiting for the title for Van Cole syndrome which is the anti-GQ 1B antibody. Myasthenia gravis antibody is negative. Will continue current management for now patient to be seen ENT in the next 2 weeks for office evaluation for the vocal cord paralysis at that point. _Severe dysphagia: Post PEG tube feeding will continue nutritional management for now continue PEG maintenance. _Acute respiratory failure: Has improved so far patient oxygenation is in the mid 90 on 2 L of oxygen. _Severe chest pain with signs of STEMI: Post heart cath with negative finding with normal coronary artery. This is considered a type II non-STEMI from dehyd ration and hypoxia. No further cardiac problem at this point and since her heart cath things are better. _Severe electrolyte imbalance including hypokalemia, with lower potassium to the requirement replacement therapy. _Severe altered mental status: Her mental status has been cleared at this point is most likely hypoxia and severe dehydration with encephalopathy with still again missing neurology consultation which was requested from the beginning. _Mild anxiety: She is off Precedex. _Nutrition status: As the PEG tube is not patient will be on titration feeding. _Chronic history of smoking: Smoking cessation was addressed nicotine patch will be started. _Chronic pain syndrome: Will holding off her gabapentin and prednisone No. 4 for now. _ Hyperlipidemia: Continue simvastatin. _Hypothyroidism: Continue levothyroxine 50 mcg daily. If not able to take it orally we will do a trial IV. Prognosis: Fair. Discharge planning possibly to SNF in the next 48-72 hours. Objective - Vital Signs Vital signs: Vital Signs Temp 98.7 F 01/01/24 04:00 Pulse 79 01/01/24 05:09 Resp 21 01/01/24 05:00 BP 143/72 01/01/24 04:00 Pulse Ox 93 L 01/01/24 05:00 FiO2 50 12/26/23 07:48 Intake & Output 12/31/23 12/31/23 01/01/24 06:59 18:59 06:59 Intake Total 1200 440 390 Output Total 650 Balance 550 440 390 Weight 69.1 kg 69.1 kg 74.8 kg Intake: IV 1200 350 110 Dextrose 5% in Water 1, 1200 200 000 ml @ 100 mls/hr IV . Q10H [facility] Rx#:[id number] KVO 100 110 cefTRIAXone 1 gm In 50 Sodium Chloride 0.9% 50 ml @ 100 mls/hr IVPB Q24HR [facility] Rx#:[id number] Tube Feeding 60 190 Other 30 90 Output: Urine 650 Other: Voiding Method Diaper Diaper Diaper # Voids 1 1 1 # Bowel Movements 1 - Labs CBC & Chem 7: 01/01/24 04:09 01/01/24 15:41 Labs: Abnormal Lab Results - Last 24 Hours (Table) 12/31/23 12/31/23 12/31/23 Range/Units 04:23 12:03 16:43 WBC 24.9 H (3.8-10.6) k/uL Neutrophils # 21.8 H (1.3-7.7) k/uL Basophils # 0.3 H (0-0.2) k/uL POC Glucose (mg/dL) 143 H (70-110) mg/dL CSF RBC 198 H (0-10) u/L CSF Glucose 102 H (40-70) mg/dL CSF Total Protein 96 H (12-60) mg/dL 12/31/23 12/31/23 Range/Units 17:42 23:45 WBC (3.8-10.6) k/uL Neutrophils # (1.3-7.7) k/uL Basophils # (0-0.2) k/uL POC Glucose (mg/dL) 141 H 149 H (70-110) mg/dL CSF RBC (0-10) u/L CSF Glucose (40-70) mg/dL CSF Total Protein (12-60) mg/dL
[2024-01-01 23:33] LABS: Glucose,Whole Blood 161 mg/dL (70-110)
[2024-01-02 04:23] LABS: Basophils # (A) 0.1 k/uL (0-0.2); Basophils % (A) 0 %; Eosinophils % (A) 0 %; HCT 37.2 % (34.0-46.0); HGB 12.3 gm/dL (11.4-16.0); Lymphocytes # (A) 1.1 k/uL (1.0-4.8); Lymphocytes % (A) 7 %; MCH 29.4 pg (25.0-35.0); MCHC 33.1 g/dL (31.0-37.0); MCV 88.8 fL (80.0-100.0); Mean Platelet Volume 8.8; Monocytes # (A) 0.5 k/uL (0-1.0); Monocytes % (A) 3 %; Neutrophils # (A) 14.2 k/uL (1.3-7.7); Neutrophils % (A) 89 %; Platelet Count 230 k/uL (150-450); RBC 4.18 m/uL (3.80-5.40); RDW 13.7 % (11.5-15.5)
[2024-01-02 04:49] LABS: African American GFR (CKD) >90 (>60 ml/min/1.73 sqM); Anion Gap -1 mmol/L; Blood Urea Nitrogen 15 mg/dL (7-17); Calcium 8.4 mg/dL (8.4-10.2); Carbon Dioxide 36 mmol/L (22-30); Chloride 100 mmol/L (98-107); Glucose 144 mg/dL (74-99); Non-African American GFR(CKD) >90 (>60 ml/min/1.73 sqM); Potassium 3.9 mmol/L (3.5-5.1); Sodium 135 mmol/L (137-145)
[2024-01-02 05:33] LABS: Glucose,Whole Blood 140 mg/dL (70-110)
[2024-01-02] MEDS: POTASSIUM BICARBONATE/CIT AC 20 MEQ TABLET.EFF NG-TUBE SCH (05:39)
--- NOTE | 2024-01-02 10:14 | P.PN ---
Subjective Progress Note Date: 01/02/24 I am seeing this patient in new consultation today on 12/25/2023 in the intensive care unit. The patient was transferred to the ICU after a heart catheterization for acute hypoxemic respiratory failure and increased oxygen demands. Patient is a 68-year-old white female with past medical history significant for COPD, current ongoing every day smoker, hyperlipidemia, hypothyroidism, chronic back pain. She smokes roughly 1 pack per day. Her primary care provider is Dr. Hansen. Patient had reportedly not been answering her phone for several days, so her daughter went to check on her at home. She reportedly was acting abnormal and confused and found naked. The patient does not recall this. After being brought to the emergency room yesterday afternoon, she was complaining of substernal chest pain that had been ongoing for the last 3 days. This is localized to the substernal area, she denies any radiation. Occurs mostly with coughing. Is associated with shortness of breath, wheezing, and productive cough. Troponins were elevated on arrival and patient had some isolated ST elevation in lead aVR, along with diffuse/generalized ST depression. She was also noted to be hypoxic. Patient was taken for a heart catheterization yeterday afternoon which revealed angiographically normal coronary arteries and left- sided filling pressures. No significant calcifications or coronary thrombus reported. D-dimer was also elevated, and for this reason the patient was sent for a chest CTA which did not show any evidence of pulmonary embolism. While in the intensive care unit, the patient had increased oxygen and was placed on BiPAP settings 12/6 and FiO2 50%. She is currently resting comfortably in bed, on BiPAP with the above-mentioned settings, in no acute respiratory distress. She is achieving tidal volumes of approximately 400 and her respiratory rate is in the mid 20s. She does have a congested cough and wheezing. Occasional has difficulty clearing oral secretions. Denies any fevers at home. She is currently alert and oriented. No signs of hypercapnic encephalopathy. ABGs were obtained earlier and consistent with combined hypoxemic and hypercapnic respiratory failure. She has a component of compensatory metabolic alkalosis and was given a dose of Diamox. CBC on arrival: WBC count 11.5, hemoglobin 17.1, hematocrit 49.2, platelets 331. BMP on arrival: Sodium 128, potassium 2.4, chloride 77, serum bicarb 38, BUN 41, creatinine 1.03, glucose 125. Normal saline is infusing at 75 mL per hour. LFTs mildly elevated. NT proBNP 764. Troponin on arrival 1.03. D-dimer had been elevated at 1.89. Urinalysis not concerning for UTI. Negative for influenza, RSV, COVID-19. Chest x-ray did not show any focal infiltrates or evidence of pneumonia. No acute cardiopulmonary p rocess seen. Patient was covered empirically on a combination of azithromycin and Rocephin. She is afebrile. Vital signs are stable. Patient was reevaluated today on 12/26/2023, remains in the ICU, patient was on BiPAP overnight, transition to nasal cannula 3 L/min this morning. Continues to have intermittent cough and wheezing, patient is having some difficulty swallowing pills, and she will have a swallow evaluation today. Remains on IV fluid at 100 cc/h, remains on bronchodilators, patient is quite hoarse but no stridor. Patient has been maximized on bronchodilators and steroids. WBC count today is 14.1 hemoglobin 13.3 basic metabolic profile is relatively normal, renal profile is normal Patient was reevaluated today on 12/27/2023 remains in the ICU, patient was seen yesterday by ENT, and she was found to have bilateral vocal cord paralysis. According to the patient she has had issues with her voice now for the last 2 months. ENT is recommending PEG tube placement, and this was also recommended by speech therapy, patient is also scheduled to have MRI of the brain today. Anai larson was seen by neurology on consultation. On 3 L nasal cannula, her ABG showed a pO2 of 62 pCO2 34 pH of 7.49, patient is comfortable, she is sitting at the bedside chair, did not use BiPAP in the last 24 hours although BiPAP is at bedside WBC count is 15.1 hemoglobin is 12.9 basic metabolic profile is normal renal profile is normal Patient was reevaluated today on 12/28/2023, remains in the ICU on 3 L nasal cannula, patient is scheduled to have a PEG tube on Saturday, her sodium is a bit high and she is transition now from 0.9 normal saline to D5W at 100 cc/h. Last night the patient became extremely agitated and she was pulling her lines and catheters, hence she was placed on Precedex and remains on Precedex at 0.4 mcg/kg/h. Today she seems to be calm, her MRI is negative nondiagnostic. And again the patient is scheduled for PEG tube placement on Saturday as she had bilateral vocal cord paralysis. Patient is still having difficulty swallowing. WBC count is 15.3 hemoglobin 11.6. ABG yesterday showed a pO2 of 62 pCO2 34 pH of 7.49. Basic metabolic profile is normal except for elevated sodium of 147. And this will be corrected by transitioning her IV fluid to D5W Patient was evaluated today on 12/29/2023, remains in the ICU, seems to be less agitated today, nonetheless patient is on Precedex at 0.3 mcg/kg/h this morning seems to be calm, last night she was quite agitated, patient is not in any distress, on 3 L nasal cannula with O2 sats of 96%, the plan is to proceed with PEG tube placement on this patient mostly because of difficulty swallowing she failed the swallow evaluation, and she has bilateral vocal cord paralysis. WBC count today is 17 hemoglobin is 12 rest of the labs are basically unremarkable except for low potassium of 2.9 being addressed accordingly. The patient is seen today December 30, 2023 in follow-up in the intensive care unit. She is currently resting comfortably in bed. Awake and alert in no acute distress. She has been weaned off the Precedex at approximately 3:00 this morning. She remains on Ativan as needed. She is continued on bronchodilators. Chest x-ray reveals scattered airspace opacities throughout the lungs with right lower lobe opacity, no significant changes. She is currently on 6 L high flow nasal cannula. She is noted to have bilateral vocal cord paralysis. The plan is for PEG tube insertion today. She is continue on D5W at 100 MLS per hour. White count 20.7. Hemoglobin 13.7. Platelets 227. Sodium 135. Po tassium 4.8. Bicarb 27. BUN 15. Creatinine 0.50. Glucose 222. She remains on ceftriaxone, steroids and bronchodilators. Lovenox for DVT prophylaxis. The patient is seen today December 31, 2023 in follow-up in the intensive care unit. She is awake and alert. Resting in bed. She is maintaining O2 saturations in the mid 90s on 4 L/min per nasal cannula. She has been afebrile. Hemodynamically stable. She did undergo PEG tube placement yesterday with nutrition to start later today. She is currently on D5W at 100 MLS per hour. Her sodium has improved to 135. Potassium 3.9. Bicarb 29. BUN 14. Creatinine 0.51. Glucose 183. White count 24.9. Hemoglobin 14.0. Platelets 242. She re donna on bronchodilators, steroids. Antibiotics in the form of ceftriaxone. Lovenox for DVT prophylaxis. NicoDerm patch in place. Chest x-ray shows scattered multifocal opacities but no significant consolidation, no pneumothorax, no pleural effusion. The patient is seen today January 01, 2024 in follow-up in the intensive care unit. She is currently sitting up in bed. Awake and alert in no acute distress. She did undergo PEG tube placement. She is currently on Jevity at 30 MLS per hour with a goal of 40 MLS per hour. She is having some issues with stridor. She has been initiated on Decadron. She is continued on bronchodilators. She did undergo a lumbar puncture yesterday. Fluid analysis reveals high RBCs at 198, high glucose 102, high protein 96. Cultures are pending. White count 22.2. Hemoglobin 13.2. Sodium 137. Potassium 2.7. Bicarb 33. BUN 15. Creatinine 0.69. Glucose 134. Chest x-ray continues to show stable appearance with scattered subtle airspace opacities. The patient is seen today January 02, 2024 in follow-up in the intensive care unit. She is currently up in a chair. Awake and alert in no acute distress. She is maintaining O2 saturations in the 90s on 2 L/min per nasal cannula. No IV fluids. She remains nourished via her PEG tube with Jevity at 40 MLS per hour which is goal. She has less stridor today. She is continued on Decadron. Remains on bronchodilators. Lovenox for DVT prophylaxis. NicoDerm patch in place. White count 16.0. Hemoglobin 12.3. Platelets 230. Sodium 135. Potassium 3.9. Bicarb 36. BUN 15. Creatinine 0.56. Glucose 144. Objective - Vital Signs Vital signs: Vital Signs Temp 97.6 F 01/02/24 08:00 Pulse 87 01/02/24 09:00 Resp 14 01/02/24 09:00 BP 143/78 01/02/24 09:00 Pulse Ox 90 L 01/02/24 08:00 FiO2 50 12/26/23 07:48 Intake & Output 01/01/24 01/02/24 01/02/24 18:59 06:59 18:59 Intake Total 750 450 40 Output Total 1 Balance 750 450 39 Weight 71 kg Intake: IV 230 130 KVO 230 130 Tube Feeding 430 200 40 Other 90 120 Output: Stool 1 Other: Voiding Method Diaper Diaper Diaper # Voids 1 3 1 - Exam GENERAL EXAM: Alert, awake 68-year-old female, up in a chair, on 2 L nasal cannula, in no acute distress. HEAD: Normocephalic and atraumatic. EYES: Normal reaction of pupils, equal size. NOSE: Clear with pink turbinates. THROAT: Dry mucous membranes, patient continues to have voice hoarseness NECK: No masses, no JVD. Faint stridor noted. CHEST: No chest wall deformity. LUNGS: Diminished breath sounds at the bases no crackles rhonchi or wheezes CVS: S1 and S2 normal with no audible murmur, regular rhythm. No extra heart sounds ABDOMEN: PEG tube exit site is clean and dry. No hepatosplenomegaly, active bowel sounds, no guarding or rigidity. SKIN: No rashes CENTRAL NERVOUS SYSTEM: Alert oriented x 3 no focal deficit EXTREMITIES: No clubbing edema or cyanosis - Labs CBC & Chem 7: 01/02/24 03:54 01/02/24 03:54 Labs: Abnormal Lab Results - Last 24 Hours (Table) 01/01/24 01/01/24 01/01/24 Range/Units 10:37 11:37 17:54 WBC (3.8-10.6) k/uL Neutrophils # (1.3-7.7) k/uL Sodium (137-145) mmol/L Potassium 3.3 L (3.5-5.1) mmol/L Carbon Dioxide (22-30) mmol/L Glucose (74-99) mg/dL POC Glucose (mg/dL) 124 H 150 H (70-110) mg/dL 01/01/24 01/02/24 01/02/24 Range/Units 23:32 03:54 03:54 WBC 16.0 H (3.8-10.6) k/uL Neutrophils # 14.2 H (1.3-7.7) k/uL Sodium 135 L (137-145) mmol/L Potassium (3.5-5.1) mmol/L Carbon Dioxide 36 H (22-30) mmol/L Glucose 144 H (74-99) mg/dL POC Glucose (mg/dL) 161 H (70-110) mg/dL 01/02/24 Range/Units 05:32 WBC (3.8-10.6) k/uL Neutrophils # (1.3-7.7) k/uL Sodium (137-145) mmol/L Potassium (3.5-5.1) mmol/L Carbon Dioxide (22-30) mmol/L Glucose (74-99) mg/dL POC Glucose (mg/dL) 140 H (70-110) mg/dL Microbiology - Last 24 Hours (Table) 12/31/23 16:43 CSF Gram Stain - Preliminary Cerebral Spinal Fluid CSF Culture - Preliminary Assessment and Plan Assessment: Acute hypoxic and hypercapnic respiratory failure secondary to an acute exacerbation of COPD possible aspiration Acute toxic metabolic encephalopathy with hypercapnia. Lumbar puncture performed 12/31/2023. Cultures pending Bilateral vocal cord paralysis Dysphagia secondary to vocal cord paralysis and dysphonia, PEG tube placed 12/30/2023 Electrolytes imbalance including hyponatremia and hypokalemia Severe underlying COPD Tobacco dependence syndrome Hypothyroidism Dyslipidemia Chronic pain syndrome History of anxiety and depression Status post cardiac catheterization on 12/24/2023, and normal coronary findings noted. Plan: The patient was seen and evaluated Labs and medications reviewed Faint stridor, continue Decadron Continue Jevity tube feedings Continue aspiration precautions Continue the current treatment plan Transfer out of the intensive care unit Plan is for subacute rehabilitation at discharge I have personally seen and examined the patient, performed the documentation and the assessment and plan as written. Number of minutes spent on the visit: 10.
[2024-01-02 11:38] LABS: Glucose,Whole Blood 178 mg/dL (70-110)
--- NOTE | 2024-01-02 13:33 | P.PN ---
Subjective Progress Note Date: 01/02/24 CHIEF COMPLAINT: Dysphagia HISTORY OF PRESENT ILLNESS: Patient postop day #3 status post PEG tube placeme nt. Patient is tolerating tube feeds. Currently tube feeds are at 40 mL/h. Denies any vomiting or nausea. Afebrile. WBC 22.2 down to 16 PHYSICAL EXAM: VITAL SIGNS: Reviewed. GENERAL: no acute distress. ABDOMEN: Soft. Nondistended. PEG tube site clean dry and intact ASSESSMENT: 1. Dysphagia 2. Failed swallow eval 3. Bilateral vocal cord paralysis 4. Mild protein calorie malnutrition PLAN: -Dietitian to continue to titrate tube feeds -Continue supportive care Physician [employer] note has been reviewed by physician. Signing provider agrees with the documented findings, assessment, and plan of care. Objective - Vital Signs Vital signs: Vital Signs Temp 97.6 F 01/02/24 08:00 Pulse 86 01/02/24 11:03 Resp 14 01/02/24 09:00 BP 143/78 01/02/24 09:00 Pulse Ox 90 L 01/02/24 08:00 FiO2 50 12/26/23 07:48 Intake & Output 01/01/24 01/02/24 01/02/24 18:59 06:59 18:59 Intake Total 750 450 40 Output Total 1 Balance 750 450 39 Weight 71 kg Intake: IV 230 130 KVO 230 130 Tube Feeding 430 200 40 Other 90 120 Output: Stool 1 Other: Voiding Method Diaper Diaper Diaper # Voids 1 3 1 - Labs CBC & Chem 7: 01/02/24 03:54 01/02/24 10:34 Labs: Abnormal Lab Results - Last 24 Hours (Table) 01/01/24 01/01/24 01/02/24 Range/Units 17:54 23:32 03:54 WBC 16.0 H (3.8-10.6) k/uL Neutrophils # 14.2 H (1.3-7.7) k/uL Sodium (137-145) mmol/L Carbon Dioxide (22-30) mmol/L Glucose (74-99) mg/dL POC Glucose (mg/dL) 150 H 161 H (70-110) mg/dL 01/02/24 01/02/24 01/02/24 Range/Units 03:54 05:32 11:38 WBC (3.8-10.6) k/uL Neutrophils # (1.3-7.7) k/uL Sodium 135 L (137-145) mmol/L Carbon Dioxide 36 H (22-30) mmol/L Glucose 144 H (74-99) mg/dL POC Glucose (mg/dL) 140 H 178 H (70-110) mg/dL Microbiology - Last 24 Hours (Table) 12/31/23 16:43 CSF Gram Stain - Preliminary Cerebral Spinal Fluid CSF Culture - Preliminary
[2024-01-02 14:40] VITALS: BMI 26.9
[2024-01-02 18:06] LABS: Glucose,Whole Blood 219 mg/dL (70-110)
[2024-01-02 20:33] VITALS: RESP 18
--- NOTE | 2024-01-02 22:20 | P.PN ---
Subjective Progress Note Date: 01/02/24 HISTORY OF PRESENT ILLNESS: 68-year-old female [address] Hansen's patient with past medical history of COPD who is currently smoker on regular basis, history of hyper lipidemia, hyp othyroidism, chronic back pain, who also has history of chronic neuropathy, chronic depression, restless leg syndrome, chronic anemia. Apparently she was not answering her phone for the last few days, family went to check on her and found her naked and acting more confused she ended up coming to the emergency department where was seen and evaluated she claims she been having chest pain midsternum for the last 3 days without any radiation she been having mild cough and significant shortness of breath without productive phlegm. The EKG in the emergency department showed ST elevation in the inferior lead and diffuse ST depression in the lateral lead. Troponin being elevated patient was diagnosed with STEMI and ended up being taken to [facility] by Dr. Lu. Heart catheter came back with completely negative blockage. Patient continues to have significant symptoms of shortness of breath with send at point to have CTA to exclude possibility of PE came back negative no sign of infiltrate. Patient had severe abnormal electrolyte imbalance with her sodium, potassium and chloride she ended up being transferred to the ICU resting on BiPAP settings 126 with FiO2 of 50 percentile started to feel little bit better, start replacing her potassium and continue hydration at that point. 12/25/2023: Patient remain in the ICU, remain on BiPAP, she is quite bit confused Was seen pulmonary through the night still on electrolyte replacement therapy. Her oxygen level still quite a bit low in the 80s require BiPAP on more regular basis, vitals improved slight bed, remain little bit tachycardic. Echocardiogram was ordered for this morning still has not been performed yet and as reviewed her entire heart cath and CTA came back to be completely normal. Continue to hydrate patient quite bit for now consult neurology probably further testing including EEG repeat scan of the brain can be beneficial. 12/26/2023: The patient is awake alert she is off the BiPAP sitting on the side of the bed still not acting herself still hypoxic hypophonic when she talk patient has been off asking for speech therapy for swallow evaluation before allowing patient to eat. Her lab value improved to some degree white blood cell is up to 14,000 but cannot state probably steroid-based, potassium still at 3.2: No free T4 was normal but TSH slightly low. Sadly when speech therapy did their assessment came back quite with abnormal and accelerated to an urgent ENT consultation patient ended going for dysphagia and hoarseness evaluation by direct flexible nasopharyngeal laryngoscopy result study came back with bilateral vocal cord paralysis can be consistent with either something obstructive in the neck or related to central stroke affected both sides. Brain scan was done early and there is a consultation from neurology which she has been seen note so far will end up doing CT of the chest and neck CT of the neck shows no finding consistent with any major abnormality on the chest showed no diagnosis of bilateral lower lobe bronchopneumonia greater on the right side more than anything else. At this point of course recommendation is for PEG tube and n.p.o. completely and still asking for neuroconsultation. 12/27/2023: The patient is sitting on the side of the bed able to comprehensive understand was going around more not a lot of information were able to be found for why she has bilateral vocal cord paralysis. She went for her MRI of the brain showed mild atrophy only with no sign and symptom of mass, bleed or metastasis no degenerative element in the brain consistent with an area of concern at this point. Also patient suffering from severe dysphagia scheduled to go for peg tube feeding will alter his feeding completely via PEG tube continue for now. Patient still follow with neurology for any of the possibility might affect both vocal cord including Guillain-Lamb, myasthenia gravis, tumor reflex syndrome, and other so far no finding consistent with it. Patient probably will be able to leave the ICU to go to medical floor after her PEG tube feeding subtle specially if she is well-managed with low-flow oxygen at this point. 12/28/2023: She is feeling slightly better is seen urology today still looking through the same possibility of fourth close bilateral vocal cord paralysis without any clear evidence for any existence of any Guillain-Lamb our myasthenia or paralysis or CVA. Pulmonary are happy with patient and set up currently still on mild sedation with Precedex 0.4 mcg/kg/h. White blood cells up to 15.3 to be expected her oxygenation has been much better lately sodium is up and potassium is normal. 12/29/2023: Patient is laying in her bed more comfortable today no major complaint or concern. Laboratory value shows white blood cell of 17,000 electrolyte with potassium is down again to 2.9 and she is on potassium supplement at this point, blood sugar is up to 176 and still on Accu-Chek with sliding scale coverage. Apparently through the weekend the family had visited with patient question or answer and I left a note for the family if they have any concern late in afternoon when I stop by the office to have a meeting to be able to do it on Saturday. 12/30/2023 patient is going up to go for PEG tube today apparently neurology are still thinking about the possibility of Van Cole syndrome which was given by me barium which will affect the brainstem causing encephalopathy and encephalitis. Will consult with anesthesia for lumbar puncture to obtain CSF for and probably GQ 1B. Lumbar puncture expected to be on Saturday hold Lovenox will be held till then. The patient is more congested at night. She probably will need to have PEG and tracheostomy at some point. Otherwise her hypoxia has been slightly bit better including oxygenation on 2 to 3 L O2. Her nutrition status become quite bit down waiting for PEG tube to titrate nutrition consult. 12/31/2023: PEG tube examined patient is doing very well, she is vocalizing much better today compared to the last few days to a degree I believe the vocal cord paralysis is recovering to a slight degree, she is going to see neurology today and probably before the end of the week ENT will do another scope to check on the vocal cord paralysis. As of now she still scheduled for a lumbar puncture with analysis of the spinal fluid for the GQ 1B hopefully the test will be done tomorrow. 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 White blood cell is up a little bit but mostly from her steroid use initially. Potassium is down again to 3.3 which will be on replacement therapy. Blood sugar still mildly elevated. PEG tube feeding has been going well titrate feeding higher try to keep up with her nutrition status. Patient hopefully will be more stable to be able to transfer out of the ICU today. 01/02/2024: She is resting comfortably in her bed in the ICU and should be able to leave the ICU to go to regular medical floor, her respiration is much better so far the airway is more protected. Nutrition with Jevity up to 40 mL/h hopefully titrate to total of 60 by tomorrow if tolerated well. Lab values still showing blood sugar to be slightly bit elevated, kidney function and electrolyte is much better. Patient still doing PT and she will be going to SNF again if not by tomorrow maximum by Saturday. REVIEW OF SYSTEMS: CONSTITUTIONAL: Confused still in mild distress. EYES: No icterus sclerae, no conjunctivitis. EARS, NOSE, MOUTH, THROAT, and FACE: No sore throat, lymphadenopathy, with hoarseness of the voice., carotid bruits or deformity. RESPIRATORY: Slight cough and wheezes. Still having slight wheezes sometimes and hoarseness. CARDIOVASCULAR: Positive chest pain with orthopnea and angina. GASTROINTESTINAL: No Abd pain, Nausea or vomiting, no Diarrhea or constipation, No GI Bleed, no distention or masses. GENITOURINARY: Negative for Hematuria or UTI, no kidney stones. INTEGUMENT/BREAST: Negative for any muscular injury with mild osteoarthritis.. HEMATOLOGIC/LYMPHATIC: Negative for bleed or purpura. MUSCULOSKELTAL: Negative for Myalgia or arthralgia. NEURLOGICAL: No LOC, Sz or syncope, blurred vision dizziness or abnormality.. BEHAVIORAL/PSYCH: Negative. ENDOCRINE: Negative. PHYSICAL EXAMINATION: General Appearance: Alert, mildly confused looks older than her age. Neck HEENT: Supple, no lymphadenopathy, no thyroid enlargement, no carotid bruits. Lungs: Decreased breath sound bilaterally with fine rhonchi with mild expiratory wheezes. Chest Wall: Decreased expansion with deep inspiration no tenderness and no d eformity was found on exam, no costochondral pain or discomfort. Heart: Regular rate and rhythm, S1, S2 normal, no murmur, rub or gallop. Back: Symmetric, no curvature, ROM normal, no CVA tenderness. Abdomen: Soft, non-tender, bowel sounds active all four quadrants, no masses, no organomegaly. PEG tube in place looks good with no sign of bleeding. Extremities: Extremities normal, atraumatic, no cyanosis or edema. Pulses: 2+ and symmetric. Skin: Skin color, texture, tugor normal, no rashes or lesions. Neurologic: Alert slightly confused cranial nerves II through XII intact, no motor deficit, no abnormal balance or gait. ASSESSMENT AND PLAN: _Bilateral vocal cord paralysis: Post lumbar puncture still waiting for the title for Van Cole syndrome which is the anti-GQ 1B antibody. Myasthenia gravis antibody is negative. Will continue current management for now patient to be seen ENT in the next 2 weeks for office evaluation for the vocal cord par alysis at that point. _Severe dysphagia: Post PEG tube feeding will continue nutritional management for now continue PEG maintenance. _Acute respiratory failure: Has improved so far patient oxygenation is in the mid 90 on 2 L of oxygen. _Severe chest pain with signs of STEMI: Post heart cath with negative finding with normal coronary artery. This is considered a type II non-STEMI from dehydration and hypoxia. No further cardiac problem at this point and since her heart cath things are better. _Severe electrolyte imbalance including hypokalemia, with lower potassium to the requirement replacement therapy. _Severe altered mental status: Has resolved so far. _Mild anxiety: Can be on oral alprazolam as needed. _Nutrition status: She is on Jevity up to 40s mL per hour titrate up to 60 in the next 24 hours. _Chronic history of smoking: Smoking cessation was addressed nicotine patch will be started. _Chronic pain syndrome: Will holding off her gabapentin and prednisone No. 4 for now. _ Hyperlipidemia: Continue simvastatin. _Hypothyroidism: Continue levothyroxine 50 mcg daily. If not able to take it orally we will do a trial IV. Prognosis: Fair. Discharge planning possibly to SNF in the next 48-72 hours. Objective - Vital Signs Vital signs: Vital Signs Temp 98.1 F 01/02/24 04:00 Pulse 76 01/02/24 06:00 Resp 25 H 01/02/24 06:00 BP 148/74 01/02/24 06:00 Pulse Ox 92 L 01/02/24 06:00 FiO2 50 12/26/23 07:48 Intake & Output 01/01/24 01/01/24 01/02/24 06:59 18:59 06:59 Intake Total 430 750 450 Balance 430 750 450 Weight 74.8 kg 71 kg Intake: IV 120 230 130 KVO 120 230 130 Tube Feeding 220 430 200 Other 90 90 120 Other: Voiding Method Diaper Diaper Diaper # Voids 1 1 3 - Labs CBC & Chem 7: 01/02/24 03:54 01/02/24 10:34 Labs: Abnormal Lab Results - Last 24 Hours (Table) 01/01/24 01/01/24 01/01/24 Range/Units 04:09 10:37 11:37 WBC (3.8-10.6) k/uL Neutrophils # (1.3-7.7) k/uL Sodium (137-145) mmol/L Potassium 3.3 L (3.5-5.1) mmol/L Carbon Dioxide (22-30) mmol/L Glucose (74-99) mg/dL POC Glucose (mg/dL) 124 H (70-110) mg/dL Hemoglobin A1c 6.1 H (<=6.0) % 01/01/24 01/01/24 01/02/24 Range/Units 17:54 23:32 03:54 WBC 16.0 H (3.8-10.6) k/uL Neutrophils # 14.2 H (1.3-7.7) k/uL Sodium (137-145) mmol/L Potassium (3.5-5.1) mmol/L Carbon Dioxide (22-30) mmol/L Glucose (74-99) mg/dL POC Glucose (mg/dL) 150 H 161 H (70-110) mg/dL Hemoglobin A1c (<=6.0) % 01/02/24 01/02/24 Range/Units 03:54 05:32 WBC (3.8-10.6) k/uL Neutrophils # (1.3-7.7) k/uL Sodium 135 L (137-145) mmol/L Potassium (3.5-5.1) mmol/L Carbon Dioxide 36 H (22-30) mmol/L Glucose 144 H (74-99) mg/dL POC Glucose (mg/dL) 140 H (70-110) mg/dL Hemoglobin A1c (<=6.0) % Microbiology - Last 24 Hours (Table) 12/31/23 16:43 CSF Gram Stain - Preliminary Cerebral Spinal Fluid
[2024-01-02] MEDS: SODIUM CHLORIDE 0.9% 1,000 ML IV ONE (22:41)
[2024-01-02] MEDS: HEPARIN SODIUM 1,000 UN/ML (10ML VL) IVP STA (22:42)
[2024-01-02] MEDS: POTASSIUM CHLORIDE 10 MEQ in WATER FOR INJECTION 1 100ML.BAG IVPB SCH (22:42)
[2024-01-02] MEDS: HEPARIN SOD,PORK IN 0.45% NACL 25,000 UNIT in 0.45% NACL 1 250ML.BAG IV SCH (22:42)
[2024-01-02 23:50] LABS: Glucose,Whole Blood 166 mg/dL (70-110)
[2024-01-03 05:50] LABS: Glucose,Whole Blood 183 mg/dL (70-110)
[2024-01-03 07:58] VITALS: BP 132/73; TEMP 98.7
--- NOTE | 2024-01-03 08:15 | P.DS ---
Providers Date of admission: 12/24/23 15:06 Attending physician: Enrrique Moser Consults: 12/24/23 16:27 Consult Physician Stat Consulting Provider: Cali Koch Consult Reason/Comments: SOB/CHEST PAIN/COPD HX Do you want consulting provider notified?: Yes 12/26/23 05:49 Consult Physician Routine Consulting Provider: Omar Richards Consult Reason/Comments: Altered MS Do you want consulting provider notified?: Yes 12/26/23 13:55 Consult Physician Routine Consulting Provider: Sergio Pompa Consult Reason/Comments: failed speech swallow evaluation and voice changes Do you want consulting provider notified?: Already Contacted 12/26/23 15:49 Consult Physician Urgent Consulting Provider: Yohannes Escudero Consult Reason/Comments: possible peg tube placement r/t bilateral vocal cord paralysis Do you want consulting provider notified?: Yes 12/27/23 05:38 Consult Physician Routine Consulting Provider: Ruben Hilliard Consult Reason/Comments: ??CVA and altered MS Do you want consulting provider notified?: Yes Primary care physician: Lucy Hansen [facility] Course: HISTORY OF PRESENT ILLNESS: 68-year-old female [address] Hansen's patient with past medical history of COPD who is currently smoker on regular basis, history of hyper lipidemia, hypothyroidism, chronic back pain, who also has history of chronic neuropathy, chronic depression, restless leg syndrome, chronic anemia. Apparently she was not answering her phone for the last few days, family went to check on her and found her naked and acting more confused she ended up coming to the emergency department where was seen and evaluated she claims she been having chest pain midsternum for the last 3 days without any radiation she been having mild cough and significant shortness of breath without productive phlegm. The EKG in the emergency department showed ST elevation in the inferior lead and diffuse ST depression in the lateral lead. Troponin being elevated patient was diagnosed with STEMI and ended up being taken to the [facility] by Dr. Lu. Heart catheter came back with completely negative blockage. Patient continues to have significant symptoms of shortness of breath with send at point to have CTA to exclude possibility of PE came back negative no sign of infiltrate. Patient had severe abnormal electrolyte imbalance with her sodium, potassium and chloride she ended up being transferred to the ICU resting on BiPAP settings 126 with FiO2 of 50 percentile started to feel little bit better, start replacing her potassium and continue hydration at that point. 12/25/2023: Patient remain in the ICU, remain on BiPAP, she is quite bit confused Was seen pulmonary through the night still on electrolyte replacement therapy. Her oxygen level still quite a bit low in the 80s require BiPAP on more regular basis, vitals improved slight bed, remain little bit tachycardic. Echocardiogram was ordered for this morning still has not been performed yet and as reviewed her entire heart cath and CTA came back to be completely normal. Continue to hydrate patient quite bit for now consult neurology probably further testing including EEG repeat scan of the brain can be beneficial. 12/26/2023: The patient is awake alert she is off the BiPAP sitting on the side of the bed still not acting herself still hypoxic hypophonic when she talk patient has been off asking for speech therapy for swallow evaluation before allowing patient to eat. Her lab value improved to some degree white blood cell is up to 14,000 but cannot state probably steroid-based, potassium still at 3.2: No free T4 was normal but TSH slightly low. Sadly when speech therapy did their assessment came back quite with abnormal and accelerated to an urgent ENT consultation patient ended going for dysphagia and hoarseness evaluation by direct flexible nasopharyngeal laryngoscopy result study came back with bilateral vocal cord paralysis can be consistent with either something obstructive in the neck or related to central stroke affected both sides. Brain scan was done early and there is a consultation from neurology which she has been seen note so far will end up doing CT of the chest and neck CT of the neck shows no finding consistent with any major abnormality on the chest showed no diagnosis of bilateral lower lobe bronchopneumonia greater on the right side more than anything else. At this point of course recommendation is for PEG tube and n.p.o. completely and still asking for neuroconsultation. 12/27/2023: The patient is sitting on the side of the bed able to comprehensive understand was going around more not a lot of information were able to be found for why she has bilateral vocal cord paralysis. She went for her MRI of the brain showed mild atrophy only with no sign and symptom of mass, bleed or metastasis no degenerative element in the brain consistent with an area of concern at this point. Also patient suffering from severe dysphagia scheduled to go for peg tube feeding will alter his feeding completely via PEG tube continue for now. Patient still follow with neurology for any of the possibility might affect both vocal cord including Guillain-Lamb, myasthenia gravis, tumor reflex syndrome, and other so far no finding consistent with it. Patient probably will be able to leave the ICU to go to medical floor after her PEG tube feeding subtle spec ially if she is well-managed with low-flow oxygen at this point. 12/28/2023: She is feeling slightly better is seen urology today still looking through the same possibility of fourth close bilateral vocal cord paralysis without any clear evidence for any existence of any Guillain-Lamb our myasthenia or paralysis or CVA. Pulmonary are happy with patient and set up currently still on mild sedation with Precedex 0.4 mcg/kg/h. White blood cells up to 15.3 to be expected her oxygenation has been much better lately sodium is up and potassium is normal. 12/29/2023: Patient is laying in her bed more comfortable today no major complaint or concern. Laboratory value shows white blood cell of 17,000 electrolyte with potassium is down again to 2.9 and she is on potassium supplement at this point, blood sugar is up to 176 and still on Accu-Chek with sliding scale coverage. Apparently through the weekend the family had visited with patient question or answer and I left a note for the family if they have any concern late in afternoon when I stop by the office to have a meeting to be able to do it on Saturday. 12/30/2023 patient is going up to go for PEG tube today apparently neurology are still thinking about the possibility of Van Cole syndrome which was given by me barium which will affect the brainstem causing encephalopathy and encephalitis. Will consult with anesthesia for lumbar puncture to obtain CSF for and probably GQ 1B. Lumbar puncture expected to be on Saturday hold Lovenox will be held till then. The patient is more congested at night. She probably will need to have PEG and tracheostomy at some point. Otherwise her hypoxia has been slightly bit better including oxygenation on 2 to 3 L O2. Her nutrition status become quite bit down waiting for PEG tube to titrate nutrition consult. 12/31/2023: PEG tube examined patient is doing very well, she is vocalizing much better today compared to the last few days to a degree I believe the vocal cord paralysis is recovering to a slight degree, she is going to see neurology today and probably before the end of the week ENT will do another scope to check on the vocal cord paralysis. As of now she still scheduled for a lumbar puncture with analysis of the spinal fluid for the GQ 1B hopefully the test will be done tomorrow. 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 White blood cell is up a little bit but mostly from her steroid use initially. Potassium is down again to 3.3 which will be on replacement therapy. Blood sugar still mildly elevated. PEG tube feeding has been going well titrate feeding higher try to keep up with her nutrition status. Patient hopefully will be more stable to be able to transfer out of the ICU today. 01/02/2024: She is resting comfortably in her bed in the ICU and should be able to leave the ICU to go to regular medical floor, her respiration is much better so far the airway is more protected. Nutrition with Jevity up to 40 mL/h hopefully titrate to total of 60 by tomorrow if tolerated well. Lab values still showing blood sugar to be slightly bit elevated, kidney function and electrolyte is much better. Patient still doing PT and she will be going to SNF again if not by tomorrow maximum by Saturday. REVIEW OF SYSTEMS: CONSTITUTIONAL: Confused still in mild distress. EYES: No icterus sclerae, no conjunctivitis. EARS, NOSE, MOUTH, THROAT, and FACE: No sore throat, lymphadenopathy, with hoarseness of the voice., carotid bruits or deformity. RESPIRATORY: Slight cough and wheezes. Still having slight wheezes sometimes and hoarseness. CARDIOVASCULAR: Positive chest pain with orthopnea and angina. GASTROINTESTINAL: No Abd pain, Nausea or vomiting, no Diarrhea or constipation, No GI Bleed, no distention or masses. GENITOURINARY: Negative for Hematuria or UTI, no kidney stones. INTEGUMENT/BREAST: Negative for any muscular injury with mild osteoarthritis.. HEMATOLOGIC/LYMPHATIC: Negative for bleed or purpura. MUSCULOSKELTAL: Negative for Myalgia or arthralgia. NEURLOGICAL: No LOC, Sz or syncope, blurred vision dizziness or abnormality.. BEHAVIORAL/PSYCH: Negative. ENDOCRINE: Negative. PHYSICAL EXAMINATION: General Appearance: Alert, mildly confused looks older than her age. Neck HEENT: Supple, no lymphadenopathy, no thyroid enlargement, no carotid bruits. Lungs: Decreased breath sound bilaterally with fine rhonchi with mild expiratory wheezes. Chest Wall: Decreased expansion with deep inspiration no tenderness and no deformity was found on exam, no costochondral pain or discomfort. Heart: Regular rate and rhythm, S1, S2 normal, no murmur, rub or gallop. Back: Symmetric, no curvature, ROM normal, no CVA tenderness. Abdomen: Soft, non-tender, bowel sounds active all four quadrants, no masses, no organomegaly. PEG tube in place looks good with no sign of bleeding. Extremities: Extremities normal, atraumatic, no cyanosis or edema. Pulses: 2+ and symmetric. Skin: Skin color, texture, tugor normal, no rashes or lesions. Neurologic: Alert slightly confused cranial nerves II through XII intact, no motor deficit, no abnormal balance or gait. ASSESSMENT AND PLAN: _Bilateral vocal cord paralysis: Post lumbar puncture still waiting for the title for Van Cole syndrome which is the anti-GQ 1B antibody. Myasthenia gravis antibody is negative. Will continue current management for now patient to be seen ENT in the next 2 weeks for office evaluation for the vocal cord paralysis at that point. _Severe dysphagia: Post PEG tube feeding will continue nutritional management for now continue PEG maintenance. _Acute respiratory failure: Has improved so far patient oxygenation is in the mid 90 on 2 L of oxygen. _Severe chest pain with signs of STEMI: Post heart cath with negative finding with normal coronary artery. This is considered a type II non-STEMI from dehydration and hypoxia. No further cardiac problem at this point and since her heart cath things are better. _Severe electrolyte imbalance including hypokalemia, with lower potassium to the requirement replacement therapy. _Severe altered mental status: Has resolved so far. _Mild anxiety: Can be on oral alprazolam as needed. _Nutrition status: She is on Jevity up to 40s mL per hour titrate up to 60 in t he next 24 hours. _Chronic history of smoking: Smoking cessation was addressed nicotine patch will be started. _Chronic pain syndrome: Will holding off her gabapentin and prednisone No. 4 for now. _ Hyperlipidemia: Continue simvastatin. _Hypothyroidism: Continue levothyroxine 50 mcg daily. If not able to take it orally we will do a trial IV. Prognosis: Fair. Discharge planning patient will be discharged to [facility] living [facility]hab today to continue feeding tube via Jevity 40 cc an hour continuously titrate higher if nutrition feel the need to it. Also will need follow-up with dietitian on weekly basis along with speech therapy. Hospital course: Patient had very atypical presentation with initially quite bit altered mental status when arrived to the emergency room felt she might have been STEMI ended up going to the [facility] result came back negative found out afterward that she was having significant shortness of breath and dyspnea findings are consistent with left upper lobe pneumonia which was treated and patient was seen pulmonary at that point continue on BiPAP and aggressive treatment she required mild sedation while she was in with the voice and shortness of breath and not a clear with going on with her mental status and without seen infectious disease along with neurology MRI of the brain failed to show any major abnormality but still felt to have a course consistent with vocal cord paralysis either caused by Guillain-Lamb syndrome or myasthenia gravis since is not central nervous system stroke. Carotid ultrasound was negative patient ended up seeing ENT found to have bilateral vocal cord paralysis and felt to be possibly related to [place] Lamb of the brainstem. Lumbar puncture with analysis for one of the factor can exist as a protein in the spinal cord wa s done and results still pending at this point. Patient ended up having PEG tube and start feeding via PEG tube and at this point does not require any tracheostomy. Patient is doing very well her vocal cords start recovering to some degree she will have an appointment to go see nuclear power reactor operator in 2 weeks for another vocal cord scope to make sure this is recovering on time. Patient is doing very well should be able to be discharged to senior living rehab to continue feeding via PEG tube and continue supportive care with speech, physical and Occupational Therapy. Time spent on her discharge was more than 40 minutes.. Patient Condition at Discharge: Critical Plan - Discharge Summary New Discharge Prescriptions: New Aspirin 81 mg PO DAILY tab Nicotine 21Mg/24Hr Patch [Habitrol] 1 patch TRANSDERM DAILY patch dexAMETHasone ORAL [Hexadrol] 4 mg PO Q12HR 5 Days #10 tab INSULIN ASPART (NovoLOG) [NovoLOG (formulary)] 0 unit SQ Q6HR each Ipratropium-Albuterol Nebulize [Duoneb 0.5 mg-3 mg/3 ml Soln] 3 ml INHALATION RT-Q4H each Formoterol Fumarate [Perforomist] 20 mcg INHALATION RT-BID ml Continue buPROPion XL [Wellbutrin XL] 300 mg PO DAILY Levothyroxine Sodium [Synthroid] 50 mcg PO DAILY rOPINIRole HCL [Requip] 1 mg PO TID Fluticasone Propion/Salmeterol [Advair Hfa 230-21 Mcg Inhaler] 2 puff INHALATION RT-BID Cyanocobalamin [Vitamin B-12] 500 mcg PO DAILY Cholecalciferol (Vitamin D3) [Vitamin D3 (50 Mcg = 2000 Iu)] 50 mcg PO DAILY Gabapentin [Neurontin] 400 mg PO TID #90 cap Simvastatin [Zocor] 20 mg PO HS Escitalopram [Lexapro] 30 mg PO DAILY Uuz-Xgje-Gyjst Acid [-U Capsule (formulary)] 1 cap PO DAILY Discontinued Doxepin [SINEquan] 10 mg PO HS Naproxen [Naprosyn] 375 mg PO BID-W/MEALS PRN PRN Reason: Pain Discharge Medication List Cholecalciferol (Vitamin D3) [Vitamin D3 (50 Mcg = 2000 Iu)] 50 mcg PO DAILY 12/24/23 [History] Cyanocobalamin [Vitamin B-12] 500 mcg PO DAILY 12/24/23 [History] Escitalopram [Lexapro] 30 mg PO DAILY 12/24/23 [History] Fluticasone Propion/Salmeterol [Advair Hfa 230-21 Mcg Inhaler] 2 puff INHALATION RT-BID 12/24/23 [History] Levothyroxine Sodium [Synthroid] 50 mcg PO DAILY 12/24/23 [History] Onu-Uavj-Apkwa Acid [-U Capsule (formulary)] 1 cap PO DAILY 12/24/23 [History] Simvastatin [Zocor] 20 mg PO HS 12/24/23 [History] buPROPion XL [Wellbutrin XL] 300 mg PO DAILY 12/24/23 [History] rOPINIRole HCL [Requip] 1 mg PO TID 12/24/23 [History] Aspirin 81 mg PO DAILY tab 01/03/24 [Rx] Formoterol Fumarate [Perforomist] 20 mcg INHALATION RT-BID ml 01/03/24 [Rx] Gabapentin [Neurontin] 400 mg PO TID #90 cap 01/03/24 [Rx] INSULIN ASPART (NovoLOG) [NovoLOG (formulary)] 0 unit SQ Q6HR each 01/03/24 [Rx] Ipratropium-Albuterol Nebulize [Duoneb 0.5 mg-3 mg/3 ml Soln] 3 ml INHALATION RT-Q4H each 01/03/24 [Rx] Nicotine 21Mg/24Hr Patch [Habitrol] 1 patch TRANSDERM DAILY patch 01/03/24 [Rx] dexAMETHasone ORAL [Hexadrol] 4 mg PO Q12HR 5 Days #10 tab 01/03/24 [Rx] Follow up Appointment(s)/Referral(s): Lucy Hansen MD [Primary Care Provider] - 1-2 days [facility], [NON-STAFF] - 1 Week Discharge Disposition: TRANSFER TO SNF/ECF
[2024-01-03 08:34] VITALS: PULSE 88
--- NOTE | 2024-01-03 10:40 | P.PN ---
Subjective Progress Note Date: 01/03/24 I am seeing this patient in new consultation today on 12/25/2023 in the intensive care unit. The patient was transferred to the ICU after a heart catheterization for acute hypoxemic respiratory failure and increased oxygen demands. Patient is a 68-year-old white female with past medical history significant for COPD, current ongoing every day smoker, hyperlipidemia, hypothyroidism, chronic back pain. She smokes roughly 1 pack per day. Her primary care provider is Dr. Hansen. Patient had reportedly not been answering her phone for several days, so her daughter went to check on her at home. She reportedly was acting abnormal and confused and found naked. The patient does not recall this. After being brought to the emergency room yesterday afternoon, she was complaining of substernal chest pain that had been ongoing for the last 3 days. This is localized to the substernal area, she denies any radiation. Occurs mostly with coughing. Is associated with shortness of breath, wheezing, and productive cough. Troponins were elevated on arrival and patient had some isolated ST elevation in lead aVR, along with diffuse/generalized ST depression. She was also noted to be hypoxic. Patient was taken for a heart catheterization yeterday afternoon which revealed angiographically normal coronary arteries and left- sided filling pressures. No significant calcifications or coronary thrombus reported. D-dimer was also elevated, and for this reason the patient was sent for a chest CTA which did not show any evidence of pulmonary embolism. While in the intensive care unit, the patient had increased oxygen and was placed on BiPAP settings 12/6 and FiO2 50%. She is currently resting comfortably in bed, on BiPAP with the above-mentioned settings, in no acute respiratory distress. She is achieving tidal volumes of approximately 400 and her respiratory rate is in the mid 20s. She does have a congested cough and wheezing. Occasional has difficulty clearing oral secretions. Denies any fevers at home. She is currently alert and oriented. No signs of hypercapnic encephalopathy. ABGs were obtained earlier and consistent with combined hypoxemic and hypercapnic respiratory failure. She has a component of compensatory metabolic alkalosis and was given a dose of Diamox. CBC on arrival: WBC count 11.5, hemoglobin 17.1, hematocrit 49.2, platelets 331. BMP on arrival: Sodium 128, potassium 2.4, chloride 77, serum bicarb 38, BUN 41, creatinine 1.03, glucose 125. Normal saline is infusing at 75 mL per hour. LFTs mildly elevated. NT proBNP 764. Troponin on arrival 1.03. D-dimer had been elevated at 1.89. Urinalysis not concerning for UTI. Negative for influenza, RSV, COVID-19. Chest x-ray did not show any focal infiltrates or evidence of pneumonia. No acute cardiopulmonary p rocess seen. Patient was covered empirically on a combination of azithromycin and Rocephin. She is afebrile. Vital signs are stable. Patient was reevaluated today on 12/26/2023, remains in the ICU, patient was on BiPAP overnight, transition to nasal cannula 3 L/min this morning. Continues to have intermittent cough and wheezing, patient is having some difficulty swallowing pills, and she will have a swallow evaluation today. Remains on IV fluid at 100 cc/h, remains on bronchodilators, patient is quite hoarse but no stridor. Patient has been maximized on bronchodilators and steroids. WBC count today is 14.1 hemoglobin 13.3 basic metabolic profile is relatively normal, renal profile is normal Patient was reevaluated today on 12/27/2023 remains in the ICU, patient was seen yesterday by ENT, and she was found to have bilateral vocal cord paralysis. According to the patient she has had issues with her voice now for the last 2 months. ENT is recommending PEG tube placement, and this was also recommended by speech therapy, patient is also scheduled to have MRI of the brain today. Aani larson was seen by neurology on consultation. On 3 L nasal cannula, her ABG showed a pO2 of 62 pCO2 34 pH of 7.49, patient is comfortable, she is sitting at the bedside chair, did not use BiPAP in the last 24 hours although BiPAP is at bedside WBC count is 15.1 hemoglobin is 12.9 basic metabolic profile is normal renal profile is normal Patient was reevaluated today on 12/28/2023, remains in the ICU on 3 L nasal cannula, patient is scheduled to have a PEG tube on Saturday, her sodium is a bit high and she is transition now from 0.9 normal saline to D5W at 100 cc/h. Last night the patient became extremely agitated and she was pulling her lines and catheters, hence she was placed on Precedex and remains on Precedex at 0.4 mcg/kg/h. Today she seems to be calm, her MRI is negative nondiagnostic. And again the patient is scheduled for PEG tube placement on Saturday as she had bilateral vocal cord paralysis. Patient is still having difficulty swallowing. WBC count is 15.3 hemoglobin 11.6. ABG yesterday showed a pO2 of 62 pCO2 34 pH of 7.49. Basic metabolic profile is normal except for elevated sodium of 147. And this will be corrected by transitioning her IV fluid to D5W Patient was evaluated today on 12/29/2023, remains in the ICU, seems to be less agitated today, nonetheless patient is on Precedex at 0.3 mcg/kg/h this morning seems to be calm, last night she was quite agitated, patient is not in any distress, on 3 L nasal cannula with O2 sats of 96%, the plan is to proceed with PEG tube placement on this patient mostly because of difficulty swallowing she failed the swallow evaluation, and she has bilateral vocal cord paralysis. WBC count today is 17 hemoglobin is 12 rest of the labs are basically unremarkable except for low potassium of 2.9 being addressed accordingly. The patient is seen today December 30, 2023 in follow-up in the intensive care unit. She is currently resting comfortably in bed. Awake and alert in no acute distress. She has been weaned off the Precedex at approximately 3:00 this morning. She remains on Ativan as needed. She is continued on bronchodilators. Chest x-ray reveals scattered airspace opacities throughout the lungs with right lower lobe opacity, no significant changes. She is currently on 6 L high flow nasal cannula. She is noted to have bilateral vocal cord paralysis. The plan is for PEG tube insertion today. She is continue on D5W at 100 MLS per hour. White count 20.7. Hemoglobin 13.7. Platelets 227. Sodium 135. Po tassium 4.8. Bicarb 27. BUN 15. Creatinine 0.50. Glucose 222. She remains on ceftriaxone, steroids and bronchodilators. Lovenox for DVT prophylaxis. The patient is seen today December 31, 2023 in follow-up in the intensive care unit. She is awake and alert. Resting in bed. She is maintaining O2 saturations in the mid 90s on 4 L/min per nasal cannula. She has been afebrile. Hemodynamically stable. She did undergo PEG tube placement yesterday with nutrition to start later today. She is currently on D5W at 100 MLS per hour. Her sodium has improved to 135. Potassium 3.9. Bicarb 29. BUN 14. Creatinine 0.51. Glucose 183. White count 24.9. Hemoglobin 14.0. Platelets 242. She re donna on bronchodilators, steroids. Antibiotics in the form of ceftriaxone. Lovenox for DVT prophylaxis. NicoDerm patch in place. Chest x-ray shows scattered multifocal opacities but no significant consolidation, no pneumothorax, no pleural effusion. The patient is seen today January 01, 2024 in follow-up in the intensive care unit. She is currently sitting up in bed. Awake and alert in no acute distress. She did undergo PEG tube placement. She is currently on Jevity at 30 MLS per hour with a goal of 40 MLS per hour. She is having some issues with stridor. She has been initiated on Decadron. She is continued on bronchodilators. She did undergo a lumbar puncture yesterday. Fluid analysis reveals high RBCs at 198, high glucose 102, high protein 96. Cultures are pending. White count 22.2. Hemoglobin 13.2. Sodium 137. Potassium 2.7. Bicarb 33. BUN 15. Creatinine 0.69. Glucose 134. Chest x-ray continues to show stable appearance with scattered subtle airspace opacities. The patient is seen today January 02, 2024 in follow-up in the intensive care unit. She is currently up in a chair. Awake and alert in no acute distress. She is maintaining O2 saturations in the 90s on 2 L/min per nasal cannula. No IV fluids. She remains nourished via her PEG tube with Jevity at 40 MLS per hour which is goal. She has less stridor today. She is continued on Decadron. Remains on bronchodilators. Lovenox for DVT prophylaxis. NicoDerm patch in place. White count 16.0. Hemoglobin 12.3. Platelets 230. Sodium 135. Potassium 3.9. Bicarb 36. BUN 15. Creatinine 0.56. Glucose 144. The patient is seen today January 03, 2024 in follow-up on the regular medical floor. She was transferred out of the ICU yesterday. She is resting comfortably in bed. Awake and alert in no acute distress. Maintaining O2 saturations in the 90s on 2 L/min per nasal cannula. Glucose 183. She is continued on DuoNeb ventilations, Pulmicort and performing scintillations, Lovenox for DVT prophylaxis. Remains on Decadron. She is being nourished with Jevity at 40 MLS per hour. Objective - Vital Signs Vital signs: Vital Signs Temp 98.7 F 01/03/24 07:22 Pulse 88 01/03/24 08:08 Resp 18 01/03/24 07:22 BP 132/73 01/03/24 07:22 Pulse Ox 95 01/03/24 07:22 FiO2 50 12/26/23 07:48 Intake & Output 01/02/24 01/03/24 01/03/24 18:59 06:59 18:59 Intake Total 40 Output Total 1 0 Balance 39 0 Weight 71 kg 72 kg Intake: Tube Feeding 40 Output: Urine 0 Stool 1 Other: Voiding Method Diaper Diaper # Voids 1 2 # Bowel Movements 1 1 - Exam GENERAL EXAM: Alert, pleasant 68-year-old female, resting in bed, on 2 L nasal cannula, in no acute distress. HEAD: Normocephalic and atraumatic. EYES: Normal reaction of pupils, equal size. NOSE: Clear with pink turbinates. THROAT: Dry mucous membranes, patient continues to have voice hoarseness NECK: No masses, no JVD. Faint stridor noted. CHEST: No chest wall deformity. LUNGS: Diminished breath sounds at the bases no crackles rhonchi or wheezes CVS: S1 and S2 normal with no audible murmur, regular rhythm. No extra heart sounds ABDOMEN: PEG tube exit site is clean and dry. No hepatosplenomegaly, active bowel sounds, no guarding or rigidity. SKIN: No rashes CENTRAL NERVOUS SYSTEM: Alert oriented x 3 no focal deficit EXTREMITIES: No clubbing edema or cyanosis - Labs CBC & Chem 7: 01/02/24 03:54 01/02/24 10:34 Labs: Abnormal Lab Results - Last 24 Hours (Table) 01/02/24 01/02/24 01/02/24 Range/Units 11:38 18:03 23:48 POC Glucose (mg/dL) 178 H 219 H 166 H (70-110) mg/dL 01/03/24 Range/Units 05:46 POC Glucose (mg/dL) 183 H (70-110) mg/dL Microbiology - Last 24 Hours (Table) 12/31/23 16:43 CSF Gram Stain - Preliminary Cerebral Spinal Fluid CSF Culture - Preliminary Assessment and Plan Assessment: Acute hypoxic and hypercapnic respiratory failure secondary to an acute exacerbation of COPD possible aspiration Acute toxic metabolic encephalopathy with hypercapnia. Lumbar puncture performed 12/31/2023. Cultures revealed no growth Bilateral vocal cord paralysis Dysphagia secondary to vocal cord paralysis and dysphonia, PEG tube placed 12/30/2023 Electrolytes imbalance including hyponatremia and hypokalemia Severe underlying COPD Tobacco dependence syndrome Hypothyroidism Dyslipidemia Chronic pain syndrome History of anxiety and depression Status post cardiac catheterization on 12/24/2023, and normal coronary findings noted. Plan: The patient was seen and evaluated Labs and medications reviewed Discontinue Decadron Continue Jevity tube feedings Continue bronchodilators Plan is for subacute rehabilitation at [facility] today This patient was seen independently by the pulmonary nurse practitioner addressing pulmonary issues I have personally seen and examined the patient, performed the documentation and the assessment and plan as written. Number of minutes spent on the visit: 10.
--- NOTE | 2024-01-03 13:40 | P.PN ---
Subjective Progress Note Date: 01/03/24 CHIEF COMPLAINT: Dysphagia HISTORY OF PRESENT ILLNESS: Patient postop day #4 status post PEG tube placeme nt. Patient is tolerating tube feeds. Currently tube feeds are at 40 mL/h. Denies any vomiting or nausea. Afebrile. Patient scheduled for discharge today. Patient scheduled for discharge today. PHYSICAL EXAM: VITAL SIGNS: Reviewed. GENERAL: no acute distress. ABDOMEN: Soft. Nondistended. PEG tube site clean dry and intact ASSESSMENT: 1. Dysphagia 2. Failed swallow eval 3. Bilateral vocal cord paralysis 4. Mild protein calorie malnutrition PLAN: -Dietitian to continue to titrate tube feeds -Continue supportive care -Surgical service will sign off. Please call with any questions or concerns Physician Gastrointestinal Technician note has been reviewed by physician. Signing provider agrees with the documented findings, assessment, and plan of care. Objective - Vital Signs Vital signs: Vital Signs Temp 98.7 F 01/03/24 07:22 Pulse 88 01/03/24 08:08 Resp 18 01/03/24 07:22 BP 132/73 01/03/24 07:22 Pulse Ox 95 01/03/24 07:22 FiO2 50 12/26/23 07:48 Intake & Output 01/02/24 01/03/24 01/03/24 18:59 06:59 18:59 Intake Total 40 Output Total 1 0 Balance 39 0 Weight 71 kg 72 kg Intake: Tube Feeding 40 Output: Urine 0 Stool 1 Other: Voiding Method Diaper Diaper Diaper # Voids 1 2 # Bowel Movements 1 1 - Labs CBC & Chem 7: 01/02/24 03:54 01/02/24 10:34 Labs: Abnormal Lab Results - Last 24 Hours (Table) 01/02/24 01/02/24 01/03/24 Range/Units 18:03 23:48 05:46 POC Glucose (mg/dL) 219 H 166 H 183 H (70-110) mg/dL Microbiology - Last 24 Hours (Table) 12/31/23 16:43 CSF Gram Stain - Preliminary Cerebral Spinal Fluid CSF Culture - Preliminary
== END 2024-01-03 11:50 | DRG 189 ==
LOC: EC 14:11 → 2SICU 15:06 → 5NMEDONC 01-02 15:31
PROVIDERS: ADMIT Internal Medicine Geriatric Medicine; ATTEND Internal Medicine Geriatric Medicine
PROC: 5A09357 Assistance with Respiratory Ventilation, Less than 24 Consecutive Hours, Continuous Positive Airway Pressure (ICD-10-PCS; 2023-12-24)
PROC: 4A023N7 Measurement of Cardiac Sampling and Pressure, Left Heart, Percutaneous Approach (ICD-10-PCS; principal; 2023-12-24 17:30)
PROC: B2111ZZ Fluoroscopy of Multiple Coronary Arteries using Low Osmolar Contrast (ICD-10-PCS; 2023-12-24 17:30)
PROC: 0CJS8ZZ Inspection of Larynx, Via Natural or Artificial Opening Endoscopic (ICD-10-PCS; 2023-12-26)
PROC: 0DH63UZ Insertion of Feeding Device into Stomach, Percutaneous Approach (ICD-10-PCS; 2023-12-30)
PROC: 3E0G76Z Introduction of Nutritional Substance into Upper GI, Via Natural or Artificial Opening (ICD-10-PCS; 2023-12-30)
PROC: 009U3ZX Drainage of Spinal Canal, Percutaneous Approach, Diagnostic (ICD-10-PCS; 2023-12-31)
DX: J96.01 Acute respiratory failure with hypoxia (principal); G92.8 Other toxic encephalopathy; I21.A1 Myocardial infarction type 2; J69.0 Pneumonitis due to inhalation of food and vomit; G61.0 Guillain-Barre syndrome; E44.1 Mild protein-calorie malnutrition; J44.1 Chronic obstructive pulmonary disease with (acute) exacerbation; E87.3 Alkalosis; E87.0 Hyperosmolality and hypernatremia; E87.1 Hypo-osmolality and hyponatremia; J96.02 Acute respiratory failure with hypercapnia; R13.13 Dysphagia, pharyngeal phase; J38.02 Paralysis of vocal cords and larynx, bilateral; R62.7 Adult failure to thrive; E87.8 Other disorders of electrolyte and fluid balance, not elsewhere classified; F32.A Depression, unspecified; E03.9 Hypothyroidism, unspecified; E86.0 Dehydration; G89.4 Chronic pain syndrome; F17.210 Nicotine dependence, cigarettes, uncomplicated; T43.596A Underdosing of other antipsychotics and neuroleptics, initial encounter; T42.8X6A Underdosing of antiparkinsonism drugs and other central muscle-tone depressants, initial encounter; T43.296A Underdosing of other antidepressants, initial encounter; T43.226A Underdosing of selective serotonin reuptake inhibitors, initial encounter; Z79.891 Long term (current) use of opiate analgesic; E87.6 Hypokalemia; E78.5 Hyperlipidemia, unspecified; G25.81 Restless legs syndrome; M54.9 Dorsalgia, unspecified; G62.9 Polyneuropathy, unspecified; R29.810 Facial weakness; F41.9 Anxiety disorder, unspecified; D64.89 Other specified anemias; Z91.148 Patient's other noncompliance with medication regimen for other reason; Z79.890 Hormone replacement therapy; Z79.899 Other long term (current) drug therapy; Z79.51 Long term (current) use of inhaled steroids; Z79.1 Long term (current) use of non-steroidal anti-inflammatories (NSAID); Z88.0 Allergy status to penicillin; Z88.2 Allergy status to sulfonamides; Z68.27 Body mass index [BMI] 27.0-27.9, adult
CPT/HCPCS: 36410; 36415; 36600; 43246; 70450; 70491; 70553; 71045; 71260; 71275; 76937; 80048; 80053; 80061; 80306; 80320; 81001; 82550; 82607; 82746; 82805; 82945; 83036; 83605; 83735; 83873; 83880; 84132; 84145; 84157; 84439; 84443; 84484; 85025; 85027; 85379; 85610; 85730; 86041; 86255; 87040; 87070; 87205; 87496; 87498; 87529; 87636; 87798; 88108; 89050; 93005; 93306; 93458; 93880; 94640; 94660; 95816; 96374; 99291

== ENCOUNTER 2024-01-13 10:39 | Inpatient (IN) | payer MEDICARE, OTHER ==
--- NOTE | 2024-01-13 11:09 | ED ---
General Adult HPI - General Chief complaint: Chest Pain Stated complaint: Abd Pain Time Seen by Provider: 01/13/24 11:00 Source: patient, EMS, RN notes reviewed, old records reviewed Mode of arrival: EMS Limitations: no limitations - History of Present Illness Initial comments: This is a 68-year-old female who presents to the emergency department initially stating she had abdominal pain but after she was here for about 15 minutes she started saying it is really chest pain. Patient states that started about an hour ago though she told nursing it started yesterday. Patient states the pain is also causing her some shortness of breath and it radiates a little bit to her back. Patient denies any diaphoretic episode. Patient denies any recent fever chills or cough. Patient states she is mildly nauseated. Patient denies any previous heart history or diabetes. Patient states she does have high blood pressure and high cholesterol. - Related Data Home Medications Medication Instructions Recorded Confirmed Cholecalciferol (Vitamin D3) 50 mcg PEG/G-TUBE DAILY 12/24/23 01/13/24 [Vitamin D3 (50 Mcg = 2000 Iu)] Cyanocobalamin [Vitamin B-12] 500 mcg PEG/G-TUBE DAILY 12/24/23 01/13/24 Escitalopram [Lexapro] 30 mg PEG/G-TUBE DAILY 12/24/23 01/13/24 Levothyroxine Sodium [Synthroid] 50 mcg PEG/G-TUBE DAILY 12/24/23 01/13/24 buPROPion XL [Wellbutrin XL] 300 mg PEG/G-TUBE DAILY 12/24/23 01/13/24 rOPINIRole HCL [Requip] 1 mg PEG/G-TUBE TID 12/24/23 01/13/24 Acetaminophen Tab [Tylenol] 650 mg PEG/G-TUBE Q6H PRN 01/13/24 01/13/24 Aspirin 81 mg PEG/G-TUBE DAILY 01/13/24 01/13/24 Atorvastatin [Lipitor] 10 mg PEG/G-TUBE HS 01/13/24 01/13/24 Fluticasone Propion/Salmeterol 1 puff INHALATION RT-BID 01/13/24 01/13/24 [Wixela 500-50 Inhub] Gabapentin [Neurontin] 400 mg PEG/G-TUBE TID 01/13/24 01/13/24 Insulin Lispro See Protocol SQ Q6H 01/13/24 01/13/24 Multivitamins, Thera [Multivitamin 1 tab PEG/G-TUBE DAILY 01/13/24 01/13/24 (formulary)] Vancomycin HCl [Vancomycin HCl 125 mg PEG/G-TUBE QID 01/13/24 01/13/24 Oral Soln] Previous Rx's Medication Instructions Recorded Formoterol Fumarate [Perforomist] 20 mcg INHALATION RT-BID ml 01/03/24 Ipratropium-Albuterol Nebulize 3 ml INHALATION RT-Q4H each 01/03/24 [Duoneb 0.5 mg-3 mg/3 ml Soln] Nicotine 21Mg/24Hr Patch [Habitrol] 1 patch TRANSDERM DAILY patch 01/03/24 Allergies Allergy/AdvReac Type Severity Reaction Status Date / Time Penicillins Allergy Anaphylaxis Verified 01/13/24 14:54 Sulfa (Sulfonamide Allergy Anaphylaxis Verified 01/13/24 14:54 Antibiotics) Review of Systems ROS Statement: Those systems with pertinent positive or pertinent negative responses have been documented in the HPI. ROS Other: All systems not noted in ROS Statement are negative. Past Medical History Past Medical History: No Reported History, COPD, Hyperlipidemia, Thyroid Disorder Additional Past Medical History / Comment(s): back pain, hypoyhyroid History of Any Multi-Drug Resistant Organisms: C-DIFF Date of last positivie culture/infection: 01/12/24 Past Surgical History: Hysterectomy Past Anesthesia/Blood Transfusion Reactions: Unable to Obtain Past Psychological History: No Psychological Hx Reported Smoking Status: Current every day smoker Past Alcohol Use History: Daily Past Drug Use History: Marijuana General Exam - General Exam Comments Initial Comments: GENERAL: Patient is well-developed and well-nourished. Patient is nontoxic and well- hydrated and is in mild distress. ENT: Neck is soft and supple. No significant lymphadenopathy is noted. Oropharynx is clear. Dry mucous membranes. Neck has full range of motion without eliciting any pain. There is no thyroid enlargement and no masses were felt. EYES: The sclera were anicteric and conjunctiva were pink and moist. Extraocular movements were intact and pupils were equal round and reactive to light. Eyelids were unremarkable. PULMONARY: Unlabored respirations. Good breath sounds bilaterally. No audible rales rhonchi or wheezing was noted. CARDIOVASCULAR: Patient is tachycardic at 130 beats a minute femoral pulses are equal bilaterally ABDOMEN: Soft and nontender with normal bowel sounds. No palpable organomegaly was noted. There is no palpable pulsatile mass. SKIN: Skin is clear with no lesions or rashes and otherwise unremarkable. NEUROLOGIC: Patient is alert and oriented x3. Cranial nerves II through XII are grossly intact. Motor and sensory are also intact. Normal speech, volume and content. Symmetrical smile. Cerebellar exam grossly intact. MUSCULOSKELETAL: Normal extremities with adequate strength and full range of motion. No lower extremity swelling or edema. No calf tenderness. LYMPHATICS: No significant lymphadenopathy is noted PSYCHIATRIC: Normal psychiatric evaluation. Limitations: no limitations Course Vital Signs 01/13/24 01/13/24 01/13/24 10:48 11:36 11:42 Temperature 98.2 F Pulse Rate 131 H 138 H 135 H Pulse Rate [ Stock Broker ] Respiratory 22 22 Rate Blood Pressure 119/95 101/71 75/49 O2 Sat by Pulse 96 99 Oximetry 01/13/24 01/13/24 01/13/24 11:46 12:13 13:25 Temperature Pulse Rate 115 H 112 H Pulse Rate [ Stock Broker ] Respiratory 131 H 18 17 Rate Blood Pressure 92/65 120/79 102/81 O2 Sat by Pulse 100 96 97 Oximetry 01/13/24 01/13/24 13:34 15:24 Temperature Pulse Rate 120 H Pulse Rate [ 113 H Stock Broker ] Respiratory 20 Rate Blood Pressure 116/103 O2 Sat by Pulse 97 Oximetry Medical Decision Making - Medical Decision Making EKG shows tachycardia at 131 bpm there it is a possible 2-1 AV block of a flutter. Patient's SC interval is 95 QRS is 83 QT interval 338 QTc is 415. Patient's EKG shows ST segment elevation at aVR and ST segment depression in 2 3 aVF and in precordial leads V2 through V6 these changes were also seen on a previous EKG Was pt. sent in by a medical professional or institution (, PA, FACILITIES MAINTENANCE WORKER, urgent care, hospital, or senior living...) When possible be specific @ -No Did you speak to anyone other than the patient for history (EMS, parent, family, police, friend...)? What history was obtained from this source @ -No Did you review nursing and triage notes (agree or disagree)? Why? @ -I reviewed and agree with nursing and triage notes Were old charts reviewed (outside hosp., previous admission, EMS record, old EKG, old radiological studies, urgent care reports/EKG's, senior living records)? Report findings @ -I reviewed prior charts and prior lab work on the patient. Differential Diagnosis (chest pain, altered mental status, abdominal pain women, abdominal pain men, vaginal bleeding, weakness, fever, dyspnea, syncope, headache, dizziness, GI bleed, back pain, seizure, CVA, palpatations, mental health, musculoskeletal)? @ -Differential Chest Pain: Stable Angina, Unstable Angina, STEMI, NSTEMI Aortic Dissection, Pneumothorax, Musculoskeletal, Esophageal Spasm GERD, Cholecystitis, Pancreatitis, Zoster, this is not meant to be an all-inclusive list. EKG interpreted by me (3pts min.). @ -As above X-rays interpreted by me (1pt min.). @ -Chest x-ray shows no acute abnormality CT interpreted by me (1pt min.). @ -None done U/S interpreted by me (1pt. min.). @ -None done What testing was considered but not performed or refused? (CT, X-rays, U/S, labs)? Why? @ -None What meds were considered but not given or refused? Why? @ -None Did you discuss the management of the patient with other professionals (professionals i.e. , PA, FACILITIES MAINTENANCE WORKER, lab, RT, psych nurse, web content & social media manager, magnetic resonance technologist, teacher, transport corps officer, pillowcase cleaner)? Give summary @ -I spoke with Dr. Moser and he agreed to admit the patient admitted the patient wrote admitting orders Was smoking cessation discussed for >3mins.? @ -No Was critical care preformed (if so, how long)? @ -No Were there social determinants of health that impacted care today? How? (Homelessness, low income, unemployed, alcoholism, drug addiction, petersen sportation, low edu. Level, literacy, decrease access to med. care, skilled nursing, rehab)? @ -No Was there de-escalation of care discussed even if they declined (Discuss DNR or withdrawal of care, Hospice)? DNR status @ -No What co-morbidities impacted this encounter? (DM, HTN, Smoking, COPD, CAD, Cancer, CVA, ARF, Chemo, Hep., AIDS, mental health diagnosis, sleep apnea, morbid obesity)? @ -None Was patient admitted / discharged? Hospital course, mention meds given and route, prescriptions, significant lab abnormalities, going to OR and other pertinent info. @ -Patient came in complaining of chest pain EKG was suspicious No changes were seen on previous EKGs patient was started on heparin as she will be EKG immediately to Dr. Gee the lithographing machine operator and he agreed it was suspicious he agreed with the heparin patient did have a cardiac catheterization this month and it was normal. Patient's troponin was mildly bumped it will be repeated as an inpatient. I spoke with Dr. Moser he agreed admit the patient admit the patient I consulted cardiology. EKG did show a possible flutter but her heart rate did come down to 110 beats a minute with fluids so no Cardizem was started at this time. Patient also was diagnosed with C. difficile yesterday. Undiagnosed new problem with uncertain prognosis? @ -No Drug Therapy requiring intensive monitoring for toxicity (Heparin, Nitro, Insulin, Cardizem)? @ -No Were any procedures done? @ -No Diagnosis/symptom? @ -Chest pain Acute, or Chronic, or Acute on Chronic? @ -Acute Uncomplicated (without systemic symptoms) or Complicated (systemic symptoms)? @ -Complicated Side effects of treatment? @ -No Exacerbation, Progression, or Severe Exacerbation? @ -No Poses a threat to life or bodily function? How? (Chest pain, [place], [place], pneumonia, PE, COPD, DKA, ARF, appy, cholecystitis, CVA, Diverticulitis, Homicidal, Suicidal, threat to staff... and all critical care pts) @ -Yes this could lead to an [place] and endorgan dysfunction Diagnosis/symptom? @ -C. difficile Acute, or Chronic, or Acute on Chronic? @ -Acute Uncomplicated (without systemic symptoms) or Complicated (systemic symptoms)? @ -Complicated Side effects of treatment? @ -None Exacerbation, Progression, or Severe Exacerbation] @ -No Poses a threat to life or bodily function? @ -Yes this can lead to dehydration and poor perfusion and endorgan dysfunction Diagnosis/symptom? @ -Hyponatremia Acute, or Chronic, or Acute on Chronic? @ -Acute Uncomplicated (without systemic symptoms) or Complicated (systemic symptoms)? @ -Complicated Side effects of treatment? @ -None Exacerbation, Progression, or Severe Exacerbation] @ -No Poses a threat to life or bodily function? @ -No Patient had more chest pain in the emergency department so repeat EKG was done that showed sinus tachycardia at 114 bpm SC was 104 QRS is 89 QT interval 332 QTc is 399. Patient's EKG showed ST segment elevation in aVR and depression and Ali inferior leads as well as precordial leads V3 through V6. - Lab Data Result diagrams: 01/13/24 11:19 01/13/24 11:19 Lab Results 01/13/24 01/13/24 01/13/24 Range/Units 11:19 11:19 11:19 WBC 10.3 (3.8-10.6) k/uL RBC 6.82 H (3.80-5.40) m/uL Hgb 19.9 H* D (11.4-16.0) gm/dL Hct 59.0 H* (34.0-46.0) % MCV 86.4 (80.0-100.0) fL MCH 29.2 (25.0-35.0) pg MCHC 33.8 (31.0-37.0) g/dL RDW 13.8 (11.5-15.5) % Plt Count 296 (150-450) k/uL MPV 10.1 Neutrophils % (Manual) 61 % Band Neuts % (Manual) 15 % Lymphocytes % (Manual) 16 % Monocytes % (Manual) 7 % Eosinophils % (Manual) 1 % Metamyelocytes % 2 % Neutrophils # (Manual) 7.80 H (1.3-7.7) k/uL Lymphocytes # (Manual) 1.65 (1.0-4.8) k/uL Monocytes # (Manual) 0.72 (0-1.0) k/uL Eosinophils # (Manual) 0.10 (0-0.7) k/uL Metamyelocytes # (Man) 0.21 H (0) k/uL Nucleated RBCs 0 (0-0) /100 WBC Manual Slide Review Performed Toxic Granulation Present Toxic Vacuolation Present PT (10.0-12.5) sec INR (<1.2) APTT (22.0-30.0) sec Sodium 122 L (137-145) mmol/L Potassium 5.3 H (3.5-5.1) mmol/L Chloride 83 L (98-107) mmol/L Carbon Dioxide 22 (22-30) mmol/L Anion Gap 17 mmol/L BUN 47 H (7-17) mg/dL Creatinine 1.59 H (0.52-1.04) mg/dL Est GFR (CKD-EPI)AfAm 38 (>60 ml/min/1.73 sqM) Est GFR (CKD-EPI)NonAf 33 (>60 ml/min/1.73 sqM) Glucose 279 H (74-99) mg/dL Calcium 8.7 (8.4-10.2) mg/dL Magnesium 3.0 H (1.6-2.3) mg/dL Total Bilirubin 0.8 (0.2-1.3) mg/dL AST 55 H (14-36) U/L ALT 62 H (4-34) U/L Alkaline Phosphatase 145 H (38-126) U/L Troponin I 0.090 H* (0.000-0.034) ng/mL Total Protein 6.2 L (6.3-8.2) g/dL Albumin 3.0 L (3.5-5.0) g/dL 01/12/ Range/Units 12:08 WBC (3.8-10.6) k/uL RBC (3.80-5.40) m/uL Hgb (11.4-16.0) gm/dL Hct (34.0-46.0) % MCV (80.0-100.0) fL MCH (25.0-35.0) pg MCHC (31.0-37.0) g/dL RDW (11.5-15.5) % Plt Count (150-450) k/uL MPV Neutrophils % (Manual) % Band Neuts % (Manual) % Lymphocytes % (Manual) % Monocytes % (Manual) % Eosinophils % (Manual) % Metamyelocytes % % Neutrophils # (Manual) (1.3-7.7) k/uL Lymphocytes # (Manual) (1.0-4.8) k/uL Monocytes # (Manual) (0-1.0) k/uL Eosinophils # (Manual) (0-0.7) k/uL Metamyelocytes # (Man) (0) k/uL Nucleated RBCs (0-0) /100 WBC Manual Slide Review Toxic Granulation Toxic Vacuolation PT 12.3 (10.0-12.5) sec INR 1.2 H (<1.2) APTT 65.3 H (22.0-30.0) sec Sodium (137-145) mmol/L Potassium (3.5-5.1) mmol/L Chloride (98-107) mmol/L Carbon Dioxide (22-30) mmol/L Anion Gap mmol/L BUN (7-17) mg/dL Creatinine (0.52-1.04) mg/dL Est GFR (CKD-EPI)AfAm (>60 ml/min/1.73 sqM) Est GFR (CKD-EPI)NonAf (>60 ml/min/1.73 sqM) Glucose (74-99) mg/dL Calcium (8.4-10.2) mg/dL Magnesium (1.6-2.3) mg/dL Total Bilirubin (0.2-1.3) mg/dL AST (14-36) U/L ALT (4-34) U/L Alkaline Phosphatase (38-126) U/L Troponin I (0.000-0.034) ng/mL Total Protein (6.3-8.2) g/dL Albumin (3.5-5.0) g/dL Disposition Clinical Impression: Chest pain, C. difficile diarrhea, Elevated troponin, Hyponatremia Disposition: ADMITTED IP TO THIS [facility] Time of Disposition: 14:31
[2024-01-13] MEDS: ASPIRIN 81 MG PO STA (11:17)
[2024-01-13] MEDS: NITROGLYCERIN SL TABS 0.4 MG TAB SUBLINGUAL STA (11:17)
[2024-01-13] MEDS: NITROGLYCERIN OINT 1 INCH/GM PACKET TOPICAL STA (11:17)
[2024-01-13] MEDS: SODIUM CHLORIDE 0.9% 1,000 ML IV STA (11:18)
[2024-01-13 11:32] LABS: MCH 29.2 pg (25.0-35.0); MCHC 33.8 g/dL (31.0-37.0); MCV 86.4 fL (80.0-100.0); Mean Platelet Volume 10.1; Platelet Count 296 k/uL (150-450); RBC 6.82 m/uL (3.80-5.40); RDW 13.8 % (11.5-15.5); WBC 10.3 k/uL (3.8-10.6)
[2024-01-13] MEDS: HEPARIN SOD,PORK IN 0.45% NACL 25,000 UNIT in 0.45% NACL 1 250ML.BAG IV SCH (11:32)
[2024-01-13] MEDS: HEPARIN SODIUM 1,000 UN/ML (10ML VL) IV ONE (11:33)
[2024-01-13 11:41] LABS: HGB 19.9 gm/dL (11.4-16.0)
[2024-01-13 11:43] LABS: AST 55 U/L (14-36); African American GFR (CKD) 38 (>60 ml/min/1.73 sqM); Alkaline Phosphatase 145 U/L (38-126); Anion Gap 17 mmol/L; Blood Urea Nitrogen 47 mg/dL (7-17); Calcium 8.7 mg/dL (8.4-10.2); Carbon Dioxide 22 mmol/L (22-30); Chloride 83 mmol/L (98-107); Glucose 279 mg/dL (74-99); Non-African American GFR(CKD) 33 (>60 ml/min/1.73 sqM); Sodium 122 mmol/L (137-145); Total Bilirubin 0.8 mg/dL (0.2-1.3); Total Protein 6.2 g/dL (6.3-8.2)
[2024-01-13 12:25] LABS: Potassium 5.3 mmol/L (3.5-5.1)
[2024-01-13 12:40] LABS: ALT 62 U/L (4-34)
[2024-01-13 12:51] LABS: INR 1.2 (<1.2); Prothrombin Time 12.3 sec (10.0-12.5)
[2024-01-13 13:07] LABS: Partial Thromboplastin Time 65.3 sec (22.0-30.0)
[2024-01-13] MEDS: SODIUM CHLORIDE 0.9% 500 ML 500 ML IV ONE (13:22)
[2024-01-13 14:03] LABS: Band Neutrophils % 15 %; Lymphocytes # (M) 1.65 k/uL (1.0-4.8); Metamyelocytes # (M) 0.21 k/uL (0); Metamyelocytes % 2 %; Monocytes # (M) 0.72 k/uL (0-1.0); Neutrophils % (M) 61 %; Nucleated Red Blood Cells 0 /100 WBC (0-0); Total Cells Counted 200
[2024-01-13 14:04] LABS: Toxic Granulation Present; Toxic Vacuolation Present
[2024-01-13] MEDS ORDERED: NITROGLYCERIN SL TABS 0.4 MG TAB SUBLINGUAL PRN (14:32)
[2024-01-13] MEDS: ACETAMINOPHEN ORAL SUSP 160 MG/5 ML CUP PEG/G-TUBE ONE (15:00)
[2024-01-13] MEDS: ONDANSETRON 4 MG/2 ML VIAL IVP STA (15:22)
--- NOTE | 2024-01-13 15:26 | XR ---
EXAMINATION TYPE: XR chest 1V portable DATE OF EXAM: 01/13/2024 3:19 PM CLINICAL INDICATION:Female, 68 years old with history of Chest Pain COMPARISON: Chest radiographs from 01/01/2024 TECHNIQUE: XR chest 1V portable Frontal view of the chest. FINDINGS: Lungs/Pleura: There is no evidence of pleural effusion, focal consolidation, or pneumothorax. Pulmonary vascularity: Unremarkable. Heart/mediastinum: Cardiomediastinal silhouette is unremarkable. Musculoskeletal: No acute osseous pathology. IMPRESSION: No acute cardiopulmonary disease/process.
[2024-01-13] MEDS ORDERED: VANCOMYCIN 125 MG CAPSULE PO SCH (18:00)
[2024-01-13] MEDS ORDERED: ACETAMINOPHEN TAB 325 MG TAB PEG/G-TUBE PRN (18:03)
[2024-01-13] MEDS ORDERED: HYDROcodone/APAP 5-325MG 1 EACH TAB PO PRN (18:07)
[2024-01-13] MEDS: IPRATROPIUM-ALBUTEROL 3 ML NEB INHALATION SCH (18:32)
[2024-01-13] MEDS ORDERED: FORMOTEROL FUMARATE 20 MCG/2 ML NEBU INHALATION SCH (20:00)
[2024-01-13 20:05] VITALS: BP 90/75; RESP 22
[2024-01-13] MEDS: SYMBICORT 160-4.5 MCG INHALER INHALATION SCH (20:37)
[2024-01-13] MEDS ORDERED: IPRATROPIUM-ALBUTEROL 3 ML NEB INHALATION PRN (20:41)
[2024-01-13 20:57] LABS: Glucose,Whole Blood 202 mg/dL (70-110)
[2024-01-13] MEDS ORDERED: ATORVASTATIN 10 MG TAB PEG/G-TUBE SCH (21:00)
[2024-01-13] MEDS ORDERED: METOPROLOL TARTRATE 25 MG TAB PO SCH (21:00)
[2024-01-13 21:08] VITALS: PULSE 108
[2024-01-13 21:40] VITALS: TEMP 99.9
[2024-01-13] MEDS ORDERED: VANCOMYCIN HCL PEG/G-TUBE SCH (22:00)
[2024-01-13] MEDS ORDERED: GABAPENTIN 400 MG CAP PEG/G-TUBE SCH (22:00)
[2024-01-13] MEDS ORDERED: INSULIN LISPRO (For Pump) 100 UNIT/ML VIAL SQ-PUMP SCH (22:00)
--- NOTE | 2024-01-13 22:30 | P.HPIM ---
History of Present Illness H&P Date: 01/13/24 HISTORY OF PRESENT ILLNESS: 68-year-old who is known from last admission on 12/24/2023 I was in at the time for severe chest pain with ST PA and severe shortness of breath along with severe electrolyte imbalance ended up going to the [facility] with Dr. Lu for an elevated troponin with ST elevation result came back with no acute finding consistent with any blockage require angioplasty or stent placement. Patient continued to have severe dyspnea and shortness of breath and ended up having an elevated D-dimer with CTA did not show any major abnormality with PE at the time patient was in acute respiratory failure require BiPAP with mild to moderate COPD exacerbation along with altered mental status; ended up going for CT of the brain with no major finding consistent with any bleed. Also has severe dehydration with acute kidney injury was on IV hydration initially which have helped some. Patient was acting at the time with sepsis with everything else go ing on ended up on IV antibiotics. The following 10 days patient was seen multi subspecialist consistent with neurology, pulmonary, ENT, infectious disease and was continue on BiPAP initially ended up running many testing including EEG, MRI of the brain, and up seen ENT for severe dysphagia and found to have bilateral vocal cord paralysis with this finding neurology start looking into the possibil ity of [place] Lamb syndrome or Van Cloe syndrome and in the ordering CSF for the GQ 1B which was done. Patient then ended up going for PEG tube and start nutrition via PEG tube. Gradually had improved slightly and ended up being ready to [facility] to [facility], she still will need 2 person physician assistant psychiatry at this point. Patient was doing slightly bit better but still have multi complication with prognosis at that point still not that great. Patient was supposed to go for follow-up eventually with the ENT along with following up with refrigerator repairman and dietitian on more regular basis. Apparently patient developed to have worsening complication today with increased abdominal pain then developed to have significant chest pain told the nurse about it when patient apparently has been having diarrhea with worsening nausea. EMS was called brought patient to the emergency department at [facility] her C. difficile culture came back positive for C. difficile initially given her original testing with CBC at the time was with severe polycythemia become much worse this time with her white blood cell down to 10,300 with mostly neutrophil differential. She had slightly elevated PTT but the time her sodium was down to 122 with a chloride 83 she was in acute kidney injury with creatinine of 1.59 and BUN of 47 also had significant abnormal liver function test and significantly elevated troponin. Her EKG shows finding consistent with ST depression in the inferior leads and lateral lead consistent with the possibility of acute inferior PA. Cardiology were called and initiated patient on heparin drip, and to continue series of troponin along with a EKGs. The patient from there on was admitted but her wishes wants not to be resuscitated or do any aggressive medical management, including mechanical ventilation or cardiac resuscitation. While she is still on hold in the emergency room to go up to her room patient declined furthermore developed to have slightly but worsening tachycardia repeat EKG and troponin continue to elevate showing again acute injury with ST dep ression in the inferior leads and lateral leads as well. The patient was to be admitted to see pulmonary/critical care, neurology, infectious disease. She was initiated on C. difficile treatment with vancomycin orally her medication where started as well nutrition was held for short period time and patient was kept on mild hydration at this time. The patient continued to decline the next 2 hours after her admission and hemodynamically become unstable and unresponsive the family at this time decide not to do any aggressive management just to keep her comfortable and sadly patient around 9:00 decline and . REVIEW OF SYSTEMS: CONSTITUTIONAL: Much thinner had lost some weight and look in mild distress. EYES: No icterus sclerae, no conjunctivitis. EARS, NOSE, MOUTH, THROAT, and FACE: No sore throat, lymphadenopathy, carotid bruits or deformity. Bilateral vocal cord paralysis. RESPIRATORY: Mild respiratory distress with mild dyspnea. CARDIOVASCULAR: Tachycardia with chest pain palpitation with? Of angina. GASTROINTESTINAL: Abdominal pain with nausea no vomiting positive diarrhea positive slight distention and discomfort. GENITOURINARY: Decreased urine output. INTEGUMENT/BREAST: Negative for any muscular injury with mild osteoarthritis.. HEMATOLOGIC/LYMPHATIC: Significant polycythemia and? Of DIC. MUSCULOSKELTAL: Generalized muscle and joint pain and discomfort. NEURLOGICAL: No LOC, Sz or syncope, blurred vision continue to have severe generalized weakness more in the lower extremity with bilateral vocal cord paralysis and hoarseness. BEHAVIORAL/PSYCH: Negative. ENDOCRINE: Negative. PHYSICAL EXAMINATION: General Appearance: Alert, with slight decrease in conscious and mild distress. Neck HEENT: Supple, no lymphadenopathy, no thyroid enlargement, no carotid bruits. Dry mucosa. Lungs: Decreased breath sound bilaterally with fine rhonchi positive crackles slight expiratory wheezes. Chest Wall: Decreased expansion with deep inspiration no tenderness and no deformity was found on exam, no costochondral pain or discomfort. Heart: Regular rate and rhythm, S1, S2 positive tachycardia positive S3 with mild irregularity. Back: Symmetric, no curvature, ROM normal, no CVA tenderness. Abdomen: PEG tube feeding looks fine slight distended with slight discomfort in the mid epigastric mid abdominal lower abdominal area. Extremities: Extremities normal, atraumatic, no cyanosis or edema. Pulses: 2+ and symmetric. Skin: Skin color, texture, tugor normal, no rashes or lesions. Neurologic: Alert with slight decreased level of consciousness not able to do gait exam. ASSESSMENT AND PLAN: _Acute severe chest pain with possible inferior infarct: With elevated troponin along with abnormal EKG consistent with the change. She had heart catheter on 23 December with no finding consistent with any blockage at this time, cardiology reviewed this finding this time kept her on heparin drip and prepare probably for more intervention in the next day or so patient at this point does not have an ST elevation but probably non-ST elevation PA and could be thrombus related from DIC or other etiology. _Severe tachycardia: Most likely the effect of her elevated troponin with possible inferior infarct along with cardiogenic shock. Continue to watch patient on heart monitor might need to repeat another echocardiogram. _Acute C. difficile with worsening symptoms can be consistent with C. difficile colitis causing worsening symptoms in her colon area specially with the large amount of antibiotic she received last 10 days while she still on high nutrition status through her PEG feeding the C. difficile probably is more aggressive this time causing worsening problem than expected. _Possible sepsis: Not a clear etiology despite the white blood cell is down the differential still more with neutrophil patient also has severe polycythemia can be reactive to sepsis not able to find source at this point no infection around the PEG feeding chest x-rays are clear but this could be from colitis related to her C. difficile on the edge of perforation. _Severe polycythemia with possible DIC causing was worsening symptoms such as a possibility of ischemic versus infectious colitis with the possibility of thrombus also in her body including coronary artery disease and other. She was started on heparin drip will continue hydration and will follow might need ICU might need pulmonary and hematology service. _Possible DIC: Etiology not a clear but probably from worsening sepsis this time can be from C. difficile can be from infection from elsewhere culture was done early in the ER waiting for final result in the meanwhile anticoagulation is helpful at this point. _Acute kidney injury: Most likely from the severity of her DIC, dehydration, cardiac shock and other. Continue supportive care watch her urine output and CMP. Nephrology consultation might be needed. _Severe hyponatremia: Despite the nutrition through her PEG feeding and despite the diarrhea from C. difficile not a clear why patient would be hyponatremic at this point will continue again supportive care gentle hydration repeat CMP and sodium. _Respiratory distress: Combination of cardiac along with her original COPD, continue ipratropium albuterol along with Pulmicort and pulmonary consultation will be done. 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 Will going continue neurology consultation. _Severe dysphagia: From vocal cord paralysis required PEG feeding. _Severe electrolyte imbalance with hyponatremia_, hypochloremia, hyperkalemia an d hypomagnesemia: Will continue gentle hydration and watch those level in the next 12 to 24 hours. _Abnormal liver function test: Most likely from shock liver syndrome along with severe hypoperfusion: Watch again for any further abnormality. _Hyperglycemia: Accu-Chek with sliding scale coverage will be done. _Hypothyroidism: Will continue levothyroxine 50 mcg daily. _Restless leg syndrome was on Requip 1 mg 3 times daily as needed. _Chronic peripheral neuropathy: Has been on gabapentin 400 mg 3 times a day. _GI prophylaxis: Start patient on pantoprazole. _DVT prophylaxis: Patient is on DIC and she is on heparin drip currently. CODE STATUS: DO NOT RESUSCITATE. Admit patient to the inpatient service for more than 2 night stay. Prognosis: Having to measure all the value of 4 patient is going through including the possibility of sepsis, DIC, acute inferior infarct, severe tachycardia, acute kidney injury, the severe electrolyte imbalance especially the severe hyponatremia and hypochloremia along with cardiogenic shock all this make possibility of her mortality is extremely high in the next 48 hours. Past Medical History Past Medical History: No Reported History, COPD, Hyperlipidemia, Thyroid Disorder Additional Past Medical History / Comment(s): back pain, hypoyhyroid History of Any Multi-Drug Resistant Organisms: C-DIFF Date of last positivie culture/infection: 01/12/24 Past Surgical History: Hysterectomy Past Anesthesia/Blood Transfusion Reactions: Unable to Obtain Past Psychological History: No Psychological Hx Reported Smoking Status: Current every day smoker Past Alcohol Use History: Daily Past Drug Use History: Marijuana Medications and Allergies Home Medications Medication Instructions Recorded Confirmed Type Cholecalciferol (Vitamin D3) 50 mcg PEG/G-TUBE DAILY 12/24/23 01/13/24 History [Vitamin D3 (50 Mcg = 2000 Iu)] Cyanocobalamin [Vitamin B-12] 500 mcg PEG/G-TUBE DAILY 12/24/23 01/13/24 History Escitalopram [Lexapro] 30 mg PEG/G-TUBE DAILY 12/24/23 01/13/24 History Levothyroxine Sodium [Synthroid] 50 mcg PEG/G-TUBE DAILY 12/24/23 01/13/24 History buPROPion XL [Wellbutrin XL] 300 mg PEG/G-TUBE DAILY 12/24/23 01/13/24 History rOPINIRole HCL [Requip] 1 mg PEG/G-TUBE TID 12/24/23 01/13/24 History Formoterol Fumarate [Perforomist] 20 mcg INHALATION RT-BID ml 01/03/24 01/13/24 Rx Ipratropium-Albuterol Nebulize 3 ml INHALATION RT-Q4H each 01/03/24 01/13/24 Rx [Duoneb 0.5 mg-3 mg/3 ml Soln] Nicotine 21Mg/24Hr Patch [Habitrol] 1 patch TRANSDERM DAILY patch 01/03/24 01/13/24 Rx Acetaminophen Tab [Tylenol] 650 mg PEG/G-TUBE Q6H PRN 01/13/24 01/13/24 History Aspirin 81 mg PEG/G-TUBE DAILY 01/13/24 01/13/24 History Atorvastatin [Lipitor] 10 mg PEG/G-TUBE HS 01/13/24 01/13/24 History Fluticasone Propion/Salmeterol 1 puff INHALATION RT-BID 01/13/24 01/13/24 History [Wixela 500-50 Inhub] Gabapentin [Neurontin] 400 mg PEG/G-TUBE TID 01/13/24 01/13/24 History Insulin Lispro See Protocol SQ Q6H 01/13/24 01/13/24 History Multivitamins, Thera [Multivitamin 1 tab PEG/G-TUBE DAILY 01/13/24 01/13/24 History (formulary)] Vancomycin HCl [Vancomycin HCl 125 mg PEG/G-TUBE QID 01/13/24 01/13/24 History Oral Soln] Allergies Allergy/AdvReac Type Severity Reaction Status Date / Time Penicillins Allergy Anaphylaxis Verified 01/13/24 14:54 Sulfa (Sulfonamide Allergy Anaphylaxis Verified 01/13/24 14:54 Antibiotics) Physical Exam Vitals: Vital Signs Temp Pulse Pulse Resp BP Pulse Ox 01/13/24 17:00 101.2 F H 01/13/24 16:48 120 H 24 119/92 96 01/13/24 15:24 120 H 20 116/103 97 01/13/24 13:34 113 H 01/13/24 13:25 112 H 17 102/81 97 01/13/24 12:13 115 H 18 120/79 96 01/13/24 11:46 131 H 92/65 100 01/13/24 11:42 135 H 75/49 01/13/24 11:36 138 H 22 101/71 99 01/13/24 10:48 98.2 F 131 H 22 119/95 96 Intake and Output 01/13/24 01/13/24 01/13/24 06:59 14:59 22:59 Other: Weight 68.039 kg Results CBC & Chem 7: 01/13/24 11:19 01/13/24 11:19 Labs: Abnormal Lab Results - Last 24 Hours (Table) 01/13/24 01/13/24 01/13/24 Range/Units 11:19 11:19 11:19 RBC 6.82 H (3.80-5.40) m/uL Hgb 19.9 H* D (11.4-16.0) gm/dL Hct 59.0 H* (34.0-46.0) % Neutrophils # (Manual) 7.80 H (1.3-7.7) k/uL Metamyelocytes # (Man) 0.21 H (0) k/uL INR (<1.2) APTT (22.0-30.0) sec Sodium 122 L (137-145) mmol/L Potassium 5.3 H (3.5-5.1) mmol/L Chloride 83 L (98-107) mmol/L BUN 47 H (7-17) mg/dL Creatinine 1.59 H (0.52-1.04) mg/dL Glucose 279 H (74-99) mg/dL Magnesium 3.0 H (1.6-2.3) mg/dL AST 55 H (14-36) U/L ALT 62 H (4-34) U/L Alkaline Phosphatase 145 H (38-126) U/L Troponin I 0.090 H* (0.000-0.034) ng/mL Total Protein 6.2 L (6.3-8.2) g/dL Albumin 3.0 L (3.5-5.0) g/dL 01/13/24 01/13/24 Range/Units 12:08 14:53 RBC (3.80-5.40) m/uL Hgb (11.4-16.0) gm/dL Hct (34.0-46.0) % Neutrophils # (Manual) (1.3-7.7) k/uL Metamyelocytes # (Man) (0) k/uL INR 1.2 H (<1.2) APTT 65.3 H (22.0-30.0) sec Sodium (137-145) mmol/L Potassium (3.5-5.1) mmol/L Chloride (98-107) mmol/L BUN (7-17) mg/dL Creatinine (0.52-1.04) mg/dL Glucose (74-99) mg/dL Magnesium (1.6-2.3) mg/dL AST (14-36) U/L ALT (4-34) U/L Alkaline Phosphatase (38-126) U/L Troponin I 0.075 H* (0.000-0.034) ng/mL Total Protein (6.3-8.2) g/dL Albumin (3.5-5.0) g/dL
--- NOTE | 2024-01-13 22:45 | P.DS ---
Providers Date of admission: 01/13/24 14:34 Attending physician: Enrrique Moser Consults: 01/13/24 14:32 Consult Physician Urgent Consulting Provider: [facility] Consult Reason/Comments: Chest pain Do you want consulting provider notified?: Yes 01/13/24 18:07 Consult Physician Routine Consulting Provider: Cali Koch Consult Reason/Comments: Vocal cord Paralysis ad COPD Do you want consulting provider notified?: Yes 01/13/24 18:08 Consult Physician Routine Consulting Provider: Bryon Parry Consult Reason/Comments: C diff Do you want consulting provider notified?: Yes 01/13/24 18:13 Consult Physician Routine Consulting Provider: Omar Richards Consult Reason/Comments: Altered MS Do you want consulting provider notified?: Yes Primary care physician: Lucy Hansen [facility] Course: HISTORY OF PRESENT ILLNESS: 68-year-old who is known from last admission on 12/24/2023 I was in at the time for severe chest pain with ST WI and severe shortness of breath along with severe electrolyte imbalance ended up going to the [facility] with Dr. Lu for an elevated troponin with ST elevation result came back with no acute finding consistent with any blockage require angioplasty or stent placement. Patient continued to have severe dyspnea and shortness of breath and ended up having an elevated D-dimer with CTA did not show any major abnormality with PE at the time patient was in acute respiratory failure require BiPAP with mild to moderate COPD exacerbation along with altered mental status; ended up going for CT of the brain with no major finding consistent with any bleed. Also has severe dehydration with acute kidney injury was on IV hydration initially which have helped some. Patient was acting at the time with sepsis with everything else going on ended up on IV antibiotics. The following 10 days patient was seen multi subspecialist consistent with neurology, pulmonary, ENT, infectious disease and was continue on BiPAP initially ended up running many testing including EEG, MRI of the brain, and up seen ENT for severe dysphagia and found to have bilateral vocal cord paralysis with this finding neurology start looking into the possibility of Will Lamb syndrome or Van Cole syndrome and in the ordering CSF for the GQ 1B which was done. Patient then ended up going for PEG tube and start nutrition via PEG tube. Gradually had improved slightly and ended up being ready to go to [facility] on 02 January, she still will need 2 person quality assistant at this point. Patient was doing slightly bit better but still have multi complication with prognosis at that point still not that great. Patient was supposed to go for follow-up eventually with the ENT along with following up with tooth clerk and dietitian on more regular basis. Apparently patient developed to have worsening complication today with increased abdominal pain then developed to have significant chest pain told the nurse about it when patient apparently has been having diarrhea with worsening nausea. EMS was called brought patient to the emergency department at [facility] her C. difficile culture came back positive for C. difficile initially given her original testing with CBC at the time was with severe polycythemia become much worse this time with her white blood cell down to 10,300 with mostly neutrophil differential. She had slightly elevated PTT but the time her sodium was down to 122 with a chloride 83 she was in acute kidney injury with creatinine of 1.59 and BUN of 47 also had significant abnormal liver function test and significan tly elevated troponin. Her EKG shows finding consistent with ST depression in the inferior leads and lateral lead consistent with the possibility of acute inferior WI. Cardiology were called and initiated patient on heparin drip, and to continue series of troponin along with a EKGs. The patient from there on was admitted but her wishes wants not to be resuscitated or do any aggressive medical management, including mechanical ventilation or cardiac resuscitation. While she is still on hold in the emergency room to go up to her room patient declined furthermore developed to have slightly but worsening tachycardia repeat EKG and troponin continue to elevate showing again acute injury with ST depression in the inferior leads and lateral leads as well. The patient was to be admitted to see pulmonary/critical care, neurology, infectious disease. She was initiated on C. difficile treatment with vancomycin orally her medication where started as well nutrition was held for short period time and patient was kept on mild hydration at this time. The patient continued to decline the next 2 hours after her admission and hemodynamically become unstable and unresponsive the family at this time decide not to do any aggressive management just to keep her comfortable and sadly patient around 9:00 decline and . REVIEW OF SYSTEMS: CONSTITUTIONAL: Much thinner had lost some weight and look in mild distress. EYES: No icterus sclerae, no conjunctivitis. EARS, NOSE, MOUTH, THROAT, and FACE: No sore throat, lymphadenopathy, carotid bruits or deformity. Bilateral vocal cord paralysis. RESPIRATORY: Mild respiratory distress with mild dyspnea. CARDIOVASCULAR: Tachycardia with chest pain palpitation with? Of angina. GASTROINTESTINAL: Abdominal pain with nausea no vomiting positive diarrhea positive slight distention and discomfort. GENITOURINARY: Decreased urine output. INTEGUMENT/BREAST: Negative for any muscular injury with mild osteoarthritis.. HEMATOLOGIC/LYMPHATIC: Significant polycythemia and? Of DIC. MUSCULOSKELTAL: Generalized muscle and joint pain and discomfort. NEURLOGICAL: No LOC, Sz or syncope, blurred vision continue to have severe generalized weakness more in the lower extremity with bilateral vocal cord paralysis and hoarseness. BEHAVIORAL/PSYCH: Negative. ENDOCRINE: Negative. PHYSICAL EXAMINATION: General Appearance: Alert, with slight decrease in conscious and mild distress. Neck HEENT: Supple, no lymphadenopathy, no thyroid enlargement, no carotid bruits. Dry mucosa. Lungs: Decreased breath sound bilaterally with fine rhonchi positive crackles slight expiratory wheezes. Chest Wall: Decreased expansion with deep inspiration no tenderness and no deformity was found on exam, no costochondral pain or discomfort. Heart: Regular rate and rhythm, S1, S2 positive tachycardia positive S3 with mild irregularity. Back: Symmetric, no curvature, ROM normal, no CVA tenderness. Abdomen: PEG tube feeding looks fine slight distended with slight discomfort in the mid epigastric mid abdominal lower abdominal area. Extremities: Extremities normal, atraumatic, no cyanosis or edema. Pulses: 2+ and symmetric. Skin: Skin color, texture, tugor normal, no rashes or lesions. Neurologic: Alert with slight decreased level of consciousness not able to do gait exam. ASSESSMENT AND PLAN: _Acute severe chest pain with possible inferior infarct: With elevated troponin along with abnormal EKG consistent with the change. She had heart catheter on 23 December with no finding consistent with any blockage at this time, cardiology reviewed this finding this time kept her on heparin drip and prepare probably for more intervention in the next day or so patient at this point does not have an ST elevation but probably non-ST elevation WI and could be thrombus related from DIC or other etiology. _Severe tachycardia: Most likely the effect of her elevated troponin with possib le inferior infarct along with cardiogenic shock. Continue to watch patient on heart monitor might need to repeat another echocardiogram. _Acute C. difficile with worsening symptoms can be consistent with C. difficile colitis causing worsening symptoms in her colon area specially with the large amount of antibiotic she received last 10 days while she still on high nutrition status through her PEG feeding the C. difficile probably is more aggressive this time causing worsening problem than expected. _Possible sepsis: Not a clear etiology despite the white blood cell is down the differential still more with neutrophil patient also has severe polycythemia can be reactive to sepsis not able to find source at this point no infection around the PEG feeding chest x-rays are clear but this could be from colitis related to her C. difficile on the edge of perforation. _Severe polycythemia with possible DIC causing was worsening symptoms such as a possibility of ischemic versus infectious colitis with the possibility of thrombus also in her body including coronary artery disease and other. She was started on heparin drip will continue hydration and will follow might need ICU might need pulmonary and hematology service. _Possible DIC: Etiology not a clear but probably from worsening sepsis this time can be from C. difficile can be from infection from elsewhere culture was done early in the ER waiting for final result in the meanwhile anticoagulation is helpful at this point. _Acute kidney injury: Most likely from the severity of her DIC, dehydration, cardiac shock and other. Continue supportive care watch her urine output and CMP. Nephrology consultation might be needed. _Severe hyponatremia: Despite the nutrition through her PEG feeding and despite the diarrhea from C. difficile not a clear why patient would be hyponatremic at this point will continue again supportive care gentle hydration repeat CMP and sodium. _Respiratory distress: Combination of cardiac along with her original COPD, continue ipratropium albuterol along with Pulmicort and pulmonary consultation will be done. 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 Will going continue neurology consultation. _Severe dysphagia: From vocal cord paralysis required PEG feeding. _Severe electrolyte imbalance with hyponatremia_, hypochloremia, hyperkalemia and hypomagnesemia: Will continue gentle hydration and watch those level in the next 12 to 24 hours. _Abnormal liver function test: Most likely from shock liver syndrome along with severe hypoperfusion: Watch again for any further abnormality. _Hyperglycemia: Accu-Chek with sliding scale coverage will be done. _Hypothyroidism: Will continue levothyroxine 50 mcg daily. _Restless leg syndrome was on Requip 1 mg 3 times daily as needed. _Chronic peripheral neuropathy: Has been on gabapentin 400 mg 3 times a day. _GI prophylaxis: Start patient on pantoprazole. _DVT prophylaxis: Patient is on DIC and she is on heparin drip currently. CODE STATUS: DO NOT RESUSCITATE. Admit patient to the inpatient service for more than 2 night stay. Prognosis: Having to measure all the value of 4 patient is going through including the possibility of sepsis, DIC, acute inferior infarct, severe tachyc ardia, acute kidney injury, the severe electrolyte imbalance especially the severe hyponatremia and hypochloremia along with cardiogenic shock all this make possibility of her mortality is extremely high in the next 48 hours. Hospital course: Her troponin continued to climb up and continue to have significant change in the EKG with the inferior leads. Patient continued to be tachycardic, around 9:00 patient become quite bit unresponsive and with her family wishes not to resuscitate and to keep her comfortable patient declined and around 915. 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 Prognosis: Patient had extreme high comorbidity and very high mortality from the minute she is admitted to the hospital, and her condition decline as expected related to all dimension complication and medical problem which ended up causing her mortality today on 01/13/2024 around 9:15 PM. Patient Condition at Discharge: Critical Plan - Discharge Summary New Discharge Prescriptions: No Action buPROPion XL [Wellbutrin XL] 300 mg PEG/G-TUBE DAILY Levothyroxine Sodium [Synthroid] 50 mcg PEG/G-TUBE DAILY rOPINIRole HCL [Requip] 1 mg PEG/G-TUBE TID Cyanocobalamin [Vitamin B-12] 500 mcg PEG/G-TUBE DAILY Cholecalciferol (Vitamin D3) [Vitamin D3 (50 Mcg = 2000 Iu)] 50 mcg PEG/G- TUBE DAILY Nicotine 21Mg/24Hr Patch [Habitrol] 1 patch TRANSDERM DAILY patch Vancomycin HCl [Vancomycin HCl Oral Soln] 125 mg PEG/G-TUBE QID Multivitamins, Thera [Multivitamin (formulary)] 1 tab PEG/G-TUBE DAILY Insulin Lispro See Protocol SQ Q6H Fluticasone Propion/Salmeterol [Wixela 500-50 Inhub] 1 puff INHALATION RT-BID Aspirin 81 mg PEG/G-TUBE DAILY Escitalopram [Lexapro] 30 mg PEG/G-TUBE DAILY Ipratropium-Albuterol Nebulize [Duoneb 0.5 mg-3 mg/3 ml Soln] 3 ml INHALATION RT-Q4H each Formoterol Fumarate [Perforomist] 20 mcg INHALATION RT-BID ml Acetaminophen Tab [Tylenol] 650 mg PEG/G-TUBE Q6H PRN PRN Reason: Fever And/ Or Pain Gabapentin [Neurontin] 400 mg PEG/G-TUBE TID Atorvastatin [Lipitor] 10 mg PEG/G-TUBE HS Discharge Medication List Cholecalciferol (Vitamin D3) [Vitamin D3 (50 Mcg = 2000 Iu)] 50 mcg PEG/G-TUBE DAILY 12/24/23 [History] Cyanocobalamin [Vitamin B-12] 500 mcg PEG/G-TUBE DAILY 12/24/23 [History] Escitalopram [Lexapro] 30 mg PEG/G-TUBE DAILY 12/24/23 [History] Levothyroxine Sodium [Synthroid] 50 mcg PEG/G-TUBE DAILY 12/24/23 [History] buPROPion XL [Wellbutrin XL] 300 mg PEG/G-TUBE DAILY 12/24/23 [History] rOPINIRole HCL [Requip] 1 mg PEG/G-TUBE TID 12/24/23 [History] Formoterol Fumarate [Perforomist] 20 mcg INHALATION RT-BID ml 01/03/24 [Rx] Ipratropium-Albuterol Nebulize [Duoneb 0.5 mg-3 mg/3 ml Soln] 3 ml INHALATION RT-Q4H each 01/03/24 [Rx] Nicotine 21Mg/24Hr Patch [Habitrol] 1 patch TRANSDERM DAILY patch 01/03/24 [Rx] Acetaminophen Tab [Tylenol] 650 mg PEG/G-TUBE Q6H PRN 01/13/24 [History] Aspirin 81 mg PEG/G-TUBE DAILY 01/13/24 [History] Atorvastatin [Lipitor] 10 mg PEG/G-TUBE HS 01/13/24 [History] Fluticasone Propion/Salmeterol [Wixela 500-50 Inhub] 1 puff INHALATION RT-BID 01/13/24 [History] Gabapentin [Neurontin] 400 mg PEG/G-TUBE TID 01/13/24 [History] Insulin Lispro See Protocol SQ Q6H 01/13/24 [History] Multivitamins, Thera [Multivitamin (formulary)] 1 tab PEG/G-TUBE DAILY 01/13/24 [History] Vancomycin HCl [Vancomycin HCl Oral Soln] 125 mg PEG/G-TUBE QID 01/13/24 [History] Follow up Appointment(s)/Referral(s): Lucy Hansen MD [Primary Care Provider] - 1-2 days Discharge Disposition:
[2024-01-14] MEDS ORDERED: LEVOTHYROXINE 50 MCG TAB PEG/G-TUBE SCH (06:30)
[2024-01-14] MEDS ORDERED: IPRATROPIUM-ALBUTEROL 3 ML NEB INHALATION SCH (08:00)
[2024-01-14] MEDS ORDERED: CHOLECALCIFEROL 25 MCG (1000 IU) TABLET PEG/G-TUBE SCH (09:00)
[2024-01-14] MEDS ORDERED: buPROPion XL 300 MG TAB.ER.24H PO SCH (09:00)
[2024-01-14] MEDS ORDERED: CYANOCOBALAMIN 500 MCG TAB PEG/G-TUBE SCH (09:00)
[2024-01-14] MEDS ORDERED: ASPIRIN 325 MG TAB PO SCH (09:00)
[2024-01-14] MEDS ORDERED: ASPIRIN 81 MG PEG/G-TUBE SCH (09:00)
[2024-01-14] MEDS ORDERED: ESCITALOPRAM 10 MG TAB PEG/G-TUBE SCH (09:00)
== END 2024-01-14 01:06 | disposition expired | DRG 871 ==
LOC: EC 10:39 → 3SCARD 14:34
PROVIDERS: ADMIT Internal Medicine Geriatric Medicine; ATTEND Internal Medicine Geriatric Medicine
DX: A41.9 Sepsis, unspecified organism (principal); D65 Disseminated intravascular coagulation [defibrination syndrome]; I21.19 ST elevation (STEMI) myocardial infarction involving other coronary artery of inferior wall; G04.90 Encephalitis and encephalomyelitis, unspecified; K72.00 Acute and subacute hepatic failure without coma; A04.72 Enterocolitis due to Clostridium difficile, not specified as recurrent; N17.9 Acute kidney failure, unspecified; E87.1 Hypo-osmolality and hyponatremia; G61.0 Guillain-Barre syndrome; I25.110 Atherosclerotic heart disease of native coronary artery with unstable angina pectoris; J44.1 Chronic obstructive pulmonary disease with (acute) exacerbation; I48.92 Unspecified atrial flutter; R57.0 Cardiogenic shock; I44.1 Atrioventricular block, second degree; J38.02 Paralysis of vocal cords and larynx, bilateral; M54.9 Dorsalgia, unspecified; E87.8 Other disorders of electrolyte and fluid balance, not elsewhere classified; R73.9 Hyperglycemia, unspecified; R65.20 Severe sepsis without septic shock; D75.1 Secondary polycythemia; E03.9 Hypothyroidism, unspecified; E78.00 Pure hypercholesterolemia, unspecified; E83.42 Hypomagnesemia; E86.0 Dehydration; E87.5 Hyperkalemia; F17.200 Nicotine dependence, unspecified, uncomplicated; G25.81 Restless legs syndrome; Z79.82 Long term (current) use of aspirin; Z79.890 Hormone replacement therapy; Z79.899 Other long term (current) drug therapy; Z93.1 Gastrostomy status; Z71.3 Dietary counseling and surveillance
CPT/HCPCS: 36415; 71045; 80053; 83735; 84484; 85025; 85610; 85730; 93005; 94640; 96365; 96366; 96375; 99285